=== PATIENT | female | born 1935 | race Caucasian/White ===

== ENCOUNTER 2022-04-01 15:12 | Emergency (ER) | payer OTHER ==
--- OUTSIDE RECORDS SUMMARY | 2022-04-01 15:38 | XMS REPORT | Continuity of Care Document ---
:1935 Author Organization [facility] t Address [address] [place] [address] Care Team Providers Name Role Phone Nathan Stephen MD Primary Care Physician [id number] Attending Clinician Unavailable Doctor Unassigned, Thiells Attending Clinician Unavailable Hannah Davison Anavella Attending Clinician Unava ilable Nancy Petit V Attending Clinician Unavailable Quincy Haines Attending Clinician Unavailable KNOW, DOES_NOT Attending Clinician Unavailable Jamin Finney Attending Clinician Unavailable Rajnancy_Pat Attending Clinician Unavailable Donya Craig Attending Clinician DONYA TAVARES Attending Clinician Unavailable Ferdinand Wallace S Attending Clinician MAURA THORNTON Attending Clinician Unavailable Maura Thornton MD Attending Clinician 1, [facility] Attending Clinician Unavailable [facility], [facility] Attending Clinician Unavailable Rodolfo Tijerina MD Attending Clinician [id number] Admitting Clinician Unavailable CARMEN LANDAVERDE Admitting Clinician Unavailable Jordon-Jose Rafael, Anav, Anav Admitting Clinician Unavailable KNOW, DOES_NOT Admitting Clinician Unavailable Jamin Finney Admitting Clinician Unavailable Rajnancy_Pat Admitting Clinician Unavailable DONYA TAVARES Admitting Clinician Unavailable NATHAN STEPHEN Admitting Clinician Unavailable Payers Payer Name Policy Type Policy Number Effective Date Expiration Date S jen [employer] [id number] [facility] [id number] Problems Condition Condition Condition Status Onset Resolution Last Treating Co mments Source Name Details Category Date Date Treatment Clinician Date Atypical 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 Unive rs chest pain chest pain 0-17 it y of 00:00: [place] [facility] Dizzy Dizzy Disease Active 2018-08 [facility] spells spells 0-17 ity of 00:00: [place] [facility] Essential Essential Disease Active 2018-08 Uni vers hypertensi hypertensi 0-17 it y of on on 00:00: [place] [facility] Dyslipidem Dyslipidem Disease Active 2018-08 U nivers ia ia 0-17 ity of 00:00: [place] [facility] KING (acute KING (acute Disease Active 2018-08 U nivers kidney kidney 0-16 ity of injury) injury) 00:00: [place] [id number] Medical Branch Pain Pain Disease Active Univers aggravated aggravated 2-18 it y of by by 00:00: [place] standing standing 00 Medica l Branch 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 low back 6-17 it y of pain pain 00:00: [place] [facility] "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-26 ity of syndrome syndrome 00:00: [place] [facility] 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 8-25 it[facility] of insufficie insuffic[place] [facility] [facility] CHF CHF Disease Active [facility] (congestiv (congestiv 8-25 it y of e heart e heart 00:00: [place] failure) failure) 00 Medica l Branch Allergies, Adverse Reactions, Alerts Allergy Allergy Status Severity Reaction(s) Onset Inactive Treating Comm ents Source Name Type Date Date Clinician Sulfa Propensi Active Itching Univers (Sulfona ty to 8-25 ity of mide adverse 00:00: [place] Antibiot reaction 00 Medica l ics) s Branch LATEX DRUG Active Rash Univers INGREDI 8-25 ity of 00:00: [place] 00 Medical Branch QUININE DRUG Active Anxiety Univers INGREDI 8-25 ity of 00:00: [place] 00 Medical Branch SULFA Drug Active ITCHING Univers (SULFONA Class 8-25 ity of MIDE 00:00: [place] ANTIBIOT 00 Medical ICS) Branch Latex Propensi Active Rash Univers ty to 8-25 ity of adverse 00:00: [place] reaction 00 Medical s Branch Quinine Propensi Active Anxiety Univer s ty to 8-25 ity of adverse 00:00: [place] reaction 00 Medical s Branch Social History Social Habit Start Date Stop Date Quantity Comments Source Alcohol intake 2019-04-10 2019-04-10 0 /d [facility] 00:00:00 00:00:00 [facility] [place] Tobacco use and 2015-03-31 2015-03-31 Never used [facility] exposure 00:00:00 00:00:00 [facility] [place] Sex Ass[birth year] [facility] 00:00:00 00:00:00 Medical Branch Smoking Status Start Date Stop Date Source Never smoker [facility] Medications Ordered Filled Start Stop Current Ordering Indication Dosage Frequency Signature Comments Components Source Medication Medication Date Date Medication? Clinician (SIG) Name Name clindamycin 2020- No [id number] 450mg Take 3 Univers 150 mg 10-27- capsules ity of capsule 00:00: 04:59 by mouth 3 Lg as 00 :00 (three) Medical times [place] daily for 7 days. colchicine 2019- No .6mg 0.6 mg, Uni vers (COLCRYS) 10-26 Oral, ity of tablet 0.6 22:47: 23:02 ONCE, 1 Lg as mg 00 :00 dose, [facility] 10/27/19 at Branch 1800, BARBIE ibuprofen 2019- No 600mg 600 mg, Uni vers (IBU) 10-26 Oral, ity of tablet 600 22:45: 21:56 ONCE, 1 Lg as mg 00 :00 dose, [facility] 10/27/19 at Branch 1745, BARBIE colchicine 2019- No 1.2mg 1.2 mg, Un goran (COLCRYS) 10-26 Oral, ity of tablet 1.2 22:45: 21:56 ONCE, 1 Lg as mg 00 :00 dose, Mon [facility] 10/27/19 at Branch 1745, BARBIE clindamycin 2020- No 600mg 600 mg, IV Univers in 5 % 10-26 Piggyback, ity of dextrose 22:00: 21:29 ONCE, 1 [place] (CLEOCIN) 00 :00 dose, Mon Medic al 600 mg/50 10/27/19 at [facility] ch mL IV 1700, 50 piggyback mL
Reas RTU 600 mg on for Anti-Infec tive: Documented Infection< br>Documen sathya Infection Site: Skin / Soft Tissue
Duration of Therapy: Other (see Comments)< br>Restric sathya use approved by: [facility] [employer] colchicine 2020- No [id number] .6mg Take 1 Univers 0.6 mg 10-26 tablet by ity of tablet 00:00: 04:59 mouth [place] 00 :00 daily for Medical 5 days. Branch Take until flare up resolves furosemide 2018-08 Yes 40mg Take 40 mg U nivers 40 mg 0-17 by mouth ity of tablet 22:49: daily. [address] Branch atenolol 25 2018-08 Yes 25mg Take 25 mg Univers mg tablet 0-17 by mouth ity of 22:49: daily. [address] gabapentin 2018-08 Yes 400mg Take 400 Un goran 400 mg 0-17 mg by ity of capsule 22:49: mouth 3 [place] [address] (three) Medical times Branch daily. omeprazole 2018-08 Yes 20mg Take 20 mg U nivers 20 mg 0-17 by mouth ity of capsule 22:49: daily. [address] Branch losartan-hy 2018- Yes 1{tbl} Take 1 Un goran drochloroth 0-17 tablet by ity of iazide 22:49: mouth [place] 50-12.5 mg 52 daily. Medical per tablet Branch HYDROcodone 2018-08 Yes 1{tbl} Take 1 Un goran -acetaminop 0-17 tablet by ity of hen 5-325 22:49: mouth [place] mg tablet 52 every 6 Medical (six) Branch hours as needed. furosemide 2018-08 Yes 40mg Take 40 mg U nivers 40 mg 0-17 by mouth ity of tablet 22:49: daily. [address] atenolol 25 2018-08 Yes 25mg Take 25 mg Univers mg tablet 0-17 by mouth ity of 22:49: daily. [address] gabapentin 2018-08 Yes 400mg Take 400 Un [facility]an 400 mg 0-17 mg by ity of capsule 22:49: mouth 3 [place] [address] (three) Medical times Branch daily. omeprazole 2018-08 Yes 20mg Take 20 mg U nivers 20 mg 0-17 by mouth ity of capsule 22:49: daily. [address] losartan-hy 2018-08 Yes 1{tbl} Take 1 Un [facility]an drochloroth 0-17 tablet by ity of iazide 22:49: mouth [place] 50-12.5 mg 52 daily. Medical per tablet Branch HYDROcodone 2018-08 Yes 1{tbl} Take 1 Un goran -acetaminop 0-17 tablet by ity of hen 5-325 22:49: mouth [place] mg tablet 52 every 6 Medical (six) Branch hours as needed. furosemide 2018-08 Yes 40mg Take 40 mg U nivers 40 mg 0-17 by mouth ity of tablet 22:49: daily. [address] atenolol 25 2018-08 Yes 25mg Take 25 mg Univers mg tablet 0-17 by mouth ity of 22:49: daily. [address] gabapentin 2018-08 Yes 400mg Take 400 Un [facility] 400 mg 0-17 mg by ity of capsule 22:49: mouth 3 [place] [address] (three) Medical times Branch daily. omeprazole 2018-08 Yes 20mg Take 20 mg U nivers 20 mg 0-17 by mouth ity of capsule 22:49: daily. [address] losartan-hy 2018- Yes 1{tbl} Take 1 Un goran drochloroth 0-17 tablet by ity of iazide 22:49: mouth [place] 50-12.5 mg 52 daily. Medical per tablet Branch HYDROcodone 2018-08 Yes 1{tbl} Take 1 Un goran -acetaminop 0-17 tablet by ity of hen 5-325 22:49: mouth [place] mg tablet 52 every 6 Medical (six) Branch hours as needed. furosemide 2018-08 Yes 40mg Take 40 mg U nivers 40 mg 0-17 by mouth ity of tablet 22:49: daily. [address] atenolol 25 2018-08 Yes 25mg Take 25 mg Univers mg tablet 0-17 by mouth ity of 22:49: daily. [address] gabapentin 2018-08 Yes 400mg Take 400 Un [facility] 400 mg 0-17 mg by ity of capsule 22:49: mouth 3 [place] [address] (three) Medical times Branch daily. omeprazole 2018-08 Yes 20mg Take 20 mg U nivers 20 mg 0-17 by mouth ity of capsule 22:49: daily. [address] losartan-hy 2018-08 Yes 1{tbl} Take 1 Un [facility]an drochloroth 0-17 tablet by ity of iazide 22:49: mouth [place] 50-12.5 mg 52 daily. Medical per tablet Branch HYDROcodone 2018-08 Yes 1{tbl} Take 1 Un goran -acetaminop 0-17 tablet by ity of hen 5-325 22:49: mouth [place] mg tablet 52 every 6 Medical (six) Branch hours as needed. furosemide 2018-08 Yes 40mg Take 40 mg U nivers 40 mg 0-17 by mouth ity of tablet 17:49: daily. [address] atenolol 25 2018-08 Yes 25mg Take 25 mg Univers mg tablet 0-17 by mouth ity of 17:49: daily. [address] gabapentin 2018-08 Yes 400mg Take 400 Un [facility] 400 mg 0-17 mg by ity of capsule 17:49: mouth 3 [place] [address] (three) Medical times Branch daily. omeprazole 2018-08 Yes 20mg Take 20 mg U nivers 20 mg 0-17 by mouth ity of capsule 17:49: daily. [address] losartan-hy 2018-08 Yes 1{tbl} Take 1 Un [place] drochloroth 0-17 tablet by ity of iazide 17:49: mouth [place] 50-12.5 mg 52 daily. Medical per tablet Branch HYDROcodone 2018-08 Yes 1{tbl} Take 1 Un goran -acetaminop 0-17 tablet by ity of hen 5-325 17:49: mouth [place] mg tablet 52 every 6 Medical (six) Branch hours as needed. furosemide 2018-08 Yes 40mg Take 40 mg U nivers 40 mg 0-17 by mouth ity of tablet 17:49: daily. [address] atenolol 25 2018-08 Yes 25mg Take 25 mg Univers mg tablet 0-17 by mouth ity of 17:49: daily. [address] gabapentin 2018-08 Yes 400mg Take 400 Un goran 400 mg 0-17 mg by ity of capsule 17:49: mouth 3 [place] [address] (three) Medical times Branch daily. omeprazole 2018-08 Yes 20mg Take 20 mg U nivers 20 mg 0-17 by mouth ity of capsule 17:49: daily. [address] losartan-hy 2018-08 Yes 1{tbl} Take 1 Un [place] drochloroth 0-17 tablet by ity of iazide 17:49: mouth [place] 50-12.5 mg 52 daily. Medical per tablet Branch HYDROcodone 2018-08 Yes 1{tbl} Take 1 Un goran -acetaminop 0-17 tablet by ity of hen 5-325 17:49: mouth [place] mg tablet 52 every 6 Medical (six) Branch hours as needed. furosemide 2018-08 Yes 40mg Take 40 mg U nivers 40 mg 0-17 by mouth ity of tablet 17:49: daily. [address] atenolol 25 2018-08 Yes 25mg Take 25 mg Univers mg tablet 0-17 by mouth ity of 17:49: daily. [address] gabapentin 2018-08 Yes 400mg Take 400 Un [facility] 400 mg 0-17 mg by ity of capsule 17:49: mouth 3 [place] [address] (three) Medical times Branch daily. omeprazole 2018-08 Yes 20mg Take 20 mg U nivers 20 mg 0-17 by mouth ity of capsule 17:49: daily. [address] losartan-hy 2018- Yes 1{tbl} Take 1 Un [place] drochloroth 0-17 tablet by ity of iazide 17:49: mouth [place] 50-12.5 mg 52 daily. Medical per tablet Branch HYDROcodone 2018-08 Yes 1{tbl} Take 1 Un goran -acetaminop 0-17 tablet by ity of hen 5-325 17:49: mouth [place] mg tablet 52 every 6 Medical (six) Branch hours as needed. furosemide 2018-08 Yes 40mg Take 40 mg U nivers 40 mg 0-17 by mouth ity of tablet 17:49: daily. [address] atenolol 25 2018-08 Yes 25mg Take 25 mg Univers mg tablet 0-17 by mouth ity of 17:49: daily. [address] gabapentin 2018-08 Yes 400mg Take 400 Un [place] 400 mg 0-17 mg by ity of capsule 17:49: mouth 3 [place] [address] (three) Medical times Branch daily. omeprazole 2018-08 Yes 20mg Take 20 mg U nivers 20 mg 0-17 by mouth ity of capsule 17:49: daily. [address] losartan-hy 2018-08 Yes 1{tbl} Take 1 Un [place] drochloroth 0-17 tablet by ity of iazide 17:49: mouth [place] 50-12.5 mg 52 daily. Medical per tablet Branch HYDROcodone 2018-08 Yes 1{tbl} Take 1 Un goran -acetaminop 0-17 tablet by ity of hen 5-325 17:49: mouth [place] mg tablet 52 every 6 Medical (six) Branch hours as needed. furosemide 2018-08 Yes 40mg Take 40 mg U nivers 40 mg 0-17 by mouth ity of tablet 17:49: daily. [address] atenolol 2018-08 Yes 25mg Take 25 mg Univers mg tablet 0-17 by mouth ity of 17:49: daily. [address] gabapentin 2018-08 Yes 400mg Take 400 Un [place] 400 mg 0-17 mg by ity of capsule 17:49: mouth 3 [place] [address] (three) Medical times Branch daily. omeprazole 2018-08 Yes 20mg Take 20 mg U nivers 20 mg 0-17 by mouth ity of capsule 17:49: daily. [address] losartan-hy 2018-08 Yes 1{tbl} Take 1 Un [place] drochloroth 0-17 tablet by ity of iazide 17:49: mouth [place] 50-12.5 mg 52 daily. Medical per tablet Branch HYDROcodone 2018-08 Yes 1{tbl} Take 1 Un goran -acetaminop 0-17 tablet by ity of hen 5-325 17:49: mouth [place] mg tablet 52 every 6 Medical (six) Branch hours as needed. furosemide 2018-08 Yes 40mg Take 40 mg U nivers 40 mg 0-17 by mouth ity of tablet 17:49: daily. [address] atenolol 2018-08 Yes 25mg Take 25 mg Univers mg tablet 0-17 by mouth ity of 17:49: daily. [place] [address] Medical Branch gabapentin 2018-08 Yes 400mg Take 400 Un [place] 400 mg 0-17 mg by ity of capsule 17:49: mouth 3 [place] [address] (three) Medical times Branch daily. omeprazole 2018-08 Yes 20mg Take 20 mg U nivers 20 mg 0-17 by mouth ity of capsule 17:49: daily. [place] [address] Medical Branch losartan-hy 2018-08 Yes 1{tbl} Take 1 Un [place] drochloroth 0-17 tablet by ity of iazide 17:49: mouth [place] 50-12.5 mg 52 daily. Medical per tablet Branch HYDROcodone 2018-08 Yes 1{tbl} Take 1 Un goran -acetaminop 0-17 tablet by ity of hen 5-325 17:49: mouth [place] mg tablet 52 every 6 Medical (six) Branch hours as needed. losartan-hy Yes 1{tbl} Take 1 Un [place] drochloroth 6-07 tablet by ity of iazide 20:11: mouth [place] 50-12.5 mg 07 daily. Medical per tablet Branch losartan-hy Yes 1{tbl} Take 1 Un [place] drochloroth 6-07 tablet by ity of iazide 20:11: mouth [place] 50-12.5 mg 07 daily. Medical per tablet Branch losartan-hy Yes 1{tbl} Take 1 Un [place] drochloroth 6-07 tablet by ity of iazide 20:11: mouth [place] 50-12.5 mg 07 daily. Medical per tablet Branch losartan-hy Yes 1{tbl} Take 1 Un [place] drochloroth 6-07 tablet by ity of iazide 20:11: mouth [place] 50-12.5 mg 07 daily. Medical per tablet Branch losartan-hy Yes 1{tbl} Take 1 Un [place] drochloroth 6-07 tablet by ity of iazide 20:11: mouth [place] 50-12.5 mg 07 daily. Medical per tablet Branch losartan-hy Yes 1{tbl} Take 1 Un [place] drochloroth 6-07 tablet by ity of iazide 20:11: mouth [place] 50-12.5 mg 07 daily. Medical per tablet Branch losartan-hy Yes 1{tbl} Take 1 Un [place] drochloroth 6-07 tablet by ity of iazide 20:11: mouth [place] 50-12.5 mg 07 daily. Medical per tablet Branch losartan-hy Yes 1{tbl} Take 1 Un [place] drochloroth 6-07 tablet by ity of iazide 20:11: mouth [place] 50-12.5 mg 07 daily. Medical per tablet Branch losartan-hy Yes 1{tbl} Take 1 Un [place] drochloroth 6-07 tablet by ity of iazide 20:11: mouth [place] 50-12.5 mg 07 daily. Medical per tablet Branch losartan-hy Yes 1{tbl} Take 1 Un [place] drochloroth 6-07 tablet by ity of iazide 20:11: mouth [place] 50-12.5 mg 07 daily. Medical per tablet Branch losartan-hy Yes 1{tbl} Take 1 Un [place] drochloroth 6-07 tablet by ity of iazide 20:11: mouth [place] 50-12.5 mg 07 daily. Medical per tablet Branch losartan-hy Yes 1{tbl} Take 1 Un [place] drochloroth 6-07 tablet by ity of iazide 20:11: mouth [place] 50-12.5 mg 07 daily. Medical per tablet Branch losartan-hy Yes 1{tbl} Take 1 Un [place] drochloroth 6-07 tablet by ity of iazide 20:11: mouth [place] 50-12.5 mg 07 daily. Medical per tablet Branch furosemide Yes 40mg Take 40 mg U nivers 40 mg 6-07 by mouth ity of tablet 19:53: daily. [place] [address] Medical Branch atenolol 25 Yes 25mg Take 25 mg Univers mg tablet 6-07 by mouth ity of 19:53: daily. [place] [address] Medical Branch gabapentin 2018- Yes 400mg Take 400 Un gor[facility] 400 mg 6-07 mg by ity of capsule 19:53: mouth 3 [place] 40 (three) Medical times Branch daily. omeprazole Yes 20mg Take 20 mg U nivers 20 mg 6-07 by mouth ity of capsule 19:53: daily. [place] [address] Medical Branch HYDROcodone 2019-0 Yes 1{tbl} Take 1 Un goran -acetaminop 6-07 tablet by ity of hen 5-325 19:53: mouth [place] mg tablet 40 every 6 Medical (six) Branch hours as needed. furosemide 2019-0 Yes 40mg Take 40 mg U nivers 40 mg 6-07 by mouth ity of tablet 19:53: daily. [address] atenolol 25 Yes 25mg Take 25 mg Univers mg tablet 6-07 by mouth ity of 19:53: daily. [address] gabapentin 2018- Yes 400mg Take 400 Un [place] 400 mg 6-07 mg by ity of capsule 19:53: mouth 3 [place] [address] (three) Medical times Branch daily. omeprazole 2018- Yes 20mg Take 20 mg U nivers 20 mg 6-07 by mouth ity of capsule 19:53: daily. [address] HYDROcodone Yes 1{tbl} Take 1 Un goran -acetaminop 6-07 tablet by ity of hen 5-325 19:53: mouth [place] mg tablet 40 every 6 Medical (six) Branch hours as needed. furosemide 2018- Yes 40mg Take 40 mg U nivers 40 mg 6-07 by mouth ity of tablet 19:53: daily. [address] atenolol 25 Yes 25mg Take 25 mg Univers mg tablet 6-07 by mouth ity of 19:53: daily. [address] gabapentin 2018-0 Yes 400mg Take 400 Un [place] 400 mg 6-07 mg by ity of capsule 19:53: mouth 3 [place] [address] (three) Medical times Branch daily. omeprazole 2019-0 Yes 20mg Take 20 mg U nivers 20 mg 6-07 by mouth ity of capsule 19:53: daily. [address] HYDROcodone 2018-0 Yes 1{tbl} Take 1 Un goran -acetaminop 6-07 tablet by ity of hen 5-325 19:53: mouth [place] mg tablet 40 every 6 Medical (six) Branch hours as needed. furosemide 2019-0 Yes 40mg Take 40 mg U nivers 40 mg 6-07 by mouth ity of tablet 19:53: daily. [address] atenolol 25 Yes 25mg Take 25 mg Univers mg tablet 6-07 by mouth ity of 19:53: daily. [address] gabapentin 2019-0 Yes 400mg Take 400 Un [place] 400 mg 6-07 mg by ity of capsule 19:53: mouth 3 [place] [address] (three) Medical times [place] daily. omeprazole 2019-0 Yes 20mg Take 20 mg U nivers 20 mg 6-07 by mouth ity of capsule 19:53: daily. [address] HYDROcodone 2019-0 Yes 1{tbl} Take 1 Un goran -acetaminop 6-07 tablet by ity of hen 5-325 19:53: mouth [place] mg tablet 40 every 6 Medical (six) Branch hours as needed. furosemide 2019-0 Yes 40mg Take 40 mg U nivers 40 mg 6-07 by mouth ity of tablet 19:53: daily. [address] atenolol 25 2018-0 Yes 25mg Take 25 mg Univers mg tablet 6-07 by mouth ity of 19:53: daily. [address] gabapentin 2019-0 Yes 400mg Take 400 Un [place] 400 mg 6-07 mg by ity of capsule 19:53: mouth 3 [place] [address] (three) Medical times [place] daily. omeprazole 2019-0 Yes 20mg Take 20 mg U nivers 20 mg 6-07 by mouth ity of capsule 19:53: daily. [address] HYDROcodone 2019-0 Yes 1{tbl} Take 1 Un goran -acetaminop 6-07 tablet by ity of hen 5-325 19:53: mouth [place] mg tablet 40 every 6 Medical (six) Branch hours as needed. furosemide 2019-0 Yes 40mg Take 40 mg U nivers 40 mg 6-07 by mouth ity of tablet 19:53: daily. [address] atenolol 25 2019-0 Yes 25mg Take 25 mg Univers mg tablet 6-07 by mouth ity of 19:53: daily. [address] gabapentin 2019-0 Yes 400mg Take 400 Un [place] 400 mg 6-07 mg by ity of capsule 19:53: mouth 3 [place] [address] (three) Medical times [place] daily. omeprazole 2019-0 Yes 20mg Take 20 mg U nivers 20 mg 6-07 by mouth ity of capsule 19:53: daily. [address] HYDROcodone 2019-0 Yes 1{tbl} Take 1 Un goran -acetaminop 6-07 tablet by ity of hen 5-325 19:53: mouth [place] mg tablet 40 every 6 Medical (six) Branch hours as needed. furosemide 2019-0 Yes 40mg Take 40 mg U nivers 40 mg 6-07 by mouth ity of tablet 19:53: daily. [address] atenolol 25 Yes 25mg Take 25 mg Univers mg tablet 6-07 by mouth ity of 19:53: daily. [address] gabapentin 2018-0 Yes 400mg Take 400 Un [place] 400 mg 6-07 mg by ity of capsule 19:53: mouth 3 [place] 40 (three) Medical times Branch daily. omeprazole 2019-0 Yes 20mg Take 20 mg U nivers 20 mg 6-07 by mouth ity of capsule 19:53: daily. [address] HYDROcodone 2018-0 Yes 1{tbl} Take 1 Un goran -acetaminop 6-07 tablet by ity of hen 5-325 19:53: mouth [place] mg tablet 40 every 6 Medical (six) Branch hours as needed. furosemide 2018- Yes 40mg Take 40 mg U nivers 40 mg 6-07 by mouth ity of tablet 19:53: daily. [address] atenolol Yes 25mg Take 25 mg Univers mg tablet 6-07 by mouth ity of 19:53: daily. [address] gabapentin 2018-0 Yes 400mg Take 400 Un [place] 400 mg 6-07 mg by ity of capsule 19:53: mouth 3 [place] [address] (three) Medical times [place] daily. omeprazole 2019-0 Yes 20mg Take 20 mg U nivers 20 mg 6-07 by mouth ity of capsule 19:53: daily. [address] HYDROcodone 2018-0 Yes 1{tbl} Take 1 Un goran -acetaminop 6-07 tablet by ity of hen 5-325 19:53: mouth [place] mg tablet 40 every 6 Medical (six) Branch hours as needed. furosemide 2019-0 Yes 40mg Take 40 mg U nivers 40 mg 6-07 by mouth ity of tablet 19:53: daily. [address] atenolol 25 0 Yes 25mg Take 25 mg Univers mg tablet 6-07 by mouth ity of 19:53: daily. [address] gabapentin 2018-0 Yes 400mg Take 400 Un [place] 400 mg 6-07 mg by ity of capsule 19:53: mouth 3 [place] 40 (three) Medical times Branch daily. omeprazole 2019-0 Yes 20mg Take 20 mg U nivers 20 mg 6-07 by mouth ity of capsule 19:53: daily. [address] HYDROcodone 2019-0 Yes 1{tbl} Take 1 Un goran -acetaminop 6-07 tablet by ity of hen 5-325 19:53: mouth [place] mg tablet 40 every 6 Medical (six) Branch hours as needed. furosemide 2019-0 Yes 40mg Take 40 mg U nivers 40 mg 6-07 by mouth ity of tablet 19:53: daily. [address] atenolol 25 2018-0 Yes 25mg Take 25 mg Univers mg tablet 6-07 by mouth ity of 19:53: daily. [address] gabapentin 2019-0 Yes 400mg Take 400 Un [place] 400 mg 6-07 mg by ity of capsule 19:53: mouth 3 [place] [address] (three) Medical times Branch daily. omeprazole 2019-0 Yes 20mg Take 20 mg U nivers 20 mg 6-07 by mouth ity of capsule 19:53: daily. [address] HYDROcodone 2019-0 Yes 1{tbl} Take 1 Un goran -acetaminop 6-07 tablet by ity of hen 5-325 19:53: mouth [place] mg tablet 40 every 6 Medical (six) Branch hours as needed. furosemide 2019-0 Yes 40mg Take 40 mg U nivers 40 mg 6-07 by mouth ity of tablet 19:53: daily. [address] atenolol 25 2018-0 Yes 25mg Take 25 mg Univers mg tablet 6-07 by mouth ity of 19:53: daily. [address] gabapentin 2019-0 Yes 400mg Take 400 Un [place] 400 mg 6-07 mg by ity of capsule 19:53: mouth 3 [place] [address] (three) Medical times Branch daily. omeprazole 2019-0 Yes 20mg Take 20 mg U nivers 20 mg 6-07 by mouth ity of capsule 19:53: daily. [address] HYDROcodone 2019-0 Yes 1{tbl} Take 1 Un goran -acetaminop 6-07 tablet by ity of hen 5-325 19:53: mouth [place] mg tablet 40 every 6 Medical (six) Branch hours as needed. furosemide 2019-0 Yes 40mg Take 40 mg U nivers 40 mg 6-07 by mouth ity of tablet 19:53: daily. [address] atenolol 25 Yes 25mg Take 25 mg Univers mg tablet 6-07 by mouth ity of 19:53: daily. [address] gabapentin 2019-0 Yes 400mg Take 400 Un [place] 400 mg 6-07 mg by ity of capsule 19:53: mouth 3 [place] [address] (three) Medical times [place] daily. omeprazole 2019- Yes 20mg Take 20 mg U nivers 20 mg 6-07 by mouth ity of capsule 19:53: daily. [address] HYDROcodone 2018- Yes 1{tbl} Take 1 Un gor[facility] -acetaminop 6-07 tablet by ity of hen 5-325 19:53: mouth [place] mg tablet 40 every 6 Medical (six) Branch hours as needed. furosemide Yes 40mg Take 40 mg U nivers 40 mg 6-07 by mouth ity of tablet 19:53: daily. [address] atenolol Yes 25mg Take 25 mg Univers mg tablet 6-07 by mouth ity of 19:53: daily. [address] gabapentin 2018- Yes 400mg Take 400 Un [place] 400 mg 6-07 mg by ity of capsule 19:53: mouth 3 [place] [address] (three) Medical times [place] daily. omeprazole 2019- Yes 20mg Take 20 mg U nivers 20 mg 6-07 by mouth ity of capsule 19:53: daily. [address] HYDROcodone 2018-0 Yes 1{tbl} Take 1 Un [facility] -acetaminop 6-07 tablet by ity of hen 5-325 19:53: mouth [place] mg tablet 40 every 6 Medical (six) Branch hours as needed. levothyroxi 2019-0 Yes Univer s ne 88 mcg 4-03 ity of tablet 00:00: [address] levothyroxi 2018-0 Yes Univer s ne 88 mcg 4-03 ity of tablet 00:00: [address] levothyroxi 2018-0 Yes Univer s ne 88 mcg 4-03 ity of tablet 00:00: [address] levothyroxi 2018-0 Yes Univer s ne 88 mcg 4-03 ity of tablet 00:00: [place] 00 [facility] levothyroxi 2019-[address] [place] [address] mcg 4-03 ity of tablet 00:00: [place] 00 [facility] levothyroxi 2019-0 Yes [place] 88 mcg 4-03 ity of tablet 00:00: [place] 00 [facility] levothyroxi 2019-0 Yes [place] 88 mcg 4-03 ity of tablet 00:00: [place] 00 [facility] levothyroxi 2019-0 Yes [place] 88 mcg 4-03 ity of tablet 00:00: [place] 00 [facility] levothyroxi 2019-0 Yes [place] 88 mcg 4-03 ity of tablet 00:00: [place] [address] [facility] Branch levothyroxi 2019-0 Yes [place] 88 mcg 4-03 ity of tablet 00:00: [place] [address] [facility] Branch levothyroxi 2019-0 Yes [place] 88 mcg 4-03 ity of tablet 00:00: [place] [address] [facility] Branch levothyroxi 2019-0 Yes [place] 88 mcg 4-03 ity of tablet 00:00: [place] [address] [facility] Branch levothyroxi 2019-0 Yes [place] 88 mcg 4-03 ity of tablet 00:00: [place] [address] [facility] Branch levothyroxi 2019-0 Yes [place] 88 mcg 4-03 ity of tablet 00:00: [place] [address] [facility] Branch levothyroxi 2019-0 Yes [place] 88 mcg 4-03 ity of tablet 00:00: [place] [address] [facility] Branch levothyroxi 2019-0 Yes [place] 88 mcg 4-03 ity of tablet 00:00: [place] [address] [facility] Branch levothyroxi 2019-0 Yes [place] 88 mcg 4-03 ity of tablet 00:00: [place] [address] [facility] Branch levothyroxi 2019-0 Yes [place] 88 mcg 4-03 ity of tablet 00:00: [place] [address] [facility] Branch levothyroxi 2019-0 Yes [place] 88 mcg 4-03 ity of tablet 00:00: [place] [address] [facility] Branch levothyroxi 2019-0 Yes [place] 88 mcg 4-03 ity of tablet 00:00: [place] [address] [facility] Branch levothyroxi 2019-0 Yes [place] 88 mcg 4-03 ity of tablet 00:00: [place] [address] [facility] Branch levothyroxi 2019-0 Yes Univer s ne 88 mcg 4-03 ity of tablet 00:00: [place] 00 [facility] levothyroxi 2019-0 Yes Univer s ne 88 mcg 4-03 ity of tablet 00:00: [place] 00 [facility] docusate 2019-0 Yes [id number] 100mg Take 1 U nivers 100 mg 2-22 capsule by ity of capsule 00:00: mouth [place] 00 daily. [facility] predniSONE 2019-0 Yes [id number] 40mg Take 2 Univers 20 mg 2-22 tablets by ity of tablet 00:00: mouth [place] 00 every 24 Medical (twenty-fo Branch ur) hours. docusate 2019-0 Yes [id number] 100mg Take 1 U nivers 100 mg 2-22 capsule by ity of capsule 00:00: mouth [place] 00 daily. [facility] predniSONE 2019-0 Yes [id number] 40mg Take 2 Univers 20 mg 2-22 tablets by ity of tablet 00:00: mouth [place] 00 every 24 Medical (twenty-fo Branch ur) hours. docusate 2019-0 Yes [id number] 100mg Take 1 U nivers 100 mg 2-22 capsule by ity of capsule 00:00: mouth [place] 00 daily. [facility] predniSONE 2019-0 Yes [id number] 40mg Take 2 Univers 20 mg 2-22 tablets by ity of tablet 00:00: mouth [place] 00 every 24 Medical (twenty-fo Branch ur) hours. docusate 2018-0 Yes [id number] 100mg Take 1 U nivers 100 mg 2-22 capsule by ity of capsule 00:00: mouth [place] 00 daily. [facility] Branch predniSONE 2019-0 Yes [id number] 40mg Take 2 Univers 20 mg 2-22 tablets by ity of tablet 00:00: mouth [place] 00 every 24 Medical (twenty-fo Branch ur) hours. docusate 2019-0 Yes [id number] 100mg Take 1 U nivers 100 mg 2-22 capsule by ity of capsule 00:00: mouth [place] 00 daily. [facility] predniSONE 2019-0 Yes [id number] 40mg Take 2 Univers 20 mg 2-22 tablets by ity of tablet 00:00: mouth [place] 00 every 24 Medical (twenty-fo Branch ur) hours. docusate 2019-0 Yes [id number] 100mg Take 1 U nivers 100 mg 2-22 capsule by ity of capsule 00:00: mouth [place] 00 daily. [facility] predniSONE 2019-0 Yes [id number] 40mg Take 2 Univers 20 mg 2-22 tablets by ity of tablet 00:00: mouth [place] 00 every 24 Medical (twenty-fo Branch ur) hours. docusate 2019-0 Yes [id number] 100mg Take 1 U nivers 100 mg 2-22 capsule by ity of capsule 00:00: mouth [place] 00 daily. [facility] predniSONE 2019-0 Yes [id number] 40mg Take 2 Univers 20 mg 2-22 tablets by ity of tablet 00:00: mouth [place] 00 every 24 Medical (twenty-fo Branch ur) hours. docusate 2019-0 Yes [id number] 100mg Take 1 U nivers 100 mg 2-22 capsule by ity of capsule 00:00: mouth [place] 00 daily. [facility] predniSONE 2019-0 Yes [id number] 40mg Take 2 Univers 20 mg 2-22 tablets by ity of tablet 00:00: mouth [place] 00 every 24 Medical (twenty-fo Branch ur) hours. docusate 2019-0 Yes [id number] 100mg Take 1 U nivers 100 mg 2-22 capsule by ity of capsule 00:00: mouth [place] 00 daily. [facility] docusate 2019-0 Yes [id number] 100mg Take 1 U nivers 100 mg 2-22 capsule by ity of capsule 00:00: mouth [place] 00 daily. [facility] predniSONE 2019-0 Yes [id number] 40mg Take 2 Univers 20 mg 2-22 tablets by ity of tablet 00:00: mouth [place] 00 every 24 Medical (twenty-fo Branch ur) hours. docusate 2019-0 Yes [id number] 100mg Take 1 U nivers 100 mg 2-22 capsule by ity of capsule 00:00: mouth [place] 00 daily. [facility] docusate 2019-0 Yes [id number] 100mg Take 1 U nivers 100 mg 2-22 capsule by ity of capsule 00:00: mouth [place] 00 daily. [facility] docusate 2019-0 Yes [id number] 100mg Take 1 U nivers 100 mg 2-22 capsule by ity of capsule 00:00: mouth [place] 00 daily. [facility] docusate 2019-0 Yes [id number] 100mg Take 1 U nivers 100 mg 2-22 capsule by ity of capsule 00:00: mouth [place] 00 daily. [facility] docusate 2019-0 Yes [id number] 100mg Take 1 U nivers 100 mg 2-22 capsule by ity of capsule 00:00: mouth [place] 00 daily. [facility] docusate 2018-0 Yes [id number] 100mg Take 1 U nivers 100 mg 2-22 capsule by ity of capsule 00:00: mouth [place] 00 daily. [facility] docusate Yes [id number] 100mg Take 1 U nivers 100 mg 2-22 capsule by ity of capsule 00:00: mouth [place] 00 daily. [facility] docusate Yes [id number] 100mg Take 1 U nivers 100 mg 2-22 capsule by ity of capsule 00:00: mouth [place] 00 daily. [facility] docusate Yes [id number] 100mg Take 1 U nivers 100 mg 2-22 capsule by ity of capsule 00:00: mouth [place] 00 daily. [facility] docusate Yes [id number] 100mg Take 1 U nivers 100 mg 2-22 capsule by ity of capsule 00:00: mouth [place] 00 daily. [facility] predniSONE 2018-0 Yes [id number] 40mg Take 2 Univers 20 mg 2-22 tablets by ity of tablet 00:00: mouth [place] 00 every 24 Medical (twenty-fo Branch ur) hours. docusate 0 Yes [id number] 100mg Take 1 U nivers 100 mg 2-22 capsule by ity of capsule 00:00: mouth [place] 00 daily. [facility] predniSONE 2019-0 Yes [id number] 40mg Take 2 Univers 20 mg 2-22 tablets by ity of tablet 00:00: mouth [place] 00 every 24 Medical (twenty-fo Branch ur) hours. docusate 2019-0 Yes [id number] 100mg Take 1 U nivers 100 mg 2-22 capsule by ity of capsule 00:00: mouth [place] 00 daily. [facility] predniSONE 2019-0 Yes [id number] 40mg Take 2 Univers 20 mg 2-22 tablets by ity of tablet 00:00: mouth [place] 00 every 24 Medical (twenty-fo Branch ur) hours. docusate 2019-0 Yes [id number] 100mg Take 1 U nivers 100 mg 2-22 capsule by ity of capsule 00:00: mouth [place] 00 daily. [facility] predniSONE 2019-0 Yes [id number] 40mg Take 2 Univers 20 mg 2-22 tablets by ity of tablet 00:00: mouth [place] 00 every 24 Medical (twenty-fo Branch ur) hours. carvedilol 2018-0 Yes 6.25mg Take 1 Uni vers 6.25 mg 6-21 tablet by ity of tablet 00:00: mouth 2 (two) Medical times Branch daily with meals. simvastatin 2018-0 Yes 20mg Take 1 Univ ers 20 mg 6-21 tablet by ity of tablet 00:00: mouth at [place] 00 bedtime. Medical [facility] aspirin 81 2018-0 Yes 81mg Take 1 Unive rs mg chewable 6-21 tablet by ity of tablet 00:00: mouth [place] 00 daily. [facility] clopidogrel 2018-0 Yes 75mg Take 1 Univ ers 75 mg 6-21 tablet by ity of tablet 00:00: mouth [place] 00 daily. [facility] carvedilol 2018-0 Yes 6.25mg Take 1 Uni vers 6.25 mg 6-21 tablet by ity of tablet 00:00: mouth 2 (two) Medical times Branch daily with meals. simvastatin 2018-0 Yes 20mg Take 1 Univ ers 20 mg 6-21 tablet by ity of tablet 00:00: mouth at [place] 00 bedtime. [facility] aspirin 81 2018-0 Yes 81mg Take 1 Unive rs mg chewable 6-21 tablet by ity of tablet 00:00: mouth [place] 00 daily. [facility] clopidogrel 2018-0 Yes 75mg Take 1 Univ ers 75 mg 6-21 tablet by ity of tablet 00:00: mouth [place] 00 daily. [facility] carvedilol 2018-0 Yes 6.25mg Take 1 Uni vers 6.25 mg 6-21 tablet by ity of tablet 00:00: mouth 2 (two) Medical times Branch daily with meals. simvastatin 2018-0 Yes 20mg Take 1 Univ ers 20 mg 6-21 tablet by ity of tablet 00:00: mouth at [place] 00 bedtime. Medical [facility] aspirin 81 2018-0 Yes 81mg Take 1 Unive rs mg chewable 6-21 tablet by ity of tablet 00:00: mouth [place] 00 daily. [facility] clopidogrel 2018-0 Yes 75mg Take 1 Univ ers 75 mg 6-21 tablet by ity of tablet 00:00: mouth [place] 00 daily. [facility] carvedilol 2018-0 Yes 6.25mg Take 1 Uni vers 6.25 mg 6-21 tablet by ity of tablet 00:00: mouth 2 (two) Medical times Branch daily with meals. simvastatin 2018-0 Yes 20mg Take 1 Univ ers 20 mg 6-21 tablet by ity of tablet 00:00: mouth at [place] 00 bedtime. [facility] aspirin 81 2018-0 Yes 81mg Take 1 Unive rs mg chewable 6-21 tablet by ity of tablet 00:00: mouth [place] 00 daily. [facility] clopidogrel 2018-0 Yes 75mg Take 1 Univ ers 75 mg 6-21 tablet by ity of tablet 00:00: mouth [place] 00 daily. [facility] carvedilol 2018-0 Yes 6.25mg Take 1 Uni vers 6.25 mg 6-21 tablet by ity of tablet 00:00: mouth (two) Medical times Branch daily with meals. simvastatin 2018-0 Yes 20mg Take 1 Univ ers 20 mg 6-21 tablet by ity of tablet 00:00: mouth at [place] 00 bedtime. [facility] aspirin 81 2018-0 Yes 81mg Take 1 Unive rs mg chewable 6-21 tablet by ity of tablet 00:00: mouth [place] 00 daily. [facility] clopidogrel 2018-0 Yes 75mg Take 1 Univ ers 75 mg 6-21 tablet by ity of tablet 00:00: mouth [place] 00 daily. [facility] carvedilol 2018-0 Yes 6.25mg Take 1 Uni vers 6.25 mg 6-21 tablet by ity of tablet 00:00: mouth (two) Medical times Branch daily with meals. simvastatin 2018-0 Yes 20mg Take 1 Univ ers 20 mg 6-21 tablet by ity of tablet 00:00: mouth at [place] 00 bedtime. [facility] aspirin 81 2018-0 Yes 81mg Take 1 Unive rs mg chewable 6-21 tablet by ity of tablet 00:00: mouth [place] 00 daily. [facility] clopidogrel 2018-0 Yes 75mg Take 1 Univ ers 75 mg 6-21 tablet by ity of tablet 00:00: mouth [place] 00 daily. [facility] carvedilol 2018-0 Yes 6.25mg Take 1 Uni vers 6.25 mg 6-21 tablet by ity of tablet 00:00: mouth 2 (two) Medical times Branch daily with meals. simvastatin 2018-0 Yes 20mg Take 1 Univ ers 20 mg 6-21 tablet by ity of tablet 00:00: mouth at [place] 00 bedtime. [facility] Branch carvedilol 2018-0 Yes 6.25mg Take 1 Uni vers 6.25 mg 6-21 tablet by ity of tablet 00:00: mouth 2 [place] 00 (two) Medical times Branch daily with meals. aspirin 81 2018-0 Yes 81mg Take 1 Unive rs mg chewable 6-21 tablet by ity of tablet 00:00: mouth [place] 00 daily. [facility] Branch clopidogrel 2018-0 Yes 75mg Take 1 Univ ers 75 mg 6-21 tablet by ity of tablet 00:00: mouth [place] 00 daily. [facility] Branch simvastatin 2018-0 Yes 20mg Take 1 Univ ers 20 mg 6-21 tablet by ity of tablet 00:00: mouth at [place] 00 bedtime. Medical Branch carvedilol 2018-0 Yes 6.25mg Take 1 Uni vers 6.25 mg 6-21 tablet by ity of tablet 00:00: mouth 2 (two) Medical times Branch daily with meals. simvastatin 2018-0 Yes 20mg Take 1 Univ ers 20 mg 6-21 tablet by ity of tablet 00:00: mouth at [place] 00 bedtime. [facility] aspirin 81 2018-0 Yes 81mg Take 1 Unive rs mg chewable 6-21 tablet by ity of tablet 00:00: mouth [place] 00 daily. [facility] aspirin 81 2018-0 Yes 81mg Take 1 Unive rs mg chewable 6-21 tablet by ity of tablet 00:00: mouth [place] 00 daily. [facility] clopidogrel 2018-0 Yes 75mg Take 1 Univ ers 75 mg 6-21 tablet by ity of tablet 00:00: mouth [place] 00 daily. [facility] clopidogrel 2018-0 Yes 75mg Take 1 Univ ers 75 mg 6-21 tablet by ity of tablet 00:00: mouth [place] 00 daily. [facility] simvastatin 2018-0 Yes 20mg Take 1 Univ ers 20 mg 6-21 tablet by ity of tablet 00:00: mouth at [place] 00 bedtime. [facility] aspirin 81 2018-0 Yes 81mg Take 1 Unive rs mg chewable 6-21 tablet by ity of tablet 00:00: mouth [place] 00 daily. [facility] clopidogrel 2018-0 Yes 75mg Take 1 Univ ers 75 mg 6-21 tablet by ity of tablet 00:00: mouth [place] 00 daily. [facility] Branch simvastatin 2018-0 Yes 20mg Take 1 Univ ers 20 mg 6-21 tablet by ity of tablet 00:00: mouth at [place] 00 bedtime. [facility] aspirin 81 2018-0 Yes 81mg Take 1 Unive rs mg chewable 6-21 tablet by ity of tablet 00:00: mouth [place] 00 daily. [facility] clopidogrel 2018-0 Yes 75mg Take 1 Univ ers 75 mg 6-21 tablet by ity of tablet 00:00: mouth [place] 00 daily. [facility] simvastatin 2018-0 Yes 20mg Take 1 Univ ers 20 mg 6-21 tablet by ity of tablet 00:00: mouth at [place] 00 bedtime. [facility] aspirin 81 2018-0 Yes 81mg Take 1 Unive rs mg chewable 6-21 tablet by ity of tablet 00:00: mouth [place] 00 daily. [facility] clopidogrel 2018-0 Yes 75mg Take 1 Univ ers 75 mg 6-21 tablet by ity of tablet 00:00: mouth [place] 00 daily. [facility] simvastatin 2018-0 Yes 20mg Take 1 Univ ers 20 mg 6-21 tablet by ity of tablet 00:00: mouth at [place] 00 bedtime. [facility] aspirin 81 2018-0 Yes 81mg Take 1 Unive rs mg chewable 6-21 tablet by ity of tablet 00:00: mouth [place] 00 daily. [facility] clopidogrel 2018-0 Yes 75mg Take 1 Univ ers 75 mg 6-21 tablet by ity of tablet 00:00: mouth [place] 00 daily. [facility] simvastatin 2018-0 Yes 20mg Take 1 Univ ers 20 mg 6-21 tablet by ity of tablet 00:00: mouth at [place] 00 bedtime. [facility] aspirin 81 2018-0 Yes 81mg Take 1 Unive rs mg chewable 6-21 tablet by ity of tablet 00:00: mouth [place] 00 daily. [facility] clopidogrel 2018-0 Yes 75mg Take 1 Univ ers 75 mg 6-21 tablet by ity of tablet 00:00: mouth [place] 00 daily. [facility] simvastatin 2018-0 Yes 20mg Take 1 Univ ers 20 mg 6-21 tablet by ity of tablet 00:00: mouth at [place] 00 bedtime. [facility] aspirin 81 2018-0 Yes 81mg Take 1 Unive rs mg chewable 6-21 tablet by ity of tablet 00:00: mouth [place] 00 daily. [facility] clopidogrel 2018-0 Yes 75mg Take 1 Univ ers 75 mg 6-21 tablet by ity of tablet 00:00: mouth [place] 00 daily. [facility] simvastatin 2018-0 Yes 20mg Take 1 Univ ers 20 mg 6-21 tablet by ity of tablet 00:00: mouth at [place] 00 bedtime. [facility] aspirin 81 2018-0 Yes 81mg Take 1 Unive rs mg chewable 6-21 tablet by ity of tablet 00:00: mouth [place] 00 daily. [facility] clopidogrel 2018-0 Yes 75mg Take 1 Univ ers 75 mg 6-21 tablet by ity of tablet 00:00: mouth [place] 00 daily. [facility] Branch simvastatin 2018-0 Yes 20mg Take 1 Univ ers 20 mg 6-21 tablet by ity of tablet 00:00: mouth at [place] 00 bedtime. [facility] aspirin 81 2018-0 Yes 81mg Take 1 Unive rs mg chewable 6-21 tablet by ity of tablet 00:00: mouth [place] 00 daily. [facility] clopidogrel 2018-0 Yes 75mg Take 1 Univ ers 75 mg 6-21 tablet by ity of tablet 00:00: mouth [place] 00 daily. [facility] Branch carvedilol 2018-0 Yes 6.25mg Take 1 Uni vers 6.25 mg 6-21 tablet by ity of tablet 00:00: mouth 2 [place] 00 (two) Medical times Branch daily with meals. simvastatin 2018-0 Yes 20mg Take 1 Univ ers 20 mg 6-21 tablet by ity of tablet 00:00: mouth at [place] 00 bedtime. Medical Branch aspirin 81 2018-0 Yes 81mg Take 1 Unive rs mg chewable 6-21 tablet by ity of tablet 00:00: mouth [place] 00 daily. [facility] Branch simvastatin 2018-0 Yes 20mg Take 1 Univ ers 20 mg 6-21 tablet by ity of tablet 00:00: mouth at [place] 00 bedtime. Medical Branch aspirin 81 2018-0 Yes 81mg Take 1 Unive rs mg chewable 6-21 tablet by ity of tablet 00:00: mouth [place] 00 daily. [facility] Branch clopidogrel 2018-0 Yes 75mg Take 1 Univ ers 75 mg 6-21 tablet by ity of tablet 00:00: mouth [place] 00 daily. [facility] Branch clopidogrel 2018-0 Yes 75mg Take 1 Univ ers 75 mg 6-21 tablet by ity of tablet 00:00: mouth [place] 00 daily. [facility] Branch simvastatin 2018-0 Yes 20mg Take 1 Univ ers 20 mg 6-21 tablet by ity of tablet 00:00: mouth at [place] 00 bedtime. Medical Branch aspirin 81 2018-0 Yes 81mg Take 1 Unive rs mg chewable 6-21 tablet by ity of tablet 00:00: mouth [place] 00 daily. [facility] Branch clopidogrel 2018-0 Yes 75mg Take 1 Univ ers 75 mg 6-21 tablet by ity of tablet 00:00: mouth [place] 00 daily. Medical Branch carvedilol 2018-0 Yes 6.25mg Take 1 Uni vers 6.25 mg 6-21 tablet by ity of tablet 00:00: mouth 2 00 (two) Medical times Branch daily with meals. simvastatin 2018-0 Yes 20mg Take 1 Univ ers 20 mg 6-21 tablet by ity of tablet 00:00: mouth at [place] 00 bedtime. Medical Branch aspirin 81 2018-0 Yes 81mg Take 1 Unive rs mg chewable 6-21 tablet by ity of tablet 00:00: mouth [place] 00 daily. Medical Branch clopidogrel 2018-0 Yes 75mg Take 1 Univ ers 75 mg 6-21 tablet by ity of tablet 00:00: mouth [place] 00 daily. Medical Branch carvedilol 2018-0 Yes 6.25mg Take 1 Uni vers 6.25 mg 6-21 tablet by ity of tablet 00:00: mouth 2 (two) Medical times Branch daily with meals. simvastatin 2018-0 Yes 20mg Take 1 Univ ers 20 mg 6-21 tablet by ity of tablet 00:00: mouth at [place] 00 bedtime. Medical Branch aspirin 81 2018-0 Yes 81mg Take 1 Unive rs mg chewable 6-21 tablet by ity of tablet 00:00: mouth [place] 00 daily. Medical Branch clopidogrel 2018-0 Yes 75mg Take 1 Univ ers 75 mg 6-21 tablet by ity of tablet 00:00: mouth [place] 00 daily. Medical Branch carvedilol 2018-0 Yes 6.25mg Take 1 Uni vers 6.25 mg 6-21 tablet by ity of tablet 00:00: mouth 2 (two) Medical times Branch daily with meals. simvastatin 2018-0 Yes 20mg Take 1 Univ ers 20 mg 6-21 tablet by ity of tablet 00:00: mouth at [place] 00 bedtime. Medical Branch aspirin 81 2018-0 Yes 81mg Take 1 Unive rs mg chewable 6-21 tablet by ity of tablet 00:00: mouth [place] 00 daily. Medical Branch clopidogrel 2018-0 Yes 75mg Take 1 Univ ers 75 mg 6-21 tablet by ity of tablet 00:00: mouth [place] 00 daily. Medical Branch Vital Signs Vital Name Observation Time Observation Value Comments Source Systolic blood 2019-10-27 22:00:00 147 mm[Hg] Univer sity of pressure [facility] Diastolic blood 2019-10-27 22:00:00 70 mm[Hg] Unive rsity of [facility] Heart rate 2019-10-27 22:00:00 59 /min Universi ty of [facility] Respiratory rate 2019-10-27 22:00:00 16 /min [facility] O[facility] saturation in 2019-10-27 22:00:00 96 /min [facility] Arterial blood by [facility] Pulse oximetry Branch Body temperature 2019-10-27 20:33:00 36.89 Mattie Univ ersity of [facility] Body weight 2019-10-27 20:33:00 77.111 kg Universi ty of [facility] BMI 2019-10-27 20:33:00 25.85 kg/m2 Universi ty [place] [facility] Systolic blood 2019-04-10 18:46:00 115 mm[Hg] Univer sity of [facility] Diastolic blood 2019-04-10 18:46:00 64 mm[Hg] Unive rsity of [facility] Heart rate 2019-04-10 18:46:00 94 /min Universi ty of [facility] Body height 2019-04-10 18:46:00 172.7 cm Universi ty of [facility] Body weight 2019-04-10 18:46:00 81.647 kg Universi ty of [facility] BMI 2019-04-10 18:46:00 27.37 kg/m2 Universi ty of [facility] Body weight 2019-03-21 19:23:00 81.647 kg Universi ty of [facility] [place] [facility] Branch BMI 2019-03-21 19:23:00 29.95 kg/m2 Universi ty of [facility] Body height 2019-03-20 14:32:00 165.1 cm Universi ty of [facility] Body weight 2019-03-20 14:32:00 81.647 kg Universi ty of [facility] BMI 2019-03-20 14:32:00 29.95 kg/m2 Universi ty [place] [facility] Systolic blood 2019-03-04 16:15:00 138 mm[Hg] Univer sity of pressure [facility] Diastolic blood 2019-03-04 16:15:00 60 mm[Hg] Unive rsity of pressure [facility] Heart rate 2019-03-04 16:15:00 64 /min Universi [facility] Body temperature 2019-03-04 16:15:00 36.39 Mattie [facility] Res[facility] rate 2019-03-04 16:15:00 16 /min [facility] Body height 2019-03-04 16:15:00 165.1 cm Universi ty [facility] Body weight 2019-03-04 16:15:00 81.647 kg [facility] BMI 2019-03-04 16:15:00 29.95 kg/m2 [facility] Procedures Procedure Date / Time Performing Clinician Source Performed HOME HEALTH - OTHER 2021-07-07 06:01:00 Doctor Unassigned, No Un [facility] of [facility] HOME HEALTH - OTHER 2021-06-21 06:01:00 Doctor Unassigned, No Un iversity of [facility] HOME HEALTH - OTHER 2021-06-01 05:01:00 Doctor Unassigned, No Un iversity of [facility] HOME HEALTH - OTHER 2021-05-24 05:01:00 Doctor Unassigned, No Un iversity of [facility] HOME HEALTH - OTHER 2021-05-10 05:01:00 Doctor Unassigned, No Un [facility]ity of [facility] HOME HEALTH - OTHER 2021-03-29 05:01:00 Doctor Unassigned, No Un iversity of [facility] CLINIC RECORD / SMR 2021-03-21 05:01:00 Doctor Unassigned, No Un iversity of [facility] [id number] 2021-01-28 00:00:00 E[facility] [id number] 2021-01-28 00:00:00 ENCPL [id number] 2021-01-28 00:00:00 ENCPL [id number] 2021-01-28 00:00:00 ENCPL [id number] 2021-01-28 00:00:00 ENCPL [id number] 2021-01-18 00:00:00 ENCPL [id number] 2021-01-18 00:00:00 ENCPL [id number] 2021-01-18 00:00:00 ENCPL [id number] 2021-01-18 00:00:00 ENCPL [id number] 2021-01-18 00:00:00 ENCPL XR WRIST 3+ VW LEFT 2019-10-27 21:13:49 Donya Tavares [facility] Medical Branch XR HAND 3+ VW LEFT 2019-10-27 21:13:34 Donya Tavares [facility] URIC ACID 2019-10-27 20:56:00 Donya Tavares [place] [facility] BASIC METABOLIC PANEL 2019-10-27 20:56:00 Donya Tavares [facility] (NA, K, CL, CO2, Medical Branch GLUCOSE, BUN, CREATININE, CA) CBC WITH DIFFERENTIAL 2019-10-27 20:56:00 Donya Tavares [facility] CONSENT/REFUSAL FOR 2019-10-27 20:21:16 Doctor Unassigned, No Un [facility] of [place] DIAGNOSIS AND TREATMENT Name Medical Branch HOME HEALTH - OTHER 2019-09-26 06:01:00 Doctor Unassigned, No Un [facility] of [place] Name Medical Branch NON [facility] 2019-03-26 05:01:00 Doctor Unassigned, No Univ ers[facility] of [place] DOCUMENTATION Name Medical Branch XR CHEST 2 VW 2019-03-20 17:10:47 Maura Thornton [facility] EKG-12 LEAD 2019-03-20 16:54:41 Doctor Unassigned, No [facility] [place] Name Medical Branch CONSENT/REFUSAL FOR 2019-03-20 16:10:12 Doctor Unassigned, No [facility] [place] DIAGNOSIS AND TREATMENT Name Medical Branch ASSIGNMENT OF BENEFITS 2019-03-20 16:08:11 Doctor Unassigned, [facility] Encounters Start End Encounter Admission Attending Care Care Encounter Source Date/Time Date/Time Type Type Clinicians Facility Department ID 2021-09-01 Outpatient [id number] [facility] REF [id number] E[facility] 12:17:49 0609 2021-07-07 2021-07-07 Orders Doctor ELAIDO [id number] Univers 00:00:00 00:00:00 Only Unassigned, BASSEM [id number] ity of [place] [id number] Lg as [id number] [address] 2021-06-27 2021-06-27 Outpatient R [facility] [id number] Univers 00:00:00 00:00:00 ity of [facility] 2021-06-22 2021-06-22 Outpatient R [facility] [id number] Univers 00:00:00 00:00:00 ity of [facility] 2021-06-21 2021-06-21 Orders Doctor ELADIO [id number] Univers 00:00:00 00:00:00 Only Unassigned, BASSEM [id number] [facility] of [place] [facility] [id number] Lg as [id number] [address] 2021-06-01 2021-06-01 Outpatient R [facility] [id number] Univers 00:00:00 00:00:00 [facility] [facility] 2021-06-01 2021-06-01 Orders Doctor ELADIO Hebert2.840.114 [id number] Univers 00:00:00 00:00:00 Only Unassigned, BASSEM 350.1.13.10 [facility] 4.2.7.2.686 Lg as [phone] [address] 2021-05-25 2021-05-25 Outpatient [facility] [id number] Univers 00:00:00 00:00:00 ity of [facility] 2021-05-24 2021-05-24 Orders Doctor ELADIO Hebert2.840.114 [id number] Univers 00:00:00 00:00:00 Only Unassigned, BASSEM 350.1.13.10 [facility] [place] 4.2.7.2.686 Lg as [phone] [address] 2021-05-10 2021-05-10 Orders Doctor ELADIO Hebert2.840.114 [id number] Univers 00:00:00 00:00:00 Only Unassigned, BASSEM 350.1.13.10 [facility] 4.2.7.2.686 Lg as [id number] [address] 2021-05-03 2021-05-03 Outpatient [facility] [id number] Univers 00:00:00 00:00:00 ity of [facility] 2021-04-26 2021-04-26 Outpatient [facility] [id number] Univers 00:00:00 00:00:00 ity of [facility] 2021-03-29 2021-03-29 Orders Doctor ELADIO 1.2.840.114 [id number] Univers 00:00:00 00:00:00 Only Unassigned, BASSEM 350.1.13.10 [facility] [place] 4.2.7.2.686 Lg as [phone] [address] 2021-03-21 2021-03-21 Orders Doctor ELADIO 1.2.840.114 [id number] Univers 00:00:00 00:00:00 Only Unassigned, BASSEM 350.1.13.10 [facility] [place] 4.2.7.2.686 Lg as [phone] [address] 2021-01-13 2021-01-31 Inpatient 3 [facility] ENCPL CVA 5551 ENCPL 14:22:00 14:54:00 temo, 0610 Hannah 2021-01-25 2021-01-25 Outpatient Jordon HCAPM LABO [id number] -[id number] [facility] 16:22:00 16:22:00 Jose Rafael [id number] Na fields [facility] 2021-01-25 2021-01-25 Outpatient Baca HCAPM RADI [id number] -[id number] [facility] 11:07:00 11:07:00 Huey [id number] fields [facility] 2021-01-25 2021-01-25 Outpatient LAURA HCACL LABO [id number] -20 [facility] 08:44:00 08:44:00 DOES_NOT [id number] [facility] 2021-01-24 2021-01-24 Outpatient Jamin Finney HCACL LABO LA5 3501-20 [facility] 19:55:00 19:55:00 [id number] [facility] 2021-01-24 2021-01-24 Outpatient Jamin Finney HCAPM LABO LA5 3501-20 [facility] 15:02:00 15:02:00 [id number] [facility] 2021-01-24 2021-01-24 Outpatient [place] HCACL LABO [id number] -20 [facility] 14:56:00 14:56:00 Kaitlynn Mantilla [facility] 2021-01-24 2021-01-24 Outpatient Jordon HCAPM LABO [id number] -[id number] [facility] 14:41:00 14:41:00 Kaitlynn Mantilla [facility] 2021-01-19 2021-01-19 Outpatient Jordon HCAPM LABO [id number] -20 [facility] 09:35:00 09:35:00 Hans Mantilla616 [facility] 2019-10-28 2019-10-28 Outpatient Raju_P MMG G [id number] 020 [place] 11:32:00 11:32:00 0[facility] 2019-10-27 2019-10-27 Emergency [facility] 1.2.486.563 [id number] Univers 15:28:56 18:24:00 Donya Winkler 350.1.13.10 i ty of [place] 4.2.7.2.686 [facility] [phone] [facility] [address] 2019-10-27 2019-10-27 Emergency X ANUSHA, [facility] ERT [id number] Univers 15:28:56 18:24:00 DONYA rodrigues of [facility] 2019-10-27 2019-10-27 Orders Doctor HENDRICKS 1.2.840.114 [id number] Univers 00:00:00 00:00:00 Only Unassigned, BASSEM 350.1.13.10 [facility] 4.2.7.2.686 [facility] [phone] [facility] [address] 2019-09-26 2019-09-26 Orders Doctor HENDRICKS 1.2.840.114 [id number] Univers 00:00:00 00:00:00 Only Unassigned, BASSEM 350.1.13.10 [facility] 4.2.7.2.686 Lg as [phone] [address] 2019-09-17 2019-09-17 Outpatient R [facility] [id number] Univers 00:00:00 00:00:00 ity of [facility] 2019-04-10 2019-04-10 Office Donato [facility] 1.2.840.114 [id number] Univers 13:46:13 14:32:35 Visit Ferdinand Fleming 350.1.13.10 it y of Surgical 4.2.7.2.686 Lg as Specialti [phone] Nc dical es 198 [facility] 2019-03-26 2019-03-26 [facility] N[facility] [id number] 25112 Univers 00:00:00 00:00:00 MAURA ity of [facility] 2019-03-26 2019-03-26 Orders Doctor HENDRICKS 1.2.840.114 [id number] Univers 00:00:00 00:00:00 Only Unassigned, BASSEM 350.1.13.10 [facility] 4.2.7.2.686 Lg as [phone] [address] 2019-03-21 2019-03-21 Telephone [facility] 1.2.840.114 [id number] Univers 00:00:00 00:00:00 Maura [facility] 350.1.13.10 it y of Surgical 4.2.7.2.686 Lg as Specialti [phone] Nc dical es 198 [facility] 2019-03-21 2019-03-21 Prep For [facility] 1.2.840.114 [id number] Univers 00:00:00 00:00:00 Surgery Maura [facility] 350.1.13.10 it y of Surgical 4.2.7.2.686 Lg as Specialti [phone] Nc dical es 198 [facility] 2019-03-20 2019-03-20 [facility] 1.2.840.114 [id number] Univers 11:08:03 23:59:00 Encounter Maura Winkler 350.1.13.10 ity of [place] 4.2.7.2.686 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 [phone] [facility] [address] 2019-03-20 2019-03-20 Hospital Ferdinand Sewell [facility] 1.2.840.11 4 [id number] Univers 11:07:54 11:07:54 Encounter Station, [facility] Heart [place] 350.1.13 .10 ity of [place] 4.2.7.2.686 [facility] [id number] [facility] [address] 2019-03-20 2019-03-20 Office Sewell [facility] 1.2.840.114 [id number] Univers 09:24:23 09:39:23 [facility] 350.1.13.10 [facility] y [facility] 4.2.7.2.686 Lg as Specialti [phone] Nc dical es 198 [facility] 2019-03-20 2019-03-20 Letter Raul [facility] 1.2.973.595 [id number] 9619 Univers 00:00:00 00:00:00 (Out) Maura Fleming 350.1.13.10 it y of Surgical 4.2.7.2.686 Lg as Specialti [phone] Nc dical es 198 [facility] 2019-03-04 2019-03-04 Office Breezy [facility] 1.2.840.114 [id number] Univers 10:17:23 11:01:19 Visit Rodolfo Connelly Cathi 350.1.13.10 ity of [place] 4.2.7.2.686 [facility] Professio [phone] Nc dical nal [address] Results Test Description Test Time Test Comments Results Result Comments Source CHEMISTRY MISCELLANEOUS TEST 2021-01-27 15:36:00 Test Item Value Reference Range Interpretation Comme nts [facility] CHEMISTR[facility] (test code = MISCCHEM) . DESCRIP. TEST NAME SAMPLE DESCRIPTION (test code = DESCRIPT) ORDERED SENDOUT TE ST ORDER DISPOSITION CHEMISTRY TEST [id number] 15:36:00 Test Item Value Reference Range Interpretation Comments CHEMISTRY TEST SEE RPT SENDOUT RPT RESULT: 0.11 RESULT (test code DESCRIP. ng/mLRefer ence = RESULTC) Internval: 0.00 -0.08 A procalcitonin ( PCT) level above 2.0 ng/mL on the firstday of ICU admission is associated with a high risk forprogres ethan to severe sepsis a nd/or septic shock.A PCT level below 0.5 ng/mL on the first da y of ICUadmission is associated with a low risk for progre ssionto severe sepsis a nd/or septic shock.No te: Concentrations <0.5 ng/mL do not ex clude aninfection, on account of loca lized infections (withoutsystemi c signs) which ca n be associated with such lowconcentratio ns, or a systemic infe ction in its initials tages (<6 hours).Furtherm ore, increased procalcitonin c an occur withoutinfectio n. PCT concentrations between 0.5 and 2.0 ng/mLshould be interpreted david ing into account th e patient'shistor y. It is recommended to retest PCT with in 6-24 hoursif any concentrations <2 ng/mL are obtai ivanna LHZ CHEMISTRY TEST [id number] 15:19:00 Test Item Value Reference Range Interpretation Comments CHEMISTRY TEST RESULT (test code = DESCRIP. SENDOUT RPT RESULTC) CHEMISTRY MISCELLANEOUS [id number] 15:19:00 Test Item Value Reference Range Interpretation Comments MISC CHEMISTRY (test code . DESCRIP. TEST NAME = MISCCHEM) SAMPLE DESCRIPTION (test ORDERED SENDOUT TEST DISPOSITION code = DESCRIPT) ORDER CBC W/AUTO [id number] 16:58:00 Test Item Value Reference Range Interpretation Comments WHITE BLOOD CELL 15.5 K/mm3 3.5-11.0 H (test code = WBC) RED BLOOD CELL (test 3.49 M/mm3 4.70-6.10 L code = RBC) HEMOGLOBIN (test code 10.0 G/DL 10.4-14.9 L = HGB) HEMATOCRIT (test code 30.9 % 31.5-44.1 L = HCT) MEAN CELL VOLUME 88.5 Fl 84.5-98.6 N (test code = MCV) MEAN CELL HGB (test 28.7 pg 27.0-34.2 N code = MCH) MEAN CELL HGB 32.4 G/DL 31.5-34.0 N CONCETRATION (test code = MCHC) RED CELL DISTRIBUTION 14.3 SD 11.5-14.5 N WIDTH (test code = RDW) PLATELET COUNT (test 406 K/mm3 150-450 N code = PLT) MEAN PLATELET VOLUME 10.60 fL 7.0-10.5 H (test code = MPV) NEUTROPHIL % (test 65.2 % 40-76 N code = NT%) IMMATURE GRANULOCYTE 1.3 % 0.0-5.0 N % (test code = IG%) LYMPHOCYTE % (test 16.2 % 20.5-51.1 L code = LY%) MONOCYTE % (test code 14.2 % 1.7-9.3 H = MO%) EOSINOPHIL % (test 2.6 % 0.0-6.0 N code = EO%) BASOPHIL % (test code 0.5 % 0.0-2.0 N = BA%) NUCLEATED RBC % (test 0.0 /100WBC% 0.0-1.0 N code = NRBC%) NEUTROPHIL # (test 10.1 K/mm3 1.8-7.6 H code = NT#) IMMATURE GRANULOCYTE 0.20 x10 3/uL 0.00-0.03 H # (test code = IG#) LYMPHOCYTE # (test 2.5 K/mm3 0.6-3.2 N code = LY#) MONOCYTE # (test code 2.2 K/mm3 0.3-1.1 H = MO#) EOSINOPHIL # (test 0.4 K/mm3 0.0-0.4 N code = EO#) BASOPHIL # (test code 0.1 K/mm3 0.0-0.1 N = BA#) NUCLEATED RBC # (test 0.0 K/mm3 0.0-0.1 N code = NRBC#) MANUAL DIFF REQUIRED NO DIFF/SCN CRITERIA SLIDE R EVIEW (test code = MDIFF) CONSISTA NT WITH AUTO DIFFERENTI AL. CBC W/AUTO [id number] 16:33:00 Test Item Value Reference Range Interpretation Comments WHITE BLOOD CELL (test code = WBC) 15.5 K/mm3 3.5-11.0 H RED BLOOD CELL (test code = RBC) 3.49 M/mm3 4.70-6.10 L HEMOGLOBIN (test code = HGB) 10.0 G/DL 10.4-14.9 L HEMATOCRIT (test code = HCT) 30.9 % 31.5-44.1 L MEAN CELL VOLUME (test code = MCV) 88.5 Fl 84.5-98.6 N MEAN CELL HGB (test code = MCH) 28.7 pg 27.0-34.2 N MEAN CELL HGB CONCETRATION (test 32.4 G/DL 31.5-34.0 N code = MCHC) RED CELL DISTRIBUTION WIDTH (test SD 11.5-14.5 N code = RDW) PLATELET COUNT (test code = PLT) 406 K/mm3 150-450 N MEAN PLATELET VOLUME (test code = fL 7.0-10.5 H MPV) NEUTROPHIL % (test code = NT%) % 40-76 N IMMATURE GRANULOCYTE % (test code % 0.0-5.0 N = IG%) LYMPHOCYTE % (test code = LY%) % 20.5-51.1 L MONOCYTE % (test code = MO%) % 1.7-9.3 H EOSINOPHIL % (test code = EO%) % 0.0-6.0 N BASOPHIL % (test code = BA%) % 0.0-2.0 N NUCLEATED RBC % (test code = /100WBC% 0.0-1.0 N NRBC%) NEUTROPHIL # (test code = NT#) K/mm3 1.8-7.6 H IMMATURE GRANULOCYTE # (test code x10 3/uL 0.00-0.03 H = IG#) LYMPHOCYTE # (test code = LY#) K/mm3 0.6-3.2 N MONOCYTE # (test code = MO#) K/mm3 0.3-1.1 H EOSINOPHIL # (test code = EO#) K/mm3 0.0-0.4 N BASOPHIL # (test code = BA#) K/mm3 0.0-0.1 N NUCLEATED RBC # (test code = K/mm3 0.0-0.1 N NRBC#) MANUAL DIFF REQUIRED (test code = DIFF/SCN CRITERIA MDIFF) - MRI LOW EXT W/O CONT [id number] 13:29:00 [facility] 1935 Sex: F FAX: Alfredo Little [phone] Camps: St: REG Name: HANNAH,LOI [facility] : 1935 Age/S: 85/F [address] Unit #: [id number] Loc: [place] [address] Phys: Quincy Haines MD Acct: [id number] Dis Date: Status: REG REF PHONE #: [phone] Exam Date: 01/25/2021 1324 FAX #: Reason: OSTEO EXAMS: CPT: [id number] MRI LOW EXT W/[place] [id number] EXAM: - MRI LOW EXT W/O CONT RT, - MRI LOWEXT W/O CONT RT HISTORY: Infection, osteomyelitis Location code:C3 COMPARISON: None available time of interpretation. TECHNIQUE: Multiplanar and multisequence MR images of the right tibia and fibula and right ankle were performed without intravenous contrast. FINDINGS: Bones: Susceptibility artifact about the knee orthopedic hardware is present. Patchy areas of abnormal decreased T1 and increased T2 signal intensity at the base of the 1st metatarsal and involving the distal medial cuneiform surrounding the 1st TMT joint is present. Additional areas of degenerative signal change about the midfoot and talonavicular joint is seen. Soft tissues: Ulceration plantar medial to the 1st TMT joint is seenwith T2 hyperintense cyst at the plantar medial aspect of the TMT joint measuring 9 x 7 mm in size. Increased T2 signal intensity within the dorsal subcutaneous tissues of the foot are present. Muscles/tendons: Abnormal increased T2 signal intensity in the musculature surrounding the interosseous ligament of the distal tibia and fibula is present. No tendinous disruption is seen. Mild increased T2 signal intensity in the short plantar flexor muscles is present. IMPRESSION: 1. Ulceration plantar medial to the 1st TMT joint is seen with adjacent 9 x 7 mm fluid collection and abnormal signal in the osseous structures about the 1st MTP joint. There is degenerative change throughout the mid foot and abnormal signal in the 1st TMT joint may be degenerative in nature however given the adjacent ulceration osteomyelitis is not excluded with the 9 mm fluid collection possibly representing abscess or ganglion cyst. 2. Dorsal subcutaneous edema about the visualized foot with myositis of the short plantar flexor muscles and in the musculature adjacent to the intraosseous ligament of the distal tibia and fibula. PAGE 1 Signed Report (CONTINUED) FAX: Alfredo Little [phone] Camps: St: REG---- Name: LOI YOUNG [facility] : 1935 Age/S: 85/F [address] [address] Unit #: [id number] Loc: [place] [address] Phys: Quincy Haines MD Acct: [id number] Dis Date: Status: REG REF PHONE #: [phone] Exam Date: 01/25/2021 8514 FAX #: Reason: OSTEO EXAMS: CPT: [id number] MRI LOW EXT W/[place] [address] <Continued> at 1329 Reported and signed by: Naren Power MD CC: Quincy Arzate MD Technologist: RT Armani(R)(MR) Transcribed Date/Time/By: 01/25/2021 (6285) :[email or web address] Orig Print D/T: S: 0 01/25/2021 (0248) PAGE 2 Signed Report- MRI LOW EXT W/O CONT [id number] 13:29:00[facility] : 1935 Sex: F FAX: Alfredo Little [phone] Camps: St: REG Name: LOI YOUNG [facility] : 1935 Age/S: 85/F [address] [address] Unit #: [id number] Loc: [place] [address] Phys: Quincy Haines MD Acct: [id number] Dis Date: Status: REG REF PHONE #: [phone] Exam Date: 01/25/2021 1236 FAX #: Reason : OSTEO EXAMS: CPT: [id number] MRI LOW EXT W/[place] [id number] EXAM: - MRI LOW EXT W/O CONT RT, - MRI LOW EXT W/O CONT RT HISTORY: Infection, osteomyelitis Location code:C3 COMPARISON: None available time of interpretation. TECHNIQUE: Multiplanar and multisequence MR images of the right tibia and fibulaand right ankle were performed without intravenous contrast. FINDINGS: Bones: Susceptibility artifact about the knee orthopedic hardware is present. Patchy areas of abnormal decreased T1 and increased T2 signal intensity at the base of the 1st metatarsal and involving the distal medial cuneiform surrounding the 1st TMT joint is present. Additional areas of degenerative signal change about the midfootand talonavicular joint is seen. Soft tissues: Ulceration plantar medial to the 1st TMT joint is seen with T2 hyperintense cyst at the plantar medial aspect of the TMT joint measuring 9 x 7 mm in size.Increased T2 signal intensity within the dorsal subcutaneous tissues of the foot are present. Muscles /tendons: Abnormal increased T2 signal intensity in the musculature surrounding the interosseous ligament of the distal tibia and fibula is present. No tendinous disruption is seen. Mild increased T2 signal intensity in the short plantar flexor muscles is present. IMPRESSION: 1. Ulceration plantar medial to the 1st TMT joint is seen with adjacent 9 x 7 mm fluid collection and abnormal signal in the osseous structures about the 1st MTP joint. There is degenerative change throughout the mid foot and abnormal signal in the 1st TMT joint may be degenerative in nature however given the adjacent ulceration osteomyelitis is not excluded with the 9 mm fluid collection possibly representing abscess or ganglion cyst. 2. Dorsal subcutaneous edema about the visualized foot with myositis of the short plantar flexor muscles and in the musculature adjacent to the intraosseous ligament of the distal tibia and fibula. PAGE 1 Signed Report (CONTINUED) FAX: Cleve LaneBacaAlfredo Estrada [phone] Camps: PM St: REG--- Name: LOI YOUNG [facility] : 1935 Age/S: 85/F [address] [address] Unit #: [id number] Loc: [place] [address] Phys: Quincy Haines MD Acct: [id number] Dis Date: Status: REG REF PHONE #: [phone] Exam Date: 01/25/2021 1236 FAX #: Reason: OSTEO EXAMS: CPT: [id number] MRI LOW EXT W/[place] [address] <Continued> at 1329 Reported and signed by: Naren Power MD CC: Quincy Arzate MD Technologist: Lolis Lowery RT(R)(MR) Transcribed Date/Time/By: 01/25/2021 (2740) :[email or web address] Orig Print D/T: S: (0649) PAGE 2 Signed ReportSED RATE [id number] 20:44:00 Test Item Value Reference Range Interpretation Comments SED RATE MANUEL (test code = 108 mm/hr 0-20 H SEDW) CBC W/AUTO [id number] 20:44:00 Test Item Value Reference Range Interpretation Comments WHITE BLOOD CELL 15.6 K/mm3 3.5-11.0 H (test code = WBC) RED BLOOD CELL (test 3.76 M/mm3 4.70-6.10 L code = RBC) HEMOGLOBIN (test code 11.1 G/DL 10.4-14.9 N = HGB) HEMATOCRIT (test code 34.2 % 31.5-44.1 N = HCT) MEAN CELL VOLUME 91.0 Fl 84.5-98.6 N (test code = MCV) MEAN CELL HGB (test 29.5 pg 27.0-34.2 N code = MCH) MEAN CELL HGB 32.5 G/DL 31.5-34.0 N CONCETRATION (test code = MCHC) RED CELL DISTRIBUTION 14.1 SD 11.5-14.5 N WIDTH (test code = RDW) PLATELET COUNT (test 439 K/mm3 150-450 N code = PLT) MEAN PLATELET VOLUME 10.80 fL 7.0-10.5 H (test code = MPV) NEUTROPHIL % (test 70.3 % 40-76 N code = NT%) IMMATURE GRANULOCYTE 1.2 % 0.0-5.0 N % (test code = IG%) LYMPHOCYTE % (test 13.9 % 20.5-51.1 L code = LY%) MONOCYTE % (test code 12.8 % 1.7-9.3 H = MO%) EOSINOPHIL % (test 1.2 % 0.0-6.0 N code = EO%) BASOPHIL % (test code 0.6 % 0.0-2.0 N = BA%) NUCLEATED RBC % (test 0.0 /100WBC% 0.0-1.0 N code = NRBC%) NEUTROPHIL # (test 10.9 K/mm3 1.8-7.6 H code = NT#) IMMATURE GRANULOCYTE 0.18 x10 3/uL 0.00-0.03 H # (test code = IG#) LYMPHOCYTE # (test 2.2 K/mm3 0.6-3.2 N code = LY#) MONOCYTE # (test code 2.0 K/mm3 0.3-1.1 H = MO#) EOSINOPHIL # (test 0.2 K/mm3 0.0-0.4 N code = EO#) BASOPHIL # (test code 0.1 K/mm3 0.0-0.1 N = BA#) NUCLEATED RBC # (test 0.0 K/mm3 0.0-0.1 N code = NRBC#) MANUAL DIFF REQUIRED NO DIFF/SCN CRITERIA SLIDE R EVIEW (test code = MDIFF) CONSISTA NT WITH AUTO DIFFERENTI AL. SED [id number] 20:44:00 Test Item Value Reference Range Interpretation Comments SED RATE (test code = SEDW) 108 mm/hr 0-20 H CBC W/AUTO [id number] 16:34:00 Test Item Value Reference Range Interpretation Comments WHITE BLOOD CELL 15.6 K/mm3 3.5-11.0 H (test code = WBC) RED BLOOD CELL (test 3.76 M/mm3 4.70-6.10 L code = RBC) HEMOGLOBIN (test code 11.1 G/DL 10.4-14.9 N = HGB) HEMATOCRIT (test code 34.2 % 31.5-44.1 N = HCT) MEAN CELL VOLUME 91.0 Fl 84.5-98.6 N (test code = MCV) MEAN CELL HGB (test 29.5 pg 27.0-34.2 N code = MCH) MEAN CELL HGB 32.5 G/DL 31.5-34.0 N CONCETRATION (test code = MCHC) RED CELL DISTRIBUTION 14.1 SD 11.5-14.5 N WIDTH (test code = RDW) PLATELET COUNT (test 439 K/mm3 150-450 N code = PLT) MEAN PLATELET VOLUME 10.80 fL 7.0-10.5 H (test code = MPV) NEUTROPHIL % (test 70.3 % 40-76 N code = NT%) IMMATURE GRANULOCYTE 1.2 % 0.0-5.0 N % (test code = IG%) LYMPHOCYTE % (test 13.9 % 20.5-51.1 L code = LY%) MONOCYTE % (test code 12.8 % 1.7-9.3 H = MO%) EOSINOPHIL % (test 1.2 % 0.0-6.0 N code = EO%) BASOPHIL % (test code 0.6 % 0.0-2.0 N = BA%) NUCLEATED RBC % (test 0.0 /100WBC% 0.0-1.0 N code = NRBC%) NEUTROPHIL # (test 10.9 K/mm3 1.8-7.6 H code = NT#) IMMATURE GRANULOCYTE 0.18 x10 3/uL 0.00-0.03 H # (test code = IG#) LYMPHOCYTE # (test 2.2 K/mm3 0.6-3.2 N code = LY#) MONOCYTE # (test code 2.0 K/mm3 0.3-1.1 H = MO#) EOSINOPHIL # (test 0.2 K/mm3 0.0-0.4 N code = EO#) BASOPHIL # (test code 0.1 K/mm3 0.0-0.1 N = BA#) NUCLEATED RBC # (test 0.0 K/mm3 0.0-0.1 N code = NRBC#) MANUAL DIFF REQUIRED NO DIFF/SCN CRITERIA SLIDE R EVIEW (test code = MDIFF) CONSISTA NT WITH AUTO DIFFERENTI AL. SED [id number] 16:34:00 Test Item Value Reference Range Interpretation Comments SED RATE (test code = SEDW) mm/hr 0-30 SED [id number] 15:30:00 Test Item Value Reference Range Interpretation Comments SED RATE (test code = SEDW) mm/hr 0-30 PROTHROMBIN [id number] 15:30:00 Test Item Value Reference Range Interpretation Comments PT PATIENT (test code = PTP) 14.2 SECONDS 9.3-12.9 H INTERNATIONAL NORMAL RATIO 1.26 INR Unit 0.8-1.2 H (test code = INR) COMPREHENSIVE METABOLIC [id number] 15:30:00 Test Item Value Reference Range Interpretation Comments SODIUM (test code = NA) 132 mmol/L 134-147 L POTASSIUM (test code = K) 4.2 mmol/L 3.4-5.0 N CHLORIDE (test code = CL) 95 mmol/L 100-108 L CARBON DIOXIDE (test code = CO2) 30 mmol/L 21-32 N ANION GAP (test code = GAP) 7.0 GAP calc 4.0-15.0 N GLUCOSE (test code = GLU) 192 MG/DL 70-110 H BLOOD UREA NITROGEN (test code = 41 MG/DL 7-18 H BUN) GLOMERULAR FILTRATION RATE (test 45 estGFR >60 L code = GFR) CREATININE (test code = CREAT) 1.2 MG/DL 0.6-1.0 H TOTAL PROTEIN (test code = PROT) 7.7 G/DL 6.4-8.2 N ALBUMIN (test code = ALB) 2.7 G/DL 3.4-5.0 L GLOBULIN (test code = GLOB) 5.0 GM/dL ALBUMIN/GLOBULIN RATIO (test 0.5 RATIO 1.2-2.2 L code = A/G) CALCIUM (test code = CA) 9.3 MG/DL 8.5-10.1 N BILIRUBIN TOTAL (test code = 0.30 MG/DL 0.2-1.2 N BILT) SGOT/AST (test code = AST) 27 Unit/L 15-37 N SGPT/ALT (test code = ALT) 27 Unit/L 12-78 N ALKALINE PHOSPHATASE TOTAL (test 156 Unit/L 45-117 H code = ALKP) URIC [id number] 15:30:00 Test Item Value Reference Range Interpretation Comments URIC ACID (test code = URIC) 7.5 MG/DL 2.6-6.0 H C REACTIVE [id number] 15:30:00 Test Item Value Reference Range Interpretation Comments C REACTIVE PROTEIN (test code = 14.400 MG/DL 0.000-0.3 H CRP) CBC W/AUTO [id number] 15:30:00 Test Item Value Reference Range Interpretation Comments WHITE BLOOD CELL (test code = WBC) 15.6 K/mm3 3.5-11.0 H RED BLOOD CELL (test code = RBC) 3.76 M/mm3 4.70-6.10 L HEMOGLOBIN (test code = HGB) 11.1 G/DL 10.4-14.9 N HEMATOCRIT (test code = HCT) 34.2 % 31.5-44.1 N MEAN CELL VOLUME (test code = MCV) 91.0 Fl 84.5-98.6 N MEAN CELL HGB (test code = MCH) 29.5 pg 27.0-34.2 N MEAN CELL HGB CONCETRATION (test 32.5 G/DL 31.5-34.0 N code = MCHC) RED CELL DISTRIBUTION WIDTH (test SD 11.5-14.5 N code = RDW) PLATELET COUNT (test code = PLT) 439 K/mm3 150-450 N MEAN PLATELET VOLUME (test code = fL 7.0-10.5 H MPV) NEUTROPHIL % (test code = NT%) % 40-76 N IMMATURE GRANULOCYTE % (test code % 0.0-5.0 N = IG%) LYMPHOCYTE % (test code = LY%) % 20.5-51.1 L MONOCYTE % (test code = MO%) % 1.7-9.3 H EOSINOPHIL % (test code = EO%) % 0.0-6.0 N BASOPHIL % (test code = BA%) % 0.0-2.0 N NUCLEATED RBC % (test code = /100WBC% 0.0-1.0 N NRBC%) NEUTROPHIL # (test code = NT#) K/mm3 1.8-7.6 H IMMATURE GRANULOCYTE # (test code x10 3/uL 0.00-0.03 H = IG#) LYMPHOCYTE # (test code = LY#) K/mm3 0.6-3.2 N MONOCYTE # (test code = MO#) K/mm3 0.3-1.1 H EOSINOPHIL # (test code = EO#) K/mm3 0.0-0.4 N BASOPHIL # (test code = BA#) K/mm3 0.0-0.1 N NUCLEATED RBC # (test code = K/mm3 0.0-0.1 N NRBC#) MANUAL DIFF REQUIRED (test code = DIFF/SCN CRITERIA MDIFF) CBC W/AUTO [id number] 10:02:00 Test Item Value Reference Range Interpretation Comments WHITE BLOOD CELL (test code = 11.6 K/mm3 3.5-11.0 H WBC) RED BLOOD CELL (test code = 3.52 M/mm3 4.70-6.10 L RBC) HEMOGLOBIN (test code = HGB) 10.4 G/DL 10.4-14.9 N HEMATOCRIT (test code = HCT) 32.1 % 31.5-44.1 N MEAN CELL VOLUME (test code = 91.2 Fl 84.5-98.6 N MCV) MEAN CELL HGB (test code = MCH) 29.5 pg 27.0-34.2 N MEAN CELL HGB CONCETRATION 32.4 G/DL 31.5-34.0 N (test code = MCHC) RED CELL DISTRIBUTION WIDTH 14.2 SD 11.5-14.5 N (test code = RDW) PLATELET COUNT (test code = 387 K/mm3 150-450 N PLT) MEAN PLATELET VOLUME (test code 10.50 fL 7.0-10.5 N = MPV) NEUTROPHIL % (test code = NT%) 71.2 % 40-76 N IMMATURE GRANULOCYTE % (test 0.6 % 0.0-5.0 N code = IG%) LYMPHOCYTE % (test code = LY%) 14.9 % 20.5-51.1 L MONOCYTE % (test code = MO%) 10.8 % 1.7-9.3 H EOSINOPHIL % (test code = EO%) 2.1 % 0.0-6.0 N BASOPHIL % (test code = BA%) 0.4 % 0.0-2.0 N NUCLEATED RBC % (test code = 0.0 /100WBC% 0.0-1.0 N NRBC%) NEUTROPHIL # (test code = NT#) 8.3 K/mm3 1.8-7.6 H IMMATURE GRANULOCYTE # (test 0.07 x10 3/uL 0.00-0.03 H code = IG#) LYMPHOCYTE # (test code = LY#) 1.7 K/mm3 0.6-3.2 N MONOCYTE # (test code = MO#) 1.3 K/mm3 0.3-1.1 H EOSINOPHIL # (test code = EO#) 0.2 K/mm3 0.0-0.4 N BASOPHIL # (test code = BA#) 0.1 K/mm3 0.0-0.1 N NUCLEATED RBC # (test code = 0.0 K/mm3 0.0-0.1 N NRBC#) MANUAL DIFF REQUIRED (test code NO DIFF/SCN CRITERIA = MDIFF) CBC WITH [id number] 21:19:00 Test Item Value Reference Range Interpretation Comments WBC (test code = See_Comment H [Automated 2490-2) message] The sy stem which generated this result transmitted reference range : 4.30 - 11.10 10*3/?L. The reference range was not used to interpret this result as normal/abnormal . RBC (test code = See_Comment [Automated 149-8) message] The sy stem which generated this result transmitted reference range : 3.93 - 5.25 10*6/?L. The reference range was not used to interpret this result as normal/abnormal . HGB (test code = 11.6 g/dL 11.6-15 718-7) HCT (test code = 35.3 % 35.7-45.2 L 4544-3) MCV (test code = 84.4 fL 80.6-95.5 787-2) MCH (test code = 27.8 pg 25.9-32.8 785-6) MCHC (test code = 32.9 g/dL 31.6-35.1 786-4) RDW-SD (test code = 44.3 fL 39-49.9 19812-0) RDW-CV (test code = 14.4 % 12-15.5 788-0) PLT (test code = See_Comment H [Automated 777-3) message] The sy stem which generated this result transmitted reference range : 166 - 358 10*3/ ?L. The reference r estefany was not used to interpret this result as normal/abnormal . MPV (test code = 10.8 fL 9.5-12.9 29136-7) NRBC/100 WBC (test See_Comment [Automat ed code = 9213505552) message] The system which generated this result transmitted reference range : 0.0 - 10.0 /100 WBCs. The refer ence range was not u sed to interpret th is result as normal/abnormal . NRBC x10^3 (test code <0.01 See_Comment [Auto mated = 9937526114) message] The s ystem which generated this result transmitted reference range : 10*3/?L. The reference range was not used to interpret this result as normal/abnormal . GRAN MAT (NEUT) % 60.3 % (test code = 770-8) IMM GRAN % (test code 0.20 % = 7558102072) LYMPH % (test code = 25.7 % 736-9) MONO % (test code = 11.2 % 5905-5) EOS % (test code = 1.9 % 713-8) BASO % (test code = 0.7 % 706-2) GRAN MAT x10^3(ANC) 6.74 10*3/uL 1.88-7.09 (test code = 7910699616) IMM GRAN x10^3 (test <0.03 0-0.06 code = 3547126701) LYMPH x10^3 (test code 2.87 10*3/uL 1.32-3.29 = 731-0) MONO x10^3 (test code 1.25 10*3/uL 0.33-0.92 H = 742-7) EOS x10^3 (test code = 0.21 10*3/uL 0.03-0.39 711-2) BASO x10^3 (test code 0.08 10*3/uL 0.01-0.07 H = 704-7) Lab Interpretation Abnormal (test code = 37859-2) [facility] METABOLIC PANEL (NA, K, CL, CO2, GLUCOSE, BUN, CREATININE, CA)2019-10-27 21:15:00 Test Item Value Reference Range Interpretation Comments NA (test code = 131 mmol/L 135-145 L 0296995729) K (test code = 5.0 mmol/L 3.5-5 7094792469) CL (test code = 92 mmol/L 98-108 L 7809289634) CO2 TOTAL (test code = 33 mmol/L 23-31 H 3912906395) AGAP (test code = 2-16 1282248888) BUN (test code = 25 mg/dL 7-23 H 8592347756) GLUCOSE (test code = 130 mg/dL 70-110 H 6815146503) CREATININE (test code = 1.05 mg/dL 0.5-1.04 H 4756033916) CALCIUM (test code = 9.4 mg/dL 8.6-10.6 0041899292) eGFR Calculation mL/min/1.73m2 (Non-) (test code = 1579107179) eGFR Calculation mL/min/1.73m2 () (test code = 6565421864) FLORA (test code = FLORA) Association of Glomerular Filtration Rate (GFR) and Staging of Kidney Disease* + --+ --+ ------+| GFR (mL/min/1.73 m2) ?| With Kidney Damage ?| ?Without Kidney Damage+ --------+ --------+ +| ?>90 ?| ?Stage one ?| ? Normal ?+ ---+ ---+ -------+| ?60-89 ?| ?Stage two ?| ? Decreased GFR ? + --+ --+ ------+| ?30-59 ?| ?Stage three ?| ? Stage three ? + --+ --+ ------+| ?15-29 ?| ?Stage four ? | ? Stage four ?+ ---+ ---+ -------+| ?<15 (or dialysis) ? ?| ?Stage five ? | ? Stage five ?+ ---+ ---+ -------+ *Each stage assumes the associated GFR level has been in effect for at least three months. ?Stages 1 to 5, with or without kidney disease, indicate chronic kidney disease. Notes: Determination of stages one and two (with eGFR >59mL/min/1.73 m2) requires estimation of kidney damage for at least three months as defined by structural or functional abnormalities of the kidney, manifested by either:Pathological abnormalities or Markers of kidney damage (including abnormalities in the composition of the blood or urine or abnormalities in imaging tests). Lab Interpretation Abnormal (test code = 21688-3) [id number] 21:15:00 Test Item Value Reference Range Interpretation Comments URIC ACID (test code = 2088936442) 9.4 mg/dL 2.9-6 H Lab Interpretation (test code = Abnormal 07868-0) [facility] 2 [id number] 17:44:04HISTORY: Right carpal tunnel syndrome. TECHNIQUE: PA and lateral views of the chest are obtained. 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 No acute pneumonia detected. No pneumothorax or pleuraleffusion or pulmonary congestion. Cardiothoracic ratio of cqxtsmneazgwy00.6/27.2 cm is consistent with normal cardiac size. Prominent epicardialfat pads is suspected on both sides. Mild right apical pleural scarringnoted. No compression fractures seen in the thoracic vertebral bodies. CONCLUSIONS: No signs of acute cardiopulmonary disease. [facility], [facility]iant Results Inft User - 03/20/2019 12:46 PM CDTHISTORY: Right carpal tunnel syndrome.TECHNIQUE: PA and lateral views of the chest are obtained.FINDINGS: Mild obstructive lung disease is suspected predominantly in theupper lobes. No acute pneumonia detected. No pneumothorax or pleuraleffusion or pulmonary congestion.Cardiothoracic ratio of gdtryohyvnbva14.6/27.2 cm is consistent with normal cardiac size. Prominent e picardialfat pads is suspected on both sides. Mild right apical pleural scarringnoted. No compression fractures seen in the thoracic vertebral bodies.CONCLUSIONS: No signs of acute cardiopulmonary disease.[facility]
[2022-04-01 16:43] LABS: Hematocrit 40.9 % (36.0-45.0); Lymphocytes % 18.9 % (15.3-44.8); MCV 90.2 fL (80-100); MPV 8.1 fL (7.6-11.3); RBC Red Blood Cell Count 4.53 M/uL (3.86-4.86)
[2022-04-01 16:54] LABS: Protime INR 1.14
[2022-04-01 17:00] LABS: Potassium 3.6 mmol/L (3.5-5.1)
[2022-04-01 17:01] LABS: Albumin 3.7 g/dL (3.4-5.0); Bilirubin Total 0.5 mg/dL (0.2-1.0); Protein, Total 8.1 g/dL (6.4-8.2)
--- NOTE | 2022-04-01 17:05 | RAD REPORT ---
EXAM DESCRIPTION: RAD - Chest Single View - 04/01/2022 4:36 pm CLINICAL HISTORY: chills COMPARISON: <Comparisons> FINDINGS: Lines: None. Lungs: Basilar opacities, left greater than right. The left lung base is not well visualized. Pleural: Possible left pleural effusion. Cardiac: Cardiomegaly. Bones: No acute fractures. Cannulated screw in the right proximal humerus. Other: IMPRESSION: Basilar opacities most likely a combination of atelectasis and underpenetration (with re gards to the left lung base). No definite acute process identified.
[2022-04-01 17:23] LABS: Urine Blood Negative (Negative); Urine Glucose Negative (Negative); Urine Protein Negative (Negative); Urine Specific Gravity <=1.005 (1.005-1.030); Urine pH 5.5 (5.0-7.0)
[2022-04-01 17:46] LABS: Urine Bacteria >50 /HPF (<20); Urine RBC <5 /HPF (None Seen)
[2022-04-01] MEDS ORDERED: CEFTRIAXONE 1000 MG/VIAL ONE (18:26)
[2022-04-01] MEDS ORDERED: NA CHLORIDE 0.9% 50 ML ONE (18:26)
--- NOTE | 2022-04-01 18:31 | EDPHYS ---
Physician Documentation [facility] Name: Lyubov Garcia Age: 87 yrs Sex: Female : 1935 Arrival Date: 04/01/2022 Time: 15:14 Bed 25 Private MD: ED Physician Reynaldo Quevedo HPI: 04/01 15:28 This 87 yrs old Female presents to ER via Ambulatory with complaints of Tremor. rn 15:28 Pt reports woke up this AM with shaking and tremor, generalized weakness. No rn fever/chest pain/abd pain/vomiting/diarrhea/dehydration. . Onset: The symptoms/episode began/occurred this morning. Severity of symptoms: At their worst the symptoms were moderate in the emergency department the symptoms have improved. The patient has not experienced similar symptoms in the past. The patient has not recently seen a physician. Historical: - Allergies: 15:21 Quinine Sulfate; ss 15:21 Sulfa (Sulfonamide Antibiotics); ss 15:21 tramadol; ss 15:21 Latex, Natural Rubber; ss - PMHx: 15:21 GERD; Anemia; CVA; Hypertensive disorder; Heart Failure; Depressive disorder; Diabetes ss mellitus; UTI; PVD; Charcots Arthropathy; Gout; - Immunization history:: Client reports receiving the 2nd dose of the Covid vaccine. - Social history:: Smoking status: Patient denies any tobacco usage or history of. - Family history:: not pertinent. - Hospitalizations: : No recent hospitalization is reported. ROS: 15:28 Constitutional: Negative for fever, and weight loss, Eyes: Negative for injury, pain, rn redness, and discharge, Neck: Negative for injury, pain, and swelling, Cardiovascular: Negative for chest pain, palpitations, and edema, Respiratory: Negative for shortness of breath, cough, wheezing, and pleuritic chest pain, Abdomen/GI: Negative for abdominal pain, nausea, vomiting, diarrhea, and constipation, Back: Negative for injury and pain, MS/Extremity: Negative for injury and deformity, Skin: Negative for injury, rash, and discoloration, Neuro: Negative for headache, numbness, tingling, and seizure. Exam: 15:28 Constitutional: This is a well developed, well nourished patient who is awake, alert, rn and in no acute distress. Head/Face: Normocephalic, atraumatic. Eyes: Pupils equal round and reactive to light, extra-ocular motions intact. Periorbital areas with no swelling, redness, or edema. ENT: dry MM Cardiovascular: Regular rate and rhythm. No pulse deficits. Respiratory: No increased work of breathing, no retractions or nasal flaring. Abdomen/GI: Soft, non-tender Skin: Warm, dry MS/ Extremity: Pulses equal, no cyanosis. Neuro: Awake and alert, GCS 15 17:09 ECG was reviewed by the Attending Physician. rn Vital Signs: 15:17 BP 130 / 61; Pulse 94; Resp 16; Temp 98.2; Pulse Ox 96% on R/A; Weight 88.9 kg; Height ss 5 ft. 7 in. (170.18 cm); Pain 0/10; 17:51 BP 148 / 79; Pulse 70; Resp 18; Pulse Ox 100% on R/A; ph 15:17 Body Mass Index 30.70 (88.90 kg, 170.18 cm) ss MDM: 15:19 Patient medically screened. rn 18:29 Differential Diagnosis sepsis, UTI, pneumonia, COVID, flu, strep, viral syndrome, rn electrolyte disturbance.. Data reviewed: vital signs, nurses notes, lab test result(s), radiologic studies, plain films, and as a result, I will discharge patient. Counseling: I had a detailed discussion with the patient and/or guardian regarding: the historical points, exam findings, and any diagnostic results supporting the discharge/admit diagnosis, lab results, radiology results, the need for outpatient follow up, to return to the emergency department if symptoms worsen or persist or if there are any questions or concerns that arise at home. Response to treatment: the patient's symptoms have markedly improved after treatment, the patient's condition has returned to base line, the patient is now symptom free, and as a result, I will discharge patient. Special discussion: I discussed with the patient/guardian in detail that at this point there is no indication for admission to the hospital. It is understood, however, that if the symptoms persist or worsen the patient needs to return immediately for re-evaluation. 04/01 15: Order name: Blood Culture Adult (2) rn 04/01 15: Order name: CBC with Diff; Complete Time: 17:59 rn 04/01 15: Order name: CMP; Complete Time: 17:08 rn 04/01 15:27 Order name: Lactate; Complete Time: 17:10 04/01 15:27 Order name: Protime (+inr); Complete Time: 16:57 04/01 15:27 Order name: Ptt, Activated; Complete Time: 16:57 04/01 15:27 Order name: Urine Culture 04/01 15:27 Order name: Urine Microscopic Only; Complete Time: 17:59 04/01 15:27 Order name: Chest Single View XRAY; Complete Time: 17:08 04/01 15:27 Order name: SARS-COV-2 RT PCR (Document "Date of Onset" if Symptomatic); Complete Time: rn 18:19 04/01 15:27 Order name: Flu; Complete Time: 18:19 04/01 15:27 Order name: Strep; Complete Time: 18:19 04/01 17:23 Order name: Urine Dipstick-Ancillary; Complete Time: 17:59 EDPA 04/01 18:11 Order name: Throat Culture [facility] 04/01 15:27 Order name: Accucheck; Complete Time: 15:42 rn 04/01 15:27 Order name: Cardiac monitoring; Complete Time: 15:42 04/01 15:27 Order name: EKG - Nurse/Tech; Complete Time: 17:47 04/01 15:27 Order name: IV Saline Lock - Large Bore; Complete Time: 18:23 04/01 15:27 Order name: Labs collected and sent; Complete Time: 16:25 04/01 15:27 Order name: O2 Per Protocol; Complete Time: 15:42 04/01 15:27 Order name: O2 Sat Monitoring; Complete Time: 15:42 04/01 15:27 Order name: Urine Dipstick-Ancillary (obtain specimen); Complete Time: 17:40 rn EC:09 Rate is 98 beats/min. Rhythm is irregularly irregular. QRS Emory is Normal. MD interval rn is normal. QT interval is normal. No Q waves. T waves are Normal. No ST changes noted. Interpreted by me. Reviewed by me. Administered Medications: 18:23 Drug: Rocephin (cefTRIAXone) 1 grams Route: IV; Rate: calculated rate; Site: right ph antecubital; 19:22 Follow up: Response: No adverse reaction; IV Status: Completed infusion; IV Intake: 50mlph 20:07 Follow up: IV Status: Completed infusion; IV Intake: 50ml bb Disposition Summary: 04/01/22 18:30 Discharge Ordered Location: Home rn Problem: new rn Symptoms: have improved rn Condition: Stable rn Diagnosis - Tremor, unspecified rn - UTI/ Urinary tract infection, site not specified rn Followup: rn - With: Private Physician - When: As needed - Reason: Recheck today's complaints, Re-evaluation by your physician Discharge Instructions: - Discharge Summary Sheet rn - Tremor rn - Urinary Tract Infection, Adult rn Forms: - Medication Reconciliation Form rn - Thank You Letter rn - 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
--- NOTE | 2022-04-01 18:31 | ER ---
Nurse's Notes [facility] Name: Lyubov Garcia Age: 87 yrs Sex: Female : 1935 Arrival Date: 04/01/2022 Time: 15:14 Bed 25 Private MD: Diagnosis: Tremor, unspecified;UTI/ Urinary tract infection, site not specified Presentation: 04/01 15:17 Chief complaint: Patient states: Woke up this morning at 0500 with generalized tremors ss and dizziness. Pt reports her tremors have improved some, but not totally. Coronavirus screen: Client denies travel out of the [place] in the last 14 days. Ebola Screen: Patient denies exposure to infectious person. Patient denies travel to an Ebola-affected area in the 21 days before illness onset. Initial Sepsis Screen: Does the patient meet any 2 criteria? No. Patient's initial sepsis screen is negative. Does the patient have a suspected source of infection? No. Patient's initial sepsis screen is negative. Risk Assessment: Do you want to hurt yourself or someone else? Patient reports no desire to harm self or others. Onset of symptoms was April 01, 2022 at 05:00. 15:17 Method Of Arrival: Ambulatory ss 15:17 Acuity: STEFANY 3 ss Historical: - Allergies: 15:21 Quinine Sulfate; ss 15:21 Sulfa (Sulfonamide Antibiotics); ss 15:21 tramadol; ss 15:21 Latex, Natural Rubber; ss - PMHx: 15:21 GERD; Anemia; CVA; Hypertensive disorder; Heart Failure; Depressive disorder; Diabetes ss mellitus; UTI; PVD; Charcots Arthropathy; Gout; - Immunization history:: Client reports receiving the 2nd dose of the Covid vaccine. - Social history:: Smoking status: Patient denies any tobacco usage or history of. - Family history:: not pertinent. - Hospitalizations: : No recent hospitalization is reported. Screenin:15 Abuse screen: Denies threats or abuse. Denies injuries from another. Nutritional ph screening: No deficits noted. Tuberculosis screening: No symptoms or risk factors identified. Fall Risk None identified. Assessment: 16:15 General: Appears in no apparent distress. Behavior is calm, cooperative, appropriate ph for age, Denies fever. Pain: Denies pain. Neuro: Level of Consciousness is awake, alert, obeys commands, Oriented to person, place, time, situation. Cardiovascular: Capillary refill < 3 seconds in bilateral fingers Patient's skin is warm and dry. Rhythm is atrial fibrillation. Respiratory: Airway is patent Respiratory effort is even, unlabored, Respiratory pattern is regular, symmetrical, Denies cough, shortness of breath. GI: No signs and/or symptoms were reported involving the gastrointestinal system. Patient currently denies abdominal pain, diarrhea, nausea, vomiting. : No signs and/or symptoms were reported regarding the genitourinary system. Derm: Skin is fragile, is thin, Skin is pink, warm \T\ dry. Musculoskeletal: Circulation, motion, and sensation intact. Range of motion: intact in all extremities. 17:30 Reassessment: Patient appears in no apparent distress at this time. Patient and/or ph family updated on plan of care and expected duration. Pain level reassessed. Patient is alert, oriented x 3, equal unlabored respirations, skin warm/dry/pink. 18:30 Reassessment: Patient appears in no apparent distress at this time. Patient and/or ph family updated on plan of care and expected duration. Pain level reassessed. Patient is alert, oriented x 3, equal unlabored respirations, skin warm/dry/pink. 20:05 Reassessment: pt awaiting transportation back to [facility] who have been bb notified by ED. [facility] in route. 21:03 Reassessment: [facility] staff at bedside for pt transport to [facility]. Pt bb is A\T\O x 3, resp unlabored. Vital Signs: 15:17 BP 130 / 61; Pulse 94; Resp 16; Temp 98.2; Pulse Ox 96% on R/A; Weight 88.9 kg; Height ss 5 ft. 7 in. (170.18 cm); Pain 0/10; 17:51 BP 148 / 79; Pulse 70; Resp 18; Pulse Ox 100% on R/A; ph 15:17 Body Mass Index 30.70 (88.90 kg, 170.18 cm) ED Course: 15:14 Patient arrived in ED. ss 15:15 Aditi Lockwood, RN is Primary Nurse. ph 15:19 Reynaldo Quevedo MD is Attending Physician. rn 15:21 Triage completed. ss 15:21 Arm band placed on right wrist. ss 16:20 Initial lab(s) drawn, by me, sent to lab. First set of blood cultures drawn EKG done, ph by ED staff, COVID swab sent to lab. Flu and/or RSV swab sent to lab. Strep swab sent to lab. Inserted saline lock: 22 gauge in right antecubital area, using aseptic technique. Blood collected. 16:37 Chest Single View XRAY In Process Unspecified. EDMS 17:38 Urine collected: clean catch specimen, cloudy. jw7 17:40 Urine Culture Sent. jw7 17:40 Urine Microscopic Only Sent. jw7 17:52 Patient has correct armband on for positive identification. Bed in low position. Call light in reach. Side rails up X 1. Client placed on continuous cardiac and pulse oximetry monitoring. NIBP monitoring applied. 17:58 No provider procedures requiring assistance completed. ph 19:58 Leia stated \T\ 1900 that [place] said they would call for [facility] for wm transport. I just spoke with Amber at [facility] to get an update and she stated they did arrange for transport and should be here shortly. 20:07 IV discontinued, intact, bleeding controlled, No redness/swelling at site. Pressure bb dressing applied. Administered Medications: 18:23 Drug: Rocephin (cefTRIAXone) 1 grams Route: IV; Rate: calculated rate; Site: right ph antecubital; 19:22 Follow up: Response: No adverse reaction; IV Status: Completed infusion; IV Intake: 50mlph 20:07 Follow up: IV Status: Completed infusion; IV Intake: 50ml bb Medication: 17:52 VIS not applicable for this client. ph Intake: 19:22 IV: 50ml; Total: 50ml. ph 20:07 IV: 50ml; Total: 100ml. bb Outcome: 18:30 Discharge ordered by . rn 20:06 Discharged to detention. bb 20:06 Condition: stable 20:06 Discharge instructions given to patient, family, Instructed on discharge instructions, follow up and referral plans. Demonstrated understanding of instructions, follow-up care. 20:07 Instructed on medication usage, Demonstrated understanding of medications, bb Prescriptions given X 1. 21:04 Patient left the ED. bb Signatures: Dispatcher [employer] EDBeverly Redding RN RN Reynaldo Liz MD MD rn Smirch, Shelby, RN RN ss Aditi Lockwood RN RN Adan, Yessi Hodge7 Corrections: (The following items were deleted from the chart) 15:21 15:14 Chief complaint: ss ss
[2022-04-01 23:52] VITALS: TEMP 98.2
[2022-04-02 00:28] VITALS: BP 148/79; O2SAT 100
--- NOTE | 2022-04-04 08:18 | EKG ---
Test Date: 2022-04-01 Test Time: 16:36:39 Spray Dyer: PH MEASUREMENT RESULTS: Intervals: Rate: 106 SD: QRSD: 72 QT: 346 QTc: 459 Warren: P: SD: QRS: 24 T: 76 INTERPRETIVE STATEMENTS: Atrial fibrillation with rapid ventricular response with premature ventricular or aberrantly conducted complexes Anteroseptal infarct, age undetermined Abnormal ECG No previous ECG available for comparison Electronically Signed On 04-04-22 08:12:40 CDT by Feng Enamorado
== END 2022-04-01 21:04 | disposition home or self-care (01) ==
LOC: ER 15:12
DX: R25.1 Tremor, unspecified (principal); N39.0 Urinary tract infection, site not specified; I10 Essential (primary) hypertension; E11.9 Type 2 diabetes mellitus without complications; Z20.822 Contact with and (suspected) exposure to COVID-19; Z88.2 Allergy status to sulfonamides; Z88.5 Allergy status to narcotic agent; Z88.8 Allergy status to other drugs, medicaments and biological substances; Z91.040 Latex allergy status; Z91.048 Other nonmedicinal substance allergy status
CPT/HCPCS: 96365; 87040; 87070; 87088; 85025; 87086; 36415; 85610; 87081; 83605; 85730; 80053; 87804 ×2; 71045; 99284; U0003; 81003; 81015; 87077; 87186; 93005

== ENCOUNTER 2022-10-18 12:47 | Emergency (ER) | payer OTHER ==
--- OUTSIDE RECORDS SUMMARY | 2022-10-18 12:52 | XMS REPORT | Continuity of Care Document ---
:1935 Author Organization [facility] t Address [address] [place] [address] [address] [place] [address] Care Team Providers Name Role Phone Nathan Stephen MD Primary Care Physician [id number] Attending Clinician Unavailable Doctor Unassigned, [place] Attending Clinician Unavailable Hannah Davison Anavella Attending Clinician Unava ilable Raju_P Attending Clinician Unavailable Donya Craig Attending Clinician DONYA TAVARES Attending Clinician Unavailable Ferdinand Wallace S Attending Clinician MAURA THORNTON Attending Clinician Unavailable Maura Thornton MD Attending Clinician 1, [facility] Attending Clinician Unavailable [facility], [facility] Attending Clinician Unavailable Rodolfo Tijerina MD [facility] Attending Clinician [id number] Admitting Clinician Unavailable CARMEN LANDAVERDE Admitting Clinician Unavailable Luigi Davison, Anav Admitting Clinician Unavailable Raju_P Admitting Clinician Unavailable DONYA TAVARES Admitting Clinician Unavailable NATHAN STEPHEN Admitting Clinician Unavailable Payers Payer Name Policy Type Policy Number Effective Date Expiration Date Narciso CARTWR[employer] [id number] [facility] [id number] Problems Condition Condition Condition Status Onset Resolution Last Treating Co mments Source Name Details Category Date Date Treatment Clinician Date Atypical 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 Unive rs chest pain chest pain 0-17 it y of 00:00: [place] [facility] Dizzy Dizzy Disease Active 2018-08 Univers spells spells 0-17 ity of 00:00: [place] [facility] Essential Essential Disease Active 2018-08 Uni vers hypertensi hypertensi 0-17 it y of on on 00:00: [place] [facility] Dyslipidem Dyslipidem Disease Active 2018-08 U nivers ia ia 0-17 ity of 00:00: [place] [facility] KING (acute KING (acute Disease Active 2018-08 U nivers kidney kidney 0-16 ity of injury) injury) 00:00: [place] [address] Medical Branch Pain Pain Disease Active Univers aggravated aggravated 2-18 it y of by by 00:00: [place] standing standing 00 Medica l Branch 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 low back 6-17 it y of pain pain 00:00: [place] [facility] "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-26 ity of syndrome syndrome 00:00: [place] [facility] Respirator Respirator Disease Active U [...] Rash Univers INGREDI 8-25 ity of 00:00: [place] 00 Medical Branch QUININE DRUG Active Anxiety Univers INGREDI 8-25 ity of 00:00: [place] 00 Medical Branch SULFA Drug Active ITCHING [...] Source Alcohol intake 2019-04-10 2019-04-10 0 /d [facility] 00:00:00 00:00:00 Medical Branch Tobacco use and 2015-03-31 2015-03-31 Never used [facility] exposure 00:00:00 00:00:00 Medical Branch Sex Ass[birth year] [facility] 00:00:00 00:00:00 Medical Branch Smoking Status Start Date Stop Date Source Never smoker [facility] Medical Branch Medications Ordered Filled Start Stop Current Ordering Indication Dosage Frequency Signature Comments Components Source Medication Medication Date Date Medication? Clinician (SIG) Name Name clindamycin 2020- No [id number] 450mg Take 3 Univers 150 mg 10-27 capsules ity of capsule 00:00: 04:59 by mouth 3 Lg as 00 :00 (three) Medical times [place] daily for 7 days. colchicine 2020- No .6mg 0.6 mg, Uni vers (COLCRYS) 10-26 Oral, ity of tablet 0.6 22:47: 23:02 ONCE, 1 Lg as mg 00 :00 dose, [facility] 10/27/19 at Branch 1800, BARBIE ibuprofen 2020- No 600mg 600 mg, Uni vers (IBU) 10-26 Oral, ity of tablet 600 22:45: 21:56 ONCE, 1 Lg as mg 00 :00 dose, [facility] 10/27/19 at Branch 1745, [facility] colchicine 2019- No 1.2mg 1.2 mg, Un ogran (COLCRYS) 10-26 Oral, ity of tablet 1.2 22:45: 21:56 ONCE, 1 Lg as mg 00 :00 dose, [facility] 10/27/19 at Branch 1745, BARBIE clindamycin 2019- No 600mg 600 mg, IV Univers in 5 % 10-26 Piggyback, ity of dextrose 22:00: 21:29 ONCE, 1 [place] (CLEOCIN) 00 :00 dose, Mon Medic al 600 mg/50 10/27/19 at Bran ch mL IV 1700, 50 piggyback mL
Reas RTU 600 mg on for Anti-Infec tive: Documented Infection< br>Documen sathya Infection Site: Skin / Soft Tissue
Duration of Therapy: Other (see Comments)< br>Restric sathya use approved by: [facility] colchicine 2020- No [id number] .6mg Take 1 Univers 0.6 mg 10-26 tablet by ity of tablet 00:00: 04:59 mouth [place] 00 :00 daily for Medical 5 days. Branch Take until flare up resolves furosemide 2018-08 Yes 40mg Take 40 mg U nivers 40 mg 0-17 by mouth ity of tablet 22:49: daily. [address] Branch atenolol 2018-08 Yes 25mg Take 25 mg Univers mg tablet 0-17 by mouth ity of 22:49: daily. [address] Branch gabapentin 2018-08 Yes 400mg Take 400 Un [place] 400 mg 0-17 mg by ity of capsule 22:49: mouth 3 [place] [address] (three) Medical times Branch daily. omeprazole 2018-08 Yes 20mg Take 20 mg U nivers 20 mg 0-17 by mouth ity of capsule 22:49: daily. [address] Branch losartan-hy 2018-08 Yes 1{tbl} Take 1 [...] by mouth ity of tablet 22:49: daily. [address] Branch atenolol 2018-08 Yes 25mg Take 25 mg Univers mg tablet 0-17 by mouth ity of 22:49: daily. [place] [address] Medical Branch gabapentin 2018-08 Yes 400mg Take 400 Un [place] 400 mg 0-17 mg by ity of capsule 22:49: mouth 3 [place] [address] (three) Medical times Branch daily. omeprazole 2018-08 Yes 20mg Take 20 mg U nivers 20 mg 0-17 by mouth ity of capsule 22:49: daily. [place] [address] Medical Branch losartan-hy 2018-08 Yes 1{tbl} Take [...] by mouth ity of tablet 22:49: daily. [address] Branch atenolol 25 2018-08 Yes 25mg Take 25 mg Univers mg tablet 0-17 by mouth ity of 22:49: daily. [address] gabapentin 2018-08 Yes 400mg Take 400 Un [place] 400 mg 0-17 mg by ity of capsule 22:49: mouth 3 [place] [address] (three) Medical times Branch daily. omeprazole 2018-08 Yes 20mg Take 20 mg U nivers 20 mg 0-17 by mouth ity of capsule 22:49: daily. [place] [address] Medical [place] losartan-hy 2018-08 Yes 1{tbl} Take 1 Un [...] by mouth ity of tablet 22:49: daily. [address] atenolol 25 2018-08 Yes 25mg Take 25 mg Univers mg tablet 0-17 by mouth ity of 22:49: daily. [place] 52 Medical Branch gabapentin 2018-08 Yes 400mg Take 400 Un [place] 400 mg 0-17 mg by ity of capsule 22:49: mouth 3 [place] [address] (three) Medical times Branch daily. omeprazole 2018-08 Yes 20mg Take 20 mg U nivers 20 mg 0-17 by mouth ity of capsule 22:49: daily. [address] Branch losartan-hy 2018-08 Yes 1{tbl} Take 1 [...] by mouth ity of tablet 17:49: daily. [address] atenolol 25 2018-08 Yes 25mg Take 25 mg Univers mg tablet 0-17 by mouth ity of 17:49: daily. [address] gabapentin 2018-08 Yes 400mg Take 400 Un [place] 400 mg 0-17 mg by ity of capsule 17:49: mouth 3 [place] [address] (three) Medical times Branch daily. omeprazole 2018-08 Yes 20mg Take 20 mg U nivers 20 mg 0-17 by mouth ity of capsule 17:49: daily. [address] losartan-hy 2018-08 Yes 1{tbl} Take 1 [...] by mouth ity of tablet 17:49: daily. [address] atenolol 25 2018-08 Yes 25mg Take 25 mg Univers mg tablet 0-17 by mouth ity of 17:49: daily. [address] gabapentin 2018-08 Yes 400mg Take 400 [place] 400 mg 0-17 mg by ity of capsule 17:49: mouth 3 [place] [address] (three) Medical times Branch daily. omeprazole 2018-08 Yes 20mg Take 20 mg U nivers 20 mg 0-17 by mouth ity of capsule 17:49: daily. [place] [address] Medical Branch losartan-hy 2018-08 Yes 1{tbl} Take [...] by mouth ity of tablet 17:49: daily. [address] atenolol 2018-08 Yes 25mg Take 25 mg Univers mg tablet 0-17 by mouth ity of 17:49: daily. [address] Branch gabapentin 2018-08 Yes 400mg Take 400 [place] 400 mg 0-17 mg by ity of capsule 17:49: mouth 3 [place] [address] (three) Medical times Branch daily. omeprazole 2018-08 Yes 20mg Take 20 mg U nivers 20 mg 0-17 by mouth ity of capsule 17:49: daily. [address] losartan-hy 2018-08 Yes 1{tbl} Take 1 [...] by mouth ity of tablet 17:49: daily. [address] atenolol 25 2018-08 Yes 25mg Take 25 mg Univers mg tablet 0-17 by mouth ity of 17:49: daily. [address] gabapentin 2018-08 Yes 400mg Take 400 [place] 400 mg 0-17 mg by ity of capsule 17:49: mouth 3 [place] [address] (three) Medical times Branch daily. omeprazole 2018-08 Yes 20mg Take 20 mg U nivers 20 mg 0-17 by mouth ity of capsule 17:49: daily. [place] [address] Medical Branch losartan-hy 2018-08 Yes 1{tbl} Take [...] by mouth ity of tablet 17:49: daily. [address] Branch atenolol 25 2018-08 Yes 25mg Take 25 mg Univers mg tablet 0-17 by mouth ity of 17:49: daily. [address] Branch gabapentin 2018-08 Yes 400mg Take 400 Un [place] 400 mg 0-17 mg by ity of capsule 17:49: mouth 3 [place] [address] (three) Medical times Branch daily. omeprazole 2018-08 Yes 20mg Take 20 mg U nivers 20 mg 0-17 by mouth ity of capsule 17:49: daily. [address] losartan-hy 2018-08 Yes 1{tbl} Take 1 [...] by mouth ity of tablet 17:49: daily. [address] atenolol 25 2018-08 Yes 25mg Take 25 mg Univers mg tablet 0-17 by mouth ity of 17:49: daily. [address] gabapentin 2018-08 Yes 400mg Take 400 [place] 400 mg 0-17 mg by ity of capsule 17:49: mouth 3 [place] 52 (three) Medical times Branch daily. omeprazole 2018-08 Yes 20mg Take 20 mg U nivers 20 mg 0-17 by mouth ity of capsule 17:49: daily. [place] 52 Medical Branch losartan-hy 2018-08 Yes 1{tbl} Take [...] by mouth ity of tablet 19:53: daily. [address] Branch atenolol 25 Yes 25mg Take 25 mg Univers mg tablet 6-07 by mouth ity of 19:53: daily. [place] [address] Medical Branch gabapentin Yes 400mg Take 400 [place] 400 mg 6-07 mg by ity of capsule 19:53: mouth 3 [place] [address] (three) Medical times Branch daily. omeprazole Yes 20mg Take 20 mg U nivers 20 mg 6-07 by mouth ity of capsule 19:53: daily. [place] [address] Medical Branch HYDROcodone Yes 1{tbl} Take 1 Un goran -acetaminop 6-07 tablet by ity of hen 5-325 19:53: mouth [place] mg tablet 40 every 6 Medical (six) Branch hours as needed. furosemide Yes 40mg Take 40 mg U nivers 40 mg 6-07 by mouth ity of tablet 19:53: daily. [address] atenolol 25 2018-0 Yes 25mg Take 25 mg Univers mg tablet 6-07 by mouth ity of 19:53: daily. [address] gabapentin 2019-0 Yes 400mg Take 400 [place] 400 mg 6-07 mg by ity of capsule 19:53: mouth 3 [place] [address] (three) Medical times [place] daily. omeprazole 2019-0 Yes 20mg Take 20 mg U nivers 20 mg 6-07 by mouth ity of capsule 19:53: daily. [address] HYDROcodone 2019-0 Yes 1{tbl} Take 1 Un goran -acetaminop 6-07 tablet by ity of hen 5-325 19:53: mouth [place] mg tablet 40 every 6 Medical (six) Branch hours as needed. furosemide 2019-0 Yes 40mg Take 40 mg U nivers 40 mg 6-07 by mouth ity of tablet 19:53: daily. [address] atenolol 25 Yes 25mg Take 25 mg Univers mg tablet 6-07 by mouth ity of 19:53: daily. [address] gabapentin 2018-0 Yes 400mg Take 400 [place] 400 mg 6-07 mg by ity of capsule 19:53: mouth 3 [place] [address] (three) Medical times [place] daily. omeprazole 2019-0 Yes 20mg Take 20 mg U nivers 20 mg 6-07 by mouth ity of capsule 19:53: daily. [address] HYDROcodone 2018-0 Yes 1{tbl} Take 1 Un gor[place] -acetaminop 6-07 tablet by ity of hen 5-325 19:53: mouth [place] mg tablet 40 every 6 Medical (six) Branch hours as needed. furosemide 2019-0 Yes 40mg Take 40 mg U nivers 40 mg 6-07 by mouth ity of tablet 19:53: daily. [address] atenolol 25 2018-0 Yes 25mg Take 25 mg Univers mg tablet 6-07 by mouth ity of 19:53: daily. [address] gabapentin 2019-0 Yes 400mg Take 400 [place] 400 mg 6-07 mg by ity of capsule 19:53: mouth 3 [place] [address] (three) Medical times [place] daily. omeprazole 2019-0 Yes 20mg Take 20 mg U nivers 20 mg 6-07 by mouth ity of capsule 19:53: daily. [address] HYDROcodone 2019-0 Yes 1{tbl} Take 1 Un gor[place] -acetaminop 6-07 tablet by ity of hen 5-325 19:53: mouth [place] mg tablet 40 every 6 Medical (six) Branch hours as needed. furosemide 2019-0 Yes 40mg Take 40 mg U nivers 40 mg 6-07 by mouth ity of tablet 19:53: daily. [address] atenolol Yes 25mg Take 25 mg Univers mg tablet 6-07 by mouth ity of 19:53: daily. [address] gabapentin 2018- Yes 400mg Take 400 [place] 400 mg 6-07 mg by ity of capsule 19:53: mouth 3 [place] 40 (three) Medical times Branch daily. omeprazole 2018- Yes 20mg Take 20 mg U nivers 20 mg 6-07 by mouth ity of capsule 19:53: daily. [address] HYDROcodone 2018-0 Yes 1{tbl} Take 1 Un goran -acetaminop 6-07 tablet by ity of hen 5-325 19:53: mouth [place] mg tablet 40 every 6 Medical (six) Branch hours as needed. furosemide 2018-0 Yes 40mg Take 40 mg U nivers 40 mg 6-07 by mouth ity of tablet 19:53: daily. [address] atenolol Yes 25mg Take 25 mg Univers mg tablet 6-07 by mouth ity of 19:53: daily. [address] gabapentin 2018-0 Yes 400mg Take 400 [place] 400 mg 6-07 mg by ity of capsule 19:53: mouth 3 [place] 40 (three) Medical times Branch daily. omeprazole 2019-0 Yes 20mg Take 20 mg U nivers 20 mg 6-07 by mouth ity of capsule 19:53: daily. [address] HYDROcodone 2018-0 Yes 1{tbl} Take 1 Un goran -acetaminop 6-07 tablet by ity of hen 5-325 19:53: mouth [place] mg tablet 40 every 6 Medical (six) Branch hours as needed. furosemide 2019-0 Yes 40mg Take 40 mg U nivers 40 mg 6-07 by mouth ity of tablet 19:53: daily. [address] atenolol 25 2019-0 Yes 25mg Take 25 mg Univers mg tablet 6-07 by mouth ity of 19:53: daily. [address] gabapentin 2018-0 Yes 400mg Take 400 [place] 400 mg 6-07 mg by ity of capsule 19:53: mouth 3 [place] [address] (three) Medical times Branch daily. omeprazole 2019-0 Yes 20mg Take 20 mg U nivers 20 mg 6-07 by mouth ity of capsule 19:53: daily. [address] HYDROcodone 2018-0 Yes 1{tbl} Take 1 Un goran -acetaminop 6-07 tablet by ity of hen 5-325 19:53: mouth [place] mg tablet 40 every 6 Medical (six) Branch hours as needed. furosemide 2019-0 Yes 40mg Take 40 mg U nivers 40 mg 6-07 by mouth ity of tablet 19:53: daily. [address] atenolol Yes 25mg Take 25 mg Univers mg tablet 6-07 by mouth ity of 19:53: daily. [address] gabapentin 2018-0 Yes 400mg Take 400 [place] 400 mg 6-07 mg by ity of capsule 19:53: mouth 3 [place] [address] (three) Medical times [place] daily. omeprazole 2018-0 Yes 20mg Take 20 mg U nivers 20 mg 6-07 by mouth ity of capsule 19:53: daily. [address] HYDROcodone 2018-0 Yes 1{tbl} Take 1 Un goran -acetaminop 6-07 tablet by ity of hen 5-325 19:53: mouth [place] mg tablet 40 every 6 Medical (six) Branch hours as needed. furosemide 2019-0 Yes 40mg Take 40 mg U nivers 40 mg 6-07 by mouth ity of tablet 19:53: daily. [address] atenolol 0 Yes 25mg Take 25 mg Univers mg tablet 6-07 by mouth ity of 19:53: daily. [address] gabapentin 2018-0 Yes 400mg Take 400 [place] 400 mg 6-07 mg by ity of capsule 19:53: mouth 3 [place] [address] (three) Medical times Branch daily. omeprazole 2019-0 Yes 20mg Take 20 mg U nivers 20 mg 6-07 by mouth ity of capsule 19:53: daily. [address] HYDROcodone 2019-0 Yes 1{tbl} Take 1 Un goran -acetaminop 6-07 tablet by ity of hen 5-325 19:53: mouth [place] mg tablet 40 every 6 Medical (six) Branch hours as needed. furosemide 2019-0 Yes 40mg Take 40 mg U nivers 40 mg 6-07 by mouth ity of tablet 19:53: daily. [address] atenolol 25 Yes 25mg Take 25 mg Univers mg tablet 6-07 by mouth ity of 19:53: daily. [address] gabapentin 2018-0 Yes 400mg Take 400 [place] 400 mg 6-07 mg by ity of capsule 19:53: mouth 3 [place] 40 (three) Medical times Branch daily. omeprazole 2018-0 Yes 20mg Take 20 mg U nivers 20 mg 6-07 by mouth ity of capsule 19:53: daily. [address] HYDROcodone Yes 1{tbl} Take 1 Un goran -acetaminop 6-07 tablet by ity of hen 5-325 19:53: mouth [place] mg tablet 40 every 6 Medical (six) Branch hours as needed. furosemide 2018-0 Yes 40mg Take 40 mg U nivers 40 mg 6-07 by mouth ity of tablet 19:53: daily. [address] atenolol 25 Yes 25mg Take 25 mg Univers mg tablet 6-07 by mouth ity of 19:53: daily. [address] gabapentin 2018-0 Yes 400mg Take 400 [place] 400 mg 6-07 mg by ity of capsule 19:53: mouth 3 [place] [address] (three) Medical times [place] daily. omeprazole 2019-0 Yes 20mg Take 20 mg U nivers 20 mg 6-07 by mouth ity of capsule 19:53: daily. [address] HYDROcodone 2018-0 Yes 1{tbl} Take 1 Un gor[place] -acetaminop 6-07 tablet by ity of hen 5-325 19:53: mouth [place] mg tablet 40 every 6 Medical (six) Branch hours as needed. furosemide 2019-0 Yes 40mg Take 40 mg U nivers 40 mg 6-07 by mouth ity of tablet 19:53: daily. [address] atenolol 25 Yes 25mg Take 25 mg Univers mg tablet 6-07 by mouth ity of 19:53: daily. [address] gabapentin 2019-0 Yes 400mg Take 400 [place] 400 mg 6-07 mg by ity of capsule 19:53: mouth 3 [place] [address] (three) Medical times [place] daily. omeprazole 2019-0 Yes 20mg Take 20 mg U nivers 20 mg 6-07 by mouth ity of capsule 19:53: daily. [address] HYDROcodone 2019-0 Yes 1{tbl} Take 1 Un goran -acetaminop 6-07 tablet by ity of hen 5-325 19:53: mouth [place] mg tablet 40 every 6 Medical (six) Branch hours as needed. furosemide 2019-0 Yes 40mg Take 40 mg U nivers 40 mg 6-07 by mouth ity of tablet 19:53: daily. [address] atenolol 25 2018-0 Yes 25mg Take 25 mg Univers mg tablet 6-07 by mouth ity of 19:53: daily. [address] gabapentin 2019- Yes 400mg Take 400 [place] 400 mg 6-07 mg by ity of capsule 19:53: mouth 3 [place] [address] (three) Medical times [place] daily. omeprazole 2019-0 Yes 20mg Take 20 mg U nivers 20 mg 6-07 by mouth ity of capsule 19:53: daily. [address] HYDROcodone 2018-0 Yes 1{tbl} Take 1 Un gor[place] -acetaminop 6-07 tablet by ity of hen 5-325 19:53: mouth [place] mg tablet 40 every 6 Medical (six) Branch hours as needed. levothyroxi [id number] Yes Univer s ne 88 mcg 4-03 ity of tablet 00:00: [address] levothyroxi 2019-0 Yes Univer s ne 88 mcg 4-03 ity of tablet 00:00: [address] levothyroxi 2019-0 Yes Univer s ne 88 mcg 4-03 ity of tablet 00:00: [address] levothyroxi 2019-0 Yes Univer s ne 88 mcg 4-03 ity of tablet 00:00: [address] levothyroxi [id number] Yes Univer s ne 88 mcg 4-03 ity of tablet 00:00: [address] levothyroxi 2018-0 Yes Univer s ne 88 mcg 4-03 ity of tablet 00:00: [place] 00 Medical Branch levothyroxi 2019-0 Yes [place] 88 mcg 4-03 ity of tablet 00:00: [place] 00 Medical Branch levothyroxi 2019-0 Yes [place] 88 mcg 4-03 ity of tablet 00:00: [place] 00 Medical Branch levothyroxi 2019-0 Yes [place] 88 mcg 4-03 ity of tablet 00:00: [place] [address] Medical Branch levothyroxi 2019-0 Yes [place] 88 mcg 4-03 ity of tablet 00:00: [place] 00 Medical Branch levothyroxi 2019-0 Yes [place] 88 mcg 4-03 ity of tablet 00:00: [place] [address] Medical Branch levothyroxi 2019-0 Yes [place] 88 mcg 4-03 ity of tablet 00:00: [place] [address] Medical Branch levothyroxi 2019-0 Yes [place] ne 88 mcg 4-03 ity of tablet 00:00: [place] [address] Medical Branch levothyroxi 2019-0 Yes [place] 88 mcg 4-03 ity of tablet 00:00: [place] [address] Medical Branch levothyroxi 2019-0 Yes [place] 88 mcg 4-03 ity of tablet 00:00: [place] [address] Medical Branch levothyroxi 2019-0 Yes [place] 88 mcg 4-03 ity of tablet 00:00: [place] [address] Medical Branch levothyroxi 2019-0 Yes [place] 88 mcg 4-03 ity of tablet 00:00: [place] [address] Medical Branch levothyroxi 2019-0 Yes [place] 88 mcg 4-03 ity of tablet 00:00: [place] [address] Medical Branch levothyroxi 2019-0 Yes [place] 88 mcg 4-03 ity of tablet 00:00: [place] [address] Medical Branch levothyroxi 2019-0 Yes [place] ne 88 mcg 4-03 ity of tablet 00:00: [place] [address] Medical Branch levothyroxi 2019-0 Yes [place] 88 mcg 4-03 ity of tablet 00:00: [place] [address] Medical Branch levothyroxi 2019-0 Yes [place] ne 88 mcg 4-03 ity of tablet 00:00: [place] [address] Medical Branch levothyroxi 2019-0 Yes [place] ne 88 mcg 4-03 ity of tablet 00:00: [place] [address] Medical Branch docusate 2019-0 Yes [id number] 100mg Take 1 U nivers 100 mg 2-22 capsule by ity of capsule 00:00: mouth [place] 00 daily. Medical Branch predniSONE 2019-0 Yes [id number] 40mg Take 2 Univers 20 mg 2-22 tablets by ity of tablet 00:00: mouth [place] 00 every 24 Medical (twenty-fo Branch ur) hours. docusate 2019-0 Yes [id number] 100mg Take 1 U nivers 100 mg 2-22 capsule by ity of capsule 00:00: mouth [place] 00 daily. Medical Branch predniSONE 2019-0 Yes [id number] 40mg Take 2 Univers 20 mg 2-22 tablets by ity of tablet 00:00: mouth [place] 00 every 24 Medical (twenty-fo Branch ur) hours. docusate 2019-0 Yes [id number] 100mg Take 1 U nivers 100 mg 2-22 capsule by ity of capsule 00:00: mouth [place] 00 daily. Medical Branch predniSONE 2019-0 Yes [id number] 40mg Take 2 Univers 20 mg 2-22 tablets by ity of tablet 00:00: mouth [place] 00 every 24 Medical (twenty-fo Branch ur) hours. docusate 2019-0 Yes [id number] 100mg Take 1 U nivers 100 mg 2-22 capsule by ity of capsule 00:00: mouth [place] 00 daily. Medical Branch predniSONE 2019-0 Yes [id number] 40mg Take 2 Univers 20 mg 2-22 tablets by ity of tablet 00:00: mouth [place] 00 every 24 Medical (twenty-fo Branch ur) hours. docusate 2019-0 Yes [id number] 100mg Take 1 U nivers 100 mg 2-22 capsule by ity of capsule 00:00: mouth [place] 00 daily. Medical Branch predniSONE 2019-0 Yes [id number] 40mg Take 2 Univers 20 mg 2-22 tablets by ity of tablet 00:00: mouth [place] 00 every 24 Medical (twenty-fo Branch ur) hours. docusate 2019-0 Yes [id number] 100mg Take 1 U nivers 100 mg 2-22 capsule by ity of capsule 00:00: mouth [place] 00 daily. Medical Branch predniSONE 2019-0 Yes [id number] 40mg Take 2 Univers 20 mg 2-22 tablets by ity of tablet 00:00: mouth [place] 00 every 24 Medical (twenty-fo Branch ur) hours. docusate 2019-0 Yes [id number] 100mg Take 1 U nivers 100 mg 2-22 capsule by ity of capsule 00:00: mouth [place] 00 daily. Medical Branch predniSONE 2019-0 Yes [id number] 40mg Take 2 Univers 20 mg 2-22 tablets by ity of tablet 00:00: mouth [place] 00 every 24 Medical (twenty-fo Branch ur) hours. docusate 2019-0 Yes [id number] 100mg Take 1 U nivers 100 mg 2-22 capsule by ity of capsule 00:00: mouth [place] 00 daily. Medical Branch predniSONE 2019-0 Yes [id number] 40mg Take 2 Univers 20 mg 2-22 tablets by ity of tablet 00:00: mouth [place] 00 every 24 Medical (twenty-fo Branch ur) hours. docusate 0 Yes [id number] 100mg Take 1 U nivers 100 mg 2-22 capsule by ity of capsule 00:00: mouth [place] 00 daily. Medical Branch docusate Yes [id number] 100mg Take 1 U nivers 100 mg 2-22 capsule by ity of capsule 00:00: mouth [place] 00 daily. Medical Branch predniSONE 2018-0 Yes [id number] 40mg Take 2 Univers 20 mg 2-22 tablets by ity of tablet 00:00: mouth [place] 00 every 24 Medical (twenty-fo Branch ur) hours. docusate 0 Yes [id number] 100mg Take 1 U nivers 100 mg 2-22 capsule by ity of capsule 00:00: mouth [place] 00 daily. Medical Branch docusate 2018-0 Yes [id number] 100mg Take 1 U nivers 100 mg 2-22 capsule by ity of capsule 00:00: mouth [place] 00 daily. Medical Branch docusate 0 Yes [id number] 100mg Take 1 U nivers 100 mg 2-22 capsule by ity of capsule 00:00: mouth [place] 00 daily. Medical Branch docusate 2018-0 Yes [id number] 100mg Take 1 U nivers 100 mg 2-22 capsule by ity of capsule 00:00: mouth [place] 00 daily. Medical Branch docusate 2018-0 Yes [id number] 100mg Take 1 U nivers 100 mg 2-22 capsule by ity of capsule 00:00: mouth [place] 00 daily. Medical Branch docusate 2018-0 Yes [id number] 100mg Take 1 U nivers 100 mg 2-22 capsule by ity of capsule 00:00: mouth [place] 00 daily. Medical Branch docusate 2019-0 Yes [id number] 100mg Take 1 U nivers 100 mg 2-22 capsule by ity of capsule 00:00: mouth [place] 00 daily. Medical Branch docusate 2018- Yes [id number] 100mg Take 1 U nivers 100 mg 2-22 capsule by ity of capsule 00:00: mouth [place] 00 daily. Medical Branch docusate Yes [id number] 100mg Take 1 U nivers 100 mg 2-22 capsule by ity of capsule 00:00: mouth [place] 00 daily. Medical Branch docusate Yes [id number] 100mg Take 1 U nivers 100 mg 2-22 capsule by ity of capsule 00:00: mouth [place] 00 daily. Medical Branch predniSONE 2018- Yes [id number] 40mg Take 2 Univers 20 mg 2-22 tablets by ity of tablet 00:00: mouth [place] 00 every 24 Medical (twenty-fo Branch ur) hours. docusate Yes [id number] 100mg Take 1 U nivers 100 mg 2-22 capsule by ity of capsule 00:00: mouth [place] 00 daily. Medical Branch predniSONE 2018-0 Yes [id number] 40mg Take 2 Univers 20 mg 2-22 tablets by ity of tablet 00:00: mouth [place] 00 every 24 Medical (twenty-fo Branch ur) hours. docusate Yes [id number] 100mg Take 1 U nivers 100 mg 2-22 capsule by ity of capsule 00:00: mouth [place] 00 daily. Medical Branch predniSONE 2019-0 Yes [id number] 40mg Take 2 Univers 20 mg 2-22 tablets by ity of tablet 00:00: mouth [place] 00 every 24 Medical (twenty-fo Branch ur) hours. docusate 2019-0 Yes [id number] 100mg Take 1 U nivers 100 mg 2-22 capsule by ity of capsule 00:00: mouth [place] 00 daily. Medical Branch predniSONE 2018-0 Yes [id number] 40mg Take 2 Univers 20 mg 2-22 [...] 00:00: mouth [place] 00 daily. Medical Branch Vital Signs Vital Name Observation Time Observation Value Comments Source Systolic blood 2019-10-27 22:00:00 147 mm[Hg] Univer sity of pressure [place] [facility] Diastolic blood 2019-10-27 22:00:00 70 mm[Hg] Unive rsity of pressure [facility] Heart rate 2019-10-27 22:00:00 59 /min Universi ty of [facility] Respiratory rate 2019-10-27 22:00:00 16 /min Univ ersity of [facility] Oxygen saturation in 2019-10-27 22:00:00 96 /min [facility] Arterial blood by [facility] Pulse oximetry Branch Body temperature 2019-10-27 20:33:00 36.89 Mattie Univ ersity of [facility] Body weight 2019-10-27 20:33:00 77.111 kg [facility] [place] [facility] BMI 2019-10-27 20:33:00 25.85 kg/m2 Universi ty [facility] Systolic blood 2019-04-10 18:46:00 115 mm[Hg] Univer sity of pressure [facility] Diastolic blood 2019-04-10 18:46:00 64 mm[Hg] Unive rsity of pressure [facility] Heart rate 2019-04-10 18:46:00 94 /min [facility] [place] [facility] Body height 2019-04-10 18:46:00 172.7 cm [facility] [place] [facility] Body weight 2019-04-10 18:46:00 81.647 kg [facility] [place] [facility] BMI 2019-04-10 18:46:00 27.37 kg/m2 [facility] [place] [facility] [place] Body weight 2019-03-21 19:23:00 81.647 kg [facility] [place] [facility] BMI 2019-03-21 19:23:00 29.95 kg/m2 [facility] [place] [facility] Body height 2019-03-20 14:32:00 165.1 cm [facility] [place] [facility] Body weight 2019-03-20 14:32:00 81.647 kg [facility] [place] [facility] BMI 2019-03-20 14:32:00 29.95 kg/m2 Universi ty of [facility] Systolic blood 2019-03-04 16:15:00 138 mm[Hg] Univer sity of pressure [facility] Branch Diastolic blood 2019-03-04 16:15:00 60 mm[Hg] Unive rsity of pressure [facility] Heart rate 2019-03-04 16:15:00 64 /min [facility] Body temperature 2019-03-04 16:15:00 36.39 Mattie [facility] Respiratory rate 2019-03-04 16:15:00 16 /min [facility] Body height 2019-03-04 16:15:00 165.1 cm [facility] Body weight 2019-03-04 16:15:00 81.647 kg [facility] BMI 2019-03-04 16:15:00 29.95 kg/m2 [facility] Procedures Procedure Date / Time Performing Clinician Source Performed HOME HEALTH - OTHER 2021-07-07 06:01:00 Milton Baker [facility] Name Medical [place] HOME HEALTH - OTHER 2021-06-21 06:01:00 Milton Baker [facility] Name Medical [place] HOME HEALTH - OTHER 2021-06-01 05:01:00 Milton Baker [facility] Name Medical [facility] HEALTH - OTHER 2021-05-24 05:01:00 Milton Baker [facility] Name Medical Branch HOME HEALTH - OTHER 2021-05-10 05:01:00 Milton Baker [facility] Name Medical [facility] HEALTH - OTHER 2021-03-29 05:01:00 Milton Baker [facility] Medical [place] CLINIC RECORD / SMR 2021-03-21 05:01:00 Milton Baker [facility] Name Medical Branch [id number] 2021-01-28 00:00:00 [facility] [id number] 2021-01-28 00:00:00 [facility] [id number] 2021-01-28 00:00:00 [facility] [id number] 2021-01-28 00:00:00 [facility] [id number] 2021-01-28 00:00:00 [facility] [id number] 2021-01-18 00:00:00 [facility] [id number] 2021-01-18 00:00:00 [facility] [id number] 2021-01-18 00:00:00 [facility] [id number] 2021-01-18 00:00:00 [facility] [id number] 2021-01-18 00:00:00 [facility] XR WRIST 3+ VW LEFT 2019-10-27 21:13:49 Donya Tavares [facility] Branch XR HAND 3+ VW LEFT 2019-10-27 21:13:[address] [facility] URIC ACID 2019-10-27 20:56:00 Donya Tavares [facility] BASIC METABOLIC PANEL 2019-10-27 20:56:00 Donya Tavares [facility] (NA, K, CL, CO2, Medical Branch GLUCOSE, BUN, CREATININE, CA) CBC WITH DIFFERENTIAL 2019-10-27 20:56:00 Donya Tavares [facility] Branch CONSENT/REFUSAL FOR 2019-10-27 20:21:16 Doctor Favio [facility] DIAGNOSIS AND TREATMENT [place] [facility] HOME HEALTH - OTHER 2019-09-26 06:01:00 Doctor Favio [facility] [place] [facility] NON [facility] 2019-03-26 05:01:00 Doctor Favio [facility] DOCUMENTATION [place] [facility] XR CHEST 2 VW 2019-03-20 17:10:47 Maura Thornton [facility] EKG-12 LEAD 2019-03-20 16:54:41 Doctor Favio, [facility] [place] [facility] CONSENT/REFUSAL FOR 2019-03-20 16:10:12 Doctor Favio [facility] DIAGNOSIS AND TREATMENT [place] [facility] ASSIGNMENT OF BENEFITS 2019-03-20 16:08:11 Doctor Favio, [facility] [place] [facility] Encounters Start End Encounter Admission Attending Care Care Encounter Source Date/Time Date/Time Type Type Clinicians Facility Department ID 2021-09-01 Outpatient 3 [id number] ENCPL REF [id number] [facility] 12:17:49 0[facility] 2021-07-07 2021-07-07 Orders Doctor ELADIO Hebert2.840.114 [id number] Univers 00:00:00 00:00:00 Only Unassigned, BASSEM 350.1.13.10 ity of [place] [facility] 4.2.7.2.686 Lg as [phone] [address] 2021-06-27 2021-06-27 Outpatient R [facility] [id number] Univers 00:00:00 00:00:00 ity of [facility] 2021-06-22 2021-06-22 Outpatient R [facility] [id number] Univers 00:00:00 00:00:00 ity [facility] 2021-06-21 2021-06-21 Orders Doctor ELADIO Hebert2.840.114 [id number] Univers 00:00:00 00:00:00 Only Unassigned, BASSEM 350.1.13.10 ity of [place] [facility] 4.2.7.2.686 Lg as [id number] [address] 2021-06-01 2021-06-01 Outpatient R [facility] [id number] Univers 00:00:00 00:00:00 ity of [facility] 2021-06-01 2021-06-01 Orders Doctor ELADIO Hebert2.840.114 [id number] Univers 00:00:00 00:00:00 Only Unassigned, BASSEM 350.1.13.10 ity of [place] [facility] 4.2.7.2.686 Lg as [phone] [address] 2021-05-25 2021-05-25 Outpatient [facility] [id number] Univers 00:00:00 00:00:00 ity of [facility] 2021-05-24 2021-05-24 Orders Doctor ELADIO Hebert2.840.114 [id number] Univers 00:00:00 00:00:00 Only Unassigned, BASSEM 350.1.13.10 ity of [place] [facility] 4.2.7.2.686 Lg as [id number] [address] 2021-05-10 2021-05-10 Orders Doctor ELADIO Hebert2.840.114 [id number] Univers 00:00:00 00:00:00 Only Unassigned, BASSEM 350.1.13.10 ity of [place] [facility] 4.2.7.2.686 Lg as [id number] [address] 2021-05-03 2021-05-03 Outpatient [facility] [id number] Univers 00:00:00 00:00:00 ity of [facility] 2021-04-26 2021-04-26 Outpatient [facility] [id number] Univers 00:00:00 00:00:00 ity of [facility] 2021-03-29 2021-03-29 Orders Doctor ELADIO 1.2.840.114 [id number] Univers 00:00:00 00:00:00 Only Unassigned, BASSEM 350.1.13.10 ity of [place] [facility] 4.2.7.2.686 Lg as [id number] [address] 2021-03-21 2021-03-21 Orders Doctor ELADIO 1.2.840.114 [id number] Univers 00:00:00 00:00:00 Only Unassigned, BASSEM 350.1.13.10 ity of [place] [facility] 4.2.7.2.686 Lg as [id number] [address] 2021-01-13 2021-01-31 Inpatient 3 [facility] ENCPL CVA [id number] [facility] 14:22:00 14:54:00 temo, 0610 ss [facility] Rehabil itation Ver[place] d 2019-10-28 2019-10-28 Outpatient Raju_P MMG G [id number] [place] 11:32:00 11:32:00 0324 [facility] 2019-10-27 2019-10-27 Emergency [facility][1] [id number] Univers 15:28:56 18:24:00 Donya Winkler 350.1.13.10 i ty [place]2.[place] [phone] [place] [address] Branch 2019-10-27 2019-10-27 Emergency X ANUSHA, [facility] ERT [id number] Univers 15:28:56 18:24:00 DONYA itjf of [facility] 2019-10-27 2019-10-27 Orders Doctor ELADIO 1.2.840.114 [id number] Univers 00:00:00 00:00:00 Only Unassigned, BASSEM 350.1.13.10 ity of [place] [facility] 4.2.7.2.686 Lg as [id number] [address] 2019-09-26 2019-09-26 Orders Doctor ELADIO 1.2.840.114 [id number] Univers 00:00:00 00:00:00 Only Unassigned, BASSEM 350.1.13.10 ity of [place] [facility] 4.2.7.2.686 Lg as [id number] [address] 2019-09-17 2019-09-17 Outpatient R [facility] [id number] Univers 00:00:00 00:00:00 itjf [facility] 2019-04-10 2019-04-10 Office Donato [facility] 1.2.840.114 [id number] Univers 13:46:13 14:32:35 Visit [facility] 350.1.13.10 it y of Surgical 4.2.7.2.686 Lg as Specialti [phone] Mn dical es 198 [facility] 2019-03-26 2019-03-26 [facility] [id number] Univers 00:00:00 00:00:00 MAURA rodrigues [facility] 2019-03-26 2019-03-26 Orders Doctor HENDRICKS 1.2.840.114 [id number] Univers 00:00:00 00:00:00 Only Unassigned, BASSEM 350.1.13.10 ity of [place] [facility] 4.2.7.2.686 Lg as [id number] [address] 2019-03-21 2019-03-21 Telephone Hillary [facility] 1.2.840.114 [id number] Univers 00:00:00 00:00:00 Maura Health 350.1.13.10 it y of Surgical 4.2.7.2.686 Lg as Specialti [id number] Mn dical es 198 [facility] 2019-03-21 2019-03-21 Prep For Hillary [facility] 1.2.840.114 [id number] Univers 00:00:00 00:00:00 Surgery Maura [facility] 350.1.13.10 it y of Surgical 4.2.7.2.686 Lg as Specialti [phone] Mn dical es 198 [facility] 2019-03-20 2019-03-20 [facility] Hillary [facility] 1.2.840.114 [id number] Univers 11:08:03 23:59:00 Encounter Maura Winkler 350.1.13.10 ity of [place] 4.2.7.2.686 [facility] [phone] [facility] [address] [place] 2019-03-20 2019-03-20 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, [facility] Lab [facility] 1.2.840.114 [id number] Univers 11:02:22 11:17:22 Visit Maura Thornton 350.1.13.10 ity of [place] 4.2.7.2.686 [facility] [phone] [facility] [address] [place] 2019-03-20 2019-03-20 Hospital Ferdinand Sewell [facility] 1.2.840.11 [id number] Univers 11:07:54 11:07:54 [facility] 350.1.13 .10 ity of [place] 4.2.7.2.686 [facility] [phone] [facility] 051 [place] 2019-03-20 2019-03-20 Office Sewell [facility] 1.2.840.114 [id number] Univers 09:24:23 09:39:23 Visit [facility] Health 350.1.13.10 it y of Surgical 4.2.7.2.686 Lg as Specialti [id number] Mn dical es 198 [facility] 2019-03-20 2019-03-20 [facility] 1.2.013.403 [id number] Univers 00:00:00 00:00:00 (Out) Maura Franco [facility] 350.1.13.10 it y of Surgical 4.2.7.2.686 Lg as Specialti [phone] Mn dical es 198 [facility] 2019-03-04 2019-03-04 Office Breezy [facility] 1.2.840.114 [id number] Univers 10:17:23 11:01:19 Visit Rodolfo Wink[facility].1.13.10 [facility] [place] 4.2.7.2.686 Srikanth downs traceyvianney [phone] Mn dical nal 092 [facility] Results Test Description Test Time Test Comments Results Result Comments Source CBC WITH DIFFERENTIAL 2019-10-27 21:19:00 Test Item Value Reference Range Interpretation Comme nts WBC (test code = 6690-2) See_Comment H [A utomated message] The system which ge nerated this result transmit sathya reference range: 4.30 - 1 1.10 10*3/?L. The reference r estefany was not used to interpr et this result as normal/abnor mal. RBC (test code = 789-8) See_Comment [Au tomated message] The system which ge nerated this result transmit sathya reference range: 3.93 - 5 .25 10*6/?L. The reference r estefany was not used to interpr et this result as normal/abnor mal. HGB (test code = 718-7) 11.6 g/dL 11.6-15 HCT (test code = 4544-3) 35.3 % 35.7-45.2 L MCV (test code = 787-2) 84.4 fL 80.6-95.5 MCH (test code = 785-6) 27.8 pg 25.9-32.8 MCHC (test code = 786-4) 32.9 g/dL 31.6-35.1 RDW-SD (test code = 15296-9) 44.3 fL 39-49.9 RDW-CV (test code = 788-0) 14.4 % 12-15.5 PLT (test code = 777-3) See_Comment H [Au tomated message] The system which ge nerated this result transmit sathya reference range: 166 - 35 8 10*3/?L. The reference range was not used to interpret th is result as normal/abnormal . MPV (test code = 80336-0) 10.8 fL 9.5-12.9 NRBC/100 WBC (test code = See_Comment [ Automated message] The 2608969461) system which ge nerated this result transmit sathya reference range: 0.0 - 10 .0 /100 WBCs. The reference r estefany was not used to interpr et this result as normal/abnor mal. NRBC x10^3 (test code = <0.01 See_Comment [Au tomated message] The 4702188431) system which [employer] nerated this result transmit sathya reference range: 10*3/?L. The reference range was not u sed to interpret this result as normal/abnormal . GRAN MAT (NEUT) % (test code 60.3 % = 770-8) IMM GRAN % (test code = 0.20 % 2530445380) LYMPH % (test code = 736-9) 25.7 % MONO % (test code = 5905-5) 11.2 % EOS % (test code = 713-8) 1.9 % BASO % (test code = 706-2) 0.7 % GRAN MAT x10^3(ANC) (test 6.74 10*3/uL 1.88-7.09 code = 6410331495) IMM GRAN x10^3 (test code = <0.03 0-0.06 6737360862) LYMPH x10^3 (test code = 2.87 10*3/uL 1.32-3.29 731-0) MONO x10^3 (test code = 1.25 10*3/uL 0.33-0.92 H 742-7) EOS x10^3 (test code = 0.21 10*3/uL 0.03-0.39 711-2) BASO x10^3 (test code = 0.08 10*3/uL 0.01-0.07 H 704-7) Lab Interpretation (test Abnormal code = 15732-7) [facility] (NA, K, CL, CO2, GLUCOSE, BUN, CREATININE, CA)2019-10-27 21:15:00 Test Item Value Reference Range Interpretation Comments NA (test code = 131 mmol/L 135-145 L 9057075023) K (test code = 5.0 mmol/L 3.5-5 8389857433) CL (test code = 92 mmol/L 98-108 L 5331455685) CO2 TOTAL (test code = 33 mmol/L 23-31 H 1203451436) AGAP (test code = 2-16 4059264526) BUN (test code = 25 mg/dL 7-23 H 0698601998) GLUCOSE (test code = 130 mg/dL 70-110 H 2919498033) CREATININE (test code = 1.05 mg/dL 0.5-1.04 H 9098554423) CALCIUM (test code = 9.4 mg/dL 8.6-10.6 0376437750) eGFR Calculation mL/min/1.73m2 (Non-) (test code = 8386036336) eGFR Calculation mL/min/1.73m2 () (test code = 8294126344) FLORA (test code = FLORA) Association of [...] tests). Lab Interpretation Abnormal (test code = 86585-0) [facility] BranchURIC [id number] 21:15:00 Test Item Value Reference Range Interpretation Comments URIC ACID (test code = 7260281764) 9.4 mg/dL 2.9-6 H Lab Interpretation (test code = Abnormal 97215-8) [facility] [id number] 17:44:04HISTORY: Right carpal tunnel syndrome. TECHNIQUE: PA and lateral views of the chest are obtained. 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 No acute pneumonia detected. No pneumothorax or pleuraleffusion or pulmonary congestion. Cardiothoracic ratio of cygqdedoivmhs69.6/27.2 cm is consistent with normal cardiac size. Prominent epicardialfat pads is suspected on both sides. Mild right apical pleural scarringnoted. No compression fractures seen in the thoracic vertebral bodies. CONCLUSIONS: No signs of acute cardiopulmonary disease. [facility], Radiant Results Inft User - 03/20/2019 12:46 PM CDTHISTORY: Right carpal tunnel syndrome.TECHNIQUE: PA and lateral views of the chest are obtained.FINDINGS: Mild obstructive lung disease is suspected predominantly in theupper lobes. No acute pneumonia detected. No pneumothorax or pleuraleffusion or pulmonary congestion.Cardiothoracic ratio of psgqirjxqdtok94.6/27.2 cm is consistent with normal cardiac size. Prominent e picardialfat pads is suspected on both sides. Mild right apical pleural scarringnoted. No compression fractures seen in the thoracic vertebral bodies.CONCLUSIONS: No signs of acute cardiopulmonary disease.[facility]
[2022-10-18 13:41] LABS: Absolute Lymphocytes (CBC) 1.8 K/uL (0.7-4.9); Hematocrit 45.4 % (36.0-45.0); Lymphocytes % 14.5 % (15.3-44.8); MCV 91.8 fL (80-100); MPV 8.9 fL (7.6-11.3); RBC Red Blood Cell Count 4.94 M/uL (3.86-4.86)
--- NOTE | 2022-10-18 14:02 | RAD REPORT ---
EXAM DESCRIPTION: RAD - Chest Single View - 10/18/2022 1:51 pm CLINICAL HISTORY: AMS Chest pain. COMPARISON: Chest Single View dated 04/01/2022 FINDINGS: Portable technique limits examination quality. Mild interstitial pulmonary edema. The heart is moderately enlarged in size. Trace bilateral pleural effusions. No displaced fractures. IMPRESSION: Mild CHF.
--- NOTE | 2022-10-18 14:12 | RAD REPORT ---
EXAM DESCRIPTION: CT - Head Brain W Cont - 10/18/2022 1:46 pm CLINICAL HISTORY: AMS;Confused Headache, drowsiness COMPARISON: No comparisons TECHNIQUE: All CT scans are performed using dose optimization technique as appropriate and may inclu de automated exposure control or mA/KV adjustment according to patient size. FINDINGS: No intracranial hemorrhage, hydrocephalus or extra-axial fluid collection.Mild generalized brain atrophy is present with mild periventricular and deep white matter chronic microvascular ische harriet changes.No areas of brain edema or evidence of midline shift. The paranasal sinuses and mastoids are clear. The calvarium is intact. IMPRESSION: No acute intracranial abnormality.
[2022-10-18 20:04] LABS: Troponin High Sensitivity 13.2 pg/mL (<58.9)
[2022-10-18 20:05] LABS: Magnesium 2.2 mg/dL (1.6-2.4)
--- NOTE | 2022-10-18 20:23 | ER ---
Nurse's Notes [facility] Name: Lyubov Garcia Age: 87 yrs Sex: Female : 1935 Arrival Date: 10/18/2022 Time: 13:03 Bed 20 Private MD: Diagnosis: Dizziness and giddiness;Syncope and collapse, mild CHF exacerbation, physical deconditioning, Presentation: 10/18 13:04 Chief complaint: EMS states: client ws at the [facility] today when she went kc6 "unresponsive" in the bus on the way back to the long term. Coronavirus screen: Vaccine status: Patient reports receiving the 2nd dose of the covid vaccine. At this time, the client does not indicate any symptoms associated with coronavirus-19. Ebola Screen: No symptoms or risks identified at this time. Initial Sepsis Screen: Does the patient meet any 2 criteria? No. Patient's initial sepsis screen is negative. Does the patient have a suspected source of infection? No. Patient's initial sepsis screen is negative. Risk Assessment: Do you want to hurt yourself or someone else? Patient reports no desire to harm self or others. Onset of symptoms was October 18, 2022. 13:04 Method Of Arrival: EMS: [facility] kc6 13:04 Acuity: STEFANY 3 kc6 Triage Assessment: 13:05 General: Appears in no apparent distress. comfortable, Behavior is calm, cooperative, kc6 appropriate for age. Pain: Denies pain. Historical: - Allergies: 13:05 Latex, Natural Rubber; kc6 13:05 Quinine Sulfate; kc6 13:05 Sulfa (Sulfonamide Antibiotics); kc6 13:05 tramadol; kc6 - PMHx: 13:05 Anemia; Charcots Arthropathy; CVA; depressive disorder; diabetes mellitus; GERD; Gout; kc6 HEART FAILURE; Hypertensive disorder; PVD; UTI; - Immunization history:: Client reports receiving the 2nd dose of the Covid vaccine, Flu vaccine is up to date. - Social history:: Smoking status: Patient denies any tobacco usage or history of. Screenin:06 [facility] ED Fall Risk Assessment (Adult) History of falling in the last 3 months, kc6 including since admission No falls in past 3 months (0 pts) Confusion or Disorientation No (0 pts) Intoxicated or Sedated No (0 pts) Impaired Gait No (0 pts) Mobility Assist Device Used No (0 pt) Altered Elimination No (0 pt) Score/Fall Risk Level 0 - 2 = Low Risk Oriented to surroundings, Maintained a safe environment, Educated pt \\T\\ family on fall prevention, incl call for assistance when getting out of bed, Assessed \\T\\ reinforced patient's understanding of fall precautions, Hourly rounding (assess needs \\T\\ fall precautionary measures) done. Abuse screen: Denies threats or abuse. Denies injuries from another. Nutritional screening: No deficits noted. Tuberculosis screening: No symptoms or risk factors identified. Assessment: 14:05 General: Appears in no apparent distress. comfortable, Behavior is calm, cooperative, kc6 appropriate for age. Pain: Denies pain. Neuro: Ley Agitation-Sedation Scale (RASS): 0 - Alert and Calm Level of Consciousness is awake, alert, obeys commands, Oriented to person, place, time, situation, Appropriate for age Reports dizziness, feeling lightheaded. Cardiovascular: Capillary refill < 3 seconds Rhythm is atrial fibrillation. Respiratory: Airway is patent Trachea midline Respiratory effort is even, unlabored, Respiratory pattern is regular, symmetrical, Breath sounds are clear bilaterally. GI: No signs and/or symptoms were reported involving the gastrointestinal system. : No signs and/or symptoms were reported regarding the genitourinary system. EENT: No signs and/or symptoms were reported regarding the EENT system. Derm: No signs and/or symptoms reported regarding the dermatologic system. Skin is intact, Skin is pink, warm \\T\\ dry. Musculoskeletal: No signs and/or symptoms reported regarding the musculoskeletal system. Circulation, motion, and sensation intact. Capillary refill < 3 seconds, Range of motion: intact in all extremities. 14:45 Reassessment: Patient appears in no apparent distress at this time. No changes from kc6 previously documented assessment. Patient and/or family updated on plan of care and expected duration. Pain level reassessed. Patient is alert, oriented x 3, equal unlabored respirations, skin warm/dry/pink. 15:21 Reassessment: spoke with inside lab for assistance with second recollect. stated it kc6 will be a minute before they can make it but they will come. 15:45 Reassessment: Patient appears in no apparent distress at this time. No changes from kc6 previously documented assessment. Patient and/or family updated on plan of care and expected duration. Pain level reassessed. Patient is alert, oriented x 3, equal unlabored respirations, skin warm/dry/pink. 16:15 Reassessment: inside lab at bedside for recollect. kc6 16:45 Reassessment: Patient appears in no apparent distress at this time. No changes from kc6 previously documented assessment. Patient and/or family updated on plan of care and expected duration. Pain level reassessed. Patient is alert, oriented x 3, equal unlabored respirations, skin warm/dry/pink. 17:35 Reassessment: Patient appears in no apparent distress at this time. No changes from kc6 previously documented assessment. Patient and/or family updated on plan of care and expected duration. Pain level reassessed. Patient is alert, oriented x 3, equal unlabored respirations, skin warm/dry/pink. 18:35 Reassessment: Patient appears in no apparent distress at this time. No changes from kc6 previously documented assessment. Patient and/or family updated on plan of care and expected duration. Pain level reassessed. Patient is alert, oriented x 3, equal unlabored respirations, skin warm/dry/pink. 18:50 Reassessment: spoke with Diamond from inside lab. stated she is aware of the 3rd kc6 recollect and is on her way. 19:17 Reassessment: Patient appears in no apparent distress at this time. Patient and/or jb4 family updated on plan of care and expected duration. Pain level reassessed. Patient is alert, oriented x 3, equal unlabored respirations, skin warm/dry/pink. Given water per pt request. Vital Signs: 13:04 BP 114 / 53; Pulse 95; Resp 11 S; Temp 98.6(O); Pulse Ox 95% on R/A; Weight 85.73 kg kc6 (R); Height 5 ft. 8 in. (R); Pain 0/10; 14:07 BP 138 / 67; Pulse 83; Resp 15 S; Pulse Ox 100% on R/A; kc6 14:57 BP 112 / 61; Pulse 82; Resp 16 S; Pulse Ox 95% on R/A; kc6 15:52 BP 121 / 72; Pulse 92; Resp 14 S; Pulse Ox 96% on R/A; kc6 16:45 BP 125 / 64; Pulse 85; Resp 17 S; Pulse Ox 100% on R/A; kc6 17:35 BP 130 / 75; Pulse 82; Resp 17 S; Pulse Ox 98% on R/A; kc6 18:42 BP 137 / 70; Pulse 89; Resp 16 S; Pulse Ox 95% on R/A; kc6 19:17 BP 161 / 85; Pulse 89; Resp 16; Pulse Ox 94% on R/A; jb4 13:04 Body Mass Index 28.74 (85.73 kg, 172.72 cm) kc6 13:04 Pain Scale: Adult kc6 ED Course: 13:03 Patient arrived in ED. kc6 13:04 Tasneem Godwin, RN is Primary Nurse. kc6 13:05 Triage completed. kc6 13:05 Arm band placed on. kc6 13:06 Patient has correct armband on for positive identification. Placed in gown. Bed in low kc6 position. Call light in reach. Side rails up X2. 13:09 Maintain EMS IV. Dressing intact. Good blood return noted. Site clean \\T\\ dry. Gauge \\T\\ dana 6 site: 22 G RAC. 13:20 Charles Curtis MD is Attending Physician. kdr 13:47 CT Head Brain w Cont In Process Unspecified. EDMS 13:53 XRAY Chest (1 view) In Process Unspecified. EDMS 14:15 IV discontinued, intact, bleeding controlled, No redness/swelling at site. Pressure kc6 dressing applied. 14:50 Inserted saline lock: 22 gauge in left wrist, using aseptic technique. ,using aseptic kc6 technique. inserted by MELL Lemus Blood collected. 20:06 Attending Physician role handed off by Charles Curtis MD sp4 20:06 Gus Moore MD is Attending Physician. sp4 Administered Medications: No medications were administered Outcome: 20:22 Discharge ordered by . sp4 Signatures: Dispatcher [employer] EDMS Charles Curtis MD MD kdr Bryson, James, RN RN jb4 Tasneem Godwin RN RN kc6 Gus Moore MD MD sp4
--- NOTE | 2022-10-18 20:23 | EDPHYS ---
Physician Documentation [facility] Name: Lyubov Garcia Age: 87 yrs Sex: Female : 1935 Arrival Date: 10/18/2022 Time: 13:03 Bed 20 Private MD: ED Physician Gus Moore HPI: 10/18 19:40 This 87 yrs old Female presents to ER via EMS with complaints of General Weakness, kdr Dizziness. 19:40 Patient reportedly collapsed and became unresponsive while on an outing from the [facility] [facility]. Patient was poorly responsive for period of 10 to 15 minutes while she was placed on the bus and sent back [place] the [place] [facility]. Upon [place] at the [place] [facility] and there is still not able to fully arouse her, EMS was called. Patient presents to the ED generally complaining of weakness. Her complaint is nonfocal. According to the daughter who is present, the patient has not been on an extended outing like this for some time. She is normally wheelchair-bound. But she may have been tired from the exertion of the trip. Patient denies any chest pain shortness of breath or any other focal symptoms.. Onset: The symptoms/episode began/occurred suddenly, just prior to arrival. Severity of symptoms: At their worst the symptoms were moderate in the emergency department the symptoms have improved moderately. The patient has not experienced similar symptoms in the past. The patient has not recently seen a physician. Historical: - Allergies: 13:05 Latex, Natural Rubber; kc6 13:05 Quinine Sulfate; kc6 13:05 Sulfa (Sulfonamide Antibiotics); kc6 13:05 tramadol; kc6 - PMHx: 13:05 Anemia; Charcots Arthropathy; CVA; depressive disorder; diabetes mellitus; GERD; Gout; kc6 HEART FAILURE; Hypertensive disorder; PVD; UTI; - Immunization history:: Client reports receiving the 2nd dose of the Covid vaccine, Flu vaccine is up to date. - Social history:: Smoking status: Patient denies any tobacco usage or history of. ROS: 19:40 Constitutional: Negative for fever, chills, and weight loss, Eyes: Negative for injury, kdr pain, redness, and discharge, Neck: Negative for injury, pain, and swelling, Cardiovascular: Negative for chest pain, palpitations, and edema, Respiratory: Negative for shortness of breath, cough, wheezing, and pleuritic chest pain, Abdomen/GI: Negative for abdominal pain, nausea, vomiting, diarrhea, and constipation, Back: Negative for injury and pain, : Negative for injury, bleeding, discharge, and swelling, MS/Extremity: Negative for injury and deformity, Skin: Negative for injury, rash, and discoloration, Psych: Negative for depression, anxiety, suicide ideation, homicidal ideation, and hallucinations, Allergy/Immunology: Negative for hives, rash, and allergies, Endocrine: Negative for neck swelling, polydipsia, polyuria, polyphagia, and marked weight changes, Hematologic/Lymphatic: Negative for swollen nodes, abnormal bleeding, and unusual bruising. 19:40 Neuro: Positive for near syncope, weakness, Lightheaded and weak, Negative for headache. Exam: 19:40 Constitutional: This is a well developed, well nourished patient who is awake, alert, kdr and in no acute distress. Head/Face: Normocephalic, atraumatic. Eyes: Pupils equal round and reactive to light, extra-ocular motions intact. Lids and lashes normal. Conjunctiva and sclera are non-icteric and not injected. Cornea within normal limits. Periorbital areas with no swelling, redness, or edema. Neck: Trachea midline, no thyromegaly or masses palpated, and no cervical lymphadenopathy. Supple, full range of motion without nuchal rigidity, or vertebral point tenderness. No Meningismus. Chest/axilla: Normal chest wall appearance and motion. Nontender with no deformity. No lesions are appreciated. Cardiovascular: Regular rate and rhythm with a normal S1 and S2. No gallops, murmurs, or rubs. Normal PMI, no JVD. No pulse deficits. Respiratory: Lungs have equal breath sounds bilaterally, clear to auscultation and percussion. No rales, rhonchi or wheezes noted. No increased work of breathing, no retractions or nasal flaring. Abdomen/GI: Soft, non-tender, with normal bowel sounds. No distension or tympany. No guarding or rebound. No evidence of tenderness throughout. Back: No spinal tenderness. No costovertebral tenderness. Full range of motion. Skin: Warm, dry with normal turgor. Normal color with no rashes, no lesions, and no evidence of cellulitis. MS/ Extremity: Pulses equal, no cyanosis. Neurovascular intact. Full, normal range of motion. Neuro: Awake and alert, GCS 15, oriented to person, place, time, and situation. Cranial nerves II-XII grossly intact. Motor strength 5/5 in all extremities. Sensory grossly intact. Cerebellar exam normal. Normal gait. Psych: Awake, alert, with orientation to person, place and time. Behavior, mood, and affect are within normal limits. 20:06 ECG was reviewed by the Attending Physician. EKG time 1328, atrial fibrillation at rate sp4 of [address] elevation or depression, no ventricular ectopy, impression is rate controlled atrial fibrillation Vital Signs: 13:04 BP 114 / 53; Pulse 95; Resp 11 S; Temp 98.6(O); Pulse Ox 95% on R/A; Weight 85.73 kg kc6 (R); Height 5 ft. 8 in. (R); Pain 0/10; 14:07 BP 138 / 67; Pulse 83; Resp 15 S; Pulse Ox 100% on R/A; kc6 14:57 BP 112 / 61; Pulse 82; Resp 16 S; Pulse Ox 95% on R/A; kc6 15:52 BP 121 / 72; Pulse 92; Resp 14 S; Pulse Ox 96% on R/A; kc6 16:45 BP 125 / 64; Pulse 85; Resp 17 S; Pulse Ox 100% on R/A; kc6 17:35 BP 130 / 75; Pulse 82; Resp 17 S; Pulse Ox 98% on R/A; kc6 18:42 BP 137 / 70; Pulse 89; Resp 16 S; Pulse Ox 95% on R/A; kc6 19:17 BP 161 / 85; Pulse 89; Resp 16; Pulse Ox 94% on R/A; jb4 13:04 Body Mass Index 28.74 (85.73 kg, 172.72 cm) kc6 13:04 Pain Scale: Adult kc6 MDM: 19:40 Data reviewed: vital signs, nurses notes, lab test result(s), radiologic studies. ED kdr course: The patient is nonambulatory and is normally wheelchair-bound. She does transfer with a walker and has an assistant fitness manager that helps her in and out of bed in the chair.. 20:06 Differential Diagnosis Congestive heart failure, syncope and collapse, acute MA. Data sp4 reviewed: EKG. 20:06 ED course: Patient care was assumed from daytime MD, patient on repeat evaluation has sp4 negative orthostatic vital signs. Patient is nonambulatory for the past 3 years but is able to sit up in bed and on sitting up blood pressure does not drop. Patient has no overt signs of heart failure such as orthopnea. Patient is on appropriate medications at the [place] [facility] including Lasix 40 mg p.o. daily. . ED course: Patient's labs revealed normal creatinine, slightly elevated white count 12.4 elevated BNP at 602, chest x-ray revealed signs of mild CHF, CT head revealed no acute intracranial abnormality, troponin is negative. 20:22 Patient medically screened. sp4 10/18 13:21 Order name: CBC with Diff; Complete Time: 14:46 kdr 10/18 13:21 Order name: XRAY Chest (1 view); Complete Time: 14:46 kdr 10/18 13:21 Order name: EKG; Complete Time: 13:21 kdr 10/18 13:21 Order name: Cardiac monitoring; Complete Time: 13:30 kdr 10/18 13:21 Order name: EKG - Nurse/Tech; Complete Time: 13:30 kdr 10/18 13:21 Order name: IV Saline Lock; Complete Time: 13:30 kdr 10/18 13:21 Order name: Labs collected and sent; Complete Time: 13:30 kdr 10/18 13:21 Order name: O2 Per Protocol; Complete Time: 13:30 kdr 10/18 13:21 Order name: O2 Sat Monitoring; Complete Time: 13:30 kdr 10/18 13:21 Order name: CT Head Brain w Cont; Complete Time: 14:46 kdr 10/18 13:50 Order name: Labs - recollect needed: recollect light green; Complete Time: 14:46 bd 10/18 15:14 Order name: Labs - recollect needed: recollect green top again; Complete Time: 16:30 bd 10/18 17:53 Order name: Labs - recollect needed: recollect green top again, lab will come to collect blood; Complete Time: 19:12 10/18 13:21 Order name: Basic Metabolic Panel; Complete Time: 20:06 kdr 10/18 13:21 Order name: NT PRO-BNP; Complete Time: 20: kdr 10/18 13:21 Order name: Magnesium; Complete Time: 20:06 kdr 10/18 13:21 Order name: Troponin HS; Complete Time: 20: kdr EC:06 Rate is 94 beats/min. Rhythm is irregularly irregular, A fib. No ST changes noted. sp4 Clinical impression: No evidence of ischemia. Interpreted by me. Administered Medications: No medications were administered Disposition Summary: 10/18/22 20:22 Discharge Ordered Location: Home sp4 Problem: new sp4 Symptoms: have improved sp4 Condition: Stable sp4 Diagnosis - Dizziness and giddiness sp4 - Syncope and collapse, mild CHF exacerbation, physical deconditioning, sp4 Followup: sp4 - With: Private Physician - When: 7 - 10 days - Reason: Re-evaluation by your physician Forms: - Medication Reconciliation Form sp4 - Thank You Letter sp4 - Antibiotic Education sp4 - Prescription Opioid Use sp4 Signatures: Dispatcher [employer] EDMS Leslie Swartz Kevin, MD MD kdr Campbell, Kaitlyn, RN RN kc6 Gus Moore MD MD sp4
[2022-10-19 11:55] VITALS: TEMP 98.6
[2022-10-19 12:12] VITALS: BP 122/70; O2SAT 93
--- NOTE | 2022-10-19 12:37 | EKG ---
Test Date: 2022-10-18 Test Time: 13:28:09 Dispensing Optician Apprentice: BRODIE MEASUREMENT RESULTS: Intervals: Rate: 94 AL: QRSD: 76 QT: 306 QTc: 382 [place]: P: AL: QRS: 27 T: 216 INTERPRETIVE STATEMENTS: Atrial fibrillation Anterior infarct, age undetermined ST & T wave abnormality, consider inferior ischemia Abnormal ECG Compared to ECG 04/01/2022 16:36:39 ST (T wave) deviation now present Possible ischemia now present Ventricular premature complex(es) no longer present Myocardial infarct finding still present Electronically Signed On 10-19-22 12:35:12 CDT by Khoi Vences
== END 2022-10-18 22:43 | disposition home or self-care (01) ==
LOC: ER 12:47
DX: R42 Dizziness and giddiness (principal); R55 Syncope and collapse; I50.9 Heart failure, unspecified; Z72.3 Lack of physical exercise; I10 Essential (primary) hypertension; E11.9 Type 2 diabetes mellitus without complications; Z88.2 Allergy status to sulfonamides; Z88.5 Allergy status to narcotic agent; Z91.040 Latex allergy status; Z91.048 Other nonmedicinal substance allergy status; Z86.73 Personal history of transient ischemic attack (TIA), and cerebral infarction without residual deficits
CPT/HCPCS: 36415; 70460; 71045; 80048; 83735; 83880; 84484; 85025; 93005

== ENCOUNTER 2023-07-24 18:47 | Inpatient (IN) | payer OTHER ==
--- OUTSIDE RECORDS SUMMARY | 2023-07-24 18:51 | XMS REPORT | Continuity of Care Document ---
Author Name Unknown Address [address] [facility] [address] [place] [address] [facility] Address [address] [facility] [address] [place] [address] Care Team Providers Care Configuration Manager Name Role Phone Nathan Stephen MD Primary Care Physician [phone] [id number] Attending Clinician Unavailable Doctor Unassigned, [place] Attending Clinician U navailHannah Eden Anavella Attending Cli nician Unavailable Raju_P Attending Clinician Unavailable Donya Craig Attending Clinician [phone] DONYA TAVARES Attending Clinician Unavailable Ferdinand Wallace S Attending Clinician [phone] MAURA THORNTON Attending Clinician UnavailMaura Hernandez MD Attending Clinician [phone], [facility] Attending Clinician Unavailable [facility], [facility] Attending Clinician Unavailab Rodolfo Randall MD Attending Clinician [id number] Admitting Clinician Unavailable CARMEN LANDAVERDE Admitting Clinician Unavailab Luigi Cook Anav Admitting Clinician U navailable Rosa_P Admitting Clinician Unavailable DONYA TAVARES Admitting Clinician Unavailable NATHAN STEPHEN Admitting Clinician Unavailab le Payers Payer Name Policy Type Policy Number Effective Date Expirati on Date Source 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 [id number] [facility] [id number] Problems Condition Name Condition Details Condition Category Status Onset Date Resolution Date Last Treatment Date Treating Clinician Comments Source Atypical chest pain Atypical chest pain Disease Active 2018-08 0 00:00: 00 [facility] Dizzy spells Dizzy spells Disease Active 2018-08 017 00:00: 00 [facility] Essential hypertensi on Essential hypertensi on Disease Active 2018-08 0 00:00: 00 [facility] Dyslipidem ia Dyslipidem ia Disease Active 2018-08 00:00: 00 [facility] KING (acute kidney injury) KING (acute kidney injury) Disease Active 2018-08 016 00:00: 00 [facility] Pain aggravated by standing Pain aggravated by standing Disease Active 18 00:00: 00 [facility] Intractabl e low back pain Intractabl e low back pain Disease Active 01-20 00:00: 00 [facility] "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 03-31 00:00: 00 [facility] 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 Active 03-30 00:00: 00 [facility] CHF (congestiv e heart failure) CHF (congestiv e heart failure) Disease Active 03-30 00:00: 00 [facility] Allergies, Adverse Reactions, Alerts Allergy Name Allergy Type Status Severity Reaction(s) Onset Date Inactive Date Treating Clinician Comments Source Sulfa (Sulfona mide Antibiot ics) Propensi ty to adverse reaction s Active Itching 03-30 00:00: 00 [facility] LATEX DRUG INGREDI Active Rash 03-30 00:00: 00 [facility] QUININE DRUG INGREDI Active Anxiety 03-30 00:00: 00 [facility] SULFA (SULFONA MIDE ANTIBIOT ICS) Drug Class Active ITCHING 03-30 00:00: 00 [facility] Latex Propensi ty to adverse reaction s Active Rash 03-30 00:00: 00 [facility] Quinine Propensi ty to adverse reaction s Active Anxiety 03-30 00:00: 00 [facility] Social History Social Habit Start Date Stop Date Quantity Comments Source Alcohol intake 2019-04-10 00:00:00 2019-04-10 00:00:00 0 /d [facility] Tobacco use and exposure 2015-03-31 00:00:00 2015-03-31 00:00:[address] [facility] Sex Assigned At 1935 00:00:00 1935 00:00:00 [facility] Smoking Status Start Date Stop Date Source Never smoker [facility] Medications Ordered Medication Name Filled Medication Name Start Date Stop Date Current Medication? Ordering Clinician Indication Dosage Frequency Signature (SIG) Comments Components Source clindamycin 150 mg capsule 10-27 00:00: 00 11-04 04:59 :00 No [id number] 450mg Take 3 capsules by mouth 3 (three) times daily for 7 days. [facility] colchicine (COLCRYS) tablet 0.6 mg 10-26 22:47: 00 10-26 23:02 :00 No .6mg 0.6 mg, Oral, ONCE, 1 dose, 10/27/19 at 1800, [facility] ibuprofen (IBU) tablet 600 mg 10-26 22:45: 00 10-26 21:56 :00 No 600mg 600 mg, Oral, ONCE, 1 dose, 10/27/19 at 1745, [facility] colchicine (COLCRYS) tablet 1.2 mg 10-26 22:45: 00 10-26 21:56 :00 No 1.2mg 1.2 mg, Oral, ONCE, 1 dose, 10/27/19 at 1745, BARBIE [facility] clindamycin in 5 % dextrose (CLEOCIN) 600 mg/50 mL IV piggyback RTU 600 mg 10-26 22:00: 00 10-26 21:29 :00 No 600mg 600 mg, IV Piggyback, ONCE, 1 dose, 10/27/19 at 1700, 50 mL
Reas on for Anti-Infec tive: Documented Infection< br>Documen sathya Infection Site: Skin / Soft Tissue
Duration of Therapy: Other (see Comments)< br>Restric sathya use approved by: [employer] PROVIDER [facility] colchicine 0.6 mg tablet 10-26 00:00: 00 11-01 04:59 :00 No [id number] .6mg Take 1 tablet by mouth daily for 5 days. Take until flare up resolves [facility] furosemide 40 mg tablet 2018-08 22:49: 52 Yes 40mg Take 40 mg by mouth daily. [facility] atenolol 25 mg tablet 2018-08 22:49: 52 Yes 25mg Take 25 mg by mouth daily. [facility] gabapentin 400 mg capsule 2018-08 22:49: 52 Yes 400mg Take 400 mg by mouth 3 (three) times daily. [facility] omeprazole 20 mg capsule 2018-08 22:49: 52 Yes 20mg Take 20 mg by mouth daily. [facility] losartan-hy drochloroth iazide 50-12.5 mg per tablet 2018-08 22:49: 52 Yes 1{tbl} Take 1 tablet by mouth daily. [facility] HYDROcodone -acetaminop hen 5-325 mg tablet 2018-08 22:49: 52 Yes 1{tbl} Take 1 tablet by mouth every 6 (six) hours as needed. [facility] furosemide 40 mg tablet 2018-08 22:49: 52 Yes 40mg Take 40 mg by mouth daily. [facility] atenolol 25 mg tablet 2018-08 22:49: 52 Yes 25mg Take 25 mg by mouth daily. [facility] gabapentin 400 mg capsule 2018-08 22:49: 52 Yes 400mg Take 400 mg by mouth 3 (three) times daily. [facility] omeprazole 20 mg capsule 2018-08 22:49: 52 Yes 20mg Take 20 mg by mouth daily. [facility] losartan-hy drochloroth iazide 50-12.5 mg per tablet 2018-08 22:49: 52 Yes 1{tbl} Take 1 tablet by mouth daily. [facility] HYDROcodone -acetaminop hen 5-325 mg tablet 2018-08 22:49: 52 Yes 1{tbl} Take 1 tablet by mouth every 6 (six) hours as needed. [facility] furosemide 40 mg tablet 2018-08 22:49: 52 Yes 40mg Take 40 mg by mouth daily. [facility] atenolol 25 mg tablet 2018-08 22:49: 52 Yes 25mg Take 25 mg by mouth daily. [facility] gabapentin 400 mg capsule 2018-08 22:49: 52 Yes 400mg Take 400 mg by mouth 3 (three) times daily. [facility] omeprazole 20 mg capsule 2018-08 22:49: 52 Yes 20mg Take 20 mg by mouth daily. [facility] losartan-hy drochloroth iazide 50-12.5 mg per tablet 2018-08 22:49: 52 Yes 1{tbl} Take 1 tablet by mouth daily. [facility] HYDROcodone -acetaminop hen 5-325 mg tablet 2018-08 22:49: 52 Yes 1{tbl} Take 1 tablet by mouth every 6 (six) hours as needed. [facility] furosemide 40 mg tablet 2018-08 22:49: 52 Yes 40mg Take 40 mg by mouth daily. [facility] atenolol 25 mg tablet 2018-08 22:49: 52 Yes 25mg Take 25 mg by mouth daily. [facility] gabapentin 400 mg capsule 2018-08 22:49: 52 Yes 400mg Take 400 mg by mouth 3 (three) times daily. [facility] omeprazole 20 mg capsule 2018-08 22:49: 52 Yes 20mg Take 20 mg by mouth daily. [facility] losartan-hy drochloroth iazide 50-12.5 mg per tablet 2018-08 22:49: 52 Yes 1{tbl} Take 1 tablet by mouth daily. [facility] HYDROcodone -acetaminop hen 5-325 mg tablet 2018-08 22:49: 52 Yes 1{tbl} Take 1 tablet by mouth every 6 (six) hours as needed. [facility] furosemide 40 mg tablet 2018-08 17:49: 52 Yes 40mg Take 40 mg by mouth daily. [facility] atenolol 25 mg tablet 2018-08 17:49: 52 Yes 25mg Take 25 mg by mouth daily. [facility] gabapentin 400 mg capsule 2018-08 17:49: 52 Yes 400mg Take 400 mg by mouth 3 (three) times daily. [facility] omeprazole 20 mg capsule 2018-08 17:49: 52 Yes 20mg Take 20 mg by mouth daily. [facility] losartan-hy drochloroth iazide 50-12.5 mg per tablet 2018-08 17:49: 52 Yes 1{tbl} Take 1 tablet by mouth daily. [facility] HYDROcodone -acetaminop hen 5-325 mg tablet 2018-08 17:49: 52 Yes 1{tbl} Take 1 tablet by mouth every 6 (six) hours as needed. [facility] furosemide 40 mg tablet 2018-08 17:49: 52 Yes 40mg Take 40 mg by mouth daily. [facility] atenolol 25 mg tablet 2018-08 17:49: 52 Yes 25mg Take 25 mg by mouth daily. [facility] gabapentin 400 mg capsule 2018-08 17:49: 52 Yes 400mg Take 400 mg by mouth 3 (three) times daily. [facility] omeprazole 20 mg capsule 2018-08 17:49: 52 Yes 20mg Take 20 mg by mouth daily. [facility] losartan-hy drochloroth iazide 50-12.5 mg per tablet 2018-08 17:49: 52 Yes 1{tbl} Take 1 tablet by mouth daily. [facility] HYDROcodone -acetaminop hen 5-325 mg tablet 2018-08 17:49: 52 Yes 1{tbl} Take 1 tablet by mouth every 6 (six) hours as needed. [facility] furosemide 40 mg tablet 2018-08 17:49: 52 Yes 40mg Take 40 mg by mouth daily. [facility] atenolol 25 mg tablet 2018-08 17:49: 52 Yes 25mg Take 25 mg by mouth daily. [facility] gabapentin 400 mg capsule 2018-08 17:49: 52 Yes 400mg Take 400 mg by mouth 3 (three) times daily. [facility] omeprazole 20 mg capsule 2018-08 17:49: 52 Yes 20mg Take 20 mg by mouth daily. [facility] losartan-hy drochloroth iazide 50-12.5 mg per tablet 2018-08 17:49: 52 Yes 1{tbl} Take 1 tablet by mouth daily. [facility] HYDROcodone -acetaminop hen 5-325 mg tablet 2018-08 17:49: 52 Yes 1{tbl} Take 1 tablet by mouth every 6 (six) hours as needed. [facility] furosemide 40 mg tablet 2018-08 17:49: 52 Yes 40mg Take 40 mg by mouth daily. [facility] atenolol 25 mg tablet 2018-08 17:49: 52 Yes 25mg Take 25 mg by mouth daily. [facility] gabapentin 400 mg capsule 2018-08 17:49: 52 Yes 400mg Take 400 mg by mouth 3 (three) times daily. [facility] omeprazole 20 mg capsule 2018-08 17:49: 52 Yes 20mg Take 20 mg by mouth daily. [facility] losartan-hy drochloroth iazide 50-12.5 mg per tablet 2018-08 17:49: 52 Yes 1{tbl} Take 1 tablet by mouth daily. [facility] HYDROcodone -acetaminop hen 5-325 mg tablet 2018-08 17:49: 52 Yes 1{tbl} Take 1 tablet by mouth every 6 (six) hours as needed. [facility] furosemide 40 mg tablet 2018-08 17:49: 52 Yes 40mg Take 40 mg by mouth daily. [facility] atenolol 25 mg tablet 2018-08 17:49: 52 Yes 25mg Take 25 mg by mouth daily. [facility] gabapentin 400 mg capsule 2018-08 17:49: 52 Yes 400mg Take 400 mg by mouth 3 (three) times daily. [facility] omeprazole 20 mg capsule 2018-08 17:49: 52 Yes 20mg Take 20 mg by mouth daily. [facility] losartan-hy drochloroth iazide 50-12.5 mg per tablet 2018-08 17:49: 52 Yes 1{tbl} Take 1 tablet by mouth daily. [facility] HYDROcodone -acetaminop hen 5-325 mg tablet 2018-08 17:49: 52 Yes 1{tbl} Take 1 tablet by mouth every 6 (six) hours as needed. [facility] furosemide 40 mg tablet 2018-08 17:49: 52 Yes 40mg Take 40 mg by mouth daily. [facility] atenolol 25 mg tablet 2018-08 17:49: 52 Yes 25mg Take 25 mg by mouth daily. [facility] gabapentin 400 mg capsule 2018-08 17:49: 52 Yes 400mg Take 400 mg by mouth 3 (three) times daily. [facility] omeprazole 20 mg capsule 2018-08 17:49: 52 Yes 20mg Take 20 mg by mouth daily. [facility] losartan-hy drochloroth iazide 50-12.5 mg per tablet 2018-08 17:49: 52 Yes 1{tbl} Take 1 tablet by mouth daily. [facility] HYDROcodone -acetaminop hen 5-325 mg tablet 2018-08 17:49: 52 Yes 1{tbl} Take 1 tablet by mouth every 6 (six) hours as needed. [facility] losartan-hy drochloroth iazide 50-12.5 mg per tablet 01-10 20:11: 07 Yes 1{tbl} Take 1 tablet by mouth daily. [facility] losartan-hy drochloroth iazide 50-12.5 mg per tablet 01-10 20:11: 07 Yes 1{tbl} Take 1 tablet by mouth daily. [facility] losartan-hy drochloroth iazide 50-12.5 mg per tablet 01-10 20:11: 07 Yes 1{tbl} Take 1 tablet by mouth daily. [facility] losartan-hy drochloroth iazide 50-12.5 mg per tablet 01-10 20:11: 07 Yes 1{tbl} Take 1 tablet by mouth daily. [facility] losartan-hy drochloroth iazide 50-12.5 mg per tablet 01-10 20:11: 07 Yes 1{tbl} Take 1 tablet by mouth daily. [facility] losartan-hy drochloroth iazide 50-12.5 mg per tablet 01-10 20:11: 07 Yes 1{tbl} Take 1 tablet by mouth daily. [facility] losartan-hy drochloroth iazide 50-12.5 mg per tablet 01-10 20:11: 07 Yes 1{tbl} Take 1 tablet by mouth daily. [facility] losartan-hy drochloroth iazide 50-12.5 mg per tablet 01-10 20:11: 07 Yes 1{tbl} Take 1 tablet by mouth daily. [facility] losartan-hy drochloroth iazide 50-12.5 mg per tablet 01-10 20:11: 07 Yes 1{tbl} Take 1 tablet by mouth daily. [facility] losartan-hy drochloroth iazide 50-12.5 mg per tablet 01-10 20:11: 07 Yes 1{tbl} Take 1 tablet by mouth daily. [facility] losartan-hy drochloroth iazide 50-12.5 mg per tablet 01-10 20:11: 07 Yes 1{tbl} Take 1 tablet by mouth daily. [facility] losartan-hy drochloroth iazide 50-12.5 mg per tablet 01-10 20:11: 07 Yes 1{tbl} Take 1 tablet by mouth daily. [facility] losartan-hy drochloroth iazide 50-12.5 mg per tablet 01-10 20:11: 07 Yes 1{tbl} Take 1 tablet by mouth daily. [facility] furosemide 40 mg tablet 01-10 19:53: 40 Yes 40mg Take 40 mg by mouth daily. [facility] atenolol 25 mg tablet 01-10 19:53: 40 Yes 25mg Take 25 mg by mouth daily. [facility] gabapentin 400 mg capsule 01-10 19:53: 40 Yes 400mg Take 400 mg by mouth 3 (three) times daily. [facility] omeprazole 20 mg capsule 01-10 19:53: 40 Yes 20mg Take 20 mg by mouth daily. [facility] HYDROcodone -acetaminop hen 5-325 mg tablet 01-10 19:53: 40 Yes 1{tbl} Take 1 tablet by mouth every 6 (six) hours as needed. [facility] furosemide 40 mg tablet 01-10 19:53: 40 Yes 40mg Take 40 mg by mouth daily. [facility] atenolol 25 mg tablet 01-10 19:53: 40 Yes 25mg Take 25 mg by mouth daily. [facility] gabapentin 400 mg capsule 01-10 19:53: 40 Yes 400mg Take 400 mg by mouth 3 (three) times daily. [facility] omeprazole 20 mg capsule 01-10 19:53: 40 Yes 20mg Take 20 mg by mouth daily. [facility] HYDROcodone -acetaminop hen 5-325 mg tablet 01-10 19:53: 40 Yes 1{tbl} Take 1 tablet by mouth every 6 (six) hours as needed. [facility] furosemide 40 mg tablet 01-10 19:53: 40 Yes 40mg Take 40 mg by mouth daily. [facility] atenolol 25 mg tablet 01-10 19:53: 40 Yes 25mg Take 25 mg by mouth daily. [facility] gabapentin 400 mg capsule 01-10 19:53: 40 Yes 400mg Take 400 mg by mouth 3 (three) times daily. [facility] omeprazole 20 mg capsule 01-10 19:53: 40 Yes 20mg Take 20 mg by mouth daily. [facility] HYDROcodone -acetaminop hen 5-325 mg tablet 01-10 19:53: 40 Yes 1{tbl} Take 1 tablet by mouth every 6 (six) hours as needed. [facility] furosemide 40 mg tablet 01-10 19:53: 40 Yes 40mg Take 40 mg by mouth daily. [facility] atenolol 25 mg tablet 01-10 19:53: 40 Yes 25mg Take 25 mg by mouth daily. [facility] gabapentin 400 mg capsule 01-10 19:53: 40 Yes 400mg Take 400 mg by mouth 3 (three) times daily. [facility] omeprazole 20 mg capsule 01-10 19:53: 40 Yes 20mg Take 20 mg by mouth daily. [facility] HYDROcodone -acetaminop hen 5-325 mg tablet 01-10 19:53: 40 Yes 1{tbl} Take 1 tablet by mouth every 6 (six) hours as needed. [facility] furosemide 40 mg tablet 01-10 19:53: 40 Yes 40mg Take 40 mg by mouth daily. [facility] atenolol 25 mg tablet 01-10 19:53: 40 Yes 25mg Take 25 mg by mouth daily. [facility] gabapentin 400 mg capsule 01-10 19:53: 40 Yes 400mg Take 400 mg by mouth 3 (three) times daily. [facility] omeprazole 20 mg capsule 01-10 19:53: 40 Yes 20mg Take 20 mg by mouth daily. [facility] HYDROcodone -acetaminop hen 5-325 mg tablet 01-10 19:53: 40 Yes 1{tbl} Take 1 tablet by mouth every 6 (six) hours as needed. [facility] furosemide 40 mg tablet 01-10 19:53: 40 Yes 40mg Take 40 mg by mouth daily. [facility] atenolol 25 mg tablet 01-10 19:53: 40 Yes 25mg Take 25 mg by mouth daily. [facility] gabapentin 400 mg capsule 01-10 19:53: 40 Yes 400mg Take 400 mg by mouth 3 (three) times daily. [facility] omeprazole 20 mg capsule 01-10 19:53: 40 Yes 20mg Take 20 mg by mouth daily. [facility] HYDROcodone -acetaminop hen 5-325 mg tablet 01-10 19:53: 40 Yes 1{tbl} Take 1 tablet by mouth every 6 (six) hours as needed. [facility] furosemide 40 mg tablet 01-10 19:53: 40 Yes 40mg Take 40 mg by mouth daily. [facility] atenolol 25 mg tablet 01-10 19:53: 40 Yes 25mg Take 25 mg by mouth daily. [facility] gabapentin 400 mg capsule 01-10 19:53: 40 Yes 400mg Take 400 mg by mouth 3 (three) times daily. [facility] omeprazole 20 mg capsule 01-10 19:53: 40 Yes 20mg Take 20 mg by mouth daily. [facility] HYDROcodone -acetaminop hen 5-325 mg tablet 01-10 19:53: 40 Yes 1{tbl} Take 1 tablet by mouth every 6 (six) hours as needed. [facility] furosemide 40 mg tablet 01-10 19:53: 40 Yes 40mg Take 40 mg by mouth daily. [facility] atenolol 25 mg tablet 01-10 19:53: 40 Yes 25mg Take 25 mg by mouth daily. [facility] gabapentin 400 mg capsule 01-10 19:53: 40 Yes 400mg Take 400 mg by mouth 3 (three) times daily. [facility] omeprazole 20 mg capsule 01-10 19:53: 40 Yes 20mg Take 20 mg by mouth daily. [facility] HYDROcodone -acetaminop hen 5-325 mg tablet 01-10 19:53: 40 Yes 1{tbl} Take 1 tablet by mouth every 6 (six) hours as needed. [facility] furosemide 40 mg tablet 01-10 19:53: 40 Yes 40mg Take 40 mg by mouth daily. [facility] atenolol 25 mg tablet 01-10 19:53: 40 Yes 25mg Take 25 mg by mouth daily. [facility] gabapentin 400 mg capsule 01-10 19:53: 40 Yes 400mg Take 400 mg by mouth 3 (three) times daily. [facility] omeprazole 20 mg capsule 01-10 19:53: 40 Yes 20mg Take 20 mg by mouth daily. [facility] HYDROcodone -acetaminop hen 5-325 mg tablet 01-10 19:53: 40 Yes 1{tbl} Take 1 tablet by mouth every 6 (six) hours as needed. [facility] furosemide 40 mg tablet 01-10 19:53: 40 Yes 40mg Take 40 mg by mouth daily. [facility] atenolol 25 mg tablet 01-10 19:53: 40 Yes 25mg Take 25 mg by mouth daily. [facility] gabapentin 400 mg capsule 01-10 19:53: 40 Yes 400mg Take 400 mg by mouth 3 (three) times daily. [facility] omeprazole 20 mg capsule 01-10 19:53: 40 Yes 20mg Take 20 mg by mouth daily. [facility] HYDROcodone -acetaminop hen 5-325 mg tablet 01-10 19:53: 40 Yes 1{tbl} Take 1 tablet by mouth every 6 (six) hours as needed. [facility] furosemide 40 mg tablet 01-10 19:53: 40 Yes 40mg Take 40 mg by mouth daily. [facility] atenolol 25 mg tablet 01-10 19:53: 40 Yes 25mg Take 25 mg by mouth daily. [facility] gabapentin 400 mg capsule 01-10 19:53: 40 Yes 400mg Take 400 mg by mouth 3 (three) times daily. [facility] omeprazole 20 mg capsule 01-10 19:53: 40 Yes 20mg Take 20 mg by mouth daily. [facility] HYDROcodone -acetaminop hen 5-325 mg tablet 01-10 19:53: 40 Yes 1{tbl} Take 1 tablet by mouth every 6 (six) hours as needed. [facility] furosemide 40 mg tablet 01-10 19:53: 40 Yes 40mg Take 40 mg by mouth daily. [facility] atenolol 25 mg tablet 01-10 19:53: 40 Yes 25mg Take 25 mg by mouth daily. [facility] gabapentin 400 mg capsule 01-10 19:53: 40 Yes 400mg Take 400 mg by mouth 3 (three) times daily. [facility] omeprazole 20 mg capsule 01-10 19:53: 40 Yes 20mg Take 20 mg by mouth daily. [facility] HYDROcodone -acetaminop hen 5-325 mg tablet 01-10 19:53: 40 Yes 1{tbl} Take 1 tablet by mouth every 6 (six) hours as needed. [facility] furosemide 40 mg tablet 01-10 19:53: 40 Yes 40mg Take 40 mg by mouth daily. [facility] atenolol 25 mg tablet 01-10 19:53: 40 Yes 25mg Take 25 mg by mouth daily. [facility] gabapentin 400 mg capsule 01-10 19:53: 40 Yes 400mg Take 400 mg by mouth 3 (three) times daily. [facility] omeprazole 20 mg capsule 01-10 19:53: 40 Yes 20mg Take 20 mg by mouth daily. [facility] HYDROcodone -acetaminop hen 5-325 mg tablet 01-10 19:53: 40 Yes 1{tbl} Take 1 tablet by mouth every 6 (six) hours as needed. [facility] levothyroxi ne 88 mcg tablet 11-06 00:00: 00 Yes [facility] levothyroxi ne 88 mcg tablet 11-06 00:00: 00 Yes [facility] levothyroxi ne 88 mcg tablet 11-06 00:00: 00 Yes [facility] levothyroxi ne 88 mcg tablet 11-06 00:00: 00 Yes [facility] levothyroxi ne 88 mcg tablet 11-06 00:00: 00 Yes [facility] levothyroxi ne 88 mcg tablet 11-06 00:00: 00 Yes [facility] levothyroxi ne 88 mcg tablet 11-06 00:00: 00 Yes [facility] levothyroxi ne 88 mcg tablet 11-06 00:00: 00 Yes [facility] levothyroxi ne 88 mcg tablet 11-06 00:00: 00 Yes [facility] levothyroxi ne 88 mcg tablet 11-06 00:00: 00 Yes [facility] levothyroxi ne 88 mcg tablet 11-06 00:00: 00 Yes [facility] levothyroxi ne 88 mcg tablet 11-06 00:00: 00 Yes [facility] levothyroxi ne 88 mcg tablet 11-06 00:00: 00 Yes [facility] levothyroxi ne 88 mcg tablet 11-06 00:00: 00 Yes [facility] levothyroxi ne 88 mcg tablet 11-06 00:00: 00 Yes [facility] levothyroxi ne 88 mcg tablet 11-06 00:00: 00 Yes [facility] levothyroxi ne 88 mcg tablet 11-06 00:00: 00 Yes [facility] levothyroxi ne 88 mcg tablet 11-06 00:00: 00 Yes [facility] levothyroxi ne 88 mcg tablet 11-06 00:00: 00 Yes [facility] levothyroxi ne 88 mcg tablet 11-06 00:00: 00 Yes [facility] levothyroxi ne 88 mcg tablet 11-06 00:00: 00 Yes [facility] levothyroxi ne 88 mcg tablet 11-06 00:00: 00 Yes [facility] levothyroxi ne 88 mcg tablet 11-06 00:00: 00 Yes [facility] docusate 100 mg capsule 09-27 00:00: 00 Yes [id number] 100mg Take 1 capsule by mouth daily. [facility] tablet 0 09-27 00:00: 00 Yes [id number] 40mg Take 2 tablets by mouth every 24 (twenty-fo ur) hours. [facility] docusate 100 mg capsule 09-27 00:00: 00 Yes [id number] 100mg Take 1 capsule by mouth daily. [place] [facility] tablet 09-27 00:00: 00 Yes [id number] 40mg Take 2 tablets by mouth every 24 (twenty-fo ur) hours. [facility] docusate 100 mg capsule 0 09-27 00:00: 00 Yes [id number] 100mg Take 1 capsule by mouth daily. [facility] mg tablet 0 09-27 00:00: 00 Yes [id number] 40mg Take 2 tablets by mouth every 24 (twenty-fo ur) hours. [facility] docusate 100 mg capsule 0 09-27 00:00: 00 Yes [id number] 100mg Take 1 capsule by mouth daily. [facility] predniSONE 20 mg tablet 09-27 00:00: 00 Yes [id number] 40mg Take 2 tablets by mouth every 24 (twenty-fo ur) hours. [facility] docusate 100 mg capsule 09-27 00:00: 00 Yes [id number] 100mg Take 1 capsule by mouth daily. [facility] predniSONE 20 mg tablet 09-27 00:00: 00 Yes [id number] 40mg Take 2 tablets by mouth every 24 (twenty-fo ur) hours. [facility] docusate 100 mg capsule 09-27 00:00: 00 Yes [id number] 100mg Take 1 capsule by mouth daily. [facility] predniSONE 20 mg tablet 09-27 00:00: 00 Yes [id number] 40mg Take 2 tablets by mouth every 24 (twenty-fo ur) hours. [facility] docusate 100 mg capsule 09-27 00:00: 00 Yes [id number] 100mg Take 1 capsule by mouth daily. [facility] predniSONE 20 mg tablet 09-27 00:00: 00 Yes [id number] 40mg Take 2 tablets by mouth every 24 (twenty-fo ur) hours. [facility] docusate 100 mg capsule 09-27 00:00: 00 Yes [id number] 100mg Take 1 capsule by mouth daily. [facility] predniSONE 20 mg tablet 09-27 00:00: 00 Yes [id number] 40mg Take 2 tablets by mouth every 24 (twenty-fo ur) hours. [facility] docusate 100 mg capsule 09-27 00:00: 00 Yes [id number] 100mg Take 1 capsule by mouth daily. [facility] docusate 100 mg capsule 09-27 00:00: 00 Yes [id number] 100mg Take 1 capsule by mouth daily. [facility] predniSONE 20 mg tablet 09-27 00:00: 00 Yes [id number] 40mg Take 2 tablets by mouth every 24 (twenty-fo ur) hours. [facility] docusate 100 mg capsule 09-27 00:00: 00 Yes [id number] 100mg Take 1 capsule by mouth daily. [facility] mg capsule 09-27 00:00: 00 Yes [id number] 100mg Take 1 capsule by mouth daily. [facility] docusate 100 mg capsule 09-27 00:00: 00 Yes [id number] 100mg Take 1 capsule by mouth daily. [facility] docusate 100 mg capsule 09-27 00:00: 00 Yes [id number] 100mg Take 1 capsule by mouth daily. [facility] docusate 100 mg capsule 09-27 00:00: 00 Yes [id number] 100mg Take 1 capsule by mouth daily. [facility] docusate 100 mg capsule 09-27 00:00: 00 Yes [id number] 100mg Take 1 capsule by mouth daily. [facility] docusate 100 mg capsule 09-27 00:00: 00 Yes [id number] 100mg Take 1 capsule by mouth daily. [facility] docusate 100 mg capsule 09-27 00:00: 00 Yes [id number] 100mg Take 1 capsule by mouth daily. [facility] docusate 100 mg capsule 09-27 00:00: 00 Yes [id number] 100mg Take 1 capsule by mouth daily. [facility] docusate 100 mg capsule 09-27 00:00: 00 Yes [id number] 100mg Take 1 capsule by mouth daily. [facility] predniSONE 20 mg tablet 09-27 00:00: 00 Yes [id number] 40mg Take 2 tablets by mouth every 24 (twenty-fo ur) hours. [facility] docusate 100 mg capsule 09-27 00:00: 00 Yes [id number] 100mg Take 1 capsule by mouth daily. [facility] predniSONE 20 mg tablet 09-27 00:00: 00 Yes [id number] 40mg Take 2 tablets by mouth every 24 (twenty-fo ur) hours. [facility] docusate 100 mg capsule 09-27 00:00: 00 Yes [id number] 100mg Take 1 capsule by mouth daily. [facility] predniSONE 20 mg tablet 09-27 00:00: 00 Yes [id number] 40mg Take 2 tablets by mouth every 24 (twenty-fo ur) hours. [facility] docusate 100 mg capsule 09-27 00:00: 00 Yes [id number] 100mg Take 1 capsule by mouth daily. [facility] predniSONE 20 mg tablet 09-27 00:00: 00 Yes [id number] 40mg Take 2 tablets by mouth every 24 (twenty-fo ur) hours. [facility] carvedilol 6.25 mg tablet 01-24 00:00: 00 Yes 6.25mg Take 1 tablet by mouth 2 (two) times daily with meals. [facility] simvastatin 20 mg tablet 01-24 00:00: 00 Yes 20mg Take 1 tablet by mouth at bedtime. [facility] aspirin 81 mg chewable tablet 01-24 00:00: 00 Yes 81mg Take 1 tablet by mouth daily. [facility] clopidogrel 75 mg tablet 01-24 00:00: 00 Yes 75mg Take 1 tablet by mouth daily. [facility] carvedilol 6.25 mg tablet 01-24 00:00: 00 Yes 6.25mg Take 1 tablet by mouth 2 (two) times daily with meals. [facility] simvastatin 20 mg tablet 01-24 00:00: 00 Yes 20mg Take 1 tablet by mouth at bedtime. [facility] aspirin 81 mg chewable tablet 01-24 00:00: 00 Yes 81mg Take 1 tablet by mouth daily. [facility] clopidogrel 75 mg tablet 01-24 00:00: 00 Yes 75mg Take 1 tablet by mouth daily. [facility] carvedilol 6.25 mg tablet 01-24 00:00: 00 Yes 6.25mg Take 1 tablet by mouth 2 (two) times daily with meals. [facility] simvastatin 20 mg tablet 01-24 00:00: 00 Yes 20mg Take 1 tablet by mouth at bedtime. [facility] aspirin 81 mg chewable tablet 01-24 00:00: 00 Yes 81mg Take 1 tablet by mouth daily. [facility] clopidogrel 75 mg tablet 01-24 00:00: 00 Yes 75mg Take 1 tablet by mouth daily. [facility] carvedilol 6.25 mg tablet 01-24 00:00: 00 Yes 6.25mg Take 1 tablet by mouth 2 (two) times daily with meals. [facility] simvastatin 20 mg tablet 01-24 00:00: 00 Yes 20mg Take 1 tablet by mouth at bedtime. [facility] aspirin 81 mg chewable tablet 01-24 00:00: 00 Yes 81mg Take 1 tablet by mouth daily. [facility] clopidogrel 75 mg tablet 01-24 00:00: 00 Yes 75mg Take 1 tablet by mouth daily. [facility] carvedilol 6.25 mg tablet 01-24 00:00: 00 Yes 6.25mg Take 1 tablet by mouth 2 (two) times daily with meals. [facility] simvastatin 20 mg tablet 01-24 00:00: 00 Yes 20mg Take 1 tablet by mouth at bedtime. [facility] aspirin 81 mg chewable tablet 01-24 00:00: 00 Yes 81mg Take 1 tablet by mouth daily. [facility] clopidogrel 75 mg tablet 01-24 00:00: 00 Yes 75mg Take 1 tablet by mouth daily. [facility] carvedilol 6.25 mg tablet 01-24 00:00: 00 Yes 6.25mg Take 1 tablet by mouth 2 (two) times daily with meals. [facility] simvastatin 20 mg tablet 01-24 00:00: 00 Yes 20mg Take 1 tablet by mouth at bedtime. [facility] aspirin 81 mg chewable tablet 01-24 00:00: 00 Yes 81mg Take 1 tablet by mouth daily. [facility] clopidogrel 75 mg tablet 01-24 00:00: 00 Yes 75mg Take 1 tablet by mouth daily. [facility] carvedilol 6.25 mg tablet 01-24 00:00: 00 Yes 6.25mg Take 1 tablet by mouth 2 (two) times daily with meals. [facility] simvastatin 20 mg tablet 01-24 00:00: 00 Yes 20mg Take 1 tablet by mouth at bedtime. [facility] carvedilol 6.25 mg tablet 01-24 00:00: 00 Yes 6.25mg Take 1 tablet by mouth 2 (two) times daily with meals. [facility] aspirin 81 mg chewable tablet 01-24 00:00: 00 Yes 81mg Take 1 tablet by mouth daily. [facility] clopidogrel 75 mg tablet 01-24 00:00: 00 Yes 75mg Take 1 tablet by mouth daily. [facility] simvastatin 20 mg tablet 01-24 00:00: 00 Yes 20mg Take 1 tablet by mouth at bedtime. [facility] carvedilol 6.25 mg tablet 01-24 00:00: 00 Yes 6.25mg Take 1 tablet by mouth 2 (two) times daily with meals. [facility] simvastatin 20 mg tablet 01-24 00:00: 00 Yes 20mg Take 1 tablet by mouth at bedtime. [facility] aspirin 81 mg chewable tablet 01-24 00:00: 00 Yes 81mg Take 1 tablet by mouth daily. [facility] aspirin 81 mg chewable tablet 01-24 00:00: 00 Yes 81mg Take 1 tablet by mouth daily. [facility] clopidogrel 75 mg tablet 01-24 00:00: 00 Yes 75mg Take 1 tablet by mouth daily. [facility] clopidogrel 75 mg tablet 01-24 00:00: 00 Yes 75mg Take 1 tablet by mouth daily. [facility] simvastatin 20 mg tablet 01-24 00:00: 00 Yes 20mg Take 1 tablet by mouth at bedtime. [facility] aspirin 81 mg chewable tablet 01-24 00:00: 00 Yes 81mg Take 1 tablet by mouth daily. [facility] clopidogrel 75 mg tablet 01-24 00:00: 00 Yes 75mg Take 1 tablet by mouth daily. [facility] simvastatin 20 mg tablet 01-24 00:00: 00 Yes 20mg Take 1 tablet by mouth at bedtime. [facility] aspirin 81 mg chewable tablet 01-24 00:00: 00 Yes 81mg Take 1 tablet by mouth daily. [facility] clopidogrel 75 mg tablet 01-24 00:00: 00 Yes 75mg Take 1 tablet by mouth daily. [facility] simvastatin 20 mg tablet 01-24 00:00: 00 Yes 20mg Take 1 tablet by mouth at bedtime. [facility] aspirin 81 mg chewable tablet 01-24 00:00: 00 Yes 81mg Take 1 tablet by mouth daily. [facility] clopidogrel 75 mg tablet 01-24 00:00: 00 Yes 75mg Take 1 tablet by mouth daily. [facility] simvastatin 20 mg tablet 01-24 00:00: 00 Yes 20mg Take 1 tablet by mouth at bedtime. [facility] aspirin 81 mg chewable tablet 01-24 00:00: 00 Yes 81mg Take 1 tablet by mouth daily. [facility] clopidogrel 75 mg tablet 01-24 00:00: 00 Yes 75mg Take 1 tablet by mouth daily. [facility] simvastatin 20 mg tablet 01-24 00:00: 00 Yes 20mg Take 1 tablet by mouth at bedtime. [facility] aspirin 81 mg chewable tablet 01-24 00:00: 00 Yes 81mg Take 1 tablet by mouth daily. [facility] clopidogrel 75 mg tablet 01-24 00:00: 00 Yes 75mg Take 1 tablet by mouth daily. [facility] simvastatin 20 mg tablet 01-24 00:00: 00 Yes 20mg Take 1 tablet by mouth at bedtime. [facility] aspirin 81 mg chewable tablet 01-24 00:00: 00 Yes 81mg Take 1 tablet by mouth daily. [facility] clopidogrel 75 mg tablet 01-24 00:00: 00 Yes 75mg Take 1 tablet by mouth daily. [facility] simvastatin 20 mg tablet 01-24 00:00: 00 Yes 20mg Take 1 tablet by mouth at bedtime. [facility] aspirin 81 mg chewable tablet 01-24 00:00: 00 Yes 81mg Take 1 tablet by mouth daily. [facility] clopidogrel 75 mg tablet 01-24 00:00: 00 Yes 75mg Take 1 tablet by mouth daily. [facility] simvastatin 20 mg tablet 01-24 00:00: 00 Yes 20mg Take 1 tablet by mouth at bedtime. [facility] aspirin 81 mg chewable tablet 01-24 00:00: 00 Yes 81mg Take 1 tablet by mouth daily. [facility] clopidogrel 75 mg tablet 01-24 00:00: 00 Yes 75mg Take 1 tablet by mouth daily. [facility] carvedilol 6.25 mg tablet 01-24 00:00: 00 Yes 6.25mg Take 1 tablet by mouth 2 (two) times daily with meals. [facility] simvastatin 20 mg tablet 01-24 00:00: 00 Yes 20mg Take 1 tablet by mouth at bedtime. [facility] aspirin 81 mg chewable tablet 01-24 00:00: 00 Yes 81mg Take 1 tablet by mouth daily. [facility] simvastatin 20 mg tablet 01-24 00:00: 00 Yes 20mg Take 1 tablet by mouth at bedtime. [facility] aspirin 81 mg chewable tablet 01-24 00:00: 00 Yes 81mg Take 1 tablet by mouth daily. [facility] clopidogrel 75 mg tablet 01-24 00:00: 00 Yes 75mg Take 1 tablet by mouth daily. [facility] clopidogrel 75 mg tablet 01-24 00:00: 00 Yes 75mg Take 1 tablet by mouth daily. [facility] simvastatin 20 mg tablet 01-24 00:00: 00 Yes 20mg Take 1 tablet by mouth at bedtime. [facility] aspirin 81 mg chewable tablet 01-24 00:00: 00 Yes 81mg Take 1 tablet by mouth daily. [facility] clopidogrel 75 mg tablet 01-24 00:00: 00 Yes 75mg Take 1 tablet by mouth daily. [facility] carvedilol 6.25 mg tablet 01-24 00:00: 00 Yes 6.25mg Take 1 tablet by mouth 2 (two) times daily with meals. [facility] simvastatin 20 mg tablet 01-24 00:00: 00 Yes 20mg Take 1 tablet by mouth at bedtime. [facility] aspirin 81 mg chewable tablet 01-24 00:00: 00 Yes 81mg Take 1 tablet by mouth daily. [facility] clopidogrel 75 mg tablet 01-24 00:00: 00 Yes 75mg Take 1 tablet by mouth daily. [facility] carvedilol 6.25 mg tablet 01-24 00:00: 00 Yes 6.25mg Take 1 tablet by mouth 2 (two) times daily with meals. [facility] simvastatin 20 mg tablet 01-24 00:00: 00 Yes 20mg Take 1 tablet by mouth at bedtime. [facility] aspirin 81 mg chewable tablet 01-24 00:00: 00 Yes 81mg Take 1 tablet by mouth daily. [facility] clopidogrel 75 mg tablet 01-24 00:00: 00 Yes 75mg Take 1 tablet by mouth daily. [facility] carvedilol 6.25 mg tablet 01-24 00:00: 00 Yes 6.25mg Take 1 tablet by mouth 2 (two) times daily with meals. [facility] simvastatin 20 mg tablet 01-24 00:00: 00 Yes 20mg Take 1 tablet by mouth at bedtime. [facility] aspirin 81 mg chewable tablet 01-24 00:00: 00 Yes 81mg Take 1 tablet by mouth daily. [facility] clopidogrel 75 mg tablet 01-24 00:00: 00 Yes 75mg Take 1 tablet by mouth daily. [facility] Vital Signs Vital Name Observation Time Observation Value Comments S jen Systolic blood pressure 2019-10-27 22:00:00 147 mm[Hg] [facility] Diastolic blood pressure 2019-10-27 22:00:00 70 mm[Hg] [facility] Heart rate 2019-10-27 22:00:00 59 /min [facility] Respiratory rate 2019-10-27 22:00:00 16 /min [facility] Oxygen saturation in Arterial blood by Pulse oximetry 2019-10-27 22:00:00 96 /min [facility] Body temperature 2019-10-27 20:33:[address] [facility] Body weight 2019-10-27 20:33:00 77.111 kg [facility] BMI 2019-10-27 20:33:00 25.85 kg/m2 [facility] Systolic blood pressure 2019-04-10 18:46:00 115 mm[Hg] [facility] Diastolic blood pressure 2019-04-10 18:46:00 64 mm[Hg] [facility] Heart rate 2019-04-10 18:46:00 94 /min [facility] Body height 2019-04-10 18:46:00 172.7 cm [facility] Body weight 2019-04-10 18:46:00 81.647 kg [facility] BMI 2019-04-10 18:46:00 27.37 kg/m2 [facility] Body weight 2019-03-21 19:23:00 81.647 kg [facility] BMI 2019-03-21 19:23:00 29.95 kg/m2 [facility] Body height 2019-03-20 14:32:00 165.1 cm [facility] Body weight 2019-03-20 14:32:00 81.647 kg [facility] BMI 2019-03-20 14:32:00 29.95 kg/m2 [facility] Systolic blood pressure 2019-03-04 16:15:00 138 mm[Hg] [facility] Diastolic blood pressure 2019-03-04 16:15:00 60 mm[Hg] [facility] Heart rate 2019-03-04 16:15:00 64 /min [facility] 2019-03-04 16:15:[address] [facility] Respiratory rate 2019-03-04 16:15:00 16 /min [facility] Body height 2019-03-04 16:15:00 165.1 cm [facility] Body weight 2019-03-04 16:15:00 81.647 kg [facility] BMI 2019-03-04 16:15:00 29.95 kg/m2 [facility] Procedures Procedure Date / Time Performed Performing Clinician Source HOME HEALTH - OTHER 2021-07-07 06:01:00 Doctor Velma edwards, [place] [facility] HEALTH - OTHER 2021-06-21 06:01:00 Doctor Velma edwards, [place] [facility] HEALTH - OTHER 2021-06-01 05:01:00 Doctor Velma edwards, [place] [facility] HEALTH - OTHER 2021-05-24 05:01:00 Doctor Velma edwards, [place] [facility] - OTHER 2021-05-10 05:01:00 Doctor Velma edwards, [place] [facility] HEALTH - OTHER 2021-03-29 05:01:00 Doctor Velma edwards, [place] [facility] CLINIC RECORD / SMR 2021-03-21 05:01:00 Doctor Velma edwards, [place] [facility] [id number] 2021-01-28 00:00[facility] [id number] 2021-01-28 00:00:00 [facility] [place] [id number] 2021-01-28 00:00:00 [facility] [id number] 2021-01-28 00:00:00 [facility] [id number] 2021-01-28 00:00:00 [facility] [id number] 2021-01-18 00:00:00 [facility] [id number] 2021-01-18 00:00:00 [facility] [id number] 2021-01-18 00:00:00 [facility] [id number] 2021-01-18 00:00:00 [facility] [id number] 2021-01-18 00:00:00 [facility] XR WRIST 3+ VW LEFT 2019-10-27 21:13:[address] [facility] XR HAND 3+ VW LEFT 2019-10-27 21:13:[address] [facility] URIC ACID 2019-10-27 20:56:00 Donya Tavares [facility] BASIC METABOLIC PANEL (NA, K, CL, CO2, GLUCOSE, BUN, CREATININE, CA) 2019-10-27 20:56:[address] [facility] CBC WITH DIFFERENTIAL 2019-10-27 20:56:[address] [facility] CONSENT/REFUSAL FOR DIAGNOSIS AND TREATMENT 2019-10-27 20:21:16 Doctor Unassigned, [place] [facility] HOME HEALTH - OTHER 2019-09-26 06:01:00 Doctor Velma nassigned, [place] [facility] NON [facility] DOCUMENTATION 2019-03-26 05:01:00 Doctor Unassigned, [place] [facility] XR CHEST 2 VW 2019-03-20 17:10:47 [facility] 2019-03-20 16:54:41 Doctor Unass igned, [place] [facility] CONSENT/REFUSAL FOR DIAGNOSIS AND TREATMENT 2019-03-20 16:10:12 Doctor Unassigned, [place] [facility] ASSIGNMENT OF BENEFITS 2019-03-20 16:08:11 Docto r Unassigned, [place] [facility] Encounters Start Date/Time End Date/Time Encounter Type Admission Type Attending [facility] Facility Care Department Encounter ID Source 2021-09-01 12:17:49 Outpatient [id number] [facility] REF [id number] [facility] Bhavana donnie 2021-07-07 00:00:00 2021-07-07 00:00:00 Orders Only Doctor Unassigned, [place] [facility] 1.2.840.114 350.1.13.10 4.2.7.2.686 [id number] [facility] 2021-06-27 00:00:00 2021-06-27 00:00:00 Outpatient R [facility] [id number] [facility] 2021-06-22 00:00:00 2021-06-22 00:00:00 Outpatient R [facility] [id number] [facility] 2021-06-21 00:00:00 2021-06-21 00:00:00 Orders Only Doctor Unassigned, [place] [facility] 1.2840.114 350.1.13.10 4.2.7.2.686 [id number] [facility] 2021-06-01 00:00:00 2021-06-01 00:00:00 Outpatient R [facility] [id number] [facility] 2021-06-01 00:00:00 2021-06-01 00:00:00 Orders Only Doctor Unassigned, [place] [facility] 1.2840.114 350.1.13.10 4.2.7.2.686 [id number] [facility] 2021-05-25 00:00:00 2021-05-25 00:00:00 Outpatient [facility] [id number] [facility] 2021-05-24 00:00:00 2021-05-24 00:00:00 Orders Only Doctor Unassigned, [place] [facility] 1.2840.114 350.1.13.10 4.2.7.2.686 [id number] [facility] 2021-05-10 00:00:00 2021-05-10 00:00:00 Orders Only Doctor Unassigned, [place] [facility] 1.2.840.114 350.1.13.10 4.2.7.2.686 [id number] [facility] 2021-05-03 00:00:00 2021-05-03 00:00:00 Outpatient [facility] [id number] [facility] 2021-04-26 00:00:00 2021-04-26 00:00:00 Outpatient [facility] [id number] [facility] 2021-03-29 00:00:00 2021-03-29 00:00:00 Orders Only Doctor Unassigned, [place] [facility] 1.2840.114 350.1.13.10 4.2.7.2.686 [id number] [facility] 2021-03-21 00:00:00 2021-03-21 00:00:00 Orders Only Doctor Unassigned, [place] [facility] 1.2840.114 350.1.13.10 4.2.7.2.686 [id number] [facility] 2021-01-13 14:22:00 2021-01-31 14:54:00 Inpatient 3 [facility] Hannah plascencia CVA [id number] [facility] Bhavana fields 2019-10-28 11:32:00 2019-10-28 11:32:00 Outpatient Rosa[facility]P [facility] [id number] [facility] 2019-10-27 15:28:56 2019-10-27 18:24:00 Emergency Donya Tavares [facility] 1.2.840.114 350.1.13.10 4.2.7.2.686 [id number] [facility] 2019-10-27 15:28:56 2019-10-27 18:24:00 Emergency X DONYA TAVARES [facility] ERT [id number] [facility] 2019-10-27 00:00:00 2019-10-27 00:00:00 Orders Only Doctor Unassigned, [place] [facility] 1.2.840.114 350.1.13.10 4.2.7.2.686 [id number] [facility] 2019-09-26 00:00:00 2019-09-26 00:00:00 Orders Only Doctor Unassigned, [place] [facility] 1.2.840.114 350.1.13.10 4.2.7.2.686 [id number] [facility] 2019-09-17 00:00:00 2019-09-17 00:00:00 Outpatient R [facility] [id number] [facility] 2019-04-10 13:46:13 2019-04-10 14:32:35 Office Visit Ferdinand Sewell [facility] 1.2840.114 350.1.13.10 4.2.7.2.686 [id number] [facility] 2019-03-26 00:00:00 2019-03-26 00:00:00 Outpatient R MAURA THORNTON [facility] [id number] [facility] 2019-03-26 00:00:00 2019-03-26 00:00:00 Orders Only Doctor Unassigned, [place] [facility] 1.2.840.114 350.1.13.10 4.2.7.2.686 [id number] [facility] 2019-03-21 00:00:00 2019-03-21 00:00:00 Telephone Maura Thornton [facility] [place] 1.2.840.114 350.1.13.10 4.2.7.2.686 [id number] [facility] 2019-03-21 00:00:00 2019-03-21 00:00:00 Prep For Surgery Maura Thornton [facility] ashli Winkler 1.2.840.114 350.1.13.10 4.2.7.2.686 [id number] [facility] 2019-03-20 11:08:03 2019-03-20 23:59:00 Hospital Encounter Maura Thornton [facility] 1.2.840.114 350.1.13.10 4.2.7.2.686 [id number] [facility] 2019-03-20 11:02:22 2019-03-20 11:17:22 Technical Internship Visit 1, [facility] Maura Thornton [facility] 1.2.840.114 350.1.13.10 4.2.7.2.686 [id number] [facility] 2019-03-20 11:07:54 2019-03-20 11:07:54 Hospital Encounter Ferdinand Sewell, [facility] 1.2.840.114 350.1.13.10 4.2.7.2.686 [id number] [facility] 2019-03-20 09:24:23 2019-03-20 09:39:23 Office Visit Ferdinand Sewell [facility] Surgical Special ashli [place] 1.2.840.114 350.1.13.10 4.2.7.2.686 [id number] [facility] 2019-03-20 00:00:00 2019-03-20 00:00:00 Letter (Out) Maura Thornton [facility] ashli [place] 1.2.840.114 350.1.13.10 4.2.7.2.686 [id number] [facility] 2019-03-04 10:17:23 2019-03-04 11:01:19 Office Visit Rodolfo Tijerina [facility] Cathi Lozada Formerly [facility], [facility] [id number] [facility] Results Test Description Test Time Test Comments Results Result Co mments Source [facility] (NA, K, CL, CO2, GLUCOSE, BUN, CREATININE, CA)2019-10-27 21:15:00* Test Item Value Reference Range Interpretation Comme nts NA (test code = 9297544367) 131 mmol/L 135-145 L K (test code = 0736050154) 5.0 mmol/L 3.5-5 CL (test code = 1308977821) 92 mmol/L 98-108 L CO2 TOTAL (test code = 3980968934) 33 mmol/L 23-31 H AGAP (test code = 7380252484) 2-16 BUN (test code = 0897601410) 25 mg/dL 7-23 H GLUCOSE (test code = 8630160878) 130 mg/dL 70-110 H CREATININE (test code = 4536536708) 1.05 mg/dL 0.5-1.04 H CALCIUM (test code = 6223710030) 9.4 mg/dL 8.6-10.6 eGFR Calculation (Non-) (test code = 3797368526) mL/min/1.73m2 eGFR Calculation () (test code = 1116580624) mL/min/1.73m2 FLORA (test code = FLORA) Association of [...] or abnormalities in imaging tests). Lab Interpretation (test code = 52793-4) Abnormal [facility] [id number] 21:15:00* Test Item Value Reference Range Interpretation Comme nts URIC ACID (test code = 7889916460) 9.4 mg/dL 2.9-6 H Lab Interpretation (test cod e = 88077-6) [facility]normal [facility] 2 [id number] 17:44:04HISTORY: Right carpal tunnel syndrome. TECHNIQUE: PA and lateral views of the chest are obtained. 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 No acute pneumonia detected. No pneumothorax or pleuraleffusion or pulmonary congestion. Cardiothoracic ratio of gldihnvxcihml73.6/27.2 cm is consistent with normal cardiac size. Prominent epicardialfat pads is suspected on both sides. Mild right apical pleural scarringnoted. No compression fractures seen in the thoracic vertebral bodies. CONCLUSIONS: No signs of acute cardiopulmonary disease. [facility], Radiant Results Inft User - 03/20/2019 12:46 PM CDTHISTORY: Right carpal tunnel syndrome.TECHNIQUE: PA and lateral views of the chest are obtained.FINDINGS: Mild obstructive lung disease is suspected predominantly in theupper lobes. No acute pneumonia detected. No pneumothorax or pleuraleffusion or pulmonary congestion. Cardiothoracic ratio of rzhtbggonkpvy46.6/27.2 cm is consistent with normal cardiac size. Prominent epicardialfat pads is suspected on both sides. Mild right apical pleural scarringnoted. Nocompression fractures seen in the thoracic vertebral bodies.CONCLUSIONS: No signs of acute cardiopulmonary disease.[facility]
--- NOTE | 2023-07-24 19:38 | RAD REPORT ---
EXAM DESCRIPTION: RAD - Chest Single View - 07/24/2023 7:21 pm CLINICAL HISTORY: COUGH Chest pain. COMPARISON: Chest Single View dated 10/18/2022; Chest Single View dated 04/01/2022 FINDINGS: Portable technique limits examination quality. The lungs are emphysematous with opacity seen in the left retrocardiac region which may be infiltrate . . The heart is moderately enlarged. No displaced fractures. IMPRESSION: Hazy left base suggestive of an infiltrate/ pneumonia.
[2023-07-24] MEDS ORDERED: CEFTRIAXONE 1000 MG/VIAL ONE (19:43)
[2023-07-24] MEDS ORDERED: NA CHLORIDE 0.9% 1,000 ML ONE (19:44)
[2023-07-24] MEDS ORDERED: FOLIC ACID 5 MG/ML VIAL ONE (19:44)
--- NOTE | 2023-07-24 19:45 | RAD REPORT ---
EXAM DESCRIPTION: CT - CTHCSPWOC - 07/24/2023 7:30 pm CLINICAL HISTORY: Trauma, head and neck injury. MENTAL STATUS CHANGE COMPARISON: No comparisons TECHNIQUE: Axial 5 mm thick images of the head were obtained. Axial 2 mm thick images of the cervical spine were obtained with sagittal and coronal reconstruction images generated and reviewed. All CT scans are performed using dose optimization technique as appropriate and may include automated exposure control or mA/KV adjustment according to patient size. FINDINGS: CT HEAD WITHOUT CONTRAST: No acute hemorrhage, hydrocephalus or extra-axial collection is identified.Mild generalized brain atr ophy is present with mild periventricular and deep white matter chronic microvascular ischemic change s.No areas of brain edema or midline shift. The paranasal sinuses and mastoids are clear.The calvarium is intact. CT CERVICAL SPINE WITHOUT CONTRAST: No fracture or subluxation.Mild degenerative spondylosis of the cervical spine with levoscoliosis pre sent.No prevertebral soft tissues swelling is identified. IMPRESSION: No acute intracranial or cervical spine findings.
--- NOTE | 2023-07-24 20:27 | ER ---
Nurse's Notes [facility] Name: Lyubov Garcia Age: 88 yrs Sex: Female : 1935 Arrival Date: 07/24/2023 Time: 18:47 Bed 7 Private MD: Diagnosis: Weakness;Pneumonia due to other specified bacteria-LEFT BASE;Cough Presentation: 07/24 18:49 Chief complaint: EMS states: They were toned out for unresponsiveness, and required ap3 sternal rubbing. Upon EMS's arrival, patient was oriented X's 4. Patient is verbally responsive during triage and answering questions appropriately. Coronavirus screen: At this time, the client does not indicate any symptoms associated with coronavirus-19. Ebola Screen: No symptoms or risks identified at this time. Initial Sepsis Screen: Does the patient meet any 2 criteria? No. Patient's initial sepsis screen is negative. Does the patient have a suspected source of infection? No. Patient's initial sepsis screen is negative. Risk Assessment: Do you want to hurt yourself or someone else? Patient reports no desire to harm self or others. Onset of symptoms is unknown. 18:49 Method Of Arrival: EMS: [facility] ap3 18:49 Acuity: STEFANY 3 ap3 Triage Assessment: 18:52 General: Appears in no apparent distress. Behavior is calm, cooperative. Pain: Denies ap3 pain. Neuro: Level of Consciousness is awake, alert, obeys commands. Cardiovascular: Patient's skin is warm and dry. Respiratory: Airway is patent Respiratory effort is even, unlabored, Respiratory pattern is regular, symmetrical. Historical: - Allergies: 18:52 Latex; ap3 18:52 Quinine Sulfate; ap3 18:52 Sulfa (Sulfonamide Antibiotics); ap3 18:52 tramadol; ap3 - PMHx: 18:52 Anemia; Charcots Arthropathy; CVA; depressive disorder; diabetes mellitus; GERD; Gout; ap3 HEART FAILURE; Hypertensive disorder; PVD; UTI; - Immunization history:: Client reports receiving the 2nd dose of the Covid vaccine. - Social history:: Smoking status: Patient denies any tobacco usage or history of. Screenin:30 Clinical Errol Withdrawal Assessment for Alcohol, revised (CIWA-Ar): Orientation la4 and Clouding of Sensorium: 0 - Oriented and can do serial additions. [facility] ED Fall Risk Assessment (Adult) History of falling in the last 3 months, including since admission No falls in past 3 months (0 pts) Confusion or Disorientation No (0 pts) Intoxicated or Sedated No (0 pts) Impaired Gait No (0 pts) Mobility Assist Device Used No (0 pt) Altered Elimination No (0 pt) Score/Fall Risk Level 0 - 2 = Low Risk. Abuse screen: Denies threats or abuse. Denies injuries from another. Nutritional screening: No deficits noted. Tuberculosis screening: No symptoms or risk factors identified. Assessment: 21:14 Reassessment: Pt placed in gown, pure-wick placed, diaper changed due to wetness. la4 General: Appears in no apparent distress. ill, Behavior is calm, cooperative, appropriate for age, drowsy. Pain: Denies pain. Neuro: Ley Agitation-Sedation Scale (RASS): -1 Drowsy Level of Consciousness is obeys commands, lethargic, Oriented to person, place, time, situation, Appropriate for age General Internist And Physician Leader are weak bilaterally Moves all extremities. Cardiovascular: No deficits noted. Heart tones S1 S2 Capillary refill < 3 seconds is brisk Pulses are all present. Rhythm is atrial fibrillation. Respiratory: No deficits noted. Airway is patent Respiratory effort is even, unlabored, Respiratory pattern is regular, symmetrical, Breath sounds are clear bilaterally. Breath sounds are diminished in left lower lobe, right lower lobe, left posterior lower lobe and right posterior lower lobe diminished bases. GI: No deficits noted. : No deficits noted. Urine is. 22:47 Reassessment: Notified by Dunia MONTE receiving pt on the unit that the patient will be la4 going to room [facility] instead for isolation purposes. Vital Signs: 18:49 BP 133 / 77; Pulse 88; Resp 17; Temp 98; Pulse Ox 96% ; Weight 73.21 kg; ap3 19:00 BP 128 / 64; Pulse 87; Resp 20; Pulse Ox 94% on R/A; la4 19:30 BP 136 / 79; Pulse 66; Resp 20; Pulse Ox 87% on R/A; la4 19:45 BP 143 / 85; Pulse 88; Resp 18; Pulse Ox 97% ; la4 20:00 BP 133 / 77; Pulse 84; Resp 20; Pulse Ox 97% on R/A; la4 20:30 BP 129 / 64; Pulse 77; Resp 20; Pulse Ox 97% on R/A; la4 21:00 BP 131 / 76; Pulse 80; Resp 20; Pulse Ox 100% on R/A; la4 21:30 BP 130 / 63; Pulse 83; Pulse Ox 92% ; la4 22:00 BP 136 / 69; Pulse 86; Resp 20; Pulse Ox 92% ; la4 22:30 BP 130 / 68; Pulse 78; Resp 18; Pulse Ox 90% on R/A; la4 Vitals: 20:30 Cardiac Rhythm Assessment Regular Sinus rhythm. la4 [place] Coma Score: 20:30 Eye Response: spontaneous(4). Motor Response: obeys commands(6). Verbal Response: la4 oriented(5). Total: 15. NIH Stroke Scale Scores: 19:17 NIHSS Score: 0 larry ED Course: 18:48 Patient arrived in ED. ap3 18:52 Franco Lam MD is Attending Physician. larry 18:52 Triage completed. ap3 18:53 Patient has correct armband on for positive identification. Bed in low position. Call ap3 light in reach. Side rails up X2. Pulse ox on. NIBP on. 19:23 XRAY Chest (1 view) In Process Unspecified. EDMS 19:29 Yann Rosado, RN is Primary Nurse. rs5 19:31 CT Head C Spine In Process Unspecified. EDMS 20:24 Lobo Quevedo MD is Hospitalizing Provider. larry 20:30 Awaiting lab results, Awaiting radiology results. Awaiting: urine specimen. la4 20:30 Provided Education on: Plan of care. la4 20:30 No provider procedures requiring assistance completed. Inserted saline lock: 22 gauge la4 in left antecubital area, using aseptic technique. Missed attempt(s): 20 gauge in right antecubital area. x2. 20:37 Flu Sent. tl4 20:37 Lactate w/ 2H reflex if indic. Sent. tl4 20:37 Blood Culture Adult (2) Sent. tl4 20:37 Lipase Sent. tl4 20:38 Basic Metabolic Panel Sent. tl4 20:38 CBC with Diff Sent. tl4 20:38 LFT's Sent. tl4 20:38 Magnesium Sent. tl4 20:38 NT PRO-BNP Sent. tl4 20:38 PT-INR Sent. tl4 20:38 Troponin HS Sent. tl4 21:19 Primary Nurse role handed off by Yann Rosado RN la4 21:19 Sonu Last, MELL is Primary Nurse. la4 22:37 Patient placed in an exam room, on a stretcher. la4 22:37 Patient admitted, IV remains in place. la4 Administered Medications: 20:25 Drug: NS 0.9% IV 1000 ml IV at 1 bolus Per protocol; 1000 mL bolus Route: IV; Rate: 1 tl4 bolus; Site: left forearm; 22:48 Follow up: Response: No adverse reaction; IV Status: Completed infusion; IV Intake: la4 1000ml 20:25 Drug: Rocephin IV 1 grams IV at per protocol once; Given slow IV push per pharmacy tl4 instructions Route: IV; Rate: per protocol; Site: left forearm; 21:13 Follow up: Response: No adverse reaction; IV Status: Completed infusion; IV Intake: la4 100ml 20:25 Drug: foLIC Acid IVPB 1 mg IVPB once Route: IVPB; Site: left forearm; tl4 21:13 Follow up: Response: No adverse reaction; IV Status: Completed infusion; IV Intake: la4 100ml 21:12 Drug: levofloxacin IVPB 500 mg 100 ml IVPB once over 60 mins Volume: 100 ml; Route: la4 IVPB; Infused Over: 60 mins; Site: left wrist; 22:49 Follow up: Response: No adverse reaction; IV Status: Completed infusion; IV Intake: la4 100ml Medication: 20:30 VIS not applicable for this client. la4 Intake: 21:13 IV: 100ml; Total: 100ml. la4 21:13 IV: 100ml; Total: 200ml. la4 22:48 IV: 1000ml; Total: 1200ml. la4 22:49 IV: 100ml; Total: 1300ml. la4 Outcome: 20:27 Decision to Hospitalize by Provider. larry 22:36 Admitted to Med/surg via stretcher, la4 22:36 Condition: stable 22:36 Instructed on the need for admit, Demonstrated understanding of instructions, follow-up care, 22:45 Admitted to Med/surg Report called to Dunia MONTE la4 22:45 Demonstrated understanding of 23:23 Patient left the ED. la4 NIH Stroke Scale - NIH Stroke Score Date: 07/24/2023 Time: 19:17 Total Score = 0 10. Dysarthria (speech clarity - read or repeat words) - 0(Normal) 11. Extinction and Inattention (visual/tactile/auditory/spatial/personal) - 0(No abnormality) 1a. Level of Consciousness (LOC) - 0(Alert) 1b. Level of Consciousness (LOC) (Month \T\ Age) - 0(Both) 1c. LOC Commands (Open \T\ Closes Eyes/Embedded Systems Software Engineer) - 0(Both) 2. Best Gaze (Lateral Gaze Paresis) - 0(Normal) 3. Visual Field Loss - 0(No visual loss) 4. Facial Palsy - 0(Normal) 5a. Left Arm: Motor (10-second hold) - 0(No drift) 5b. Right Arm: Motor (10-second hold) - 0(No drift) 6a. Left Leg: Motor (5-second hold - always test supine) - 0(No drift) 6b. Right Leg: Motor (5-second hold - always test supine) - 0(No drift) 7. Limb Ataxia (finger/nose \T\ heel/ruffin - test with eyes open) - 0(Absent) 8. Sensory Loss (pinprick arms/legs/face) - 0(Normal) 9. Best Language: Aphasia (description/naming/reading) - 0(No aphasia) Initials: lrary Signatures: Dispatcher [employer] EDMS Franco Lam MD MD cha Prokisch, Amanda RN RN ap3 Yann Rosado, RN RN rs5 Sonu Last, RN RN la4 Jax Seay tl4 Corrections: (The following items were deleted from the chart) 19:25 19:25 In radiology for Head Brain Wo Cont+CT.RAD.BRZ. EDMS EDMS 20:44 20:37 SARS-COV-2 Antigen Rapid+I.LAB.BRFrank drawn and sent. tl4 EDMS
--- NOTE | 2023-07-24 20:27 | EDPHYS ---
Physician Documentation [facility] Name: Lyubov Garcia Age: 88 yrs Sex: Female : 1935 Arrival Date: 07/24/2023 Time: 18:47 Bed 7 Private MD: ED Physician Franco Lam HPI: 07/24 19:16 This 88 yrs old Female presents to ER via EMS with complaints of weakness. larry Historical: - Allergies: 18:52 Latex; ap3 18:52 Quinine Sulfate; ap3 18:52 Sulfa (Sulfonamide Antibiotics); ap3 18:52 tramadol; ap3 - PMHx: 18:52 Anemia; Charcots Arthropathy; CVA; depressive disorder; diabetes mellitus; GERD; Gout; ap3 HEART FAILURE; Hypertensive disorder; PVD; UTI; - Immunization history:: Client reports receiving the 2nd dose of the Covid vaccine. - Social history:: Smoking status: Patient denies any tobacco usage or history of. ROS: 19:17 Constitutional: Negative for fever, chills, and weight loss, Eyes: Negative for injury, larry pain, redness, and discharge, ENT: Negative for injury, pain, and discharge, Neck: Negative for injury, pain, and swelling, Cardiovascular: Negative for chest pain, palpitations, and edema, Respiratory: Negative for shortness of breath, cough, wheezing, and pleuritic chest pain, Abdomen/GI: Negative for abdominal pain, nausea, vomiting, diarrhea, and constipation, Back: Negative for injury and pain, : Negative for injury, bleeding, discharge, and swelling, MS/Extremity: Negative for injury and deformity, Skin: Negative for injury, rash, and discoloration, Psych: Negative for depression, anxiety, suicide ideation, homicidal ideation, and hallucinations, Allergy/Immunology: Negative for hives, rash, and allergies, Endocrine: Negative for neck swelling, polydipsia, polyuria, polyphagia, and marked weight changes, Hematologic/Lymphatic: Negative for swollen nodes, abnormal bleeding, and unusual bruising, 19:17 Neuro: Positive for weakness, Exam: 19:17 Constitutional: This is a well developed, well nourished patient who is awake, alert, larry and in no acute distress. Head/Face: Normocephalic, atraumatic. Eyes: Pupils equal round and reactive to light, extra-ocular motions intact. Lids and lashes normal. Conjunctiva and sclera are non-icteric and not injected. Cornea within normal limits. Periorbital areas with no swelling, redness, or edema. ENT: Nares patent. No nasal discharge, no septal abnormalities noted. Tympanic membranes are normal and external auditory canals are clear. Oropharynx with no redness, swelling, or masses, exudates, or evidence of obstruction, uvula midline. Mucous membranes moist. Neck: Trachea midline, no thyromegaly or masses palpated, and no cervical lymphadenopathy. Supple, full range of motion without nuchal rigidity, or vertebral point tenderness. No Meningismus. Chest/axilla: Normal chest wall appearance and motion. Nontender with no deformity. No lesions are appreciated. Cardiovascular: Regular rate and rhythm with a normal S1 and S2. No gallops, murmurs, or rubs. Normal PMI, no JVD. No pulse deficits. Respiratory: Lungs have equal breath sounds bilaterally, clear to auscultation and percussion. No rales, rhonchi or wheezes noted. No increased work of breathing, no retractions or nasal flaring. Abdomen/GI: Soft, non-tender, with normal bowel sounds. No distension or tympany. No guarding or rebound. No evidence of tenderness throughout. Back: No spinal tenderness. No costovertebral tenderness. Full range of motion. Female : Normal external genitalia. Skin: Warm, dry with normal turgor. Normal color with no rashes, no lesions, and no evidence of cellulitis. MS/ Extremity: Pulses equal, no cyanosis. Neurovascular intact. Full, normal range of motion. Psych: Awake, alert, with orientation to person, place and time. Behavior, mood, and affect are within normal limits. 19:17 Neuro: Orientation: to person, Not oriented to place, time, situation, Mentation: slow to respond, Memory: immediate memory is impaired, remote memory is impaired, recent memory is impaired, Cranial nerves: grossly normal, is grossly normal based on the patient's age, Cerebellar function: unable to test, Motor: moves all fours, Strength is 2/5 in the right arm, left arm, right leg and left leg, Sensation: is normal, no obvious gross deficits, appropriate Gait: not tested. seizure activity, is not displayed by the patient, Vital Signs: 18:49 BP 133 / 77; Pulse 88; Resp 17; Temp 98; Pulse Ox 96% ; Weight 73.21 kg; ap3 19:00 BP 128 / 64; Pulse 87; Resp 20; Pulse Ox 94% on R/A; la4 19:30 BP 136 / 79; Pulse 66; Resp 20; Pulse Ox 87% on R/A; la4 19:45 BP 143 / 85; Pulse 88; Resp 18; Pulse Ox 97% ; la4 20:00 BP 133 / 77; Pulse 84; Resp 20; Pulse Ox 97% on R/A; la4 20:30 BP 129 / 64; Pulse 77; Resp 20; Pulse Ox 97% on R/A; la4 21:00 BP 131 / 76; Pulse 80; Resp 20; Pulse Ox 100% on R/A; la4 21:30 BP 130 / 63; Pulse 83; Pulse Ox 92% ; la4 22:00 BP 136 / 69; Pulse 86; Resp 20; Pulse Ox 92% ; la4 22:30 BP 130 / 68; Pulse 78; Resp 18; Pulse Ox 90% on R/A; la4 NIH Stroke Scale Scores: 19:17 NIHSS Score: 0 larry Rachael Coma Score: 20:30 Eye Response: spontaneous(4). Motor Response: obeys commands(6). Verbal Response: la4 oriented(5). Total: 15. MDM: 18:52 Patient medically screened. larry 19:19 Differential diagnosis: CVA, TIA, Dementia. Differential Diagnosis altered mental larry status, sepsis, flu. Differential Diagnosis: CVA, electrolyte abnormality, hypoglycemia, intracranial bleed, seizure, sepsis, TIA, UTI, volume depletion. Data reviewed: vital signs, nurses notes, lab test result(s), EKG, radiologic studies, CT scan, plain films. Consideration of Admission/Observation Patient was admitted/placed on observation. Escalation of care including admission/observation considered. I considered the following discharge prescriptions or medication management in the emergency department Medications were administered in the Emergency Department. See MAR. Test considered but Not performed: MRI: no mri brain. Care significantly affected by the following chronic conditions: Diabetes, anemia, cva, gerd, gout. 07/24 18:54 Order name: Basic Metabolic Panel; Complete Time: 21:50 larry 07/24 18:54 Order name: CBC with Diff; Complete Time: 21:50 [facility] 07/24 18:54 Order name: LFT's; Complete Time: 21:50 [facility] 07/24 18:54 Order name: Magnesium; Complete Time: 21:50 [facility] 07/24 18:54 Order name: NT PRO-BNP; Complete Time: 21:50 [facility] 07/24 18:54 Order name: PT-INR; Complete Time: 21:50 [facility] 07/24 18:54 Order name: Troponin HS; Complete Time: 21:50 [facility] 07/24 18:54 Order name: Lipase; Complete Time: 21:50 [facility] 07/24 18:54 Order name: Urinalysis w/ reflexes [facility] 07/24 18:54 Order name: Blood Culture Adult (2) [facility] 07/24 18:54 Order name: Lactate w/ 2H reflex if indic.; Complete Time: 21:50 [facility] 07/24 18:54 Order name: Flu; Complete Time: 21:50 [facility] 07/24 20:44 Order name: SARS-COV-2 RT PCR; Complete Time: 21:50 [facility] 07/24 22:00 Order name: Urinalysis w/ reflexes [facility] 07/24 22:01 Order name: CBC with Automated Diff [facility] 07/24 22:01 Order name: CBC with Automated Diff [facility] 07/24 22:01 Order name: Comprehensive Metabolic Panel [facility] 07/24 22:01 Order name: Comprehensive Metabolic Panel [facility] 07/24 18:54 Order name: XRAY Chest (1 view); Complete Time: 20:20 [facility] 07/24 19:21 Order name: CT Head C Spine; Complete Time: 20:20 [facility] 07/24 18:54 Order name: EKG; Complete Time: 18:55 [facility] 07/24 22:00 Order name: Physical Therapy Consult [facility] 07/24 18:54 Order name: Cardiac monitoring; Complete Time: 20:37 [facility] 07/24 18:54 Order name: EKG - Nurse/Tech; Complete Time: 20:37 [facility] 07/24 18:54 Order name: IV Saline Lock; Complete Time: 20:37 [facility] 07/24 18:54 Order name: Labs collected and sent; Complete Time: 20:37 [facility] 07/24 18:54 Order name: O2 Per Protocol; Complete Time: 20:38 [facility] 07/24 18:54 Order name: O2 Sat Monitoring; Complete Time: 20:38 larry Administered Medications: 20:25 Drug: NS 0.9% IV 1000 ml IV at 1 bolus Per protocol; 1000 mL bolus Route: IV; Rate: 1 tl4 bolus; Site: left forearm; 22:48 Follow up: Response: No adverse reaction; IV Status: Completed infusion; IV Intake: la4 1000ml 20:25 Drug: Rocephin IV 1 grams IV at per protocol once; Given slow IV push per pharmacy tl4 instructions Route: IV; Rate: per protocol; Site: left forearm; 21:13 Follow up: Response: No adverse reaction; IV Status: Completed infusion; IV Intake: la4 100ml 20:25 Drug: foLIC Acid IVPB 1 mg IVPB once Route: IVPB; Site: left forearm; tl4 21:13 Follow up: Response: No adverse reaction; IV Status: Completed infusion; IV Intake: la4 100ml 21:12 Drug: levofloxacin IVPB 500 mg 100 ml IVPB once over 60 mins Volume: 100 ml; Route: la4 IVPB; Infused Over: 60 mins; Site: left wrist; 22:49 Follow up: Response: No adverse reaction; IV Status: Completed infusion; IV Intake: la4 100ml Disposition Summary: 07/24/23 20:27 Hospitalization Ordered Notes: Hospitalization Status: Inpatient Admission larry Provider: Lobo Quevedo cha Location: Telemetry/[facility] (Inpatient) larry Condition: Stable larry Problem: new larry Symptoms: have improved larry Bed/Room Type: Standard [facility] Room Assignment: 429(07/24/23 22:30) kl Diagnosis - Weakness larry - Pneumonia due to other specified bacteria - LEFT BASE larry - Cough larry Forms: - Medication Reconciliation Form larry - SBAR form larry - Leadership Thank You Letter [facility] NIH Stroke Scale - NIH Stroke Score Date: 07/24/2023 Time: 19:17 Total Score = 0 10. Dysarthria (speech clarity - read or repeat words) - 0(Normal) 11. Extinction and Inattention (visual/tactile/auditory/spatial/personal) - 0(No abnormality) 1a. Level of Consciousness (LOC) - 0(Alert) 1b. Level of Consciousness (LOC) (Month \T\ Age) - 0(Both) 1c. LOC Commands (Open \T\ Closes Eyes/Cardiograph Operator) - 0(Both) 2. Best Gaze (Lateral Gaze Paresis) - 0(Normal) 3. Visual Field Loss - 0(No visual loss) 4. Facial Palsy - 0(Normal) 5a. Left Arm: Motor (10-second hold) - 0(No drift) 5b. Right Arm: Motor (10-second hold) - 0(No drift) 6a. Left Leg: Motor (5-second hold - always test supine) - 0(No drift) 6b. Right Leg: Motor (5-second hold - always test supine) - 0(No drift) 7. Limb Ataxia (finger/nose \T\ heel/ruffin - test with eyes open) - 0(Absent) 8. Sensory Loss (pinprick arms/legs/face) - 0(Normal) 9. Best Language: Aphasia (description/naming/reading) - 0(No aphasia) Initials: [facility] Signatures: Dispatcher [employer] EDMS Kimberly Patel, NEWS PHOTOGRAPHER-C NEWS PHOTOGRAPHER-Ckb Nolvia Garcia, RN Franco Goins MD MD cha Prokisch, Amanda RN RN ap3 Sonu Last RN RN la4 Jax Seay tl4 Corrections: (The following items were deleted from the chart) 19:25 18:55 Head Brain Wo Cont+CT.RAD.BRZ ordered. EDMS EDMS 20:44 18:55 SARS-COV-2 Antigen Rapid+I.LAB.BRZ ordered. EDMS EDMS 22:30 20:27 larry sotelo
[2023-07-24 20:46] LABS: Absolute Lymphocytes (CBC) 1.5 K/uL (0.7-4.9); Hematocrit 43.6 % (36.0-45.0); Lymphocytes % 13.6 % (15.3-44.8); MCV 92.1 fL (80-100); MPV 8.6 fL (7.6-11.3); Platelets 301 thou/uL (152-406); RBC Red Blood Cell Count 4.73 M/uL (3.86-4.86)
[2023-07-24] MEDS ORDERED: Levofloxacin500mg IV 500 MG/100 ML BAG IV ONE (20:49)
[2023-07-24 20:57] LABS: Protime INR 1.23
[2023-07-24 21:25] LABS: Albumin 3.3 g/dL (3.4-5.0); Bilirubin Direct 0.1 mg/dL (0-0.2); Bilirubin Indirect, Calculated 0.6 mg/dL (0.2-0.8); Bilirubin Total 0.7 mg/dL (0.2-1.0); Protein, Total 7.9 g/dL (6.4-8.2); Troponin High Sensitivity 13.3 pg/mL (<58.9)
[2023-07-24 21:36] LABS: Magnesium 1.9 mg/dL (1.6-2.4); Potassium 4.5 mEq/L (3.5-5.1)
[2023-07-24] MEDS ORDERED: ONDANSETRON 4 MG/2 ML VIAL IV PRN (21:54)
[2023-07-24] MEDS ORDERED: ALBUTEROL 2.5 MG/3 ML NEB SOL NEB PRN (21:54)
--- NOTE | 2023-07-24 21:54 | P.HP ---
Certification for Inpatient Patient admitted to: Inpatient With expected LOS: >2 Midnights Practitioner: I am a practitioner with admitting privileges, knowledge of patient current condition, hospital course, and medical plan of care. Services: Services provided to patient in accordance with Admission requirements found in Title 42 Section 412.3 of the Code of Federal Regulations Patient History Date of Service: 07/24/23 Reason for admission: Generalized weakness History of Present Illness: 88-year-old female who is a halfway resident with past medical history of hypertension, hyperlipidemia, diabetes, bilateral foot drop, CHF, anemia, CKD stage II who was brought to ER with generalized weakness. Patient is a poor historian hence most of the history is obtained from the chart review and also talking to the ER physician. Patient denies any fever. No chills. Denies any cough. No nausea vomiting or diarrhea. Patient was assessed in the ER and was found to have basilar pneumonia and was positive for COVID and was admitted for further management Allergies quinine sulfate [From Quine] Allergy (Verified 08/16/15 10:43) Hives Sulfa (Sulfonamide Antibiotics) Allergy (Verified 08/16/15 10:43) Hives Home medications list reviewed: Yes Home Medications: Aspirin 81 mg PO DAILY 08/19/15 Omeprazole [Prilosec] 20 mg PO DAILY 08/19/15 Simvastatin [Zocor] 20 mg PO BEDTIME 08/19/15 Atenolol [Tenormin] 1 tab PO BID 11/30/20 Black Cohosh 1 tab PO DAILY 11/30/20 Clopidogrel Bisulfate [Plavix] 1 tab PO DAILY 11/30/20 Furosemide 1 tab PO BID 11/30/20 Gabapentin 1 tab PO BID 11/30/20 Levothyroxine [Synthroid*] 1 tab PO DAILY 11/30/20 Losartan/Hydrochlorothiazide [Losartan-Hctz 100-12.5 mg Tab] 1 tab PO DAILY 11/30/20 Soy Isofla/Blk Cohosh/Mag Bark [Estroven 155 mg Capsule] 1 tab PO DAILY 11/30/20 - Past Medical/Surgical History Diabetic: No Past Medical History: Reviewed- Non-Contributory -: Hx Stroke 96 -: Overweight -: Neuropathy -: Hypothyroidism Past Surgical History: Reviewed- Non-Contributory -: Right knee replacement 2013 -: Left FEMPOP 2012 -: Hysterectomy 1965 -: Cholecystectomy 1982 -: Breast Lumpectomy - Family History Family History: Reviewed- Non-Contributory - Social History Smoking Status: Never smoker Alcohol use: No Review of Systems is unable to be obtained Physical Examination - Vital Signs Temperature: 98.6 F Blood Pressure: 128/76 Pulse: 76 Respirations: 18 Pulse Ox (%): 94 - Physical Exam General: Alert, Oriented x1, Moderate distress HEENT: Atraumatic, Normocephalic Neck: Supple, No Thyromegaly Respiratory: Diminished, Crackles/rales, Rhonchi/gurgles Cardiovascular: No edema, Regular rate/rhythm, Normal S1 S2 Capillary refill: <2 Seconds Gastrointestinal: Soft and benign, W/out hepatosplenomegaly, No tenderness Musculoskeletal: Contractures, Other (foot drop ) Integumentary: No rashes Neurological: Other (Alert, awake , confused ), Abnormal gait Lymphatics: No axilla or inguinal lymphadenopathy - Studies Laboratory Data (last 24 hrs) 07/24/23 07/24/23 07/24/23 20:25 20:25 20:25 WBC 11.10 H Hgb 14.1 Hct 43.6 Plt Count 301 PT 13.4 H INR 1.23 Sodium 130 L Potassium 4.5 BUN 12 Creatinine 1.08 H Glucose 112 H Magnesium 1.9 Total Bilirubin 0.7 AST 25 ALT 14 Alkaline Phosphatase 119 H Lipase 13 Microbiology Data (last 24 hrs): 07/24/23 20:25 Nasopharnyx Influenza Type A Antigen Screen - Final 07/24/23 20:25 Nasopharnyx Influenza Type B Antigen Screen - Final Assessment and Plan - Problems (Diagnosis) (1) Left lower lobe pneumonia Current Visit: Yes Status: Acute Plan: Started on IV antibiotic with Rocephin and Zithromax Monitor closely on telemetry Oxygen supplementation as needed Will obtain cultures Change antibiotic as per sensitivity Will get a repeat x-ray in a.m. (2) COVID-19 Current Visit: Yes Status: Acute Plan: Monitor closely Started on Decadron Patient is saturating well Will hold back on remdesivir for now (3) Weakness generalized Current Visit: No Status: Acute Plan: Possibly multifactorial Will treat pneumonia and COVID Supportive management (4) Hyponatremia Current Visit: Yes Status: Acute Plan: Electrolytes monitor and replace accordingly Possibly due to dehydration Started on IV hydration moderation given the history of CHF (5) Charcot's joint of foot, non-diabetic Current Visit: No Status: Chronic Plan: Supportive management Will get a PT eval Monitor closely Discharge Plan: Correction Plan to discharge in: 48 Hours - Advance Directives Does patient have a Living Will: No Does patient have a Durable POA for Healthcare: No - Code Status/Comfort Care Code Status: Full Code Time Spent Managing Pts Care (In Minutes): 48
[2023-07-25 00:18] VITALS: BMI 26.6
[2023-07-25] MEDS: ACETAMINOPHEN 500 MG TAB PO PRN ×2 (00:46→15:32)
[2023-07-25] MEDS: NA CHLORIDE 0.9% 1,000 ML IV SCH ×2 (00:46→18:00)
[2023-07-25 07:17] LABS: Hematocrit 38.9 % (36.0-45.0); Lymphocytes % 21.7 % (15.3-44.8); MCV 91.1 fL (80-100); MPV 8.3 fL (7.6-11.3); Platelets 276 thou/uL (152-406); RBC Red Blood Cell Count 4.27 M/uL (3.86-4.86)
[2023-07-25 07:27] LABS: Specific Gravity 1.007 (1.005-1.030); Urine Bacteria 20-50 /HPF (<20); Urine Bilirubin NEGATIVE (Negative); Urine Blood Negative (Negative); Urine Clarity Extremely Turbid (Clear); Urine Color Light-Yellow (Yellow); Urine Glucose NEGATIVE (Negative); Urine Protein NEGATIVE (Negative); Urine RBC <5 /HPF (None Seen); Urine Urobilinogen Normal (Normal); Urine WBC Clump Occasional /HPF (None Seen); Urine pH 6.5 (5.0-7.0)
[2023-07-25 07:29] LABS: Albumin 2.7 g/dL (3.4-5.0); Bilirubin Total 0.4 mg/dL (0.2-1.0); Potassium 3.9 mEq/L (3.5-5.1); Protein, Total 6.7 g/dL (6.4-8.2)
[2023-07-25] MEDS: INSULIN REGULAR (HUMAN) 100 UNIT/ML SQ SCH ×4 (07:30→20:29)
[2023-07-25] MEDS ORDERED: AZITHROMYCIN 500 MG INJ IVPB ONE (08:51)
[2023-07-25] MEDS ORDERED: NA CHLORIDE 0.9% 250 ML ONE (08:51)
[2023-07-25] MEDS: CEFTRIAXONE 1,000 MG in NA CHLORIDE 0.9% 50 ML IVPB SCH (08:55)
[2023-07-25] MEDS: dexAMETHasone 10 MG/ML VIAL IV SCH (08:55)
[2023-07-25] MEDS: AZITHROMYCIN IV 500 MG in NA CHLORIDE 0.9% 250 ML IVPB SCH (08:56)
[2023-07-25] MEDS ORDERED: POTASSIUM 25 MEQ EFFERV TAB PO ONE (09:00)
[2023-07-25] MEDS ORDERED: ENOXAPARIN 40 MG/0.4 ML SQ SCH (09:00)
--- NOTE | 2023-07-25 10:37 | P.PN ---
Subjective Date of Service: 07/25/23 Chief Complaint: Generalized weakness Pt is resting comfortably in bed. She is oxygenating well on room air. Pt deneis any fever, chills, nausea, vomiting, diarrhea but reports mild joint aches. No other complaints. Review of Systems 10-point ROS is otherwise unremarkable General: Unremarkable Eyes: Unremarkable ENT: Unremarkable Respiratory: Unremarkable Cardiovascular: Unremarkable Gastrointestinal: Unremarkable Genitourinary: Unremarkable Musculoskeletal: Unremarkable Integumentary: Unremarkable Neurological: Unremarkable Lymphatics: Unremarkable Physical Examination - Vital Signs Temperature: 97.3 F Blood Pressure: 173/85 Pulse: 94 Respirations: 18 Pulse Ox (%): 97 - Physical Exam General: Alert, In no apparent distress, Oriented x3 HEENT: Atraumatic, Normocephalic Neck: Supple, 2+ carotid pulse no bruit Respiratory: Clear to auscultation bilaterally, Normal air movement Cardiovascular: No edema, Normal pulses, Normal S1 S2 Capillary refill: <2 Seconds Gastrointestinal: Normal bowel sounds, Soft and benign, Non-distended Musculoskeletal: No clubbing, No swelling Integumentary: No rashes, No breakdown Neurological: Normal gait, Normal speech, Normal strength at 5/5 x4 extr Lymphatics: No axilla or inguinal lymphadenopathy - Studies Laboratory Data (last 24 hrs) 07/24/23 07/24/23 07/24/23 20:25 20:25 20:25 WBC 11.10 H Hgb 14.1 Hct 43.6 Plt Count 301 PT 13.4 H INR 1.23 Sodium 130 L Potassium 4.5 BUN 12 Creatinine 1.08 H Glucose 112 H Magnesium 1.9 Total Bilirubin 0.7 AST 25 ALT 14 Alkaline Phosphatase 119 H Lipase 13 Microbiology Data (last 24 hrs): 07/24/23 20:25 Nasopharnyx Influenza Type A Antigen Screen - Final 07/24/23 20:25 Nasopharnyx Influenza Type B Antigen Screen - Final Assessment And Plan - Plan COVID 19: Will continue enhanced resp precaution, Decadron, prn oxygen and vitamins (D and C) Left lower lobe pneumonia: Will continue rocephin and azithro and follow up blood cx. Hx of CHF: Pt has elevated BNP, 1885. Will follow up Echo. Continue low salt diet , daily weight and strict I/O. Hyponatremia: Na is 130. likely due to hypovolemia. Will continue gentle hydration and monitor Na . Generalized weakness: Due to pneumonia and COVID. Will continue treatment. Charcot's joint of the foot: Will continue supportive care. Hyperkalemia: K is 4.5. Will monitor. Htn: Will continue home med DVT ppx: SCD Dispo: Pending hospital course. Will DC back to SNF when stable. Discharge Plan: Home Plan to discharge in: 24 Hours - Code Status/Comfort Care Code Status Assessed: Yes
--- NOTE | 2023-07-25 12:51 | EKG ---
Test Date: 2023-07-24 Test Time: 20:52:31 Community Marketing Coordinator: PAKO MEASUREMENT RESULTS: Intervals: Rate: 84 TX: QRSD: 70 QT: 374 QTc: 441 [place]: P: TX: QRS: 11 T: 28 INTERPRETIVE STATEMENTS: Atrial fibrillation Anteroseptal infarct, age undetermined Abnormal ECG Compared to ECG 10/18/2022 13:28:09 ST (T wave) deviation no longer present Possible ischemia no longer present Myocardial infarct finding still present Electronically Signed On 07-25-23 12:48:56 EQUIPMENT CLEANER by Khoi Vences
[2023-07-25] MEDS ORDERED: DILTIAZEM INJ 125 MG/25 ML 125 MG in NA CHLORIDE 0.9% 100 ML IV SCH (16:00)
[2023-07-25] MEDS: METOPROLOL XL 25 MG TAB PO SCH (16:01)
[2023-07-25] MEDS: ENOXAPARIN 80 MG/0.8 ML SQ SCH (20:29)
[2023-07-25] MEDS ORDERED: SENOSIDES 8.6 MG TAB PO PRN (22:22)
[2023-07-26] MEDS: ACETAMINOPHEN 500 MG TAB PO PRN (00:34)
[2023-07-26] MEDS: PANTOPRAZOLE 40MG TABLET PO SCH (06:02)
[2023-07-26] MEDS: INSULIN REGULAR (HUMAN) 100 UNIT/ML SQ SCH ×4 (07:30→21:00)
[2023-07-26 07:38] LABS: Lymphocytes % 18.8 % (15.3-44.8); MCV 91.2 fL (80-100); MPV 8.5 fL (7.6-11.3); Platelets 303 thou/uL (152-406); RBC Red Blood Cell Count 4.16 M/uL (3.86-4.86)
[2023-07-26] MEDS: CODEINE 30MG/APAP 300MG TAB PO SCH ×2 (09:00→21:04)
[2023-07-26] MEDS: AZITHROMYCIN IV 500 MG in NA CHLORIDE 0.9% 250 ML IVPB SCH ×2 (09:00→12:05)
[2023-07-26 09:53] VITALS: O2SAT 96
[2023-07-26] MEDS: ENOXAPARIN 80 MG/0.8 ML SQ SCH ×2 (10:11→21:05)
[2023-07-26] MEDS: dexAMETHasone 10 MG/ML VIAL IV SCH (10:11)
[2023-07-26] MEDS: CEFTRIAXONE 1,000 MG in NA CHLORIDE 0.9% 50 ML IVPB SCH (10:11)
[2023-07-26] MEDS: DOCUSATE NA 100 MG CAP PO SCH ×2 (10:12→21:04)
[2023-07-26] MEDS: METOPROLOL XL 25 MG TAB PO SCH (10:12)
[2023-07-26] MEDS: BISACODYL E.C. 5 MG TAB PO SCH (10:13)
[2023-07-26] MEDS ORDERED: AZITHROMYCIN IV 500 MG in NA CHLORIDE 0.9% 250 ML IVPB SCH ×2 (10:54→11:45)
[2023-07-26] MEDS ORDERED: AZITHROMYCIN IV 250 MG in NA CHLORIDE 0.9% 250 ML IVPB SCH (11:00)
[2023-07-26 11:38] LABS: Potassium 3.4 mEq/L (3.5-5.1)
--- NOTE | 2023-07-26 12:02 | P.PN ---
Subjective Date of Service: 07/26/23 Chief Complaint: Generalized weakness Pt is resting comfortably in bed. She is oxygenating well on room air. Pt deneis any fever, chills, nausea, vomiting, diarrhea but reports mild joint aches. She had A. fib with RVR yesterday and we gave diltiazem drip. HR is 65. Waiting for cardiology eval. No other complaints. Review of Systems 10-point ROS is otherwise unremarkable General: Unremarkable Eyes: Unremarkable ENT: Unremarkable Respiratory: Unremarkable Cardiovascular: Unremarkable Gastrointestinal: Unremarkable Genitourinary: Unremarkable Musculoskeletal: Unremarkable Integumentary: Unremarkable Neurological: Unremarkable Lymphatics: Unremarkable Physical Examination - Vital Signs Temperature: 97.2 F Blood Pressure: 179/87 Pulse: 68 Respirations: 17 Pulse Ox (%): 96 - Physical Exam General: Alert, In no apparent distress, Oriented x3 HEENT: Atraumatic, Normocephalic, PERRLA Neck: Supple, 2+ carotid pulse no bruit Respiratory: Clear to auscultation bilaterally, Normal air movement Cardiovascular: No edema, Normal pulses, Regular rate/rhythm, Normal S1 S2 Capillary refill: <2 Seconds Gastrointestinal: Normal bowel sounds, Soft and benign Musculoskeletal: No clubbing, No swelling Integumentary: No rashes, No breakdown Neurological: Normal gait, Normal speech, Normal strength at 5/5 x4 extr Lymphatics: No axilla or inguinal lymphadenopathy Assessment And Plan - Plan COVID 19: Will continue enhanced resp precaution, Decadron, prn oxygen and vitamins (D and C) Left lower lobe pneumonia: Will continue rocephin and azithro and follow up blood cx. Hx of CHF: Pt has elevated BNP, 1885. Will follow up Echo. Continue low salt diet , daily weight and strict I/O. Hyponatremia: Na is 137. likely due to hypovolemia. Will continue gentle hydration and monitor Na . A. fib with RVR: Will continue telemetry, diltiazem drip, metoprolol and terapeutic lovenox. Generalized weakness: Due to pneumonia and COVID. Will continue treatment. Charcot's joint of the foot: Will continue supportive care. Hypokalemia: K is 3.4. Will replete and monitor. Htn: Will continue home med DVT ppx: SCD Dispo: Pending hospital course. Will DC back to SNF when stable.
[2023-07-26] MEDS: NA CHLORIDE 0.9% 1,000 ML IV SCH (14:00)
[2023-07-27] MEDS: PANTOPRAZOLE 40MG TABLET PO SCH (06:07)
[2023-07-27 07:25] LABS: Absolute Lymphocytes (CBC) 1.5 K/uL (0.7-4.9); Hematocrit 38.4 % (36.0-45.0); Lymphocytes % 12.1 % (15.3-44.8); MCV 90.5 fL (80-100); MPV 8.8 fL (7.6-11.3); Platelets 312 thou/uL (152-406); RBC Red Blood Cell Count 4.24 M/uL (3.86-4.86)
[2023-07-27] MEDS: INSULIN REGULAR (HUMAN) 100 UNIT/ML SQ SCH (07:30)
[2023-07-27 07:33] LABS: Potassium 3.6 mEq/L (3.5-5.1); Thyroid Stimulating Hormone 1.09 uIU/mL (0.358-3.740)
[2023-07-27] MEDS: METOPROLOL XL 25 MG TAB PO SCH (08:10)
[2023-07-27] MEDS: BISACODYL E.C. 5 MG TAB PO SCH (08:10)
[2023-07-27] MEDS: DOCUSATE NA 100 MG CAP PO SCH (08:11)
[2023-07-27] MEDS: AZITHROMYCIN IV 500 MG in NA CHLORIDE 0.9% 250 ML IVPB SCH (08:11)
[2023-07-27] MEDS: ENOXAPARIN 80 MG/0.8 ML SQ SCH ×2 (08:11→08:12)
[2023-07-27] MEDS: CODEINE 30MG/APAP 300MG TAB PO SCH (08:11)
[2023-07-27] MEDS: dexAMETHasone 10 MG/ML VIAL IV SCH (08:12)
[2023-07-27] MEDS: CEFTRIAXONE 1,000 MG in NA CHLORIDE 0.9% 50 ML IVPB SCH (08:12)
[2023-07-27] MEDS ORDERED: AZITHROMYCIN IV 500 MG in NA CHLORIDE 0.9% 250 ML IVPB SCH (09:00)
--- NOTE | 2023-07-27 09:25 | P.CNS ---
Date of Consult: 07/27/23 Reason for Consult: afib RVR Requesting Physician: Karsten Root Chief Complaint: Generalized weakness History of Present Illness: Ms. Garcia is an 88 yo old resident of a community [facility]. She was brought to the hospital 3 days ago and diagnosed with CoVid and left lower lobe pneumonia. Ms. Garcia developed some atrial fibrillation with RVR that necessitated a Cardizem drip and Cardiology was consulted. This morning, the Cardizem drip is off, she remains in atrial fibrillation with a rate in the 70s. Allergies quinine sulfate [From Quine] Allergy (Verified 08/16/15 10:43) Hives Sulfa (Sulfonamide Antibiotics) Allergy (Verified 08/16/15 10:43) Hives Home medications list reviewed: Yes Home Medications: Omeprazole [Prilosec] 20 mg PO DAILY 08/19/15 Clopidogrel Bisulfate [Plavix] 1 tab PO DAILY 11/30/20 Furosemide 1 tab PO DAILY 11/30/20 Acetaminophen 650 mg PO Q4HP PRN 07/25/23 Albuterol Inhaler [Ventolin Inhaler*] 2 puff IH Q6HP PRN 07/25/23 Allopurinol 200 mg PO DAILY 07/25/23 Atorvastatin Calcium [Lipitor] 10 mg PO BEDTIME 07/25/23 Baclofen [Lioresal] 10 mg PO BEDTIME 07/25/23 Benzonatate [Tessalon Perle] 100 mg PO TID PRN 07/25/23 Carboxymethylcellulose Sodium [Artificial Tears] 2 drop EACH EYE TID 07/25/23 Cholecalciferol (Vitamin D3) [Vitamin D 1000 Iu Tab] 2,000 unit PO DAILY 07/25/23 Citalopram [Celexa*] 5 mg PO DAILY 07/25/23 Codeine/APAP [Tylenol W/Codeine #3 tab] 1 tab PO BID 07/25/23 Docusate [Colace Cap] 100 mg PO BID 07/25/23 Gabapentin [Neurontin] 400 mg PO TID 07/25/23 Guaifenesin [Mucus Relief] 400 mg PO Q4HP PRN 07/25/23 Hydralazine [Apresoline] 25 mg PO TID 07/25/23 Lactulose 10 gm PO DAILYPRN PRN 07/25/23 Levothyroxine [Synthroid] 50 mcg PO [id number] 07/25/23 Losartan Potassium [Cozaar] 50 mg PO DAILY 07/25/23 Loteprednol Etabonate [Lotemax] 2 drop EACH EYE BID 07/25/23 Meclizine HCl 12.5 mg PO Q8HP PRN 07/25/23 Multivitamin with Minerals [Multivitamins with Minerals] 1 each PO DAILY 07/25/23 Polyethylene Glycol 3350 [Miralax] 17 gm PO DAILYPRN PRN 07/25/23 Potassium Chloride [Klor-Con 10] 20 meq PO DAILY 07/25/23 Sennosides [Senna] 2 tab PO DAILYPRN PRN 07/25/23 Simethicone 125 mg PO Q8HP PRN 07/25/23 bisacodyL [Dulcolax*] 2 tab PO DAILY 07/25/23 - Past Medical/Surgical History Diabetic: No -: Hx Stroke -: HTN -: Neuropathy -: Hypothyroidism -: PVD -: Right knee replacement 2013 -: Left FEMPOP 2012 -: Hysterectomy 1965 -: Cholecystectomy 1982 -: Breast Lumpectomy - Social History Smoking Status: Unknown if ever smoked Alcohol use: No CD- Drugs: No Caffeine use: Yes Place of Residence: [place] Review of Systems 10-point ROS is otherwise unremarkable Respiratory: As per HPI Cardiovascular: As per HPI Physical Examination Temp Pulse Resp BP Pulse Ox 97.8 F 77 18 195/94 H 97 07/27/23 08:00 07/27/23 08:00 07/27/23 08:00 07/27/23 08:00 07/27/23 08:00 General: Alert, In no apparent distress HEENT: Atraumatic, Normocephalic, PERRLA Neck: Supple, 2+ carotid pulse no bruit Respiratory: Expiratory wheezes, Other (dry cough) Cardiovascular: No edema, Irregular heart rate/rhythm Capillary refill: <2 Seconds Gastrointestinal: Normal bowel sounds, Soft and benign Musculoskeletal: No clubbing Neurological: Normal speech, Normal tone External genitalia: Deferred Rectal: Deferred - Problems (1) Hypertension Current Visit: Yes Status: Acute Plan: Continue home medications (2) Atrial fibrillation Current Visit: Yes Status: Acute Plan: continue daily baby aspirin Continue home medications follow up outpatient cardiology cardiology will sign off Qualifiers: Atrial fibrillation type: unspecified chronic Qualified Code(s): I48.20 - Chronic atrial fibrillation, unspecified; I48.2 - Chronic atrial fibrillation (3) Hyperlipemia Current Visit: Yes Status: Acute Plan: Continue atorvastatin 10mg po q hs
[2023-07-27] MEDS: NA CHLORIDE 0.9% 1,000 ML IV SCH (12:52)
--- NOTE | 2023-07-27 13:15 | P.DS ---
Admission Date: 07/24/23 Discharge Date: 07/27/23 Disposition: TRANSFER TO ALF Discharge Condition: GOOD Reason for Admission: Generalized weakness Brief History of Present Illness: 88-year-old female who is a shelter resident with past medical history of hypertension, hyperlipidemia, diabetes, bilateral foot drop, CHF, anemia, CKD stage II who was brought to ER with generalized weakness. Patient is a poor historian hence most of the history is obtained from the chart review and also talking to the ER physician. Patient denies any fever. No chills. Denies any cough. No nausea vomiting or diarrhea. Patient was assessed in the ER and was found to have basilar pneumonia and was positive for COVID and was admitted for further management Hospital Course: Pt is an 88-year-old female with past medical history of hypertension, hyperlipidemia, diabetes, bilateral foot drop, CHF, anemia, and CKD stage II who was presented with generalized weakness. In the ER, imaging study showed ba silar pneumonia and pt was positive for COVID. We admitted pt for treatment of pneumonia and COVID. Pt was not hypoxic. We gave steroid and iv antibiotics. Pt later developed A. fib with RVR. We gave diltiazem drip and later started metoprolol for rate control. We add aspirin to her home meds. The symptoms resolved and pt was discharged back to the SNF. She was in NAD prior to discharge. Vital Signs/Physical Exam: Temp Pulse Resp BP Pulse Ox 97.9 F 73 18 195/79 H 94 07/27/23 13:00 07/27/23 13:00 07/27/23 13:00 07/27/23 13:00 07/27/23 13:00 Laboratory Data at Discharge: WBC 12.50 thou/uL (4.3-10.9) H 07/27/23 06:40 Hgb 12.6 g/dL (12.0-15.0) 07/27/23 06:40 Hct 38.4 % (36.0-45.0) 07/27/23 06:40 Plt Count 312 thou/uL (152-406) 07/27/23 06:40 PT 13.4 SECONDS (9.5-12.5) H 07/24/23 20:25 INR 1.23 07/24/23 20:25 Sodium 135 mEq/L (136-145) L 07/27/23 06:40 Potassium 3.6 mEq/L (3.5-5.1) 07/27/23 06:40 BUN 18 mg/dL (7-18) 07/27/23 06:40 Creatinine 0.81 mg/dL (0.55-1.02) 07/27/23 06:40 Glucose 99 mg/dL (74-106) 07/27/23 06:40 Magnesium 1.9 mg/dL (1.6-2.4) 07/24/23 20:25 Total Bilirubin 0.4 mg/dL (0.2-1.0) 07/25/23 06:57 AST 15 U/L (15-37) 07/25/23 06:57 ALT 12 U/L (13-56) L 07/25/23 06:57 Alkaline Phosphatase 100 U/L (45-117) 07/25/23 06:57 Lipase 13 U/L (13-75) 07/24/23 20:25 Home Medications: Omeprazole [Prilosec] 20 mg PO DAILY 08/19/15 Clopidogrel Bisulfate [Plavix] 1 tab PO DAILY 11/30/20 Furosemide 1 tab PO DAILY 11/30/20 Acetaminophen 650 mg PO Q4HP PRN 07/25/23 Albuterol Inhaler [Ventolin Inhaler*] 2 puff IH Q6HP PRN 07/25/23 Allopurinol 200 mg PO DAILY 07/25/23 Atorvastatin Calcium [Lipitor*] 10 mg PO BEDTIME 07/25/23 Baclofen [Lioresal*] 10 mg PO BEDTIME 07/25/23 Benzonatate [Tessalon Perle*] 100 mg PO TID PRN 07/25/23 Carboxymethylcellulose Sodium [Artificial Tears] 2 drop EACH EYE TID 07/25/23 Cholecalciferol (Vitamin D3) [Vitamin D 1000 Iu Tab*] 2,000 unit PO DAILY 07/25/23 Citalopram [Celexa*] 5 mg PO DAILY 07/25/23 Codeine/APAP [Tylenol #3*] 1 tab PO BID 07/25/23 Docusate [Colace Cap*] 100 mg PO BID 07/25/23 Gabapentin [Neurontin*] 400 mg PO TID 07/25/23 Guaifenesin [Mucus Relief] 400 mg PO Q4HP PRN 07/25/23 Hydralazine [Apresoline*] 25 mg PO TID 07/25/23 Lactulose 10 gm PO DAILYPRN PRN 07/25/23 Levothyroxine [Synthroid*] 50 mcg PO [id number] 07/25/23 Loteprednol Etabonate [Lotemax] 2 drop EACH EYE BID 07/25/23 Meclizine HCl 12.5 mg PO Q8HP PRN 07/25/23 Multivitamin with Minerals [Multivitamins with Minerals] 1 each PO DAILY 07/25/23 Polyethylene Glycol 3350 [Miralax] 17 gm PO DAILYPRN PRN 07/25/23 Potassium Chloride [Klor-Con 10] 20 meq PO DAILY 07/25/23 Sennosides [Senna] 2 tab PO DAILYPRN PRN 07/25/23 Simethicone 125 mg PO Q8HP PRN 07/25/23 bisacodyL [Dulcolax*] 2 tab PO DAILY 07/25/23 Aspirin [Aspirin EC] 81 mg PO DAILY 90 Days #90 tab 07/27/23 Azithromycin 500 mg PO DAILY 4 Days #4 tab 07/27/23 Cefdinir [Cefdinir*] 300 mg PO BID 4 Days #8 cap 07/27/23 Losartan Potassium [Cozaar] 25 mg PO DAILY 30 Days #30 tab 07/27/23 Metoprolol Succinate 25 mg PO DAILY 30 Days #30 tab 07/27/23 dexAMETHasone [Decadron] 4 mg PO DAILY 7 Days #7 tab 07/27/23 New Medications: Aspirin [Aspirin EC] 81 mg PO DAILY 90 Days #90 tab Azithromycin 500 mg PO DAILY 4 Days #4 tab Cefdinir [Cefdinir*] 300 mg PO BID 4 Days #8 cap Losartan Potassium [Cozaar] 25 mg PO DAILY 30 Days #30 tab dexAMETHasone [Decadron] 4 mg PO DAILY 7 Days #7 tab Metoprolol Succinate 25 mg PO DAILY 30 Days #30 tab Physician Discharge Instructions: Continue ad cliff activity. Take cefdinir, azithromycin, and decadron for 4 more days. Take Aspirin and other home meds as prescribed. Follow up with PCP and Cardiology within 1 week. Diet: AHA Activity: Ad cliff
--- NOTE | 2023-07-27 15:13 | EKG ---
Test Date: 2023-07-25 Test Time: 14:28:04 House Designer: IMAN MEASUREMENT RESULTS: Intervals: Rate: 137 NE: QRSD: 64 QT: 286 QTc: 431 [place]: P: NE: QRS: -33 T: 133 INTERPRETIVE STATEMENTS: Atrial fibrillation with rapid ventricular response with premature ventricular or aberrantly conducted complexes Left axis deviation Low voltage QRS Cannot rule out Anteroseptal infarct, age undetermined Abnormal ECG Compared to ECG 07/24/2023 20:52:31 Ventricular premature complex(es) now present Left-axis deviation now present Low QRS voltage now present Myocardial infarct finding still present Electronically Signed On 07-27-23 15:09:35 BRICKLAYER SUPERVISOR by Khoi Vences
[2023-07-27 17:02] VITALS: BP 189/109; TEMP 97.8
--- NOTE | 2023-07-31 07:56 | ECHO ---
HEIGHT: 5 ft 7 in WEIGHT: 170 lb 0 oz DATE OF STUDY: 07/27/[address]: Karsten Root MD 2-DIMENSIONAL: YES M.MODE: YES DOPPLER: YES COLOR FLOW: YES TDS: PORTABLE: YES DEFINITY: BUBBLE STUDY: DIAGNOSIS: RULE OUT CONGESTIVE HEART FAILURE CARDIAC HISTORY: CATHERIZATION: SURGERY: PROSTHETIC VALVE: PACEMAKER: MEASUREMENTS (cm) DIASTOLIC (NORMALS) SYSTOLIC (NORMALS) IVSd 0.9 (0.6-1.2) LA Diam 3.8 (1.9-4.0) LVEF 64% LVIDd 4.6 (3.5-5.7) LVIDs 3.0 (2.0-3.5) %FS 35% LVPWd 1.1 (0.6-1.2) Ao Diam 2.4 (2.0-3.7) 2 DIMENSIONAL ASSESSMENT: RIGHT ATRIUM: ENLARGED LEFT ATRIUM: ENLARGED RIGHT VENTRICLE: NORMAL LEFT VENTRICLE: NORMAL TRICUSPID VALVE: MILD TRICUSPID REGURGITATION MITRAL VALVE: MILD MITRAL REGURGITATION PULMONIC VALVE: MILD PULMONIC INSUFFICIENCY AORTIC VALVE: NORMAL PERICARDIAL EFFUSION: NONE AORTIC ROOT: NORMAL LEFT VENTRICULAR WALL MOTION: NORMAL DOPPLER/COLOR FLOW: SEE BELOW COMMENTS: 1. NORMAL LEFT VENTRICULAR EJECTION FRACTION 60-65% WITH NORMAL WALL MOTION 2. DIASTOLIC DYSFUNCTION 3. BI-ATRIAL ENLARGEMENT 4. MILD MITRAL REGURGITATION 5. MILD TRICUSPID REGURGITATION 6. MODERATE PULMONARY HYPERTENSION WITH RIGHT VENTRICULAR SYSTOLIC PRESSURE OF 50-55 mmHg TECHNOLOGIST: CHEYENNE PHAM
== END 2023-07-27 17:30 | DRG 177 ==
LOC: ER 18:47 → 4TH 21:54
PROVIDERS: ADMIT Family Medicine; ATTEND Family Medicine
DX: U07.1 COVID-19 (principal); J12.82 Pneumonia due to coronavirus disease 2019; E87.1 Hypo-osmolality and hyponatremia; I13.0 Hypertensive heart and chronic kidney disease with heart failure and stage 1 through stage 4 chronic kidney disease, or unspecified chronic kidney disease; E11.610 Type 2 diabetes mellitus with diabetic neuropathic arthropathy; I50.9 Heart failure, unspecified; E11.22 Type 2 diabetes mellitus with diabetic chronic kidney disease; E87.5 Hyperkalemia; N18.2 Chronic kidney disease, stage 2 (mild); M21.371 Foot drop, right foot; M21.372 Foot drop, left foot; R53.1 Weakness
CPT/HCPCS: 36415; 70450; 71045; 72125; 80048; 80053; 80076; 81001; 82947; 83605; 83690; 83735; 83880; 84443; 84484; 85025; 85610; 87040; 87086; 87088; 87635; 87804; 93005; 93306; 94760; 97110; 97116; 97161; 97530; 99285; J0696; J1100; J1650; J7030; J7050

== ENCOUNTER 2023-08-15 11:54 | Inpatient (IN) | payer OTHER ==
--- OUTSIDE RECORDS SUMMARY | 2023-08-15 11:59 | XMS REPORT | Continuity of Care Document ---
Author Name Unknown Address [address] [facility] [address] [place] [address] [facility] Address [address] [facility] [address] [place] [address] Care Team Providers Care Bladder Trimmer Name Role Phone Nathan Stephen MD Primary Care Physician + [phone] [id number] Attending Clinician Unavailable Doctor Unassigned, [place] Attending Clinician U lucilleailHannah Eden Anavella Attending Cli nician Unavailable Raju_P Attending Clinician Unavailable Donya Craig Attending Clinician [phone] DONYA TAVARES Attending Clinician Unavailable Ferdinand Wallace S Attending Clinician [phone] MAURA THORNTON Attending Clinician UnavailMaura Hernandez MD Attending Clinician [phone], [facility] Attending Clinician Unavailable [facility], [facility] Attending Clinician Unavailab Rodolfo Randall MD Attending Clinician [id number] Admitting Clinician Unavailable CARMEN LANDAVERDE Admitting Clinician Unavailab Luigi Cook Anav Admitting Clinician U navailable Rosa_P Admitting Clinician Unavailable DONYA TAVARES Admitting Clinician Unavailable NATHAN STEPHEN Admitting Clinician Unavailab le Payers Payer Name Policy Type Policy Number Effective Date Expirati on Date Source 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 [id number] [facility] [id number] Problems Condition Name Condition Details Condition Category Status Onset Date Resolution Date Last Treatment Date Treating Clinician Comments Source Atypical chest pain Atypical chest pain Disease Active 2018-08 00:00: 00 [facility] Dizzy spells Dizzy spells Disease Active 2018-08 0 00:00: 00 [facility] Essential hypertensi on Essential hypertensi on Disease Active 2018-08 00:00: 00 [facility] Dyslipidem ia Dyslipidem ia Disease Active 2018-08 00:00: 00 [facility] KING (acute kidney injury) KING (acute kidney injury) Disease Active 2018-08 0 00:00: 00 [facility] Pain aggravated by standing Pain aggravated by standing Disease Active 09-23 00:00: 00 [facility] Intractabl e low back pain Intractabl e low back pain Disease Active 01-20 00:00: 00 [facility] "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 03-31 00:00: 00 [facility] 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 Active 03-30 00:00: 00 [facility] CHF (congestiv e heart failure) CHF (congestiv e heart failure) Disease Active 03-30 00:00: 00 [facility] Allergies, Adverse Reactions, Alerts Allergy Name Allergy Type Status Severity Reaction(s) Onset Date Inactive Date Treating Clinician Comments Source Sulfa (Sulfona mide Antibiot ics) Propensi ty to adverse reaction s Active Itching 03-30 00:00: 00 [facility] LATEX DRUG INGREDI Active Rash 03-30 00:00: 00 [facility] QUININE DRUG INGREDI Active Anxiety 03-30 00:00: 00 [facility] SULFA (SULFONA MIDE ANTIBIOT ICS) Drug Class Active ITCHING 03-30 00:00: 00 [facility] Latex Propensi ty to adverse reaction s Active Rash 03-30 00:00: 00 [facility] Quinine Propensi ty to adverse reaction s Active Anxiety 03-30 00:00: 00 [facility] Social History Social Habit Start Date Stop Date Quantity Comments Source Alcohol intake 2019-04-10 00:00:00 2019-04-10 00:00:00 0 /d [facility] Tobacco use and exposure 2015-03-31 00:00:00 2015-03-31 00:00:00 Never used [facility] Sex Assigned At 1935 00:00:00 1935 00:00:00 [facility] Smoking Status Start Date Stop Date Source Never smoker [facility] Medications Ordered Medication Name Filled Medication Name Start Date Stop Date Current Medication? Ordering Clinician Indication Dosage Frequency Signature (SIG) Comments Components Source clindamycin 150 mg capsule 10-27 00:00: 00 11-04 04:59 :00 No [id number] 450mg Take 3 capsules by mouth 3 (three) times daily for 7 days. [facility] colchicine (COLCRYS) tablet 0.6 mg 10-26 22:47: 00 10-26 23:02 :00 No .6mg 0.6 mg, Oral, ONCE, 1 dose, 10/27/19 at 1800, [facility] ibuprofen (IBU) tablet 600 mg 10-26 22:45: 00 10-26 21:56 :00 No 600mg 600 mg, Oral, ONCE, 1 dose, 10/27/19 at 1745, [facility] colchicine (COLCRYS) tablet 1.2 mg 10-26 22:45: 00 10-26 21:56 :00 No 1.2mg 1.2 mg, Oral, ONCE, 1 dose, 3/23/20 at 1745, BARBIE [facility] clindamycin in 5 % dextrose (CLEOCIN) 600 mg/50 mL IV piggyback RTU 600 mg 10-26 22:00: 00 10-26 21:29 :00 No 600mg 600 mg, IV Piggyback, ONCE, 1 dose, 10/27/19 at 1700, 50 mL
Reas on for Anti-Infec tive: Documented Infection< br>Documen sathya Infection Site: Skin / Soft Tissue
Duration of Therapy: Other (see Comments)< br>Restric sathya use approved by: [employer] PROVIDER [facility] colchicine 0.6 mg tablet 10-26 00:00: 00 11-01 04:59 :00 No [id number] .6mg Take 1 tablet by mouth daily for 5 days. Take until flare up resolves [facility] furosemide 40 mg tablet 2018-08 22:49: 52 Yes 40mg Take 40 mg by mouth daily. [facility] atenolol 25 mg tablet 2018-08 22:49: 52 Yes 25mg Take 25 mg by mouth daily. [facility] gabapentin 400 mg capsule 2018-08 22:49: 52 Yes 400mg Take 400 mg by mouth 3 (three) times daily. [facility] omeprazole 20 mg capsule 2018-08 22:49: 52 Yes 20mg Take 20 mg by mouth daily. [facility] losartan-hy drochloroth iazide 50-12.5 mg per tablet 2018-08 22:49: 52 Yes 1{tbl} Take 1 tablet by mouth daily. [facility] HYDROcodone -acetaminop hen 5-325 mg tablet 2018-08 22:49: 52 Yes 1{tbl} Take 1 tablet by mouth every 6 (six) hours as needed. [facility] furosemide 40 mg tablet 2018-08 22:49: 52 Yes 40mg Take 40 mg by mouth daily. [facility] atenolol 25 mg tablet 2018-08 22:49: 52 Yes 25mg Take 25 mg by mouth daily. [facility] gabapentin 400 mg capsule 2018-08 22:49: 52 Yes 400mg Take 400 mg by mouth 3 (three) times daily. [facility] omeprazole 20 mg capsule 2018-08 22:49: 52 Yes 20mg Take 20 mg by mouth daily. [facility] losartan-hy drochloroth iazide 50-12.5 mg per tablet 2018-08 22:49: 52 Yes 1{tbl} Take 1 tablet by mouth daily. [facility] HYDROcodone -acetaminop hen 5-325 mg tablet 2018-08 22:49: 52 Yes 1{tbl} Take 1 tablet by mouth every 6 (six) hours as needed. [facility] furosemide 40 mg tablet 2018-08 22:49: 52 Yes 40mg Take 40 mg by mouth daily. [facility] atenolol 25 mg tablet 2018-08 22:49: 52 Yes 25mg Take 25 mg by mouth daily. [facility] gabapentin 400 mg capsule 2018-08 22:49: 52 Yes 400mg Take 400 mg by mouth 3 (three) times daily. [facility] omeprazole 20 mg capsule 2018-08 22:49: 52 Yes 20mg Take 20 mg by mouth daily. [facility] losartan-hy drochloroth iazide 50-12.5 mg per tablet 2018-08 22:49: 52 Yes 1{tbl} Take 1 tablet by mouth daily. [facility] HYDROcodone -acetaminop hen 5-325 mg tablet 2018-08 22:49: 52 Yes 1{tbl} Take 1 tablet by mouth every 6 (six) hours as needed. [facility] furosemide 40 mg tablet 2018-08 22:49: 52 Yes 40mg Take 40 mg by mouth daily. [facility] atenolol 25 mg tablet 2018-08 22:49: 52 Yes 25mg Take 25 mg by mouth daily. [facility] gabapentin 400 mg capsule 2018-08 22:49: 52 Yes 400mg Take 400 mg by mouth 3 (three) times daily. [facility] omeprazole 20 mg capsule 2018-08 22:49: 52 Yes 20mg Take 20 mg by mouth daily. [facility] losartan-hy drochloroth iazide 50-12.5 mg per tablet 2018-08 22:49: 52 Yes 1{tbl} Take 1 tablet by mouth daily. [facility] HYDROcodone -acetaminop hen 5-325 mg tablet 2018-08 22:49: 52 Yes 1{tbl} Take 1 tablet by mouth every 6 (six) hours as needed. [facility] furosemide 40 mg tablet 2018-08 17:49: 52 Yes 40mg Take 40 mg by mouth daily. [facility] atenolol 25 mg tablet 2018-08 17:49: 52 Yes 25mg Take 25 mg by mouth daily. [facility] gabapentin 400 mg capsule 2018-08 17:49: 52 Yes 400mg Take 400 mg by mouth 3 (three) times daily. [facility] omeprazole 20 mg capsule 2018-08 17:49: 52 Yes 20mg Take 20 mg by mouth daily. [facility] losartan-hy drochloroth iazide 50-12.5 mg per tablet 2018-08 17:49: 52 Yes 1{tbl} Take 1 tablet by mouth daily. [facility] HYDROcodone -acetaminop hen 5-325 mg tablet 2018-08 17:49: 52 Yes 1{tbl} Take 1 tablet by mouth every 6 (six) hours as needed. [facility] furosemide 40 mg tablet 2018-08 17:49: 52 Yes 40mg Take 40 mg by mouth daily. [facility] atenolol 25 mg tablet 2018-08 17:49: 52 Yes 25mg Take 25 mg by mouth daily. [facility] gabapentin 400 mg capsule 2018-08 17:49: 52 Yes 400mg Take 400 mg by mouth 3 (three) times daily. [facility] omeprazole 20 mg capsule 2018-08 17:49: 52 Yes 20mg Take 20 mg by mouth daily. [facility] losartan-hy drochloroth iazide 50-12.5 mg per tablet 2018-08 17:49: 52 Yes 1{tbl} Take 1 tablet by mouth daily. [facility] HYDROcodone -acetaminop hen 5-325 mg tablet 2018-08 17:49: 52 Yes 1{tbl} Take 1 tablet by mouth every 6 (six) hours as needed. [facility] furosemide 40 mg tablet 2018-08 17:49: 52 Yes 40mg Take 40 mg by mouth daily. [facility] atenolol 25 mg tablet 2018-08 17:49: 52 Yes 25mg Take 25 mg by mouth daily. [facility] gabapentin 400 mg capsule 2018-08 17:49: 52 Yes 400mg Take 400 mg by mouth 3 (three) times daily. [facility] omeprazole 20 mg capsule 2018-08 17:49: 52 Yes 20mg Take 20 mg by mouth daily. [facility] losartan-hy drochloroth iazide 50-12.5 mg per tablet 2018-08 17:49: 52 Yes 1{tbl} Take 1 tablet by mouth daily. [facility] HYDROcodone -acetaminop hen 5-325 mg tablet 2018-08 17:49: 52 Yes 1{tbl} Take 1 tablet by mouth every 6 (six) hours as needed. [facility] furosemide 40 mg tablet 2018-08 17:49: 52 Yes 40mg Take 40 mg by mouth daily. [facility] atenolol 25 mg tablet 2018-08 17:49: 52 Yes 25mg Take 25 mg by mouth daily. [facility] gabapentin 400 mg capsule 2018-08 17:49: 52 Yes 400mg Take 400 mg by mouth 3 (three) times daily. [facility] omeprazole 20 mg capsule 2018-08 17:49: 52 Yes 20mg Take 20 mg by mouth daily. [facility] losartan-hy drochloroth iazide 50-12.5 mg per tablet 2018-08 17:49: 52 Yes 1{tbl} Take 1 tablet by mouth daily. [facility] HYDROcodone -acetaminop hen 5-325 mg tablet 2018-08 17:49: 52 Yes 1{tbl} Take 1 tablet by mouth every 6 (six) hours as needed. [facility] furosemide 40 mg tablet 2018-08 17:49: 52 Yes 40mg Take 40 mg by mouth daily. [facility] atenolol 25 mg tablet 2018-08 17:49: 52 Yes 25mg Take 25 mg by mouth daily. [facility] gabapentin 400 mg capsule 2018-08 17:49: 52 Yes 400mg Take 400 mg by mouth 3 (three) times daily. [facility] omeprazole 20 mg capsule 2018-08 17:49: 52 Yes 20mg Take 20 mg by mouth daily. [facility] losartan-hy drochloroth iazide 50-12.5 mg per tablet 2018-08 17:49: 52 Yes 1{tbl} Take 1 tablet by mouth daily. [facility] HYDROcodone -acetaminop hen 5-325 mg tablet 2018-08 17:49: 52 Yes 1{tbl} Take 1 tablet by mouth every 6 (six) hours as needed. [facility] furosemide 40 mg tablet 2018-08 17:49: 52 Yes 40mg Take 40 mg by mouth daily. [facility] atenolol 25 mg tablet 2018-08 17:49: 52 Yes 25mg Take 25 mg by mouth daily. [facility] gabapentin 400 mg capsule 2018-08 17:49: 52 Yes 400mg Take 400 mg by mouth 3 (three) times daily. [facility] omeprazole 20 mg capsule 2018-08 17:49: 52 Yes 20mg Take 20 mg by mouth daily. [facility] losartan-hy drochloroth iazide 50-12.5 mg per tablet 2018-08 17:49: 52 Yes 1{tbl} Take 1 tablet by mouth daily. [facility] HYDROcodone -acetaminop hen 5-325 mg tablet 2018-08 17:49: 52 Yes 1{tbl} Take 1 tablet by mouth every 6 (six) hours as needed. [facility] losartan-hy drochloroth iazide 50-12.5 mg per tablet 01-10 20:11: 07 Yes 1{tbl} Take 1 tablet by mouth daily. [facility] losartan-hy drochloroth iazide 50-12.5 mg per tablet 01-10 20:11: 07 Yes 1{tbl} Take 1 tablet by mouth daily. [facility] losartan-hy drochloroth iazide 50-12.5 mg per tablet 01-10 20:11: 07 Yes 1{tbl} Take 1 tablet by mouth daily. [facility] losartan-hy drochloroth iazide 50-12.5 mg per tablet 01-10 20:11: 07 Yes 1{tbl} Take 1 tablet by mouth daily. [facility] losartan-hy drochloroth iazide 50-12.5 mg per tablet 01-10 20:11: 07 Yes 1{tbl} Take 1 tablet by mouth daily. [facility] losartan-hy drochloroth iazide 50-12.5 mg per tablet 01-10 20:11: 07 Yes 1{tbl} Take 1 tablet by mouth daily. [facility] losartan-hy drochloroth iazide 50-12.5 mg per tablet 01-10 20:11: 07 Yes 1{tbl} Take 1 tablet by mouth daily. [facility] losartan-hy drochloroth iazide 50-12.5 mg per tablet 01-10 20:11: 07 Yes 1{tbl} Take 1 tablet by mouth daily. [facility] losartan-hy drochloroth iazide 50-12.5 mg per tablet 01-10 20:11: 07 Yes 1{tbl} Take 1 tablet by mouth daily. [facility] losartan-hy drochloroth iazide 50-12.5 mg per tablet 01-10 20:11: 07 Yes 1{tbl} Take 1 tablet by mouth daily. [facility] losartan-hy drochloroth iazide 50-12.5 mg per tablet 01-10 20:11: 07 Yes 1{tbl} Take 1 tablet by mouth daily. [facility] losartan-hy drochloroth iazide 50-12.5 mg per tablet 01-10 20:11: 07 Yes 1{tbl} Take 1 tablet by mouth daily. [facility] losartan-hy drochloroth iazide 50-12.5 mg per tablet 01-10 20:11: 07 Yes 1{tbl} Take 1 tablet by mouth daily. [facility] furosemide 40 mg tablet 01-10 19:53: 40 Yes 40mg Take 40 mg by mouth daily. [facility] atenolol 25 mg tablet 01-10 19:53: 40 Yes 25mg Take 25 mg by mouth daily. [facility] gabapentin 400 mg capsule 01-10 19:53: 40 Yes 400mg Take 400 mg by mouth 3 (three) times daily. [facility] omeprazole 20 mg capsule 01-10 19:53: 40 Yes 20mg Take 20 mg by mouth daily. [facility] HYDROcodone -acetaminop hen 5-325 mg tablet 01-10 19:53: 40 Yes 1{tbl} Take 1 tablet by mouth every 6 (six) hours as needed. [facility] furosemide 40 mg tablet 01-10 19:53: 40 Yes 40mg Take 40 mg by mouth daily. [facility] atenolol 25 mg tablet 01-10 19:53: 40 Yes 25mg Take 25 mg by mouth daily. [facility] gabapentin 400 mg capsule 01-10 19:53: 40 Yes 400mg Take 400 mg by mouth 3 (three) times daily. [facility] omeprazole 20 mg capsule 01-10 19:53: 40 Yes 20mg Take 20 mg by mouth daily. [facility] HYDROcodone -acetaminop hen 5-325 mg tablet 01-10 19:53: 40 Yes 1{tbl} Take 1 tablet by mouth every 6 (six) hours as needed. [facility] furosemide 40 mg tablet 01-10 19:53: 40 Yes 40mg Take 40 mg by mouth daily. [facility] atenolol 25 mg tablet 01-10 19:53: 40 Yes 25mg Take 25 mg by mouth daily. [facility] gabapentin 400 mg capsule 01-10 19:53: 40 Yes 400mg Take 400 mg by mouth 3 (three) times daily. [facility] omeprazole 20 mg capsule 01-10 19:53: 40 Yes 20mg Take 20 mg by mouth daily. [facility] HYDROcodone -acetaminop hen 5-325 mg tablet 01-10 19:53: 40 Yes 1{tbl} Take 1 tablet by mouth every 6 (six) hours as needed. [facility] furosemide 40 mg tablet 01-10 19:53: 40 Yes 40mg Take 40 mg by mouth daily. [facility] atenolol 25 mg tablet 01-10 19:53: 40 Yes 25mg Take 25 mg by mouth daily. [facility] gabapentin 400 mg capsule 01-10 19:53: 40 Yes 400mg Take 400 mg by mouth 3 (three) times daily. [facility] omeprazole 20 mg capsule 01-10 19:53: 40 Yes 20mg Take 20 mg by mouth daily. [facility] HYDROcodone -acetaminop hen 5-325 mg tablet 01-10 19:53: 40 Yes 1{tbl} Take 1 tablet by mouth every 6 (six) hours as needed. [facility] furosemide 40 mg tablet 01-10 19:53: 40 Yes 40mg Take 40 mg by mouth daily. [facility] atenolol 25 mg tablet 01-10 19:53: 40 Yes 25mg Take 25 mg by mouth daily. [facility] gabapentin 400 mg capsule 01-10 19:53: 40 Yes 400mg Take 400 mg by mouth 3 (three) times daily. [facility] omeprazole 20 mg capsule 01-10 19:53: 40 Yes 20mg Take 20 mg by mouth daily. [facility] HYDROcodone -acetaminop hen 5-325 mg tablet 01-10 19:53: 40 Yes 1{tbl} Take 1 tablet by mouth every 6 (six) hours as needed. [facility] furosemide 40 mg tablet 01-10 19:53: 40 Yes 40mg Take 40 mg by mouth daily. [facility] atenolol 25 mg tablet 01-10 19:53: 40 Yes 25mg Take 25 mg by mouth daily. [facility] gabapentin 400 mg capsule 01-10 19:53: 40 Yes 400mg Take 400 mg by mouth 3 (three) times daily. [facility] omeprazole 20 mg capsule 01-10 19:53: 40 Yes 20mg Take 20 mg by mouth daily. [facility] HYDROcodone -acetaminop hen 5-325 mg tablet 01-10 19:53: 40 Yes 1{tbl} Take 1 tablet by mouth every 6 (six) hours as needed. [facility] furosemide 40 mg tablet 01-10 19:53: 40 Yes 40mg Take 40 mg by mouth daily. [facility] atenolol 25 mg tablet 01-10 19:53: 40 Yes 25mg Take 25 mg by mouth daily. [facility] gabapentin 400 mg capsule 01-10 19:53: 40 Yes 400mg Take 400 mg by mouth 3 (three) times daily. [facility] omeprazole 20 mg capsule 01-10 19:53: 40 Yes 20mg Take 20 mg by mouth daily. [facility] HYDROcodone -acetaminop hen 5-325 mg tablet 01-10 19:53: 40 Yes 1{tbl} Take 1 tablet by mouth every 6 (six) hours as needed. [facility] furosemide 40 mg tablet 01-10 19:53: 40 Yes 40mg Take 40 mg by mouth daily. [facility] atenolol 25 mg tablet 01-10 19:53: 40 Yes 25mg Take 25 mg by mouth daily. [facility] gabapentin 400 mg capsule 01-10 19:53: 40 Yes 400mg Take 400 mg by mouth 3 (three) times daily. [facility] omeprazole 20 mg capsule 01-10 19:53: 40 Yes 20mg Take 20 mg by mouth daily. [facility] HYDROcodone -acetaminop hen 5-325 mg tablet 01-10 19:53: 40 Yes 1{tbl} Take 1 tablet by mouth every 6 (six) hours as needed. [facility] furosemide 40 mg tablet 01-10 19:53: 40 Yes 40mg Take 40 mg by mouth daily. [facility] atenolol 25 mg tablet 01-10 19:53: 40 Yes 25mg Take 25 mg by mouth daily. [facility] gabapentin 400 mg capsule 01-10 19:53: 40 Yes 400mg Take 400 mg by mouth 3 (three) times daily. [facility] omeprazole 20 mg capsule 01-10 19:53: 40 Yes 20mg Take 20 mg by mouth daily. [facility] HYDROcodone -acetaminop hen 5-325 mg tablet 01-10 19:53: 40 Yes 1{tbl} Take 1 tablet by mouth every 6 (six) hours as needed. [facility] furosemide 40 mg tablet 01-10 19:53: 40 Yes 40mg Take 40 mg by mouth daily. [facility] atenolol 25 mg tablet 01-10 19:53: 40 Yes 25mg Take 25 mg by mouth daily. [facility] gabapentin 400 mg capsule 01-10 19:53: 40 Yes 400mg Take 400 mg by mouth 3 (three) times daily. [facility] omeprazole 20 mg capsule 01-10 19:53: 40 Yes 20mg Take 20 mg by mouth daily. [facility] HYDROcodone -acetaminop hen 5-325 mg tablet 01-10 19:53: 40 Yes 1{tbl} Take 1 tablet by mouth every 6 (six) hours as needed. [facility] furosemide 40 mg tablet 01-10 19:53: 40 Yes 40mg Take 40 mg by mouth daily. [facility] atenolol 25 mg tablet 01-10 19:53: 40 Yes 25mg Take 25 mg by mouth daily. [facility] gabapentin 400 mg capsule 01-10 19:53: 40 Yes 400mg Take 400 mg by mouth 3 (three) times daily. [facility] omeprazole 20 mg capsule 01-10 19:53: 40 Yes 20mg Take 20 mg by mouth daily. [facility] HYDROcodone -acetaminop hen 5-325 mg tablet 01-10 19:53: 40 Yes 1{tbl} Take 1 tablet by mouth every 6 (six) hours as needed. [facility] furosemide 40 mg tablet 01-10 19:53: 40 Yes 40mg Take 40 mg by mouth daily. [facility] atenolol 25 mg tablet 01-10 19:53: 40 Yes 25mg Take 25 mg by mouth daily. [facility] gabapentin 400 mg capsule 01-10 19:53: 40 Yes 400mg Take 400 mg by mouth 3 (three) times daily. [facility] omeprazole 20 mg capsule 01-10 19:53: 40 Yes 20mg Take 20 mg by mouth daily. [facility] HYDROcodone -acetaminop hen 5-325 mg tablet 01-10 19:53: 40 Yes 1{tbl} Take 1 tablet by mouth every 6 (six) hours as needed. [facility] furosemide 40 mg tablet 01-10 19:53: 40 Yes 40mg Take 40 mg by mouth daily. [facility] atenolol 25 mg tablet 01-10 19:53: 40 Yes 25mg Take 25 mg by mouth daily. [facility] gabapentin 400 mg capsule 01-10 19:53: 40 Yes 400mg Take 400 mg by mouth 3 (three) times daily. [facility] omeprazole 20 mg capsule 01-10 19:53: 40 Yes 20mg Take 20 mg by mouth daily. [facility] HYDROcodone -acetaminop hen 5-325 mg tablet 01-10 19:53: 40 Yes 1{tbl} Take 1 tablet by mouth every 6 (six) hours as needed. [facility] levothyroxi ne 88 mcg tablet 11-06 00:00: 00 Yes [facility] levothyroxi ne 88 mcg tablet 11-06 00:00: 00 Yes [facility] levothyroxi ne 88 mcg tablet 11-06 00:00: 00 Yes [facility] levothyroxi ne 88 mcg tablet 11-06 00:00: 00 Yes [facility] levothyroxi ne 88 mcg tablet 11-06 00:00: 00 Yes [facility] levothyroxi ne 88 mcg tablet 11-06 00:00: 00 Yes [facility] levothyroxi ne 88 mcg tablet 11-06 00:00: 00 Yes [facility] levothyroxi ne 88 mcg tablet 11-06 00:00: 00 Yes [facility] levothyroxi ne 88 mcg tablet 11-06 00:00: 00 Yes [facility] levothyroxi ne 88 mcg tablet 11-06 00:00: 00 Yes [facility] levothyroxi ne 88 mcg tablet 11-06 00:00: 00 Yes [facility] levothyroxi ne 88 mcg tablet 11-06 00:00: 00 Yes [facility] levothyroxi ne 88 mcg tablet 11-06 00:00: 00 Yes [facility] levothyroxi ne 88 mcg tablet 11-06 00:00: 00 Yes [facility] levothyroxi ne 88 mcg tablet 11-06 00:00: 00 Yes [facility] levothyroxi ne 88 mcg tablet 11-06 00:00: 00 Yes [facility] levothyroxi ne 88 mcg tablet 11-06 00:00: 00 Yes [facility] levothyroxi ne 88 mcg tablet 11-06 00:00: 00 Yes [facility] levothyroxi ne 88 mcg tablet 11-06 00:00: 00 Yes [facility] levothyroxi ne 88 mcg tablet 11-06 00:00: 00 Yes [facility] levothyroxi ne 88 mcg tablet 11-06 00:00: 00 Yes [facility] levothyroxi ne 88 mcg tablet 11-06 00:00: 00 Yes [facility] levothyroxi ne 88 mcg tablet 11-06 00:00: 00 Yes [facility] docusate 100 mg capsule 0 09-27 00:00: 00 Yes [id number] 100mg Take 1 capsule by mouth daily. [facility] [facility] predniSONE 20 mg tablet 0 09-27 00:00: 00 Yes [id number] 40mg Take 2 tablets by mouth every 24 (twenty-fo ur) hours. [facility] docusate 100 mg capsule 0 09-27 00:00: 00 Yes [id number] 100mg Take 1 capsule by mouth daily. [facility] it[facility] predniSONE 20 mg tablet 0 09-27 00:00: 00 Yes [id number] 40mg Take 2 tablets by mouth every 24 (twenty-fo ur) hours. [facility] it[facility] docusate 100 mg capsule 0 09-27 00:00: 00 Yes [id number] 100mg Take 1 capsule by mouth daily. [facility] it[facility] predniSONE 20 mg tablet 0 09-27 00:00: 00 Yes [id number] 40mg Take 2 tablets by mouth every 24 (twenty-fo ur) hours. [facility] it[facility] docusate 100 mg capsule 0 09-27 00:00: 00 Yes [id number] 100mg Take 1 capsule by mouth daily. [facility] predniSONE 20 mg tablet 09-27 00:00: 00 Yes [id number] 40mg Take 2 tablets by mouth every 24 (twenty-fo ur) hours. [facility] docusate 100 mg capsule 09-27 00:00: 00 Yes [id number] 100mg Take 1 capsule by mouth daily. [facility] predniSONE 20 mg tablet 09-27 00:00: 00 Yes [id number] 40mg Take 2 tablets by mouth every 24 (twenty-fo ur) hours. [facility] docusate 100 mg capsule 09-27 00:00: 00 Yes [id number] 100mg Take 1 capsule by mouth daily. [facility] predniSONE 20 mg tablet 09-27 00:00: 00 Yes [id number] 40mg Take 2 tablets by mouth every 24 (twenty-fo ur) hours. [facility] docusate 100 mg capsule 09-27 00:00: 00 Yes [id number] 100mg Take 1 capsule by mouth daily. [facility] predniSONE 20 mg tablet 09-27 00:00: 00 Yes [id number] 40mg Take 2 tablets by mouth every 24 (twenty-fo ur) hours. [facility] docusate 100 mg capsule 09-27 00:00: 00 Yes [id number] 100mg Take 1 capsule by mouth daily. [facility] predniSONE 20 mg tablet 09-27 00:00: 00 Yes [id number] 40mg Take 2 tablets by mouth every 24 (twenty-fo ur) hours. [facility] docusate 100 mg capsule 0 09-27 00:00: 00 Yes [id number] 100mg Take 1 capsule by mouth daily. [facility] docusate 100 mg capsule 09-27 00:00: 00 Yes [id number] 100mg Take 1 capsule by mouth daily. [facility] predniSONE 20 mg tablet 09-27 00:00: 00 Yes [id number] 40mg Take 2 tablets by mouth every 24 (twenty-fo ur) hours. [facility] docusate 100 mg capsule 09-27 00:00: 00 Yes [id number] 100mg Take 1 capsule by mouth daily. [facility] 00:00: 00 Yes [id number] 100mg Take 1 capsule by mouth daily. [facility] docusate 100 mg capsule 09-27 00:00: 00 Yes [id number] 100mg Take 1 capsule by mouth daily. [facility] docusate 100 mg capsule 09-27 00:00: 00 Yes [id number] 100mg Take 1 capsule by mouth daily. [facility] docusate 100 mg capsule 09-27 00:00: 00 Yes [id number] 100mg Take 1 capsule by mouth daily. [facility] docusate 100 mg capsule 09-27 00:00: 00 Yes [id number] 100mg Take 1 capsule by mouth daily. [facility] docusate 100 mg capsule 09-27 00:00: 00 Yes [id number] 100mg Take 1 capsule by mouth daily. [facility] docusate 100 mg capsule 09-27 00:00: 00 Yes [id number] 100mg Take 1 capsule by mouth daily. [facility] docusate 100 mg capsule 09-27 00:00: 00 Yes [id number] 100mg Take 1 capsule by mouth daily. [facility] docusate 100 mg capsule 09-27 00:00: 00 Yes [id number] 100mg Take 1 capsule by mouth daily. [facility] predniSONE 20 mg tablet 09-27 00:00: 00 Yes [id number] 40mg Take 2 tablets by mouth every 24 (twenty-fo ur) hours. [facility] docusate 100 mg capsule 09-27 00:00: 00 Yes [id number] 100mg Take 1 capsule by mouth daily. [facility] predniSONE 20 mg tablet 09-27 00:00: 00 Yes [id number] 40mg Take 2 tablets by mouth every 24 (twenty-fo ur) hours. [facility] docusate 100 mg capsule 09-27 00:00: 00 Yes [id number] 100mg Take 1 capsule by mouth daily. [facility] predniSONE 20 mg tablet 09-27 00:00: 00 Yes [id number] 40mg Take 2 tablets by mouth every 24 (twenty-fo ur) hours. [facility] docusate 100 mg capsule 09-27 00:00: 00 Yes [id number] 100mg Take 1 capsule by mouth daily. [facility] predniSONE 20 mg tablet 09-27 00:00: 00 Yes [id number] 40mg Take 2 tablets by mouth every 24 (twenty-fo ur) hours. [facility] carvedilol 6.25 mg tablet 01-24 00:00: 00 Yes 6.25mg Take 1 tablet by mouth 2 (two) times daily with meals. [facility] simvastatin 20 mg tablet 01-24 00:00: 00 Yes 20mg Take 1 tablet by mouth at bedtime. [facility] aspirin 81 mg chewable tablet 01-24 00:00: 00 Yes 81mg Take 1 tablet by mouth daily. [facility] clopidogrel 75 mg tablet 01-24 00:00: 00 Yes 75mg Take 1 tablet by mouth daily. [facility] carvedilol 6.25 mg tablet 01-24 00:00: 00 Yes 6.25mg Take 1 tablet by mouth 2 (two) times daily with meals. [facility] simvastatin 20 mg tablet 01-24 00:00: 00 Yes 20mg Take 1 tablet by mouth at bedtime. [facility] aspirin 81 mg chewable tablet 01-24 00:00: 00 Yes 81mg Take 1 tablet by mouth daily. [facility] clopidogrel 75 mg tablet 01-24 00:00: 00 Yes 75mg Take 1 tablet by mouth daily. [facility] carvedilol 6.25 mg tablet 01-24 00:00: 00 Yes 6.25mg Take 1 tablet by mouth 2 (two) times daily with meals. [facility] simvastatin 20 mg tablet 01-24 00:00: 00 Yes 20mg Take 1 tablet by mouth at bedtime. [facility] aspirin 81 mg chewable tablet 01-24 00:00: 00 Yes 81mg Take 1 tablet by mouth daily. [facility] clopidogrel 75 mg tablet 01-24 00:00: 00 Yes 75mg Take 1 tablet by mouth daily. [facility] carvedilol 6.25 mg tablet 01-24 00:00: 00 Yes 6.25mg Take 1 tablet by mouth 2 (two) times daily with meals. [facility] simvastatin 20 mg tablet 01-24 00:00: 00 Yes 20mg Take 1 tablet by mouth at bedtime. [facility] aspirin 81 mg chewable tablet 01-24 00:00: 00 Yes 81mg Take 1 tablet by mouth daily. [facility] clopidogrel 75 mg tablet 01-24 00:00: 00 Yes 75mg Take 1 tablet by mouth daily. [facility] carvedilol 6.25 mg tablet 01-24 00:00: 00 Yes 6.25mg Take 1 tablet by mouth 2 (two) times daily with meals. [facility] simvastatin 20 mg tablet 01-24 00:00: 00 Yes 20mg Take 1 tablet by mouth at bedtime. [facility] aspirin 81 mg chewable tablet 01-24 00:00: 00 Yes 81mg Take 1 tablet by mouth daily. [facility] clopidogrel 75 mg tablet 01-24 00:00: 00 Yes 75mg Take 1 tablet by mouth daily. [facility] carvedilol 6.25 mg tablet 01-24 00:00: 00 Yes 6.25mg Take 1 tablet by mouth 2 (two) times daily with meals. [facility] simvastatin 20 mg tablet 01-24 00:00: 00 Yes 20mg Take 1 tablet by mouth at bedtime. [facility] aspirin 81 mg chewable tablet 01-24 00:00: 00 Yes 81mg Take 1 tablet by mouth daily. [facility] clopidogrel 75 mg tablet 01-24 00:00: 00 Yes 75mg Take 1 tablet by mouth daily. [facility] carvedilol 6.25 mg tablet 01-24 00:00: 00 Yes 6.25mg Take 1 tablet by mouth 2 (two) times daily with meals. [facility] simvastatin 20 mg tablet 01-24 00:00: 00 Yes 20mg Take 1 tablet by mouth at bedtime. [facility] carvedilol 6.25 mg tablet 01-24 00:00: 00 Yes 6.25mg Take 1 tablet by mouth 2 (two) times daily with meals. [facility] aspirin 81 mg chewable tablet 01-24 00:00: 00 Yes 81mg Take 1 tablet by mouth daily. [facility] clopidogrel 75 mg tablet 01-24 00:00: 00 Yes 75mg Take 1 tablet by mouth daily. [facility] simvastatin 20 mg tablet 01-24 00:00: 00 Yes 20mg Take 1 tablet by mouth at bedtime. [facility] carvedilol 6.25 mg tablet 01-24 00:00: 00 Yes 6.25mg Take 1 tablet by mouth 2 (two) times daily with meals. [facility] simvastatin 20 mg tablet 01-24 00:00: 00 Yes 20mg Take 1 tablet by mouth at bedtime. [facility] aspirin 81 mg chewable tablet 01-24 00:00: 00 Yes 81mg Take 1 tablet by mouth daily. [facility] aspirin 81 mg chewable tablet 01-24 00:00: 00 Yes 81mg Take 1 tablet by mouth daily. [facility] clopidogrel 75 mg tablet 01-24 00:00: 00 Yes 75mg Take 1 tablet by mouth daily. [facility] clopidogrel 75 mg tablet 01-24 00:00: 00 Yes 75mg Take 1 tablet by mouth daily. [facility] simvastatin 20 mg tablet 01-24 00:00: 00 Yes 20mg Take 1 tablet by mouth at bedtime. [facility] aspirin 81 mg chewable tablet 01-24 00:00: 00 Yes 81mg Take 1 tablet by mouth daily. [facility] clopidogrel 75 mg tablet 01-24 00:00: 00 Yes 75mg Take 1 tablet by mouth daily. [facility] simvastatin 20 mg tablet 01-24 00:00: 00 Yes 20mg Take 1 tablet by mouth at bedtime. [facility] aspirin 81 mg chewable tablet 01-24 00:00: 00 Yes 81mg Take 1 tablet by mouth daily. [facility] clopidogrel 75 mg tablet 01-24 00:00: 00 Yes 75mg Take 1 tablet by mouth daily. [facility] simvastatin 20 mg tablet 01-24 00:00: 00 Yes 20mg Take 1 tablet by mouth at bedtime. [facility] aspirin 81 mg chewable tablet 01-24 00:00: 00 Yes 81mg Take 1 tablet by mouth daily. [facility] clopidogrel 75 mg tablet 01-24 00:00: 00 Yes 75mg Take 1 tablet by mouth daily. [facility] simvastatin 20 mg tablet 01-24 00:00: 00 Yes 20mg Take 1 tablet by mouth at bedtime. [facility] aspirin 81 mg chewable tablet 01-24 00:00: 00 Yes 81mg Take 1 tablet by mouth daily. [facility] clopidogrel 75 mg tablet 01-24 00:00: 00 Yes 75mg Take 1 tablet by mouth daily. [facility] simvastatin 20 mg tablet 01-24 00:00: 00 Yes 20mg Take 1 tablet by mouth at bedtime. [facility] aspirin 81 mg chewable tablet 01-24 00:00: 00 Yes 81mg Take 1 tablet by mouth daily. [facility] clopidogrel 75 mg tablet 01-24 00:00: 00 Yes 75mg Take 1 tablet by mouth daily. [facility] simvastatin 20 mg tablet 01-24 00:00: 00 Yes 20mg Take 1 tablet by mouth at bedtime. [facility] aspirin 81 mg chewable tablet 01-24 00:00: 00 Yes 81mg Take 1 tablet by mouth daily. [facility] clopidogrel 75 mg tablet 01-24 00:00: 00 Yes 75mg Take 1 tablet by mouth daily. [facility] simvastatin 20 mg tablet 01-24 00:00: 00 Yes 20mg Take 1 tablet by mouth at bedtime. [facility] aspirin 81 mg chewable tablet 01-24 00:00: 00 Yes 81mg Take 1 tablet by mouth daily. [facility] clopidogrel 75 mg tablet 01-24 00:00: 00 Yes 75mg Take 1 tablet by mouth daily. [facility] simvastatin 20 mg tablet 01-24 00:00: 00 Yes 20mg Take 1 tablet by mouth at bedtime. [facility] aspirin 81 mg chewable tablet 01-24 00:00: 00 Yes 81mg Take 1 tablet by mouth daily. [facility] clopidogrel 75 mg tablet 01-24 00:00: 00 Yes 75mg Take 1 tablet by mouth daily. [facility] carvedilol 6.25 mg tablet 01-24 00:00: 00 Yes 6.25mg Take 1 tablet by mouth 2 (two) times daily with meals. [facility] simvastatin 20 mg tablet 01-24 00:00: 00 Yes 20mg Take 1 tablet by mouth at bedtime. [facility] aspirin 81 mg chewable tablet 01-24 00:00: 00 Yes 81mg Take 1 tablet by mouth daily. [facility] simvastatin 20 mg tablet 01-24 00:00: 00 Yes 20mg Take 1 tablet by mouth at bedtime. [facility] aspirin 81 mg chewable tablet 01-24 00:00: 00 Yes 81mg Take 1 tablet by mouth daily. [facility] clopidogrel 75 mg tablet 01-24 00:00: 00 Yes 75mg Take 1 tablet by mouth daily. [facility] clopidogrel 75 mg tablet 01-24 00:00: 00 Yes 75mg Take 1 tablet by mouth daily. [facility] simvastatin 20 mg tablet 01-24 00:00: 00 Yes 20mg Take 1 tablet by mouth at bedtime. [facility] aspirin 81 mg chewable tablet 01-24 00:00: 00 Yes 81mg Take 1 tablet by mouth daily. [facility] clopidogrel 75 mg tablet 01-24 00:00: 00 Yes 75mg Take 1 tablet by mouth daily. [facility] carvedilol 6.25 mg tablet 01-24 00:00: 00 Yes 6.25mg Take 1 tablet by mouth 2 (two) times daily with meals. [facility] simvastatin 20 mg tablet 01-24 00:00: 00 Yes 20mg Take 1 tablet by mouth at bedtime. [facility] aspirin 81 mg chewable tablet 01-24 00:00: 00 Yes 81mg Take 1 tablet by mouth daily. [facility] clopidogrel 75 mg tablet 01-24 00:00: 00 Yes 75mg Take 1 tablet by mouth daily. [facility] carvedilol 6.25 mg tablet 01-24 00:00: 00 Yes 6.25mg Take 1 tablet by mouth 2 (two) times daily with meals. [facility] simvastatin 20 mg tablet 01-24 00:00: 00 Yes 20mg Take 1 tablet by mouth at bedtime. [facility] aspirin 81 mg chewable tablet 01-24 00:00: 00 Yes 81mg Take 1 tablet by mouth daily. [facility] clopidogrel 75 mg tablet 01-24 00:00: 00 Yes 75mg Take 1 tablet by mouth daily. [facility] carvedilol 6.25 mg tablet 01-24 00:00: 00 Yes 6.25mg Take 1 tablet by mouth 2 (two) times daily with meals. [facility] simvastatin 20 mg tablet 01-24 00:00: 00 Yes 20mg Take 1 tablet by mouth at bedtime. [facility] aspirin 81 mg chewable tablet 01-24 00:00: 00 Yes 81mg Take 1 tablet by mouth daily. [facility] clopidogrel 75 mg tablet 01-24 00:00: 00 Yes 75mg Take 1 tablet by mouth daily. [facility] Vital Signs Vital Name Observation Time Observation Value Comments S ource Systolic blood pressure 2019-10-27 22:00:00 147 mm[Hg] [facility] Diastolic blood pressure 2019-10-27 22:00:00 70 mm[Hg] [facility] Heart rate 2019-10-27 22:00:00 59 /min [facility] Respiratory rate 2019-10-27 22:00:00 16 /min [facility] Oxygen saturation in Arterial blood by Pulse oximetry 2019-10-27 22:00:00 96 /min [facility] acute hospital Body temperature 2019-10-27 20:33:00 36.89 Mattie [facility] Body weight 2019-10-27 20:33:00 77.111 kg [facility] BMI 2019-10-27 20:33:00 25.85 kg/m2 [facility] Systolic blood pressure 2019-04-10 18:46:00 115 mm[Hg] [facility] hospital Diastolic blood pressure 2019-04-10 18:46:00 64 mm[Hg] [facility] hospital Heart rate 2019-04-10 18:46:00 94 /min [facility] Body height 2019-04-10 18:46:00 172.7 cm [facility] Body weight 2019-04-10 18:46:00 81.647 kg [facility] BMI 2019-04-10 18:46:00 27.37 kg/m2 [facility] Body weight 2019-03-21 19:23:00 81.647 kg [facility] BMI 2019-03-21 19:23:00 29.95 kg/m2 [facility] Body height 2019-03-20 14:32:00 165.1 cm [facility] Body weight 2019-03-20 14:32:00 81.647 kg [facility] BMI 2019-03-20 14:32:00 29.95 kg/m2 [facility] Systolic blood pressure 2019-03-04 16:15:00 138 mm[Hg] [facility] acute hospital Diastolic blood pressure 2019-03-04 16:15:00 60 mm[Hg] [facility] acute hospital Heart rate 2019-03-04 16:15:00 64 /min [facility] Body temperature 2019-03-04 16:15:00 36.39 Mattie [facility] Respiratory rate 2019-03-04 16:15:00 16 /min [facility] Body height 2019-03-04 16:15:00 165.1 cm [facility] Body weight 2019-03-04 16:15:00 81.647 kg [facility] BMI 2019-03-04 16:15:00 29.95 kg/m2 [facility] Procedures Procedure Date / Time Performed Performing Clinician Source HOME HEALTH - OTHER 2021-07-07 06:01:00 Doctor Velma edwards, [place] [facility] HEALTH - OTHER 2021-06-21 06:01:00 Doctor Velma edwards, [place] [facility] HEALTH - OTHER 2021-06-01 05:01:00 Doctor Velma edwards, [place] [facility] HEALTH - OTHER 2021-05-24 05:01:00 Doctor Velma edwards, [place] [facility] HEALTH - OTHER 2021-05-10 05:01:00 Doctor Velma edwards, [place] [facility] HEALTH - OTHER 2021-03-29 05:01:00 Doctor Velma edwards, [place] [facility] CLINIC RECORD / SMR 2021-03-21 05:01:00 Doctor Velma edwards, [place] [facility] [id number] 2021-01-28 00:00:00 [facility] [id number] 2021-01-28 00:00:00 [facility] [id number] 2021-01-28 00:00:00 [facility] [id number] 2021-01-28 00:00:00 [facility] [id number] 2021-01-28 00:00:00 [facility] [id number] 2021-01-18 00:00:00 [facility] [id number] 2021-01-18 00:00:00 [facility] [id number] 2021-01-18 00:00:00 [facility] [id number] 2021-01-18 00:00:00 [facility] [id number] 2021-01-18 00:00:00 [facility] XR WRIST 3+ VW LEFT 2019-10-27 21:13:49 Donya Tavares [facility] XR HAND 3+ VW LEFT 2019-10-27 21:13:34 Donya Tavares [facility] URIC ACID 2019-10-27 20:56:00 Donya Tavares [facility] BASIC METABOLIC PANEL (NA, K, CL, CO2, GLUCOSE, BUN, CREATININE, CA) 2019-10-27 20:56:00 Donya Tavares [facility] CBC WITH DIFFERENTIAL 2019-10-27 20:56:00 Donya Tavares [facility] CONSENT/REFUSAL FOR DIAGNOSIS AND TREATMENT 2019-10-27 20:21:16 Doctor Unassigned, [place] [facility] HOME HEALTH - OTHER 2019-09-26 06:01:00 Doctor U nassigned, [place] [facility] NON [facility] DOCUMENTATION 2019-03-26 05:01:00 Doctor Unassigned, [place] [facility] XR CHEST 2 VW 2019-03-20 17:10:47 [facility] 2019-03-20 16:54:41 Doctor Unass igned, [place] [facility] CONSENT/REFUSAL FOR DIAGNOSIS AND TREATMENT 2019-03-20 16:10:12 Doctor Unassigned, [place] [facility] ASSIGNMENT OF BENEFITS 2019-03-20 16:08:11 Docto r Unassigned, [place] [facility] Encounters Start Date/Time End Date/Time Encounter Type Admission Type Attending [facility] Care Facility Care Department Encounter ID Source 2021-09-01 12:17:49 Outpatient [id number] [facility] 2021-07-07 00:00:00 2021-07-07 00:00:00 Orders Only Doctor Unassigned, [place] [facility] 1.2.840.114 350.1.13.10 4.2.7.2.686 [id number] [facility] 2021-06-27 00:00:00 2021-06-27 00:00:00 Outpatient R [facility] [id number] [facility] 2021-06-22 00:00:00 2021-06-22 00:00:00 Outpatient R [facility] [id number] [facility] 2021-06-21 00:00:00 2021-06-21 00:00:00 Orders Only Doctor Unassigned, [place] [facility] 1.2840.114 350.1.13.10 4.2.7.2.686 [id number] [facility] 2021-06-01 00:00:00 2021-06-01 00:00:00 Outpatient R [facility] [id number] [facility] 2021-06-01 00:00:00 2021-06-01 00:00:00 Orders Only Doctor Unassigned, [place] [facility] 1.2840.114 350.1.13.10 4.2.7.2.686 [id number] [facility] 2021-05-25 00:00:00 2021-05-25 00:00:00 Outpatient [facility] [id number] [facility] 2021-05-24 00:00:00 2021-05-24 00:00:00 Orders Only Doctor Unassigned, [place] [facility] 1.2.840.114 350.1.13.10 4.2.7.2.686 [id number] [facility] 2021-05-10 00:00:00 2021-05-10 00:00:00 Orders Only Doctor Unassigned, [place] [facility] 1.2.840.114 350.1.13.10 4.2.7.2.686 [id number] [facility] 2021-05-03 00:00:00 2021-05-03 00:00:00 Outpatient [facility] [id number] [facility] 2021-04-26 00:00:00 2021-04-26 00:00:00 Outpatient [facility] [id number] [facility] 2021-03-29 00:00:00 2021-03-29 00:00:00 Orders Only Doctor Unassigned, [place] [facility] 1.2840.114 350.1.13.10 4.2.7.2.686 [id number] [facility] 2021-03-21 00:00:00 2021-03-21 00:00:00 Orders Only Doctor Unassigned, [place] [facility] 1.2840.114 350.1.13.10 4.2.7.2.686 [id number] [facility] 2021-01-13 14:22:00 2021-01-31 14:54:00 Inpatient 3 [facility] Hannah plascencia CVA [id number] [facility] Veritolan donnie 2019-10-28 11:32:00 2019-10-28 11:32:00 Outpatient Rosa_P MMG [id number] [facility] 2019-10-27 15:28:56 2019-10-27 18:24:00 Emergency Donya Tavares [facility] 1.2.840.114 350.1.13.10 4.2.7.2.686 [id number] [facility] 2019-10-27 15:28:56 2019-10-27 18:24:00 Emergency X DONYA TAVARES [facility] ERT [id number] [facility] 2019-10-27 00:00:00 2019-10-27 00:00:00 Orders Only Doctor Unassigned, [place] [facility] 1.2.840.114 350.1.13.10 4.2.7.2.686 [id number] [facility] 2019-09-26 00:00:00 2019-09-26 00:00:00 Orders Only Doctor Unassigned, [place] [facility] 1.2.840.114 350.1.13.10 4.2.7.2.686 [id number] [facility] 2019-09-17 00:00:00 2019-09-17 00:00:00 Outpatient R [facility] [id number] [facility] 2019-04-10 13:46:13 2019-04-10 14:32:35 Office Visit Ferdinand Sew[facility] 1.2.840.114 350.1.13.10 4.2.7.2.686 [id number] [facility] 2019-03-26 00:00:00 2019-03-26 00:00:00 Outpatient R MAURA THORNTON [facility] JAROCHO [id number] [facility] 2019-03-26 00:00:00 2019-03-26 00:00:00 Orders Only Doctor Unassigned, [place] [facility] 1.2.840.114 350.1.13.10 4.2.7.2.686 [id number] [id number] [facility] 2019-03-21 00:00:00 2019-03-21 00:00:00 Telephone Maura Thornton [facility] 1.2.840.114 350.1.13.10 4.2.7.2.686 [id number] [facility] 2019-03-21 00:00:00 2019-03-21 00:00:00 Prep For Surgery Marua Thornton [facility] ashli Winkler 1.2.840.114 350.1.13.10 4.2.7.2.686 [id number] [facility] 2019-03-20 11:08:03 2019-03-20 23:59:00 Hospital Encounter Maura Thornton [facility] 1.2.840.114 350.1.13.10 4.2.7.2.686 [id number] [facility] 2019-03-20 11:02:22 2019-03-20 11:17:22 [employer] App[employer] Visit 1, [facility] Maura Thornton [facility] 1.2.840.114 350.1.13.10 4.2.7.2.686 [id number] [facility] 2019-03-20 11:07:54 2019-03-20 11:07:54 Hospital Encounter Ferdinand Sewell, [facility] 1.2.840.114 350.1.13.10 [id number] [facility] 2019-03-20 09:24:23 2019-03-20 09:39:23 Office Visit SewellJohanatt Narciso [facility] Surgical Special ashli [place] [id number] [facility] 2019-03-20 00:00:00 2019-03-20 00:00:00 Letter (Out) Maura [facility] Surgical Specialti ashli [place] [id number] [facility] 2019-03-04 10:17:23 2019-03-04 11:01:19 Office Visit Rodolfo Tijerina [facility] Cathi Lozada [facility] [id number] [facility] Results Test Description Test Time Test Comments Results Result Co mments Source [facility] (NA, K, CL, CO2, GLUCOSE, BUN, CREATININE, CA)2019-10-27 21:15:00* Test Item Value Reference Range Interpretation Comme nts NA (test code = 6733630067) 131 mmol/L 135-145 L K (test code = 9744167704) 5.0 mmol/L 3.5-5 CL (test code = 9558898284) 92 mmol/L 98-108 L CO2 TOTAL (test code = 1066801513) 33 mmol/L 23-31 H AGAP (test code = 8050473974) 2-16 BUN (test code = 8082349283) 25 mg/dL 7-23 H GLUCOSE (test code = 5059753137) 130 mg/dL 70-110 H CREATININE (test code = 0399859432) 1.05 mg/dL 0.5-1.04 H CALCIUM (test code = 4836093730) 9.4 mg/dL 8.6-10.6 eGFR Calculation (Non-) (test code = 8126535358) mL/min/1.73m2 eGFR Calculation () (test code = 2653626055) mL/min/1.73m2 FLORA (test code = FLORA) Association [...] imaging tests). Lab Interpretation (test code = 42076-9) Abnormal [facility] [id number] 21:15:00* Test Item Value Reference Range Interpretation Comme nts URIC ACID (test code = 0056724643) 9.4 mg/dL 2.9-6 H Lab Interpretation (test cod e = 67694-3) Abnormal [facility] CHEST 2 [id number] 17:44:04HISTORY: Right carpal tunnel syndrome. TECHNIQUE: PA and lateral views of the chest are obtained. 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 No acute pneumonia detected. No pneumothorax or pleuraleffusion or pulmonary congestion. Cardiothoracic ratio of gfhethnlnruhf62.6/27.2 cm is consistent with normal cardiac size. Prominent epicardialfat pads is suspected on both sides. Mild right apical pleural scarringnoted. No compression fractures seen in the thoracic vertebral bodies. CONCLUSIONS: No signs of acute cardiopulmonary disease. 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 No acute pneumonia detected. No pneumothorax or pleuraleffusion or pulmonary congestion. Cardiothoracic ratio of yabcibshkkkdc30.6/27.2 cm is consistent with normal cardiac size. Prominent epicardialfat pads is suspected on both sides. Mild right apical pleural scarringnoted. Nocompression fractures seen in the thoracic vertebral bodies.CONCLUSIONS: No signs of acute cardiopulmonary disease.[facility]
[2023-08-15] MEDS ORDERED: ONDANSETRON 4 MG/2 ML VIAL ONE (12:09)
[2023-08-15] MEDS ORDERED: MORPHINE 4 MG/ML SYR ONE (12:10)
[2023-08-15 13:15] LABS: Hematocrit 43.4 % (36.0-45.0); Lymphocytes % 11.1 % (15.3-44.8); MCV 92.8 fL (80-100); MPV 8.1 fL (7.6-11.3); Platelets 377 thou/uL (152-406); RBC Red Blood Cell Count 4.68 M/uL (3.86-4.86)
--- NOTE | 2023-08-15 13:27 | RAD REPORT ---
EXAM DESCRIPTION: CT - Head Brain Wo Cont - 08/15/2023 12:35 pm CLINICAL HISTORY: Headache COMPARISON: July 24, 2023 TECHNIQUE: Computed axial tomography of the head was obtained. IV contrast was not requested. All CT scans are performed using dose optimization technique as appropriate and may include automated exposure control or mA/KV adjustment according to patient size. FINDINGS: An intracranial bleed is not seen The ventricles are normal in caliber No extra-axial fluid collection is noted. 5.3 centimeter low-density area has developed within the right occipital lobe compatible with acute i nfarction. 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 Fluid within the sinuses/ mastoids is not seen. IMPRESSION: Acute right occipital lobe infarction
[2023-08-15 13:33] LABS: Albumin 3.8 g/dL (3.4-5.0); Bilirubin Total 0.4 mg/dL (0.2-1.0); Potassium 3.6 mEq/L (3.5-5.1); Protein, Total 7.9 g/dL (6.4-8.2)
[2023-08-15] MEDS ORDERED: ASPIRIN EC 325 MG TABLET PO ONE (13:41)
--- NOTE | 2023-08-15 13:51 | ER ---
Nurse's Notes [facility] Name: Lyubov Garcia Age: 88 yrs Sex: Female : 1935 Arrival Date: 08/15/2023 Time: 11:54 Bed 7 Private MD: Diagnosis: Acute CVA, vision changes, headache Presentation: 08/15 12:08 Chief complaint: EMS states: fdc patient who has had head and neck pain for ko1 the past 4-5 days and vision is "dark". Coronavirus screen: At this time, the client does not indicate any symptoms associated with coronavirus-19. Ebola Screen: No symptoms or risks identified at this time. Initial Sepsis Screen: Does the patient meet any 2 criteria? No. Patient's initial sepsis screen is negative. Does the patient have a suspected source of infection? No. Patient's initial sepsis screen is negative. Risk Assessment: Do you want to hurt yourself or someone else? Patient reports no desire to harm self or others. Onset of symptoms is unknown. 12:08 Method Of Arrival: EMS: [facility] ko1 12:08 Acuity: STEFANY 3 ko1 Triage Assessment: 12:08 General: Appears in no apparent distress. comfortable, Behavior is calm, cooperative, ko1 appropriate for age. Pain: Complains of pain in head and neck. Historical: - Allergies: 12:08 Latex; cm10 12:08 tramadol; cm10 12:08 Sulfa (Sulfonamide Antibiotics); cm10 12:08 Quinine Sulfate; cm10 - PMHx: 12:08 Anemia; Charcots Arthropathy; Charcots Arthropathy; CVA; depressive disorder; diabetes cm10 mellitus; GERD; Gout; HEART FAILURE; Hypertensive disorder; PVD; UTI; - Immunization history:: Adult Immunizations up to date. - Social history:: Smoking status: unknown. Screenin:33 [facility] ED Fall Risk Assessment (Adult) History of falling in the last 3 months, cm10 including since admission No falls in past 3 months (0 pts) Confusion or Disorientation No (0 pts) Intoxicated or Sedated No (0 pts) Impaired Gait Yes (1 pt) Mobility Assist Device Used Yes (1 pt) Altered Elimination Yes (1 pt) Score/Fall Risk Level 3 or more points = High Risk Oriented to surroundings, Maintained a safe environment, Hourly rounding (assess needs \\T\\ fall precautionary measures) done. Abuse screen: Denies threats or abuse. Denies injuries from another. Nutritional screening: No deficits noted. Tuberculosis screening: No symptoms or risk factors identified. Assessment: 12:30 General: Appears in no apparent distress. comfortable, Behavior is calm, cooperative. cm10 Pain: Complains of pain in Head and neck. Neuro: No deficits noted. Level of Consciousness is awake, alert, obeys commands, Oriented to person, place, time, situation. Neuro: Reports headache. Cardiovascular: No deficits noted. Denies chest pain, shortness of breath, Patient's skin is warm and dry. Respiratory: No deficits noted. Airway is patent Respiratory effort is even, unlabored, Respiratory pattern is regular, symmetrical. GI: No deficits noted. No signs and/or symptoms were reported involving the gastrointestinal system. : No deficits noted. No signs and/or symptoms were reported regarding the genitourinary system. EENT: No deficits noted. No signs and/or symptoms were reported regarding the EENT system. Derm: No deficits noted. Skin is intact, Skin is pink, warm \\T\\ dry. Musculoskeletal: No deficits noted. Range of motion: intact in all extremities, Reports pain in Head and Neck. Vital Signs: 11:54 BP 151 / 76; Pulse 52; Resp 14; Temp 98.1; Pulse Ox 98% on R/A; aw1 12:08 BP 153 / 92; Pulse 68; Resp 18; Temp 97(O); Pulse Ox 98% ; cm10 13:00 BP 128 / 56; Pulse 69; Resp 18; Pulse Ox 98% on R/A; cm10 13:34 BP 128 / 56; Pulse 65; Resp 18; Pulse Ox 99% on R/A; ld1 ED Course: 12:04 Patient arrived in ED. ko1 12:04 Ela Johnson MD is Attending Physician. sp3 12:08 Jaimee Layne, MELL is Primary Nurse. ko1 12:08 Arm band placed on Patient placed in an exam room, on a stretcher, on pulse oximetry. cm10 12:09 Triage completed. ko1 12:33 Patient has correct armband on for positive identification. Bed in low position. Call cm10 light in reach. Side rails up X2. Provided Education on: ER process and procedures. . 12:36 CT Head Brain wo Cont In Process Unspecified. EDMS 13:07 CBC with Diff Sent. cm10 13:07 CMP Sent. cm10 13:07 Initial lab(s) drawn, by me, sent to lab. Inserted saline lock: 22 gauge in right cm10 antecubital area, using aseptic technique. Blood collected. Ultrasound IV. 13:50 Tomas Blankenship is Hospitalizing Provider. sp3 Administered Medications: 13:06 Drug: morphine IVP or IV 4 mg IVP once over 4 mins Route: IVP; Infused Over: 4 mins; cm10 Site: right antecubital; 13:06 Drug: Ondansetron IVP 4 mg IVP once; over 2 minutes Route: IVP; Site: right antecubital;cm10 13:45 Drug: Aspirin PO 325 mg PO once Route: PO; ld1 Medication: 12:33 VIS not applicable for this client. cm10 Outcome: 13:51 Decision to Hospitalize by Provider. sp3 15:56 Patient left the ED. ld1 Signatures: Dispatcher [employer] EDMS Vanessa Whittington, RN RN ld1 Ela Johnson MD MD sp3 Jaimee Layne RN RN ko1 Lucille Presley RN RN cm10 Carli Perez aw1
--- NOTE | 2023-08-15 13:51 | EDPHYS ---
Physician Documentation [facility] Name: Lyubov Garcia Age: 88 yrs Sex: Female : 1935 Arrival Date: 08/15/2023 Time: 11:54 Bed 7 Private MD: ED Physician Ela Johnson HPI: 08/15 12:15 This 88 yrs old Female presents to ER via EMS with complaints of headache. sp3 12:15 88-year-old female with history of prior CVA, diabetes (not on any diabetes medications sp3 currently) hypertension, among others now presents to the ED with chief complaint headache. Patient was sent over from the half-way for evaluation via CT scan. Patient states that headache started approximately 2 to 3 days ago and she has no other symptoms. She denies neck pain, face pain, new neurological changes, speech abnormality, chest pain, shortness of breath, fever, fall or trauma, abdominal pain, nausea, vomiting, diarrhea, rash, bleeding, or any other signs or symptoms on ROS at this time. Headache was a slow onset and there was no thunderclap as per patient.. Historical: - Allergies: 12:08 Latex; cm10 12:08 tramadol; cm10 12:08 Sulfa (Sulfonamide Antibiotics); cm10 12:08 Quinine Sulfate; cm10 - PMHx: 12:08 Anemia; Charcots Arthropathy; Charcots Arthropathy; CVA; depressive disorder; diabetes cm10 mellitus; GERD; Gout; HEART FAILURE; Hypertensive disorder; PVD; UTI; - Immunization history:: Adult Immunizations up to date. - Social history:: Smoking status: unknown. ROS: 12:16 Constitutional: Negative for fever, chills, and weight loss, Eyes: Negative for injury, sp3 pain, redness, and discharge, ENT: Negative for injury, pain, and discharge, Neck: Negative for injury, pain, and swelling, Cardiovascular: Negative for chest pain, palpitations, and edema, Respiratory: Negative for shortness of breath, cough, wheezing, and pleuritic chest pain, Abdomen/GI: Negative for abdominal pain, nausea, vomiting, diarrhea, and constipation, Back: Negative for injury and pain, MS/Extremity: Negative for injury and deformity, Skin: Negative for injury, rash, and discoloration, Psych: Negative for depression, anxiety, suicide ideation, homicidal ideation, and hallucinations, Allergy/Immunology: Negative for hives, rash, and allergies, Endocrine: Negative for neck swelling, polydipsia, polyuria, polyphagia, and marked weight changes, 12:16 All other systems are negative, Exam: 12:16 Constitutional: This is a well developed, well nourished patient who is awake, alert, sp3 and in no acute distress. Head/Face: Normocephalic, atraumatic. Eyes: Pupils equal round and reactive to light, extra-ocular motions intact. Lids and lashes normal. Conjunctiva and sclera are non-icteric and not injected. Cornea within normal limits. Periorbital areas with no swelling, redness, or edema. ENT: Nares patent. No nasal discharge, no septal abnormalities noted. External auditory canals are clear. Oropharynx with no redness, swelling, or masses, exudates, or evidence of obstruction, uvula midline. Mucous membranes moist. Neck: Trachea midline, no thyromegaly or masses palpated, and no cervical lymphadenopathy. Supple, full range of motion without nuchal rigidity, or vertebral point tenderness. No Meningismus. Chest/axilla: Normal chest wall appearance and motion. Nontender with no deformity. No lesions are appreciated. Cardiovascular: Regular rate and rhythm with a normal S1 and S2. No gallops, murmurs, or rubs. Normal PMI, no JVD. No pulse deficits. Respiratory: Lungs have equal breath sounds bilaterally, clear to auscultation and percussion. No rales, rhonchi or wheezes noted. No increased work of breathing, no retractions or nasal flaring. Abdomen/GI: Soft, non-tender, with normal bowel sounds. No distension or tympany. No guarding or rebound. No evidence of tenderness throughout. Back: No spinal tenderness. No costovertebral tenderness. Full range of motion. Skin: Warm, dry with normal turgor. Normal color with no rashes, no lesions, and no evidence of cellulitis. MS/ Extremity: Pulses equal, no cyanosis. Neurovascular intact. Full, normal range of motion. Neuro: Awake and alert, GCS 15, oriented to person, place, time, and situation. Cranial nerves II-XII grossly intact. Motor strength 5/5 in all extremities. Sensory grossly intact. Cerebellar exam normal. Normal gait. Psych: Awake, alert, with orientation to person, place and time. Behavior, mood, and affect are within normal limits. Vital Signs: 11:54 BP 151 / 76; Pulse 52; Resp 14; Temp 98.1; Pulse Ox 98% on R/A; aw1 12:08 BP 153 / 92; Pulse 68; Resp 18; Temp 97(O); Pulse Ox 98% ; cm10 13:00 BP 128 / 56; Pulse 69; Resp 18; Pulse Ox 98% on R/A; cm10 13:34 BP 128 / 56; Pulse 65; Resp 18; Pulse Ox 99% on R/A; ld1 MDM: 12:06 Patient medically screened. sp3 12:16 Data reviewed: vital signs, nurses notes, lab test result(s), radiologic studies. ED sp3 course: 80-year-old female with headache symptoms for 2 to 3 days from half-way. Will obtain CT scan of the head, laboratory values and administer morphine and ondansetron IV. Differential diagnosis includes nonspecific headache, intracranial hemorrhage, viral syndrome, among others. I am not highly suspicious for sepsis, shock, meningitis, skull fracture, encephalitis, or any other critical process at this time. If workup is negative and patient feels better, we will safely discharge patient back to the half-way.. 13:49 ED course: Patient will be admitted to Dr. blankenship. I spoke to Dr. Francis who will be sp3 consulting on the case. Symptoms have been going on for 2 days and she is outside of the window for any acute stroke intervention. Patient is having no symptoms other than the mild headache at this point and blurry vision. Vital signs remain normal.. 08/15 12:07 Order name: CBC with Diff; Complete Time: 13:30 sp3 08/15 12:07 Order name: CMP; Complete Time: 13:36 sp3 08/15 14:34 Order name: RPR EDMS 08/15 14:34 Order name: Vitamin B12 Level EDMS 08/15 14:34 Order name: Vitamin D, 25 (OH), TOTAL EDMS 08/15 14:34 Order name: Basic Metabolic Panel EDMS 08/15 14:34 Order name: Basic Metabolic Panel EDMS 08/15 14:34 Order name: Basic Metabolic Panel EDMS 08/15 14:34 Order name: Basic Metabolic Panel EDMS 08/15 14:34 Order name: Basic Metabolic Panel EDMS 08/15 14:34 Order name: Basic Metabolic Panel EDMS 08/15 14:34 Order name: Basic Metabolic Panel EDMS 08/15 14:34 Order name: Basic Metabolic Panel EDMS 08/15 14:34 Order name: CBC with Automated Diff EDMS 08/15 14:34 Order name: CBC with Automated Diff EDMS 08/15 14:34 Order name: CBC with Automated Diff EDMS 08/15 14:34 Order name: CBC with Automated Diff EDMS 08/15 14:34 Order name: CBC with Automated Diff EDMS 08/15 14:34 Order name: CBC with Automated Diff EDMS 08/15 14:34 Order name: CBC with Automated Diff EDMS 08/15 14:34 Order name: CBC with Automated Diff EDMS 08/15 14:34 Order name: Lipid Profile EDMS 08/15 14:34 Order name: Lipid Profile EDMS 08/15 14:34 Order name: Liver (Hepatic) Function EDMS 08/15 14:34 Order name: Liver (Hepatic) Function EDMS 08/15 14:34 Order name: Magnesium EDMS 08/15 14:34 Order name: Magnesium EDMS 08/15 14:34 Order name: Magnesium EDMS 08/15 14:34 Order name: Magnesium EDMS 08/15 14:34 Order name: Magnesium EDMS 08/15 14:34 Order name: Magnesium EDMS 08/15 14:34 Order name: Magnesium EDMS 08/15 14:34 Order name: Magnesium EDMS 08/15 14:34 Order name: Phosphorus EDMS 08/15 14:34 Order name: Phosphorus EDMS 08/15 14:34 Order name: Phosphorus EDMS 08/15 14:34 Order name: Phosphorus EDMS 08/15 14:34 Order name: Phosphorus EDMS 08/15 14:34 Order name: Phosphorus EDMS 08/15 14:34 Order name: Phosphorus EDMS 08/15 14:34 Order name: Phosphorus EDMS 08/15 14:34 Order name: T4,Total EDMS 08/15 14:34 Order name: T4,Total EDMS 08/15 14:34 Order name: Thyroid Stimulating Hormone EDMS 08/15 14:34 Order name: Thyroid Stimulating Hormone EDMS 08/15 14:34 Order name: Anti-Thrombin III Activity EDMS 08/15 14:34 Order name: C-ANCA Anti-Proteinase 3 EDMS 08/15 14:34 Order name: Cardiolipin Antibodies G,M EDMS 08/15 14:34 Order name: Factor V Leiden Mutation EDMS 08/15 14:34 Order name: Homocysteine EDMS 08/15 14:34 Order name: Miscellaneous Test Lab EDMS 08/15 14:34 Order name: P-ANCA Anti-Myeloperoxidase Ab EDMS 08/15 14:34 Order name: Protein C Antigen EDMS 08/15 14:34 Order name: Protein Electo w/M Jas Serum EDMS 08/15 14:34 Order name: Protein S (Total EDMS 08/15 14:34 Order name: PROTHROMBIN GENE ANALYSIS (F2) EDMS 08/15 15:07 Order name: Hemoglobin A1c EDMS 08/15 15:07 Order name: Hemoglobin A1c EDOR 08/15 12:07 Order name: CT Head Brain wo Cont; Complete Time: 13:30 sp3 08/15 14:34 Order name: Echo with Doppler EDMS 08/15 14:35 Order name: Chest Pa And Lat (2 Views) EDMS 08/15 14:35 Order name: Carotid Artery Bilateral EDMS 08/15 15:06 Order name: Brain Wo Cont EDMS 08/15 14:34 Order name: IRF Screen EDMS 08/15 14:34 Order name: Physical Therapy Consult EDMS 08/15 14:34 Order name: EKG Electrocardiogram EDMS 08/15 14:34 Order name: Speech Therapy Consult EDOR 08/15 15:07 Order name: Occupational Therapy Consult EDOR 08/15 12:07 Order name: IV Saline Lock; Complete Time: 13:07 sp3 08/15 12:07 Order name: Labs collected and sent; Complete Time: 13:07 sp3 Administered Medications: 13:06 Drug: morphine IVP or IV 4 mg IVP once over 4 mins Route: IVP; Infused Over: 4 mins; cm10 Site: right antecubital; 13:06 Drug: Ondansetron IVP 4 mg IVP once; over 2 minutes Route: IVP; Site: right antecubital;cm10 13:45 Drug: Aspirin PO 325 mg PO once Route: PO; ld1 Disposition Summary: 08/15/23 13:51 Hospitalization Ordered Notes: Hospitalization Status: Inpatient Admission sp3 Provider: Tomas Blankenship sp3 Location: Telemetry/MedSurg (Inpatient) sp3 Condition: Stable sp3 Problem: an acute exacerbation sp3 Symptoms: have worsened sp3 Bed/Room Type: Standard sp3 Room Assignment: 218(08/15/23 14:59) bd Diagnosis - Acute CVA, vision changes, headache sp3 Forms: - Medication Reconciliation Form sp3 - SBAR form sp3 - Leadership Thank You Letter sp3 Signatures: Dispatcher [employer] EDMS Leslie Swartz Vanessa Whittington RN RN ld1 Ela Johnson MD MD sp3 Lucille Presley RN RN cm10 Corrections: (The following items were deleted from the chart) 14:59 13:51 sp3 15:06 14:34 Stroke Protocol ordered. [facility]
--- NOTE | 2023-08-15 14:20 | P.HP ---
Patient History Date of Service: 08/15/23 Reason for admission: headache, acute CVA History of Present Illness: Lyubov Garcia is an 88-year-old female with past medical history of hypertensive disorder, previous CVA (residual left sided weakness), diabetes mellitus type 2NIDDM (no medications at this time), depressive disorder, GERD, gout, and PVD who presents to the ED with complaints of a headache and neck pain for the last 2 to 3 days. She is able to move her neck freely, chin to chest movement. She is outside the window for TNK. She describes a slow onset of this headache, no thunderclap. CT head showing "5.3 centimeter low-density area has developed within the right occipital lobe compatible with acute infarction". Initial vitals BP 151 / 76; Pulse 52; Resp 14; Temp 98.1; Pulse Ox 98%. Laboratory evaluation sodium 136, potassium 3.6, BUN/creatinine 23/1.14, GFR 46, serum glucose 95. GCS 15, NIHSS 0 on examination. Lyubov is a resident at [facility] and is able to ambulate. Lyubov will be admitted to hospitalist service for further treatment of acute CVA to right occipital lobe. Allergies quinine sulfate [From Quine] Allergy (Verified 08/16/15 10:43) Hives Sulfa (Sulfonamide Antibiotics) Allergy (Verified 08/16/15 10:43) Hives Home Medications: Omeprazole [Prilosec] 20 mg PO DAILY 08/19/15 Clopidogrel Bisulfate [Plavix] 1 tab PO DAILY 11/30/20 Furosemide 1 tab PO DAILY 11/30/20 Acetaminophen 650 mg PO Q4HP PRN 07/25/23 Albuterol Inhaler [Ventolin Inhaler*] 2 puff IH Q6HP PRN 07/25/23 Allopurinol 200 mg PO DAILY 07/25/23 Atorvastatin Calcium [Lipitor*] 10 mg PO BEDTIME 07/25/23 Baclofen [Lioresal*] 10 mg PO BEDTIME 07/25/23 Benzonatate [Tessalon Perle*] 100 mg PO TID PRN 07/25/23 Carboxymethylcellulose Sodium [Artificial Tears] 2 drop EACH EYE TID 07/25/23 Cholecalciferol (Vitamin D3) [Vitamin D 1000 Iu Tab*] 2,000 unit PO DAILY 07/25/23 Citalopram [Celexa*] 5 mg PO DAILY 07/25/23 Codeine/APAP [Tylenol #3*] 1 tab PO BID 07/25/23 Docusate [Colace Cap*] 100 mg PO BID 07/25/23 Gabapentin [Neurontin*] 400 mg PO TID 07/25/23 Guaifenesin [Mucus Relief] 400 mg PO Q4HP PRN 07/25/23 Hydralazine [Apresoline*] 25 mg PO TID 07/25/23 Lactulose 10 gm PO DAILYPRN PRN 07/25/23 Levothyroxine [Synthroid*] 50 mcg PO [id number] 07/25/23 Loteprednol Etabonate [Lotemax] 2 drop EACH EYE BID 07/25/23 Meclizine HCl 12.5 mg PO Q8HP PRN 07/25/23 Multivitamin with Minerals [Multivitamins with Minerals] 1 each PO DAILY 07/25/23 Polyethylene Glycol 3350 [Miralax] 17 gm PO DAILYPRN PRN 07/25/23 Potassium Chloride [Klor-Con 10] 20 meq PO DAILY 07/25/23 Sennosides [Senna] 2 tab PO DAILYPRN PRN 07/25/23 Simethicone 125 mg PO Q8HP PRN 07/25/23 bisacodyL [Dulcolax*] 2 tab PO DAILY 07/25/23 Aspirin [Aspirin EC] 81 mg PO DAILY 90 Days #90 tab 07/27/23 Azithromycin 500 mg PO DAILY 4 Days #4 tab 07/27/23 Cefdinir [Cefdinir*] 300 mg PO BID 4 Days #8 cap 07/27/23 Losartan Potassium [Cozaar] 25 mg PO DAILY 30 Days #30 tab 07/27/23 Metoprolol Succinate 25 mg PO DAILY 30 Days #30 tab 07/27/23 dexAMETHasone [Decadron] 4 mg PO DAILY 7 Days #7 tab 07/27/23 - Past Medical/Surgical History Diabetic: No -: Hx Stroke 96 -: HTN -: Neuropathy -: Hypothyroidism -: PVD -: Right knee replacement 2013 -: Left FEMPOP 2012 -: Hysterectomy 1965 -: Cholecystectomy 1982 -: Breast Lumpectomy - Social History Alcohol use: No CD- Drugs: No Caffeine use: Yes Review of Systems General: Weakness Eyes: Vision Change (blurry vision) Musculoskeletal: Other (headache, neck ache) Neurological: Other (headache) Physical Examination - Physical Exam General: Alert, Oriented x3, Acute distress (headache) HEENT: Atraumatic, Normocephalic, PERRLA Neck: Supple, 2+ carotid pulse no bruit, JVD not distended Respiratory: Clear to auscultation bilaterally, Normal air movement Cardiovascular: No edema, Normal pulses, Regular rate/rhythm, Normal S1 S2 Capillary refill: <2 Seconds Gastrointestinal: Normal bowel sounds, Soft and benign Musculoskeletal: No clubbing, Other (bilateral lower extremity swelling) Integumentary: No rashes, No breakdown, No significant lesion, No tenderness/swelling Neurological: Normal speech, Normal strength at 5/5 x4 extr, Normal tone - Studies Laboratory Data (last 24 hrs) 08/15/23 08/15/23 13:00 13:00 WBC 8.90 Hgb 14.6 Hct 43.4 Plt Count 377 Sodium 136 Potassium 3.6 BUN 23 H Creatinine 1.14 H Glucose 95 Total Bilirubin 0.4 AST 12 L ALT 19 Alkaline Phosphatase 108 Assessment and Plan - Plan Assessment and plan Acute right occipital lobe Cerebrovascular Accident in a patient with previous CVA - CT scan, there is evidence of a 5.3 centimeter low-density area has developed within the right occipital lobe compatible with acute infarction. - Consulted Neurology - recommendations appreciated - Admit under observation status - No neurologic deficits on my exam - NIHSS = 0 - Previous CVA residual of left-sided weakness - Allow permissive hypertension for tonight - q4hr neurochecks - Ordered MR brain, ECHO, and bilateral carotid dopplers - Ordered TTE - PT/OT/ INFORMATICA evaluation requested - Bedside swallow - Ordered risk profile: Hgb A1c, lipid panel, TSH - Started aspirin, atorvastatin, and folic acid - GCS 15, NIHSS 0 on examination - Initial BP 151 / 76 KING versus CKD -Consult nephrology -Gentle IV fluids -BUN/creatinine 23/1.14, GFR 46 DM type 2 NIDDM -Diet management -Accucheck with SSI -A1C pending -serum glucose 95 Hx PVD -stents placed in bilateral lower extremities HX GERD Hx Gout Hx Depressive disorder -Restart home medication when available DVT PPx heparin DNR LOS 2 to 3 days Discharge Plan: Half-Way Plan to discharge in: 48 Hours - Advance Directives Does patient have a Living Will: Yes Does patient have a Durable POA for Healthcare: Yes Time Spent Managing Pts Care (In Minutes): 50
[2023-08-15] MEDS ORDERED: ONDANSETRON 4 MG/2 ML VIAL IV PRN (14:23)
[2023-08-15] MEDS: NA CHLORIDE 0.9% 1,000 ML IV SCH ×2 (15:00→22:04)
[2023-08-15] MEDS: FOLIC ACID 1 MG TABLET PO SCH (15:10)
--- NOTE | 2023-08-15 15:47 | RAD REPORT ---
EXAM DESCRIPTION: MRI - Brain Wo Cont - 08/15/2023 3:30 pm CLINICAL HISTORY: Acute CVA COMPARISON: Head CT August 15, 2023 TECHNIQUE: Axial, sagittal, and coronal magnetic resonance images of the brain were obtained. FINDINGS: Moderate to large area of abnormal signal on diffusion-weighted/ADC mapping right occipita l lobe compatible with acute infarction. Gradient echo images demonstrate small area of low signal co mpatible with petechial hemorrhage. Small to moderate abnormal signal periventricular, deep and subcortical white matter compatible with ischemic changes secondary to small vessel disease The ventricles are normal caliber. An extra-axial fluid collection is not noted. Fluid within the sinuses/mastoids is not seen IMPRESSION: Moderate to large acute right occipital lobe infarction with small amount of petechial h emorrhage
--- NOTE | 2023-08-15 16:51 | RAD REPORT ---
EXAM DESCRIPTION: USCarotid Artery Bilateral08/15/2023 4:06 pm CLINICAL HISTORY: Acute CVA COMPARISON: None FINDINGS: The velocity of the right internal carotid artery equals 50 cm/sec. The right ICA/CCA rati o normal The velocity of the left internal carotid artery equals 52 cm/sec. The left ICA/CCA ratio normal Mild plaque is present within the carotid arteries. The vertebral arteries demonstrate antegrade flow IMPRESSION: Mild plaque within the carotid arteries without evidence of a hemodynamically significan t stenosis NASCET criteria used. Mild 0-49% stenosis Moderate 50-69% stenosis Severe 70-99% stenosis
--- NOTE | 2023-08-15 17:27 | RAD REPORT ---
EXAM DESCRIPTION: Lainey Single View08/15/2023 5:05 pm CLINICAL HISTORY: CVA COMPARISON: July 2023 FINDINGS: Pulmonary vascular congestion. Lungs appear clear of acute infiltrate. Heart is moderately enlarged
[2023-08-15] MEDS: ATORVASTATIN 40 MG TAB PO SCH ×2 (20:41→22:04)
--- NOTE | 2023-08-15 22:18 | P.CNS ---
Date of Consult: 08/16/23 Reason for Consult: KING Requesting Physician: damaso gamino Chief Complaint: headache, acute CVA History of Present Illness: Lyubov Garcia is an 88-year-old female with past medical history of hypertensive disorder, previous CVA (residual left sided weakness), diabetes mellitus type 2NIDDM (no medications at this time), depressive disorder, GERD, gout, and PVD who presents to the ED with complaints of a headache and neck pain for the last 2 to 3 days. She is able to move her neck freely, chin to chest movement. She is outside the window for TNK. She describes a slow onset of this headache, no thunderclap. CT head showing "5.3 centimeter low-density area has developed within the right occipital lobe compatible with acute infarction". Initial vitals BP 151 / 76; Pulse 52; Resp 14; Temp 98.1; Pulse Ox 98%. Laboratory e valuation sodium 136, potassium 3.6, BUN/creatinine 23/1.14, GFR 46, serum glucose 95. GCS 15, NIHSS 0 on examination. Lyubov is a resident at [facility] and is able to ambulate. Lyubov will be admitted to hospitalist service for further treatment of acute CVA to right occipital lobe. [email or web address] 12:15 This 88 yrs old Female presents to ER via EMS with complaints of headache. sp3 12:15 88-year-old female with history of prior CVA, diabetes (not on any diabetes medications sp3 currently) hypertension, among others now presents to the ED with chief complaint headache. [facility] CT scan. Patient states that headache started approximately 2 to 3 days ago and she has no other symptoms. She denies neck pain, face pain, new neurological changes, speech abnormality, chest pain, shortness of breath, fever, fall or trauma, abdominal pain, nausea, vomiting, diarrhea, rash, bleeding, or any other signs or symptoms on ROS at this time. Headache was a slow onset and there was no thunderclap as per patient.. Allergies quinine sulfate [From Quine] Allergy (Verified 08/16/15 10:43) Hives Sulfa (Sulfonamide Antibiotics) Allergy (Verified 08/16/15 10:43) Hives Home medications list reviewed: Yes Home Medications: Omeprazole [Prilosec] 20 mg PO DAILY 08/19/15 Clopidogrel Bisulfate [Plavix] 1 tab PO DAILY 11/30/20 Furosemide 1 tab PO DAILY 11/30/20 Baclofen [Lioresal*] 10 mg PO BID 07/25/23 Benzonatate [Tessalon Perle*] 100 mg PO TID PRN 07/25/23 Citalopram [Celexa*] 5 mg PO DAILY 07/25/23 Codeine/APAP [Tylenol #3*] 1 tab PO BID 07/25/23 Docusate [Colace Cap*] 100 mg PO BID 07/25/23 Gabapentin [Neurontin*] 400 mg PO TID 07/25/23 Guaifenesin [Mucus Relief] 400 mg PO Q4HP PRN 07/25/23 Hydralazine [Apresoline*] 25 mg PO TID 07/25/23 Levothyroxine [Synthroid*] 50 mcg PO [id number] 07/25/23 Loteprednol Etabonate [Lotemax] 2 drop EACH EYE BID 07/25/23 Meclizine HCl 12.5 mg PO Q8HP PRN 07/25/23 Multivitamin with Minerals [Multivitamins with Minerals] 1 each PO DAILY 07/25/23 Polyethylene Glycol 3350 [Miralax] 17 gm PO DAILYPRN PRN 07/25/23 Potassium Chloride [Klor-Con 10] 20 meq PO DAILY 07/25/23 Sennosides [Senna] 2 tab PO DAILYPRN PRN 07/25/23 Simethicone 125 mg PO Q8HP PRN 07/25/23 bisacodyL [Dulcolax*] 2 tab PO DAILY 07/25/23 Losartan Potassium [Cozaar] 25 mg PO DAILY 30 Days #30 tab 07/27/23 Metoprolol Succinate 25 mg PO DAILY 30 Days #30 tab 07/27/23 dexAMETHasone [Decadron] 4 mg PO DAILY 7 Days #7 tab 07/27/23 Cholecalciferol (Vitamin D3) [Vitamin D 1000 Iu Tab*] 2 tab PO DAILY 08/15/23 - Past Medical/Surgical History Diabetic: No -: Hx Stroke 96 -: HTN -: Neuropathy -: Hypothyroidism -: PVD -: Hx KING (Dr. Perez/ Dr. Ryder) -: Right knee replacement 2013 -: Left FEMPOP 2012 -: Hysterectomy 1965 -: Cholecystectomy 1982 -: Breast Lumpectomy - Social History Smoking Status: Unknown if ever smoked Alcohol use: No CD- Drugs: No Caffeine use: Yes Review of Systems 10-point ROS is otherwise unremarkable General: Weakness Neurological: Weakness Physical Examination Temp Pulse Resp BP Pulse Ox 97.9 F 61 16 194/93 H 98 08/15/23 20:00 08/15/23 20:00 08/15/23 20:00 08/15/23 20:00 08/15/23 20:00 General: In no apparent distress HEENT: Atraumatic Neck: Supple Respiratory: Clear to auscultation bilaterally Cardiovascular: No edema, Regular rate/rhythm Gastrointestinal: Soft and benign, Non-distended Musculoskeletal: No clubbing, No contractures Integumentary: No rashes, No cyanosis Laboratory Data (last 24 hrs) 08/15/23 08/15/23 13:00 13:00 WBC 8.90 Hgb 14.6 Hct 43.4 Plt Count 377 Sodium 136 Potassium 3.6 BUN 23 H Creatinine 1.14 H Glucose 95 Total Bilirubin 0.4 AST 12 L ALT 19 Alkaline Phosphatase 108 Imagings Data: darrenrice EXAM DESCRIPTION: RADChest Single View08/15/2023 5:05 pm CLINICAL HISTORY: CVA COMPARISON: July 2023 FINDINGS: Pulmonary vascular congestion. Lungs appear clear of acute infiltrate. Heart is moderately enlarged [email or web address] EXAM DESCRIPTION: MRI - Brain Wo Cont - 08/15/2023 3:30 pm CLINICAL HISTORY: Acute CVA COMPARISON: Head CT August 15, 2023 TECHNIQUE: Axial, sagittal, and coronal magnetic resonance images of the brain were obtained. FINDINGS: Moderate to large area of abnormal signal on diffusion-weighted/ADC mapping right occipital lobe compatible with acute infarction. Gradient echo images demonstrate small area of low signal compatible with petechial hemorrhage. Small to moderate abnormal signal periventricular, deep and subcortical white matter compatible with ischemic changes secondary to small vessel disease The ventricles are normal caliber. An extra-axial fluid collection is not noted. Fluid within the sinuses/mastoids is not seen IMPRESSION: Moderate to large acute right occipital lobe infarction with small amount of petechial hemorrhage [email or web address] EXAM DESCRIPTION: USCarotid Artery Bilateral08/15/2023 4:06 pm CLINICAL HISTORY: Acute CVA COMPARISON: None FINDINGS: The velocity of the right internal carotid artery equals 50 cm/sec. The right ICA/CCA ratio normal The velocity of the left internal carotid artery equals 52 cm/sec. The left ICA/CCA ratio normal Mild plaque is present within the carotid arteries. The vertebral arteries demonstrate antegrade flow IMPRESSION: Mild plaque within the carotid arteries without evidence of a hemodynamically significant stenosis Conclusions/Impression: Stage I KING -No NSAIDs -Change IVF to 1/2NS Hypokalemia -Replete as ordered HTN -Start Losartan 25mg BID; titrate as needed Right Occipital Lobe Infarction -Continue Atorvastatin -Neurology following Vitamin D3 Deficiency -Consider Ergo Hospitalist and ER notes reviewed Thank you kindly for the consultation
[2023-08-15] MEDS ORDERED: HYDRALAZINE HCL 20 MG/ML VIAL IV PRN (23:00)
[2023-08-15 23:40] LABS: RPR (Rapid Plasma Reagin) NON-REACT (NON-REACT)
[2023-08-16 03:18] LABS: Absolute Lymphocytes (CBC) 2.8 K/uL (0.7-4.9); Hematocrit 37.1 % (36.0-45.0); Lymphocytes % 28.1 % (15.3-44.8); MCV 92.1 fL (80-100); MPV 8.3 fL (7.6-11.3); Platelets 352 thou/uL (152-406); RBC Red Blood Cell Count 4.03 M/uL (3.86-4.86)
[2023-08-16 04:16] LABS: Albumin 2.8 g/dL (3.4-5.0); Bilirubin Direct 0.1 mg/dL (0-0.2); Bilirubin Indirect, Calculated 0.3 mg/dL (0.2-0.8); Bilirubin Total 0.4 mg/dL (0.2-1.0); Phosphorus 3.1 mg/dL (2.5-4.9); Protein, Total 5.8 g/dL (6.4-8.2); T4,Total 6.2 ug/dL (4.8-13.9); Thyroid Stimulating Hormone 1.24 uIU/mL (0.358-3.740)
[2023-08-16 04:17] LABS: Magnesium 2.1 mg/dL (1.6-2.4); Potassium 3.4 mEq/L (3.5-5.1)
[2023-08-16] MEDS: NA CHLORIDE 0.9% 1,000 ML IV SCH (04:20)
[2023-08-16] MEDS: Oxycodone HCl/Acetaminophen 5/325 MG TAB PO PRN ×3 (04:47→20:08)
[2023-08-16] MEDS ORDERED: POTASSIUM CL SA 10 MEQ TAB PO ONE (06:00)
[2023-08-16] MEDS ORDERED: ASPIRIN EC 81 MG TAB PO SCH (09:00)
[2023-08-16] MEDS: FOLIC ACID 1 MG TABLET PO SCH (09:15)
[2023-08-16] MEDS ORDERED: KCL 20 MEQ/100 mL IVPB 20 MEQ/100 ML BAG IV SCH (12:00)
[2023-08-16] MEDS: LOSARTAN POTASSIUM 50 MG TABLET PO SCH ×2 (12:09→20:07)
[2023-08-16] MEDS: NACHLORIDE 0.45% 1,000 ML IV SCH (12:10)
--- NOTE | 2023-08-16 16:51 | RAD REPORT ---
EXAM DESCRIPTION: CT - Head Brain Wo Cont - 08/16/2023 9:32 am CLINICAL HISTORY: Acute infarct COMPARISON: August 15, [address] and MRI TECHNIQUE: Computed axial tomography of the head was obtained. IV contrast was not requested. All CT scans are performed using dose optimization technique as appropriate and may include automated exposure control or mA/KV adjustment according to patient size. FINDINGS: Moderate to large acute right occipital lobe infarction without significant change. This C T scan does not clearly demonstrate the small petechial hemorrhage seen on yesterday's MRI. The ventricles are normal in caliber No extra-axial fluid collection is noted. No significant change since the prior exam IMPRESSION: Moderate to large acute right occipital lobe infarction without significant change. This CT scan does not clearly demonstrate the small petechial hemorrhage seen on yesterday's MRI.
[2023-08-16] MEDS: ATORVASTATIN 40 MG TAB PO SCH (20:08)
--- NOTE | 2023-08-16 21:35 | P.PN ---
Date of Service: 08/16/23 Subjective Lyubov is awake and feeling tired, she continues to report blurry vision and also hearing disturbance since this recent stroke obtaining serial Head CT today Dr. Francis following ROS 10 point ROS as noted above, otherwise negative Physical Exam General: Alert, Oriented x3, Acute distress (headache) HEENT: Atraumatic, Normocephalic, PERRLA Neck: Supple, 2+ carotid pulse no bruit, JVD not distended Respiratory: Clear to auscultation bilaterally, Normal air movement Cardiovascular: No edema, Normal pulses, Regular rate/rhythm, Normal S1 S2 Capillary refill: <2 Seconds Gastrointestinal: Normal bowel sounds, Soft and benign Musculoskeletal: No clubbing, Other (bilateral lower extremity swelling and foot drop) Integumentary: No rashes, No breakdown, No significant lesion, No tenderness/swelling Neurological: Normal speech, Normal strength at 5/5 x4 extr, Normal tone Vitals Reviewed Problem list Acute right occipital lobe Cerebrovascular Accident in a patient with previous CVA KING versus CKD DM type 2 NIDDM Hx PVD Assessment and Plan Acute right occipital lobe Cerebrovascular Accident in a patient with previous CVA Visual and hearing disturbance (blurry vision) - CT scan, there is evidence of a 5.3 centimeter low-density area has developed within the right occipital lobe compatible with acute infarction. - Serial Head CT today - Consulted Neurology - Dr. Francis following - Admit under observation status - Previous CVA residual of left-sided weakness - Allow permissive hypertension for tonight - q4hr neurochecks - MR brain reports "Moderate to large acute right occipital lobe infarction with small amount of petechial hemorrhage." - ECHO still pending - bilateral carotid dopplers reports "Mild plaque within the carotid arteries without evidence of a hemodynamically significant stenosis." - PT ambulated 120 feet - PHYSICAL DAMAGE APPRAISER evaluation passed swallow evaluation - Ordered risk profile: Hgb A1c 5.9, lipid panel (Triglyceride 183, chol 202, LDL 93, HDL 72), TSH 1.240/free T4 6.2 - Started aspirin, atorvastatin, and folic acid - GCS 15, NIHSS 0 on examination residual left sided weakness from previous CVA but able to ambulate - Initial BP 151 / 76, BP 144/71 (08/16) KING versus CKD -Consult nephrology -Gentle IV fluids -BUN/creatinine 23/0.91, GFR 61 DM type 2 NIDDM -Diet management -Accucheck with SSI -A1C 5.9 -serum glucose 95 Hypertensive disorder Starting losartan today Hx PVD -stents placed in bilateral lower extremities HX GERD Hx Gout Hx Depressive disorder -Restart home medication when available DVT PPx heparin DNR LOS 2 to 3 days Time Spent Managing Pts Care (In Minutes): 40 <Natividad Mason - Last Filed: 08/16/23 21:56> Patient seen and examined, plan of care discussed with Ms. Mason. She denies any vision loss. She was seen ambulating with a walker during therapy. Acute Occipital CVA with potential hemorrhage. Case discussed with Neurology. Avoid any anticoagulation or antiplatelets for now. Repeat head CT in 24 hours. Statins. Continue PT <damaso gamino - Last Filed: 08/17/23 18:04>
[2023-08-17] MEDS: NACHLORIDE 0.45% 1,000 ML IV SCH ×2 (00:42→17:25)
[2023-08-17] MEDS: Oxycodone HCl/Acetaminophen 5/325 MG TAB PO PRN ×2 (03:04→08:05)
[2023-08-17] MEDS: LOSARTAN POTASSIUM 50 MG TABLET PO SCH ×2 (08:05→20:27)
[2023-08-17] MEDS: FOLIC ACID 1 MG TABLET PO SCH (08:06)
[2023-08-17 09:30] LABS: Absolute Lymphocytes (CBC) 2.3 K/uL (0.7-4.9); Hematocrit 42.5 % (36.0-45.0); Lymphocytes % 22.7 % (15.3-44.8); MCV 92.9 fL (80-100); MPV 7.8 fL (7.6-11.3); Platelets 311 thou/uL (152-406); RBC Red Blood Cell Count 4.58 M/uL (3.86-4.86)
[2023-08-17 09:45] LABS: Phosphorus 3.1 mg/dL (2.5-4.9); Potassium 3.7 mEq/L (3.5-5.1)
[2023-08-17] MEDS: LIDOCAINE 4% PATCH TOP SCH (11:13)
--- NOTE | 2023-08-17 11:51 | RAD REPORT ---
EXAM DESCRIPTION: MRI - MRA Head Wo Cont - 08/17/2023 11:23 am CLINICAL HISTORY: CVA CVA COMPARISON: Brain Wo Cont dated 08/15/2023; Carotid Artery Bilateral dated 08/15/2023; MRA Neck W/Wo C ont dated 08/17/2023 FINDINGS: 3D noncontrast [id number] MR angiography of the [place] of [place] was performed. Anterior circulation: Suspected moderate focal stenosis of the right distal M1 segment middle cerebra l artery. The left MCA is patent.Moderate focal stenosis of the right A2 segment of the anterior cere bral artery. The ICAs are patent. Posterior circulation: Absent, presumably occluded right V4 segment of the vertebral artery. The left vertebral artery is patent. The basilar artery is patent. Possible mild stenosis at the right P1 seg ment of the anterior cerebral artery . origin of the left posterior cerebral artery. The right posterior cerebral artery is patent. No aneurysm identified. IMPRESSION: 1. Anterior circulation: Focal stenoses which are at least moderate (and may be severe) suspected at the right A2 segment of the anterior cerebral artery and distal right M1 segment middle cerebral artery. 2. 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 The left vertebral artery and basilar artery are patent. At least moderate focal stenosis of the right di stal P1 segment of the right posterior cerebral artery.
--- NOTE | 2023-08-17 11:54 | RAD REPORT ---
EXAM DESCRIPTION: MRI - MRA Neck W/Wo Cont - 08/17/2023 11:24 am CLINICAL HISTORY: CVA COMPARISON: Head C Spine Mpr Wo Con dated 07/24/2023 FINDINGS: Contrast enhance 2D [id number] MR angiography of the neck vessels was performed. Both common carotid arteries and internal carotid arteries are patent. No flow limiting stenosis iden tified. The cervical portions of the right vertebral artery are patent. The left vertebral artery is patent. Note that the left vertebral artery is slightly dominant. Patulous esophagus. IMPRESSION: No flow limiting stenosis identified within the neck.
--- NOTE | 2023-08-17 15:00 | RAD REPORT ---
EXAM DESCRIPTION: CT - Head Brain Wo Cont - 08/17/2023 2:51 pm CLINICAL HISTORY: Occipital stroke Headache, CVA COMPARISON: Head Brain Wo Cont dated 08/16/2023; Head Brain Wo Cont dated 08/15/2023; MRA Neck W/Wo Co nt dated 08/17/2023; MRA Head Wo Cont dated 08/17/2023 TECHNIQUE: All CT scans are performed using dose optimization technique as appropriate and may inclu de automated exposure control or mA/KV adjustment according to patient size. FINDINGS: Large right occipital lobe CVA is again noted. Subtle increased density within the infarct ed parenchyma noted which could indicate slight hemorrhagic conversion. No significant bleed is prese nt, however. No midline shift or hydrocephalus appear The paranasal sinuses and mastoids are clear. The calvarium is intact. IMPRESSION: Large right occipital lobe CVA again seen. Subtle increased density within the infarcted parenchyma could indicate mild hemorrhagic conversion. No significant bleed, however, is present. N o midline shift or hydrocephalus.
--- NOTE | 2023-08-17 16:13 | P.PN ---
Date of Service: 08/17/23 Subjective Lyubov is awake and c/o a severe headache that has not resolved since the CVA occured Also c/o a painful right sided neck- will provide a lidocaine patch Brain MRI with MRA, Neck MRA, and head CT today Spoke with Dr. Francis addressing these concerns ROS 10 point ROS as noted above, otherwise negative Physical Exam General: Alert, Oriented x3, Acute distress (headache) HEENT: Atraumatic, Normocephalic, PERRLA Neck: Supple, 2+ carotid pulse no bruit, JVD not distended Respiratory: Clear to auscultation bilaterally, Normal air movement Cardiovascular: No edema, Normal pulses, Regular rate/rhythm, Normal S1 S2 Capillary refill: <2 Seconds Gastrointestinal: Normal bowel sounds, Soft and benign Musculoskeletal: No clubbing, Other (bilateral lower extremity swelling and foot drop) Integumentary: No rashes, No breakdown, No significant lesion, No tenderness/swelling Neurological: Normal speech, Normal strength at 5/5 x4 extr, Normal tone Vitals Reviewed Problem list Acute right occipital lobe Cerebrovascular Accident in a patient with previous CVA Visual (blurry vision)- correction no hearing disturbance Severe neck and headache KING versus CKD DM type 2 NIDDM Hx PVD Assessment and Plan Acute right occipital lobe Cerebrovascular Accident in a patient with previous CVA Visual (blurry vision)- correction no hearing disturbance Severe neck and headache - CT scan, there is evidence of a 5.3 centimeter low-density area has developed within the right occipital lobe compatible with acute infarction. - Serial Head CT reports "Large right occipital lobe CVA is again noted. Subtle increased density within the infarcted parenchyma noted which could indicate slight hemorrhagic conversion. No significant bleed is present, however. No midline shift or hydrocephalus appear." -Brain MRI with MRA Reports ": 1. Anterior circulation: Focal stenoses which are at least moderate (and may be severe) suspected at the right A2 segment of the anterior cerebral artery and distal right M1 segment middle cerebral artery. 2. 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 The left vertebral artery and basilar artery are patent. At least moderate focal stenosis of the right distal P1 segment of the right posterior cerebral artery. -Neck MRA- No flow limiting stenosis identified within the neck. - Consulted Neurology - spoke with Dr. Francis - Admit under observation status, Patulous esophagus. - Previous CVA residual of left-sided weakness - Allow permissive hypertension for tonight - q4hr neurochecks - MR brain reports "Moderate to large acute right occipital lobe infarction with small amount of petechial hemorrhage." - ECHO still pending - bilateral carotid dopplers reports "Mild plaque within the carotid arteries without evidence of a hemodynamically significant stenosis." - PT ambulated 120 feet - DISPATCHER REFINERY evaluation passed swallow evaluation - Ordered risk profile: Hgb A1c 5.9, lipid panel (Triglyceride 183, chol 202, LDL 93, HDL 72), TSH 1.240/free T4 6.2 - Started aspirin, atorvastatin, and folic acid - GCS 15, NIHSS 0 on examination residual left sided weakness from previous CVA but able to ambulate - Initial BP 151 / 76, BP 144/71 (08/16) -topamax 25 mg PO HS Hypokalemia K 3.4 (08/16), 3.7 (1.12) replete PRN monitor in AM labs History of Afib Holding anticoagulation d/t head CT results KING versus CKD -Consult nephrology -continue Gentle IV fluids -BUN/creatinine 23/0.96, GFR 57 DM type 2 NIDDM -Diet management -Accucheck with SSI -A1C 5.9 -serum glucose 136 Hypertensive disorder Starting losartan today Hx PVD -stents placed in bilateral lower extremities HX GERD Hx Gout Hx Depressive disorder -Restart home medication when available DVT PPx heparin DNR LOS 2 to 3 days Time Spent Managing Pts Care (In Minutes): 40 <Natividad Mason - Last Filed: 08/17/23 17:33> Plan of care discussed with Lebron Marlon. Patient is complaining of headache Repeat chest CT shows hemorrhagic transformation of large Right occipital CVA. 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 Case discussed with neurology Dr. Francis recommended to continue medical management no indication for transfer for cerebral angiogram or intravascular intervention given that patient was outside the window for intervention presentation and MRA reported total occlusion. Continue to hold aspirin and Plavix. Dr. Francis to see patient. Analgesics for headache Permissive hypertension, keep systolic blood pressure between 140-160 per neurology recommendation. <damaso gamino - Last Filed: 08/17/23 18:07>
[2023-08-17] MEDS: TOPIRAMATE 25 MG TAB PO SCH (17:24)
--- NOTE | 2023-08-17 17:45 | P.PN ---
Date of Service: 08/17/23 Vital Signs Temp Pulse Resp BP Pulse Ox 97.6 F 99 H 14 164/92 H 97 08/17/23 16:00 08/17/23 16:00 08/17/23 16:00 08/17/23 16:00 08/17/23 16:00 Medications Atorvastatin Calcium (Atorvastatin 40 Mg Tab) 40 mg PO BEDTIME [facility] Last Admin: 08/16/23 20:08 Dose: 40 mg Folic Acid (Folic Acid 1 Mg Tablet) 1 mg PO DAILY [facility] Last Admin: 08/17/23 08:06 Dose: 1 mg Hydralazine HCl (Hydralazine Hcl 20 Mg/Ml Vial) 10 mg IV Q4HP PRN PRN Reason: Goal to achieve SBP in comment Sodium Chloride (Sodium Chloride 0.45%) 1,000 mls @ 75 mls/hr IV .[id number] [facility] Stop: 08/17/23 18:00 Last Admin: 08/17/23 17:25 Dose: 1,000 mls Lidocaine (Lidocaine 4% Patch) 1 patch TOP DAILY [facility] Last Admin: 08/17/23 11:13 Dose: 1 patch Losartan Potassium (Losartan Potassium 50 Mg Tablet) 50 mg PO BID [facility] Ondansetron HCl (Ondansetron 4 Mg/2 Ml Vial) 4 mg IV Q6HP PRN PRN Reason: NAUSEA / VOMITING Topiramate (Topiramate 25 Mg Tab) 25 mg PO BEDTIME [facility] Last Admin: 08/17/23 17:24 Dose: 25 mg Assessment/ Plan: Nephrology No dyspnea No chest pain Weakness and fatigue. Headache No acute events overnight Vitals, medications, blood work and imaging reviewed in the chart. General: In no apparent distress HEENT: Atraumatic Neck: Supple Respiratory: Clear to auscultation bilaterally Cardiovascular: No edema, Regular rate/rhythm Gastrointestinal: Soft and benign, Non-distended Musculoskeletal: No clubbing, No contractures Integumentary: No rashes, No cyanosis Laboratory Data (last 24 hrs) 08/15/23 08/15/23 13:00 13:00 WBC 8.90 Hgb 14.6 Hct 43.4 Plt Count 377 Sodium 136 Potassium 3.6 BUN 23 H Creatinine 1.14 H Glucose 95 Total Bilirubin 0.4 AST 12 L ALT 19 Alkaline Phosphatase 108 Imagings Data: darrenrice EXAM DESCRIPTION: RADChest Single View1/05/2024 5:05 pm CLINICAL HISTORY: CVA COMPARISON: July 2023 FINDINGS: Pulmonary vascular congestion. Lungs appear clear of acute infiltrate. Heart is moderately enlarged darrenrice EXAM DESCRIPTION: MRI - Brain Wo Cont - 08/15/2023 3:30 pm CLINICAL HISTORY: Acute CVA COMPARISON: Head CT August 15, 2023 TECHNIQUE: Axial, sagittal, and coronal magnetic resonance images of the brain were obtained. FINDINGS: Moderate to large area of abnormal signal on diffusion-weighted/ADC mapping right occipital lobe compatible with acute infarction. Gradient echo images demonstrate small area of low signal compatible with petechial hemorrhage. Small to moderate abnormal signal periventricular, deep and subcortical white matter compatible with ischemic changes secondary to small vessel disease The ventricles are normal caliber. An extra-axial fluid collection is not noted. Fluid within the sinuses/mastoids is not seen IMPRESSION: Moderate to large acute right occipital lobe infarction with small amount of petechial hemorrhage darrenrice EXAM DESCRIPTION: USCarotid Artery Bilateral08/15/2023 4:06 pm CLINICAL HISTORY: Acute CVA COMPARISON: None FINDINGS: The velocity of the right internal carotid artery equals 50 cm/sec. The right ICA/CCA ratio normal The velocity of the left internal carotid artery equals 52 cm/sec. The left ICA/CCA ratio normal Mild plaque is present within the carotid arteries. The vertebral arteries demonstrate antegrade flow IMPRESSION: Mild plaque within the carotid arteries without evidence of a hemodynamically significant stenosis Conclusions/Impression: Stage I KING -No NSAIDs -DC IVF Hypokalemia -Replete prn HTN -Increase Losartan 50mg BID Right Occipital Lobe Infarction -Continue Atorvastatin -Neurology following Vitamin D3 Deficiency -Consider Ergo Hospitalist note reviewed
[2023-08-17] MEDS: HYDROCODONE/APAP 5/325 MG TAB PO PRN (20:27)
[2023-08-17] MEDS: ATORVASTATIN 40 MG TAB PO SCH (20:27)
[2023-08-17] MEDS ORDERED: TOPIRAMATE 25 MG TAB PO SCH (21:00)
--- NOTE | 2023-08-17 22:52 | CON ---
Reason For Consultation: Consultation was called because of new stroke with headache. History Of Present Illness: Ms. Lyubov Garcia is an 88-year-old right-handed patient with [id number] diabetes mellitus, hypertension, dyslipidemia, and prior stroke with left-sided weakness, from which she is recovered completely, came to [facility] on 08/15/2023 with 2-3 days of significant headache and some visual disturbances. She was well outside the window for [facility] se. The headache was more slow onset, not sudden onset. CT scan of her head identified a 5.3 cm are a of low density in the right occipital lobe compatible with an acute posterior circulation infarct. Her electrolyte abnormalities and blood work were essentially unremarkable except for slightly low p otassium. Her triglycerides elevated 183, total cholesterol slightly elevated to 202, HDL cholestero l 72, LDL 93. Her vitamin D level was low at 28.8. Her RPR turned out nonreactive and she has other blood work pending. Since onset, patient has had a left homonymous hemianopsia from the emergency r oom and persistent headache, which she has received narcotic medications and now just started on Topa max. She said headache is 15/10. It is located more at the base of the skull. Past Medical History: As noted above. While the patient does not have a reported history of atrial fibrillation while in hospital, she has had episodes of atrial fibrillation. Past Surgical History: Left femoral-popliteal bypass 2012, right knee replacement 2013, hysterectomy 1965, cholecystectomy in 1982, and breast lumpectomy. Allergies: QUININE SULFATE AND SULFA DRUGS. Home Medications: Prilosec 20 mg daily, Plavix 75 mg daily, furosemide mg daily, Tylenol 650 mg daily, albuterol inhaler 2 puffs every 6 hours as needed, allopurinol 200 mg daily, Lipitor 10 mg at bedtime, baclofen 10 mg at bedtime, Tessalon Perles 100 mg 3 times a day, Colace 100 mg daily, gabapentin 400 mg 3 times a day, Apresoline 25 mg 3 times a day, lactulose 10 g daily as needed, Mattie exa 5 mg daily, vitamin D 2000 units daily. Social History: No alcohol, tobacco, or IV drug use. Patient resides in a local [facility] and does drink caffeinated beverages. Review of Systems: Currently, she reports severe headache at the base of the head and wants to be in a quiet and dark ro om. She denies any myalgias and arthralgias. No significant changes such as rash. No focal weaknes s despite her stroke. She has recovered well in terms of her face, arm, and leg. Other 10 point sys tems review is unremarkable. Physical Examination: Vital Signs: Blood pressure 164/90, pulse up to 99, respiratory rate of 14, temperature 97.6, oxygen saturation 97%. Weight 171 pounds, height 5 feet 8 inches, BMI 26. General: Ms. Garcia is lying in bed. HEENT: Head is somewhat down with the headaches. She appears normocephalic, atraumatic. Sclerae an icteric. Oropharynx pink, moist. Neck: Supple. Chest: Clear. Heart: Regular. Extremities: Show no clubbing, cyanosis, or edema. Neurological: Left homonymous hemianopsia. Otherwise, cranial nerve intact. She does have some mil d residual left-sided weakness compared to the right side, but really close to full strength. Sensat ion is intact in left and right. Coordination intact in left and right. She did some bed mobility e xercises. She did not ambulate earlier with the physical therapist and she did scoot laterally and m carlos manuel around in bed and complained of significant headache at the time the therapist was evaluating he r and did not necessarily want to ambulate because of her pain. Laboratory Studies: As noted, complete blood count, differential is essentially normal. INR is pend ing. She does have other stroke workup pending including protein C, protein S, factor V Leiden, and antithrombin 3 activity. Her most recent head CT scan done today at 2:13 did show a large right posterior circulation stroke w ith possibility of a hemorrhagic conversion noted. The MRA of her neck identified no flow limiting s tenosis within her neck. The MRA of her brain showed [id number] stenosis in the right A-1 se gment and distal right M1 segment. There was an occluded right V4 segment of the vertebral artery an d left vertebral and basilar artery are patent. There was moderate focal stenosis of the right dista l P1 segment of the posterior cerebral artery. The brain MRI done on August 15 showed moderate-to -large right occipital lobe infarct with small amount of petechial hemorrhage. Carotid artery ultras ound showed mild plaque in the carotid arteries without evidence of hemodynamically significant steno sis. Assessment: Ms. Garcia is an 88-year-old patient with hypertension, diabetes mellitus, dyslipidemi a, and a right posterior circulation stroke with multiple vessels in intercerebral territory showing areas of focal stenosis. There was reported atrial fibrillation, which is likely paroxysmal and may give rise to cardioembolic strokes. Currently, there is a possibility of hemorrhagic conversion as n oted. She is not on full anticoagulation, but aspirin 81 mg daily. She needs to be evaluated fully for physical therapy. She needs an interval scan of her brain CT scan to determine if there is any c hange in the potential petechial hemorrhage or hemorrhagic transformation of the ischemic stroke. Sh e will likely require restarting of anticoagulation for atrial fibrillation to reduce risk of the thr omboembolic stroke as noted. Next, at this point, her blood pressure may be kept around the range of 130s to 150s to minimize the risk of both worsening hemorrhage and worsening ischemic stroke. Aggre ssive management of diabetes mellitus to maintain normal glucose levels to reduce the effective hyper glycemia on worsening her stroke. Also, high-dose statin. Next, folic acid 1 mg daily and she may h ave Lovenox for DVT prophylaxis 30 mg daily. She should be evaluated for acute inpatient rehabilitat ion. ROMAN/STEVE Voice ID: [id number] Report ID: [id number]
[2023-08-18] MEDS: HYDROCODONE/APAP 5/325 MG TAB PO PRN ×3 (00:59→20:27)
[2023-08-18 04:48] VITALS: BMI 25.8
[2023-08-18] MEDS: LIDOCAINE 4% PATCH TOP SCH (09:02)
[2023-08-18] MEDS: FOLIC ACID 1 MG TABLET PO SCH (09:02)
[2023-08-18] MEDS: DRISDOL (VITAMIN D=ERGOCALCIFEROL) 50000 UNIT CAP PO SCH (09:02)
[2023-08-18] MEDS: LOSARTAN POTASSIUM 50 MG TABLET PO SCH ×2 (09:03→20:27)
[2023-08-18 09:23] LABS: Phosphorus 3.4 mg/dL (2.5-4.9)
[2023-08-18 09:24] LABS: Potassium 4.3 mEq/L (3.5-5.1)
[2023-08-18 09:25] LABS: Magnesium 2.1 mg/dL (1.6-2.4)
--- NOTE | 2023-08-18 12:45 | P.PN ---
Nephrology Complains of some posterior MAGDALENO with radiation down neck, NAD. BP mod elevated Vitals, medications, blood work and imaging reviewed in the chart. General: In no apparent distress HEENT: Atraumatic Neck: Supple Respiratory: Clear to auscultation bilaterally mostly Cardiovascular: No edema, Regular rate/rhythm Gastrointestinal: Soft and benign, Non-distended Musculoskeletal: Shins are non tender Neuro: Awake, EOMI, responds appropriately, no speech dysarthria Imagings Data: darrenrice EXAM DESCRIPTION: RADChest Single View08/15/2023 5:05 pm CLINICAL HISTORY: CVA COMPARISON: July 2023 FINDINGS: Pulmonary vascular congestion. Lungs appear clear of acute infiltrate. Heart is moderately enlarged darrenrice EXAM DESCRIPTION: MRI - Brain Wo Cont - 08/15/2023 3:30 pm CLINICAL HISTORY: Acute CVA COMPARISON: Head CT August 15, 2023 TECHNIQUE: Axial, sagittal, and coronal magnetic resonance images of the brain were obtained. FINDINGS: Moderate to large area of abnormal signal on diffusion-weighted/ADC mapping right occipital lobe compatible with acute infarction. Gradient echo images demonstrate small area of low signal compatible with petechial hemorrhage. Small to moderate abnormal signal periventricular, deep and subcortical white matter compatible with ischemic changes secondary to small vessel disease The ventricles are normal caliber. An extra-axial fluid collection is not noted. Fluid within the sinuses/mastoids is not seen IMPRESSION: Moderate to large acute right occipital lobe infarction with small amount of petechial hemorrhage darrenrice EXAM DESCRIPTION: USCarotid Artery Bilateral08/15/2023 4:06 pm CLINICAL HISTORY: Acute CVA COMPARISON: None FINDINGS: The velocity of the right internal carotid artery equals 50 cm/sec. The right ICA/CCA ratio normal The velocity of the left internal carotid artery equals 52 cm/sec. The left ICA/CCA ratio normal Mild plaque is present within the carotid arteries. The vertebral arteries demonstrate antegrade flow IMPRESSION: Mild plaque within the carotid arteries without evidence of a hemodynamically significant stenosis Conclusions/Impression: Stage I KING -Cr level lower on repeat testing Chronic HTN -Initial permissive HTN but now > 48h and since CT head showed some hemorrhagic component, target SBP 140 mmHg. Add Amlodipine. ARB prev titrated Right Occipital Lobe Infarction, ischemic CVA -Management per Neurology
--- NOTE | 2023-08-18 13:04 | P.PN ---
Date of Service: 08/18/23 Shawna Mcarthur continues to have a severe headache and neck ache. Topamax did provide some relief with [place] last night. On examination her neck does have a muscular knot on the right side. Lidocaine patch was ordered yesterday to address this She is working with therapy well. And will be evaluated for inpatient rehab for continued aggressive therapy. ROS 10 point ROS as noted above, otherwise negative Physical Exam General: Alert, Oriented x3, Acute distress (headache) HEENT: Atraumatic, Normocephalic, PERRLA Neck: Supple, 2+ carotid pulse no bruit, JVD not distended Respiratory: Clear to auscultation bilaterally, Normal air movement Cardiovascular: No edema, Normal pulses, Regular rate/rhythm, Normal S1 S2 Capillary refill: <2 Seconds Gastrointestinal: Normal bowel sounds, Soft and benign Musculoskeletal: No clubbing, Other (bilateral lower extremity swelling and foot drop) Integumentary: No rashes, No breakdown, No significant lesion, No tenderness/swelling Neurological: Normal speech, Normal strength at 5/5 x4 extr, Normal tone Vitals Reviewed Problem list Acute right occipital lobe Cerebrovascular Accident in a patient with previous CVA Visual (blurry vision)- correction no hearing disturbance Severe neck and headache KING versus CKD DM type 2 NIDDM Hx PVD Assessment and Plan Acute right occipital lobe Cerebrovascular Accident in a patient with previous CVA Visual (blurry vision) Severe neck and headache - CT scan, there is evidence of a 5.3 centimeter low-density area has developed within the right occipital lobe compatible with acute infarction. - Serial Head CT reports "Large right occipital lobe CVA is again noted. Subtle increased density within the infarcted parenchyma noted which could indicate slight hemorrhagic conversion. No significant bleed is present, however. No midline shift or hydrocephalus appear." -Brain MRI with MRA Reports ": 1. Anterior circulation: Focal stenoses which are at least moderate (and may be severe) suspected at the right A2 segment of the anterior cerebral artery and distal right M1 segment middle cerebral artery. 2. 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 The left vertebral artery and basilar artery are patent. At least moderate focal stenosis of the right distal P1 segment of the right posterior cerebral artery. -CT head 08/18-"no significant change in the right occipital lobe infarct. Small amount of hemorrhagic conversion unchanged." -Neck MRA- No flow limiting stenosis identified within the neck. Patulous esophagus. - Consulted Neurology - spoke with Dr. Francis requesting serial CT head - Admitted under observation status change to inpatient - Previous CVA with residual of left-sided weakness - q4hr neurochecks - MR brain reports "Moderate to large acute right occipital lobe infarction with small amount of petechial hemorrhage." - ECHO still pending - bilateral carotid dopplers reports "Mild plaque within the carotid arteries without evidence of a hemodynamically significant stenosis." - PT ambulated 120 feet - COW RIDER evaluation passed swallow evaluation - Ordered risk profile: Hgb A1c 5.9, lipid panel (Triglyceride 183, chol 202, LDL 93, HDL 72), TSH 1.240/free T4 6.2 - aspirin starting (08/18), atorvastatin and folic acid started 08/15 -Correction: aspirin was held 08/15, will start Asa and lovenox 08/[address] Francis's recommendation - GCS 15, NIHSS 0 on examination residual left sided weakness from previous CVA but able to ambulate - Initial BP 151 / 76, SBP 168-177 (08/18)- amlodipine added -topamax 25 mg PO HS, [place] 5-325 -Dr. Francis recommends specialized glasses that will provide clear vision, she will follow-up with him as outpatient Hypokalemia K 4.3 (08/18) replete PRN monitor in AM labs History of Afib Lovenox started today (08/18) Sotalol started today (08/18) A-fib heart rate 96 (08/18) KING versus CKD -Consult nephrology -continue Gentle IV fluids -BUN/creatinine 18/0.79, GFR 72 DM type 2 NIDDM -Diet management -Accucheck with SSI -A1C 5.9 -serum glucose 98 Hypertensive disorder SBP 168-177 OVN Losartan changed to 50 mg (08/17) Amlodipine 5 mg added (08/18) Hx PVD -stents placed in bilateral lower extremities HX GERD Hx Gout Hx Depressive disorder -Continue home medications - Supportive care DVT PPx Lovenox starting 08/18, Heparin was held on admission 08/15 d/t possible hemorrhage DNR LOS 2 to 3 days-being evaluated for inpatient rehab Time Spent Managing Pts Care (In Minutes): 35
[2023-08-18] MEDS: AMLODIPINE 5 MG TAB PO SCH (14:12)
[2023-08-18 14:53] LABS: Absolute Lymphocytes (CBC) 1.8 K/uL (0.7-4.9); Hematocrit 42.4 % (36.0-45.0); Lymphocytes % 23.9 % (15.3-44.8); MCV 92.7 fL (80-100); MPV 8.3 fL (7.6-11.3); Platelets 267 thou/uL (152-406); RBC Red Blood Cell Count 4.57 M/uL (3.86-4.86)
--- NOTE | 2023-08-18 15:30 | RAD REPORT ---
EXAM DESCRIPTION: CT - Head Brain Wo Cont - 08/18/2023 3:14 pm CLINICAL HISTORY: CVA COMPARISON: August 16 and August 17, 2023 CT TECHNIQUE: Computed axial tomography of the head was obtained. IV contrast was not requested. All CT scans are performed using dose optimization technique as appropriate and may include automated exposure control or mA/KV adjustment according to patient size. FINDINGS: The ventricles are normal in caliber No extra-axial fluid collection is noted. No significant change in the right occipital lobe infarction. Small amount of hemorrhagic conversion unchanged Fluid within the sinuses/ mastoids is not seen. IMPRESSION: No significant change in the right occipital lobe infarction. Small amount of hemorrhagi c conversion unchanged
[2023-08-18] MEDS: ASPIRIN EC 81 MG TAB PO SCH (18:19)
[2023-08-18] MEDS: SOTALOL HCL 80 MG TAB PO SCH (18:19)
[2023-08-18] MEDS: ENOXAPARIN 40 MG/0.4 ML SQ SCH (18:20)
[2023-08-18] MEDS: TOPIRAMATE 25 MG TAB PO SCH (20:27)
[2023-08-18] MEDS: ATORVASTATIN 40 MG TAB PO SCH (20:27)
[2023-08-18] MEDS ORDERED: LACTULOSE 20 GM/30 ML UCUP PO PRN (20:47)
[2023-08-18] MEDS ORDERED: KETOROLAC 30 MG/ML INJ IV ONE (22:41)
[2023-08-18] MEDS: DOCUSATE NA 100 MG CAP PO SCH (23:49)
[2023-08-19 03:55] LABS: Absolute Lymphocytes (CBC) 2.6 K/uL (0.7-4.9); Hematocrit 37.8 % (36.0-45.0); Lymphocytes % 32.1 % (15.3-44.8); MCV 92.3 fL (80-100); MPV 8.3 fL (7.6-11.3); Platelets 244 thou/uL (152-406); RBC Red Blood Cell Count 4.09 M/uL (3.86-4.86)
[2023-08-19 04:15] LABS: Magnesium 2.2 mg/dL (1.6-2.4); Phosphorus 3.7 mg/dL (2.5-4.9); Potassium 3.9 mEq/L (3.5-5.1)
[2023-08-19] MEDS: ACETAMIN/CAFFEINE/BUTALB TAB PO PRN (05:41)
[2023-08-19] MEDS: SOTALOL HCL 80 MG TAB PO SCH ×2 (05:42→17:33)
--- NOTE | 2023-08-19 08:16 | P.PN ---
Date of Service: 08/19/23 Subjective A flutter heart rate 76 on telemetry Blood pressure improved since adding amlodipine, 127/67, 143/73 Started Lovenox and aspirin 08/18-will monitor for bleeding Working well with physical therapy, ambulated 100 feet and wheelchair mobility 200 feet without a headache but with dizziness and a few rest breaks. on examination this morning, she reports a severe headache ROS 10 point ROS as noted above, otherwise negative Physical Exam General: Alert, Oriented x3, Acute distress (headache) HEENT: Atraumatic, Normocephalic, lazy left eye lid Neck: Supple, 2+ carotid pulse no bruit, JVD not distended Respiratory: Clear to auscultation bilaterally, Normal air movement Cardiovascular: No edema, Normal pulses, Regular rate/rhythm, Normal S1 S2 Capillary refill: <2 Seconds Gastrointestinal: Normal bowel sounds, Soft and benign Musculoskeletal: No clubbing, Other (bilateral lower extremity swelling and foot drop) Integumentary: No rashes, No breakdown, No significant lesion, No tenderness/swelling Neurological: Normal speech, Normal strength at 5/5 x4 extr, Normal tone Vitals Reviewed Problem list Acute right occipital lobe Cerebrovascular Accident in a patient with previous CVA Visual (blurry vision) Severe neck and headache KING versus CKD DM type 2 NIDDM Hx PVD Assessment and Plan Acute right occipital lobe Cerebrovascular Accident in a patient with previous CVA Visual (blurry vision) Severe neck and headache - CT scan, there is evidence of a 5.3 centimeter low-density area has developed within the right occipital lobe compatible with acute infarction. - Serial Head CT reports "Large right occipital lobe CVA is again noted. Subtle increased density within the infarcted parenchyma noted which could indicate slight hemorrhagic conversion. No significant bleed is present, however. No mid line shift or hydrocephalus appear." -Brain MRI with MRA Reports ": 1. Anterior circulation: Focal stenoses which are at least moderate (and may be severe) suspected at the right A2 segment of the anterior cerebral artery and distal right M1 segment middle cerebral artery. 2. 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 The left vertebral artery and basilar artery are patent. At least moderate focal stenosis of the right distal P1 segment of the right posterior cerebral artery. -CT head 08/18-"no significant change in the right occipital lobe infarct. Small amount of hemorrhagic conversion unchanged." -Neck MRA- No flow limiting stenosis identified within the neck. Patulous esophagus. - Consulted Neurology - spoke with Dr. Francis requesting serial CT head - Admitted under observation status change to inpatient - Previous CVA with residual of left-sided weakness - q4hr neurochecks - MR brain reports "Moderate to large acute right occipital lobe infarction with small amount of petechial hemorrhage." - ECHO still pending - bilateral carotid dopplers reports "Mild plaque within the carotid arteries without evidence of a hemodynamically significant stenosis." - PT ambulated 120 feet - LINE SERVICER evaluation passed swallow evaluation - Ordered risk profile: Hgb A1c 5.9, lipid panel (Triglyceride 183, chol 202, LDL 93, HDL 72), TSH 1.240/free T4 6.2 - aspirin starting (08/18), atorvastatin and folic acid started 08/15 -Correction: aspirin was held 08/15, will start Asa and lovenox 08/[address] Francis's recommendation - GCS 15, NIHSS 0 on examination residual left sided weakness from previous CVA but able to ambulate - Initial BP 151 / 76, BP 127/67- amlodipine is effective -topamax 25 mg PO HS, [place] 5-325 -Dr. Francis recommends specialized glasses that will provide clear vision, she will follow-up with him as outpatient Hypokalemia- resolved K 3.9 (08/18) replete PRN monitor in AM labs History of Afib Lovenox started today (08/18) Sotalol started today (08/18) A-fib heart rate 96 (08/18) KING versus CKD -Consult nephrology -continue Gentle IV fluids -BUN/creatinine 25/0.96, GFR 57 DM type 2 NIDDM -Diet management -Accucheck with SSI -A1C 5.9 -serum glucose 104 Hypertensive disorder BP 127/67 Losartan changed to 50 mg (08/17) Amlodipine 5 mg added (08/18) Hx PVD -stents placed in bilateral lower extremities HX GERD Hx Gout Hx Depressive disorder -Continue home medications - Supportive care DVT PPx Lovenox starting 08/18 DNR LOS 2 to 3 days-being evaluated for inpatient rehab
[2023-08-19] MEDS ORDERED: POTASSIUM CL SA 10 MEQ TAB PO ONE (09:00)
[2023-08-19] MEDS: FOLIC ACID 1 MG TABLET PO SCH (10:11)
[2023-08-19] MEDS: ENOXAPARIN 40 MG/0.4 ML SQ SCH (10:11)
[2023-08-19] MEDS: AMLODIPINE 5 MG TAB PO SCH (10:12)
[2023-08-19] MEDS: ASPIRIN EC 81 MG TAB PO SCH (10:12)
[2023-08-19] MEDS: LIDOCAINE 4% PATCH TOP SCH (10:13)
[2023-08-19] MEDS: LOSARTAN POTASSIUM 50 MG TABLET PO SCH ×2 (10:13→20:40)
[2023-08-19] MEDS: DOCUSATE NA 100 MG CAP PO SCH ×3 (10:13→20:59)
[2023-08-19] MEDS: HYDROCODONE/APAP 5/325 MG TAB PO PRN ×2 (10:22→20:40)
[2023-08-19] MEDS: ATORVASTATIN 40 MG TAB PO SCH (20:40)
[2023-08-19] MEDS: TOPIRAMATE 25 MG TAB PO SCH (20:40)
[2023-08-20] MEDS: SOTALOL HCL 80 MG TAB PO SCH (05:03)
[2023-08-20 07:33] LABS: Absolute Lymphocytes (CBC) 1.8 K/uL (0.7-4.9); Hematocrit 41.4 % (36.0-45.0); MPV 8.2 fL (7.6-11.3); Platelets 227 thou/uL (152-406); RBC Red Blood Cell Count 4.45 M/uL (3.86-4.86)
[2023-08-20 07:50] LABS: Magnesium 2.3 mg/dL (1.6-2.4); Phosphorus 2.6 mg/dL (2.5-4.9); Potassium 3.9 mEq/L (3.5-5.1)
--- NOTE | 2023-08-20 09:44 | P.PN ---
Date of Service: 08/20/23 Vital Signs Temp Pulse Resp BP Pulse Ox 97.7 F 83 16 167/85 H 98 08/20/23 07:27 08/20/23 07:27 08/20/23 07:27 08/20/23 07:27 08/20/23 07:27 Medications Acetaminophen/Butalbital/Caffeine (Acetamin/Caffeine/Butalb Tab) 1 tab PO Q4H PRN PRN Reason: Pain scale 8-10 (Severe) Last Admin: 08/19/23 05:41 Dose: 1 tab Hydrocodone Bitart/Acetaminophen (Hydrocodone/Apap 5/325 Mg Tab) 1 tab PO Q4H PRN PRN Reason: Pain scale 5-7 (Moderate) Last Admin: 08/19/23 20:40 Dose: 1 tab Amlodipine Besylate (Amlodipine 5 Mg Tab) 5 mg PO DAILY [facility] Last Admin: 08/19/23 10:12 Dose: 5 mg Aspirin (Aspirin Ec 81 Mg Tab) 81 mg PO DAILY [facility] Last Admin: 08/19/23 10:12 Dose: 81 mg Atorvastatin Calcium (Atorvastatin 40 Mg Tab) 40 mg PO BEDTIME [facility] Last Admin: 08/19/23 20:40 Dose: 40 mg Docusate Sodium (Docusate Na 100 Mg Cap) 100 mg PO BID [facility] Last Admin: 08/19/23 20:59 Dose: Not Given Enoxaparin Sodium (Enoxaparin 40 Mg/0.4 Ml) 40 mg SQ DAILY [facility] Last Admin: 08/19/23 10:11 Dose: 40 mg Folic Acid (Folic Acid 1 Mg Tablet) 1 mg PO DAILY [facility] Last Admin: 08/19/23 10:11 Dose: 1 mg Hydralazine HCl (Hydralazine Hcl 20 Mg/Ml Vial) 10 mg IV Q4HP PRN PRN Reason: Goal to achieve SBP in comment Lactulose (Lactulose 20 Gm/30 Ml Ucup) 10 gm PO BID PRN PRN Reason: CONSTIPATION Lidocaine (Lidocaine 4% Patch) 1 patch TOP DAILY [facility] Last Admin: 08/19/23 10:13 Dose: 1 patch Losartan Potassium (Losartan Potassium 50 Mg Tablet) 50 mg PO BID [facility] Last Admin: 08/19/23 20:40 Dose: 50 mg Ondansetron HCl (Ondansetron 4 Mg/2 Ml Vial) 4 mg IV Q6HP PRN PRN Reason: NAUSEA / VOMITING Sotalol HCl (Sotalol Hcl 80 Mg Tab) 40 mg PO BID 6AM 6PM [facility] Last Admin: 08/20/23 05:03 Dose: 40 mg Topiramate (Topiramate 25 Mg Tab) 25 mg PO BEDTIME [facility] Last Admin: 08/19/23 20:40 Dose: 25 mg Assessment/ Plan: Nephrology No dyspnea No chest pain Weakness and fatigue. Headache. Malaise. No acute events overnight Vitals, medications, blood work and imaging reviewed in the chart. General: In no apparent distress HEENT: Atraumatic Neck: Supple Respiratory: Clear to auscultation bilaterally Cardiovascular: No edema, Regular rate/rhythm Gastrointestinal: Soft and benign, Non-distended Musculoskeletal: No clubbing, No contractures Integumentary: No rashes, No cyanosis Laboratory Data (last 24 hrs) 08/15/23 08/15/23 13:00 13:00 WBC 8.90 Hgb 14.6 Hct 43.4 Plt Count 377 Sodium 136 Potassium 3.6 BUN 23 H Creatinine 1.14 H Glucose 95 Total Bilirubin 0.4 AST 12 L ALT 19 Alkaline Phosphatase 108 Imagings Data: darrenrice EXAM DESCRIPTION: RADChest Single View08/15/2023 5:05 pm CLINICAL HISTORY: CVA COMPARISON: July 2023 FINDINGS: Pulmonary vascular congestion. Lungs appear clear of acute infiltrate. Heart is moderately enlarged darrenrice EXAM DESCRIPTION: MRI - Brain Wo Cont - 08/15/2023 3:30 pm CLINICAL HISTORY: Acute CVA COMPARISON: Head CT August 15, 2023 TECHNIQUE: Axial, sagittal, and coronal magnetic resonance images of the brain were obtained. FINDINGS: Moderate to large area of abnormal signal on diffusion-weighted/ADC mapping right occipital lobe compatible with acute infarction. Gradient echo images demonstrate small area of low signal compatible with petechial hemorrhage. Small to moderate abnormal signal periventricular, deep and subcortical white matter compatible with ischemic changes secondary to small vessel disease The ventricles are normal caliber. An extra-axial fluid collection is not noted. Fluid within the sinuses/mastoids is not seen IMPRESSION: Moderate to large acute right occipital lobe infarction with small amount of petechial hemorrhage darrenrice EXAM DESCRIPTION: USCarotid Artery Bilateral08/15/2023 4:06 pm CLINICAL HISTORY: Acute CVA COMPARISON: None FINDINGS: The velocity of the right internal carotid artery equals 50 cm/sec. The right ICA/CCA ratio normal The velocity of the left internal carotid artery equals 52 cm/sec. The left ICA/CCA ratio normal Mild plaque is present within the carotid arteries. The vertebral arteries demonstrate antegrade flow IMPRESSION: Mild plaque within the carotid arteries without evidence of a hemodynamically significant stenosis Conclusions/Impression: Stage I KING CKD II -No NSAIDs Hypokalemia -Replete prn HTN -Continue Losartan 50mg BID -Continue Amlodipine; titrate as needed Right Occipital Lobe Infarction -Continue Atorvastatin -Neurology following -PT as tolerated Vitamin D3 Deficiency -Consider Ergo Hospitalist note reviewed Case reviewed with hospitalist team
[2023-08-20] MEDS: LOSARTAN POTASSIUM 50 MG TABLET PO SCH (10:03)
[2023-08-20] MEDS: FOLIC ACID 1 MG TABLET PO SCH (10:03)
[2023-08-20] MEDS: DOCUSATE NA 100 MG CAP PO SCH ×2 (10:03→20:57)
[2023-08-20] MEDS: DRISDOL (VITAMIN D=ERGOCALCIFEROL) 50000 UNIT CAP PO SCH (10:03)
[2023-08-20] MEDS: AMLODIPINE 5 MG TAB PO SCH (10:03)
[2023-08-20] MEDS: ASPIRIN EC 81 MG TAB PO SCH (10:03)
[2023-08-20] MEDS: LIDOCAINE 4% PATCH TOP SCH (10:03)
[2023-08-20] MEDS: ENOXAPARIN 40 MG/0.4 ML SQ SCH (10:03)
--- NOTE | 2023-08-20 10:08 | RAD REPORT ---
EXAM DESCRIPTION: CT - Head Brain Wo Cont - 08/20/2023 9:32 am CLINICAL HISTORY: Serial for CVA COMPARISON: Head Brain Wo Cont dated 08/18/2023; Head Brain Wo Cont dated 08/17/2023; MRA Head Wo Cont dated 08/17/2023; Brain Wo Cont dated 08/15/2023 TECHNIQUE: Noncontrast head CT images were obtained without IV contrast. Multiplanar reformats were generated and reviewed. All CT scans are performed using dose optimization technique as appropriate and may include automated exposure control or mA/KV adjustment according to patient size. FINDINGS: Stable extent of subacute infarct in the right parieto-occipital region, with stable faint gyral hyperdense staining. Stable mild adjacent edema. No other intracranial hemorrhage, or mass. Mi dline structures are unremarkable. Normal ventricular caliber for age. Patchy periventricular hypodensities, nonspecific, but suggestive of chronic small vessel ischemic ch anges, stable. Boogie-white matter differentiation elsewhere is preserved, without evidence of acute infarct. No abnor mal extra-axial fluid collections. Mastoid air cells and visualized portions of the paranasal sinuses are clear. No acute bony findings. IMPRESSION: Stable extent of right parieto-occipital subacute infarct, with stable petechial hemorrh agic change. No significant interval change.
[2023-08-20] MEDS: ACETAMIN/CAFFEINE/BUTALB TAB PO PRN (12:26)
[2023-08-20 12:46] LABS: Albumin, (SPE) 4.2 g/dL (3.8-4.8); Alpha-1-Globulins 0.3 g/dL (0.2-0.3); Alpha-2-Globulins 0.8 g/dL (0.5-0.9); Gamma Globulins 0.8 g/dL (0.8-1.7); INTERPRETATION REPORT
[2023-08-20] MEDS ORDERED: HOME MED 1 EA UNK (Sennosides [Senna] 8.6 MG Capsule) PO PRN (15:14)
[2023-08-20] MEDS ORDERED: POLYETHYL GLY 3350 17 GM/DOSE PO PRN (15:14)
[2023-08-20] MEDS ORDERED: SENOSIDES 8.6 MG TAB PO PRN (15:28)
--- NOTE | 2023-08-20 17:09 | EKG ---
Test Date: 2023-08-16 Test Time: 11:20:30 Budget Clerk: IMAN MEASUREMENT RESULTS: Intervals: Rate: 70 SD: QRSD: 70 QT: 378 QTc: 408 Gray: P: SD: QRS: 24 T: 66 INTERPRETIVE STATEMENTS: Atrial fibrillation Anteroseptal infarct, age undetermined Abnormal ECG Compared to ECG 07/25/2023 14:28:04 Ventricular premature complex(es) no longer present Left-axis deviation no longer present Myocardial infarct finding still present Electronically Signed On 08-20-23 17:00:23 SWITCH ENGINEER by Khoi Vences
--- NOTE | 2023-08-20 17:20 | P.PN ---
Date of Service: 08/20/23 Subjective heart rate Afib 69 on telemetry Sleeping well, easily aroused, some headache this morning, Opening both eyes today plan to discharge to [facility] in the AM with lipitor, ASA, topamax 50 mg ROS 10 point ROS as noted above, otherwise negative Physical Exam General: AAO x3, Acute distress (headache) HEENT: Atraumatic, Normocephalic, Eyes opening wide Neck: Supple, 2+ carotid pulse no bruit, JVD not distended Respiratory: Clear to auscultation bilaterally, Normal air movement Cardiovascular: No edema, Normal pulses, Regular rate/rhythm, Normal S1 S2 Capillary refill: <2 Seconds Gastrointestinal: Normal bowel sounds, Soft and benign Musculoskeletal: No clubbing, Other (bilateral lower extremity swelling and foot drop) Integumentary: No rashes, No breakdown, No significant lesion, No tenderness/swelling Neurological: Normal speech, Normal strength at 5/5 x4 extr, Normal tone Vitals Reviewed Problem list Acute right occipital lobe Cerebrovascular Accident in a patient with previous CVA Visual (blurry vision) Severe neck and headache KING versus CKD DM type 2 NIDDM Hx PVD Assessment and Plan Acute right occipital lobe Cerebrovascular Accident in a patient with previous CVA Visual (blurry vision) Severe neck and headache - CT scan, there is evidence of a 5.3 centimeter low-density area has developed within the right occipital lobe compatible with acute infarction. - Serial Head CT reports "Large right occipital lobe CVA is again noted. Subtle increased density within the infarcted parenchyma noted which could indicate slight hemorrhagic conversion. No significant bleed is present, however. No midline shift or hydrocephalus appear." -Brain MRI with MRA Reports ": 1. Anterior circulation: Focal stenoses which are at least moderate (and may be severe) suspected at the right A2 segment of the anterior cerebral artery and distal right M1 segment middle cerebral artery. 2. 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 The left vertebral artery and basilar artery are patent. At least moderate focal stenosis of the right distal P1 segment of the right posterior cerebral artery. -CT head 08/18-"no significant change in the right occipital lobe infarct. Small amount of hemorrhagic conversion unchanged." -Neck MRA- No flow limiting stenosis identified within the neck. Patulous esophagus. - Consulted Neurology - spoke with Dr. Francis requesting serial CT head - Admitted under observation status change to inpatient - Previous CVA with residual of left-sided weakness - q4hr neurochecks - MR brain reports "Moderate to large acute right occipital lobe infarction with small amount of petechial hemorrhage." - ECHO still pending - bilateral carotid dopplers reports "Mild plaque within the carotid arteries without evidence of a hemodynamically significant stenosis." - PT ambulated 120 feet - CASE OPERATOR evaluation passed swallow evaluation - Ordered risk profile: Hgb A1c 5.9, lipid panel (Triglyceride 183, chol 202, LDL 93, HDL 72), TSH 1.240/free T4 6.2 - aspirin starting (08/18), atorvastatin and folic acid started 08/15 -Correction: aspirin was held 08/15, will start Asa and lovenox 08/[address] Francis's recommendation - initial GCS 15, NIHSS 0 on examination residual left sided weakness from previous CVA but able to ambulate - Initial BP 151 / 76, BP 127/67- amlodipine is effective -topamax 50 mg PO HS increased 08/20 and added magox to help with the headache - [place] 5-325 -Dr. Francis recommends specialized glasses that will provide clear vision, she will follow-up with him as outpatient Hypokalemia- resolved K 3.9 (08/19) replete PRN monitor in AM labs History of Afib Lovenox started today (08/18) Sotalol started today (08/18) A-fib Heart rate 69 (08/19) KING versus CKD -Consult nephrology -continue Gentle IV fluids -BUN/creatinine 23/1.04, GFR 52 DM type 2 NIDDM -Diet management -Accucheck with SSI -A1C 5.9 -serum glucose 104 Hypertensive disorder BP 167/85 Losartan changed to 50 mg (08/17) Amlodipine 5 mg added (08/18) Hx PVD -stents placed in bilateral lower extremities HX GERD Hx Gout Hx Depressive disorder -Continue home medications - Supportive care DVT PPx Lovenox DNR LOS Likely discharge tomorrow 08/21/23- plan to discharge to [facility] in the AM with lipitor, ASA, topamax 50 mg, no plavix
[2023-08-20] MEDS: LOTEPREDNOL ETABONATE OPTH SCH (20:55)
[2023-08-20] MEDS: GABAPENTIN 400 MG CAP PO SCH (20:57)
[2023-08-20] MEDS: ATORVASTATIN 40 MG TAB PO SCH (20:57)
[2023-08-20] MEDS: MAGNESIUM OXIDE 400 MG TAB PO SCH (20:57)
[2023-08-20] MEDS: BACLOFEN 10 MG TAB PO SCH (20:57)
[2023-08-20] MEDS ORDERED: TOPIRAMATE 25 MG TAB PO SCH (21:00)
[2023-08-20] MEDS ORDERED: DOCUSATE NA 100 MG CAP PO SCH (21:00)
[2023-08-21 00:29] VITALS: O2SAT 100
[2023-08-21 05:17] LABS: Absolute Lymphocytes (CBC) 1.7 K/uL (0.7-4.9); Hematocrit 38.8 % (36.0-45.0); Lymphocytes % 24.1 % (15.3-44.8); MCV 92.5 fL (80-100); MPV 8.7 fL (7.6-11.3); Platelets 226 thou/uL (152-406)
[2023-08-21 05:29] LABS: Magnesium 2.2 mg/dL (1.6-2.4); Phosphorus 2.5 mg/dL (2.5-4.9); Potassium 4.2 mEq/L (3.5-5.1)
[2023-08-21] MEDS ORDERED: PANTOPRAZOLE 40MG TABLET PO SCH (07:30)
[2023-08-21] MEDS: LIDOCAINE 4% PATCH TOP SCH (08:48)
[2023-08-21] MEDS: ENOXAPARIN 40 MG/0.4 ML SQ SCH (08:48)
[2023-08-21] MEDS: GABAPENTIN 400 MG CAP PO SCH ×2 (08:50→14:00)
[2023-08-21] MEDS: BACLOFEN 10 MG TAB PO SCH (08:51)
[2023-08-21] MEDS: FOLIC ACID 1 MG TABLET PO SCH (08:52)
[2023-08-21] MEDS: ASPIRIN EC 81 MG TAB PO SCH (08:53)
[2023-08-21] MEDS: DOCUSATE NA 100 MG CAP PO SCH (08:54)
[2023-08-21] MEDS: LOTEPREDNOL ETABONATE OPTH SCH (08:58)
[2023-08-21] MEDS: MAGNESIUM OXIDE 400 MG TAB PO SCH (08:58)
[2023-08-21] MEDS ORDERED: METOPROLOL XL 25 MG TAB PO SCH (09:00)
[2023-08-21] MEDS ORDERED: CITALOPRAM 10 MG TABLET PO SCH (09:00)
[2023-08-21] MEDS ORDERED: HOME MED 1 EA UNK (Omeprazole [Prilosec] 20 MG Capsule.Dr) PO SCH (09:00)
[2023-08-21] MEDS ORDERED: COENZYME Q10- 200 MG CAP PO SCH (09:00)
[2023-08-21] MEDS ORDERED: FUROSEMIDE 40 MG TABLET PO SCH (09:00)
[2023-08-21] MEDS ORDERED: HOME MED 1 EA UNK (Losartan Potassium [Cozaar] 25 MG Tablet) PO SCH (09:00)
[2023-08-21] MEDS ORDERED: HOME MED 1 EA UNK (Multivitamin With Minerals [Multivitamins With Minerals] Tablet) PO SCH (09:00)
[2023-08-21] MEDS ORDERED: DRISDOL (VITAMIN D=ERGOCALCIFEROL) 50000 UNIT CAP PO SCH (09:00)
[2023-08-21] MEDS ORDERED: Multi-VIT(Centravite Senior) 1 TAB TAB PO SCH (09:00)
[2023-08-21] MEDS ORDERED: LOSARTAN POTASSIUM 50 MG TABLET PO SCH (09:00)
[2023-08-21] MEDS ORDERED: POTASSIUM CL SA 10 MEQ TAB PO SCH (09:00)
[2023-08-21] MEDS ORDERED: VITAMIN D 1000 UNIT TAB PO SCH (09:00)
[2023-08-21] MEDS ORDERED: BISACODYL E.C. 5 MG TAB PO SCH (09:00)
--- NOTE | 2023-08-21 12:26 | P.DS ---
Admission Date: 08/15/23 Discharge Date: 08/21/23 Disposition: ROUTINE DISCHARGE Discharge Condition: GOOD Reason for Admission: headache, acute CVA Consultations: Neurology- Dr. Francis Nephrology- Dr. Perez Brief History of Present Illness: Lyubov Garcia is an 88-year-old female with past medical history of hypertensive disorder, previous CVA (residual left sided weakness), diabetes mellitus type 2 NIDDM (no medications at this time), depressive disorder, GERD, gout, and PVD who presents to the ED with complaints of a headache and neck pain for the last 2 to 3 days. She is able to move her neck freely, chin to chest movement. She is outside the window for TNK. She describes a slow onset of this headache, no thunderclap. CT head showing "5.3 centimeter low-density area has developed within the right occipital lobe compatible with acute infarction". Initial vitals BP 151 / 76; Pulse 52; Resp 14; Temp 98.1; Pulse Ox 98%. Laboratory evaluation sodium 136, potassium 3.6, BUN/creatinine 23/1.14, GFR 46, serum glucose 95. GCS 15, NIHSS 0 on examination. Lyubov is a resident at [facility] and is able to ambulate. Lyubov will be admitted to hospitalist service for further treatment of acute CVA to right occipital lobe. Problem list Acute right occipital lobe Cerebrovascular Accident in a patient with previous CVA Visual (blurry vision) Severe neck and headache KING versus CKD DM type 2 NIDDM Hx PVD Patient was admitted to the hospital for acute right occipital lobe infarction, CT showed 5.3 cm low-density area has developed within the right occipital lobe compatible with acute infarction. She had subsequent MRI of the brain performed on 08/15/2023 which showed moderate to large acute right occipital lobe infarction with small amount of petechial hemorrhage. Follow-up CT scans of the head without contrast were performed on 08/17/2023, 08/18/2023, 08/20/2023 which showed stable hemorrhagic conversion without significant enlargement. Patient was evaluated by neurology who recommended single antiplatelet agent with aspirin currently, patient did complain of headache during hospitalization and was prescribed Topamax 50 mg at bedtime which seems to help with her h eadaches. She worked with physical therapy. She is stable for discharge back to [place] at this time. Medication changes Discontinue clopidogrel 75 mg Start aspirin 81 mg daily Start Topamax 50 mg at bedtime Start atorvastatin 40 mg at bedtime Recommend follow-up with cardiology, neurology in the next 2-3 weeks given ischemic CVA with hemorrhagic conversion, there was some noted paroxysmal A-fib as well. Patient will likely need repeat CT of the head in 2 to 3 weeks to evaluate resolution of hemorrhagic conversion to determine plan for further antiplatelet agents/anticoagulation. Hospital Course: Problem list Acute right occipital lobe Cerebrovascular Accident in a patient with previous CVA Visual (blurry vision) Severe neck and headache KING versus CKD DM type 2 NIDDM Hx PVD Patient was admitted to the hospital for acute right occipital lobe infarction, CT showed 5.3 cm low-density area has developed within the right occipital lobe compatible with acute infarction. She had subsequent MRI of the brain performed on 08/15/2023 which showed moderate to large acute right occipital lobe infarction with small amount of petechial hemorrhage. Follow-up CT scans of the head without contrast were performed on 08/17/2023, 08/18/2023, 08/20/2023 which showed stable hemorrhagic conversion without significant enlargement. Patient was evaluated by neurology who recommended single antiplatelet agent with aspirin currently, patient did complain of headache during hospitalization and was prescribed Topamax 50 mg at bedtime which seems to help with her headaches. She worked with physical therapy. She is stable for discharge back to [place] at this time. Medication changes Discontinue clopidogrel 75 mg Start aspirin 81 mg daily Start Topamax 50 mg at bedtime Start atorvastatin 40 mg at bedtime Recommend follow-up with cardiology, neurology in the next 2-3 weeks given ischemic CVA with hemorrhagic conversion, there was some noted paroxysmal A-fib as well. Patient will likely need repeat CT of the head in 2 to 3 weeks to evaluate resolution of hemorrhagic conversion to determine plan for further antiplatelet agents/anticoagulation. Vital Signs/Physical Exam: Temp Pulse Resp BP Pulse Ox 98.4 F 81 14 165/84 H 98 08/21/23 08:00 08/21/23 08:51 08/21/23 08:00 08/21/23 08:51 08/21/23 08:00 General: Alert, In no apparent distress, Oriented x2 HEENT: Atraumatic, PERRLA Neck: Supple, JVD not distended Respiratory: Clear to auscultation bilaterally, Normal air movement Cardiovascular: Regular rate/rhythm, Normal S1 S2 Gastrointestinal: Normal bowel sounds Musculoskeletal: No tenderness Integumentary: No rashes Neurological: Normal speech, Normal tone, Normal affect, Abnormal strength (Left sided weakness previous cva) Laboratory Data at Discharge: WBC 6.90 thou/uL (4.3-10.9) 08/21/23 04:50 Hgb 13.1 g/dL (12.0-15.0) 08/21/23 04:50 Hct 38.8 % (36.0-45.0) 08/21/23 04:50 Plt Count 226 thou/uL (152-406) 08/21/23 04:50 Sodium 137 mEq/L (136-145) 08/21/23 04:50 Potassium 4.2 mEq/L (3.5-5.1) 08/21/23 04:50 BUN 21 mg/dL (7-18) H 08/21/23 04:50 Creatinine 1.05 mg/dL (0.55-1.02) H 08/21/23 04:50 Glucose 114 mg/dL (74-106) H 08/21/23 04:50 Phosphorus 2.5 mg/dL (2.5-4.9) 08/21/23 04:50 Magnesium 2.2 mg/dL (1.6-2.4) 08/21/23 04:50 Total Bilirubin 0.4 mg/dL (0.2-1.0) 08/16/23 02:47 AST 12 U/L (15-37) L 08/16/23 02:47 ALT 15 U/L (13-56) 08/16/23 02:47 Alkaline Phosphatase 80 U/L (45-117) D 08/16/23 02:47 Triglycerides 183 mg/dL (<150) H 08/16/23 02:47 Cholesterol 202 mg/dL (<200) H 08/16/23 02:47 HDL Cholesterol 72 mg/dL (40-60) H 08/16/23 02:47 Cholesterol/HDL Ratio 2.81 08/16/23 02:47 Home Medications: Omeprazole [Prilosec] 20 mg PO DAILY 08/19/15 Furosemide 1 tab PO DAILY 11/30/20 Baclofen [Lioresal*] 10 mg PO BID 07/25/23 Benzonatate [Tessalon Perle*] 100 mg PO TID PRN 07/25/23 Citalopram [Celexa*] 5 mg PO DAILY 07/25/23 Codeine/APAP [Tylenol #3*] 1 tab PO BID 07/25/23 Docusate [Colace Cap*] 100 mg PO BID 07/25/23 Gabapentin [Neurontin*] 400 mg PO TID 07/25/23 Guaifenesin [Mucus Relief] 400 mg PO Q4HP PRN 07/25/23 Hydralazine [Apresoline*] 25 mg PO TID 07/25/23 Levothyroxine [Synthroid*] 50 mcg PO [id number] 07/25/23 Loteprednol Etabonate [Lotemax] 2 drop EACH EYE BID 07/25/23 Meclizine HCl 12.5 mg PO Q8HP PRN 07/25/23 Multivitamin with Minerals [Multivitamins with Minerals] 1 each PO DAILY 07/25/23 Polyethylene Glycol 3350 [Miralax] 17 gm PO DAILYPRN PRN 07/25/23 Potassium Chloride [Klor-Con 10] 20 meq PO DAILY 07/25/23 Sennosides [Senna] 2 tab PO DAILYPRN PRN 07/25/23 Simethicone 125 mg PO Q8HP PRN 07/25/23 bisacodyL [Dulcolax*] 2 tab PO DAILY 07/25/23 Losartan Potassium [Cozaar] 25 mg PO DAILY 30 Days #30 tab 07/27/23 Metoprolol Succinate 25 mg PO DAILY 30 Days #30 tab 07/27/23 Cholecalciferol (Vitamin D3) [Vitamin D 1000 Iu Tab*] 2 tab PO DAILY 08/15/23 Aspirin [Aspirin EC 81 MG] 81 mg PO DAILY #30 tab 08/21/23 Atorvastatin Calcium [Lipitor] 40 mg PO BEDTIME tab 08/21/23 Magnesium Oxide [Mag 0X*] 400 mg PO BID tab 08/21/23 Topiramate [Topamax*] 50 mg PO BEDTIME tab 08/21/23 Ubidecarenone [Coenzyme Q10*] 200 mg PO DAILY cap 08/21/23 New Medications: Aspirin [Aspirin EC 81 MG] 81 mg PO DAILY #30 tab Physician Discharge Instructions: Patient was admitted to the hospital for acute right occipital lobe infarction, CT showed 5.3 cm low-density area has developed within the right occipital lobe compatible with acute infarction. She had subsequent MRI of the brain performed on 08/15/2023 which showed moderate to large acute right occipital lobe infarction with small amount of petechial hemorrhage. Follow-up CT scans of the head without contrast were performed on 08/17/2023, 08/18/2023, 08/20/2023 which showed stable hemorrhagic conversion without significant enlargement. Patient was evaluated by neurology who recommended single antiplatelet agent with aspirin currently, patient did complain of headache during hospitalization and was prescribed Topamax 50 mg at bedtime which seems to help with her headaches. She worked with physical therapy. She is stable for discharge back to [place] at this time. Medication changes Discontinue clopidogrel 75 mg Start aspirin 81 mg daily Start Topamax 50 mg at bedtime Start atorvastatin 40 mg at bedtime Recommend follow-up with cardiology, neurology in the next 2-3 weeks given ischemic CVA with hemorrhagic conversion, there was some noted paroxysmal A-fib as well. Patient will need repeat CT of the head in 2 to 3 weeks to evaluate resolution of hemorrhagic conversion to determine plan for further dual antiplatelet agents vs full anticoagulation to reduce risk of further stroke. Diet: AHA Activity: Fall precautions Followup: Shyann Miller MD [Primary Care Provider] - Time spent managing pt's care (in minutes): 35
[2023-08-21 16:19] VITALS: BP 179/82; TEMP 97.2
--- NOTE | 2023-08-21 21:31 | P.PN ---
Date of Service: 08/21/23 Vital Signs Temp Pulse Resp BP Pulse Ox 97.2 F 71 16 179/82 H 99 08/21/23 16:00 08/21/23 16:00 08/21/23 16:00 08/21/23 16:00 08/21/23 16:00 Assessment/ Plan: Nephrology No dyspnea No chest pain Weakness and fatigue No acute events overnight Vitals, medications, blood work and imaging reviewed in the chart. General: In no apparent distress HEENT: Atraumatic Neck: Supple Respiratory: Clear to auscultation bilaterally Cardiovascular: No edema, Regular rate/rhythm Gastrointestinal: Soft and benign, Non-distended Musculoskeletal: No clubbing, No contractures Integumentary: No rashes, No cyanosis Laboratory Data (last 24 hrs) 08/15/23 08/15/23 13:00 13:00 WBC 8.90 Hgb 14.6 Hct 43.4 Plt Count 377 Sodium 136 Potassium 3.6 BUN 23 H Creatinine 1.14 H Glucose 95 Total Bilirubin 0.4 AST 12 L ALT 19 Alkaline Phosphatase 108 Imagings Data: darrenrice EXAM DESCRIPTION: RADChest Single View08/15/2023 5:05 pm CLINICAL HISTORY: CVA COMPARISON: July 2023 FINDINGS: Pulmonary vascular congestion. Lungs appear clear of acute infiltrate. Heart is moderately enlarged darrenrice EXAM DESCRIPTION: MRI - Brain Wo Cont - 08/15/2023 3:30 pm CLINICAL HISTORY: Acute CVA COMPARISON: Head CT August 15, 2023 TECHNIQUE: Axial, sagittal, and coronal magnetic resonance images of the brain were obtained. FINDINGS: Moderate to large area of abnormal signal on diffusion-weighted/ADC mapping right occipital lobe compatible with acute infarction. Gradient echo images demonstrate small area of low signal compatible with petechial hemorrhage. Small to moderate abnormal signal periventricular, deep and subcortical white matter compatible with ischemic changes secondary to small vessel disease The ventricles are normal caliber. An extra-axial fluid collection is not noted. Fluid within the sinuses/mastoids is not seen IMPRESSION: Moderate to large acute right occipital lobe infarction with small amount of petechial hemorrhage darrenrice EXAM DESCRIPTION: USCarotid Artery Bilateral08/15/2023 4:06 pm CLINICAL HISTORY: Acute CVA COMPARISON: None FINDINGS: The velocity of the right internal carotid artery equals 50 cm/sec. The right ICA/CCA ratio normal The velocity of the left internal carotid artery equals 52 cm/sec. The left ICA/CCA ratio normal Mild plaque is present within the carotid arteries. The vertebral arteries demonstrate antegrade flow IMPRESSION: Mild plaque within the carotid arteries without evidence of a hemodynamically significant stenosis Conclusions/Impression: Stage I KING CKD II -No NSAIDs Hypokalemia -Replete prn HTN -Continue Losartan -Continue Amlodipine Right Occipital Lobe Infarction -Continue Atorvastatin -Neurology following -PT as tolerated Vitamin D3 Deficiency -Consider Ergo Hospitalist note reviewed Case reviewed with hospitalist team
[2023-08-22 15:12] LABS: Protein C Antigen 107 % normal (70-140)
[2023-08-24 19:33] LABS: Prothrombin Gene Analysis Test NEGATIVE
== END 2023-08-21 19:50 | DRG 65 ==
LOC: ER 11:54 → 2ND 15:02
PROVIDERS: ADMIT Internal Medicine; ATTEND Hospitalist
DX: I63.9 Cerebral infarction, unspecified (principal); I69.354 Hemiplegia and hemiparesis following cerebral infarction affecting left non-dominant side; N17.9 Acute kidney failure, unspecified; M10.9 Gout, unspecified; E87.6 Hypokalemia; I48.91 Unspecified atrial fibrillation; K21.9 Gastro-esophageal reflux disease without esophagitis; E55.9 Vitamin D deficiency, unspecified; I12.9 Hypertensive chronic kidney disease with stage 1 through stage 4 chronic kidney disease, or unspecified chronic kidney disease; N18.2 Chronic kidney disease, stage 2 (mild); E11.22 Type 2 diabetes mellitus with diabetic chronic kidney disease; E11.40 Type 2 diabetes mellitus with diabetic neuropathy, unspecified; E11.51 Type 2 diabetes mellitus with diabetic peripheral angiopathy without gangrene; R51.9 Headache, unspecified; R29.700 NIHSS score 0; Z66 Do not resuscitate; Z88.5 Allergy status to narcotic agent; Z88.2 Allergy status to sulfonamides; Z88.8 Allergy status to other drugs, medicaments and biological substances; Z90.49 Acquired absence of other specified parts of digestive tract; Z79.82 Long term (current) use of aspirin; Z79.02 Long term (current) use of antithrombotics/antiplatelets; Z79.899 Other long term (current) drug therapy; Z91.040 Latex allergy status; Z79.890 Hormone replacement therapy; Z96.651 Presence of right artificial knee joint; Z90.710 Acquired absence of both cervix and uterus
CPT/HCPCS: 36415; 70450; 70544; 70549; 70551; 71045; 80048; 80053; 80061; 80076; 81240; 81241; 82306; 82607; 82947; 83036; 83090; 83735; 84100; 84132; 84165; 84436; 84443; 85025; 85300; 85302; 85305; 85306; 86021; 86147; 86592; 92523; 93005; 93880; 96374; 96375; 97110; 97116; 97161; 97165; 97530; 97542; 99284; A9577; J1650; J2001; J2405; J7030

== ENCOUNTER → 2023-08-27 | Emergency (ER) | payer OTHER ==
[~2023-08-27] MED LIST: ACETAMINOPHEN 500 MG TAB ONE; MORPHINE 2 MG/ML SYR ONE
--- OUTSIDE RECORDS SUMMARY | 2023-08-27 10:27 | XMS REPORT | Continuity of Care Document ---
Author Name Unknown Address [address] [facility] [address] [place] [address] [facility] thconnect Address [address] [facility] 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 Role Phone Nathan Stephen MD Primary Care Physician + [phone] [id number] Attending Clinician Unavailable Doctor Unassigned, [place] Attending Clinician U lucilleailHannah Eden Anavella Attending Cli nician Unavailable Raju_P Attending Clinician Unavailable Donya Craig Attending Clinician [phone] DONYA TAVARES Attending Clinician Unavailable Ferdinand Wallace S Attending Clinician [phone] MAURA THORNTON Attending Clinician UnavailMaura Hernandez MD Attending Clinician [phone], [facility] Attending Clinician Unavailable [facility] [place], [facility] Attending Clinician Unavailab Rodolfo Randall MD Attending Clinician [id number] Admitting Clinician Unavailable CARMEN LANDAVERDE Admitting Clinician Unavailab Luigi Cook Anav Admitting Clinician U navailable Rosa_P Admitting Clinician Unavailable DONYA TAVARES Admitting Clinician Unavailable NATHAN STEPHEN Admitting Clinician Unavailab le Payers Payer Name Policy Type Policy Number Effective Date Expirati on Date Source 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 [id number] [facility] [id number] Problems Condition Name Condition Details Condition Category Status Onset Date Resolution Date Last Treatment Date Treating Clinician Comments Source Atypical chest pain Atypical chest pain Disease Active 2018-08 00:00: 00 [facility] Dizzy spells Dizzy spells Disease Active 2018-08 0 00:00: 00 [facility] Essential hypertensi on Essential hypertensi on Disease Active 2018-08 00:00: 00 [facility] Dyslipidem ia Dyslipidem ia Disease Active 2018-08 00:00: 00 [facility] KING (acute kidney injury) KING (acute kidney injury) Disease Active 2018-08 0 00:00: 00 [facility] Pain aggravated by standing Pain aggravated by standing Disease Active 09-23 00:00: 00 [facility] Intractabl e low back pain Intractabl e low back pain Disease Active 01-20 00:00: 00 [facility] "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 03-31 00:00: 00 [facility] 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 Active 03-30 00:00: 00 [facility] CHF (congestiv e heart failure) CHF (congestiv e heart failure) Disease Active 03-30 00:00: 00 [facility] Allergies, Adverse Reactions, Alerts Allergy Name Allergy Type Status Severity Reaction(s) Onset Date Inactive Date Treating Clinician Comments Source Sulfa (Sulfona mide Antibiot ics) Propensi ty to adverse reaction s Active Itching 03-30 00:00: 00 [facility] LATEX DRUG INGREDI Active Rash 03-30 00:00: 00 [facility] QUININE DRUG INGREDI Active Anxiety 03-30 00:00: 00 [facility] SULFA (SULFONA MIDE ANTIBIOT ICS) Drug Class Active ITCHING 03-30 00:00: 00 [facility] Latex Propensi ty to adverse reaction s Active Rash 03-30 00:00: 00 [facility] Quinine Propensi ty to adverse reaction s Active Anxiety 03-30 00:00: 00 [facility] Social History Social Habit Start Date Stop Date Quantity Comments Source Alcohol intake 2019-04-10 00:00:00 2019-04-10 00:00:00 0 /d [facility] Tobacco use and exposure 2015-03-31 00:00:00 2015-03-31 00:00:00 Never used [facility] Sex Assigned At 1935 00:00:00 1935 00:00:00 [facility] Smoking Status Start Date Stop Date Source Never smoker [facility] Medications Ordered Medication Name Filled Medication Name Start Date Stop Date Current Medication? Ordering Clinician Indication Dosage Frequency Signature (SIG) Comments Components Source clindamycin 150 mg capsule 10-27 00:00: 00 11-04 04:59 :00 No [id number] 450mg Take 3 capsules by mouth 3 (three) times daily for 7 days. [facility] colchicine (COLCRYS) tablet 0.6 mg 10-26 22:47: 00 10-26 23:02 :00 No .6mg 0.6 mg, Oral, ONCE, 1 dose, 10/27/19 at 1800, [facility] ibuprofen (IBU) tablet 600 mg 10-26 22:45: 00 10-26 21:56 :00 No 600mg 600 mg, Oral, ONCE, 1 dose, 10/27/19 at 1745, [facility] colchicine (COLCRYS) tablet 1.2 mg 10-26 22:45: 00 10-26 21:56 :00 No 1.2mg 1.2 mg, Oral, ONCE, 1 dose, 3/23/20 at 1745, BARBIE [facility] clindamycin in 5 % dextrose (CLEOCIN) 600 mg/50 mL IV piggyback RTU 600 mg 10-26 22:00: 00 10-26 21:29 :00 No 600mg 600 mg, IV Piggyback, ONCE, 1 dose, 10/27/19 at 1700, 50 mL
Reas on for Anti-Infec tive: Documented Infection< br>Documen sathya Infection Site: Skin / Soft Tissue
Duration of Therapy: Other (see Comments)< br>Restric sathya use approved by: [employer] PROVIDER [facility] colchicine 0.6 mg tablet 10-26 00:00: 00 11-01 04:59 :00 No [id number] .6mg Take 1 tablet by mouth daily for 5 days. Take until flare up resolves [facility] furosemide 40 mg tablet 2018-08 22:49: 52 Yes 40mg Take 40 mg by mouth daily. [facility] atenolol 25 mg tablet 2018-08 22:49: 52 Yes 25mg Take 25 mg by mouth daily. [facility] gabapentin 400 mg capsule 2018-08 22:49: 52 Yes 400mg Take 400 mg by mouth 3 (three) times daily. [facility] omeprazole 20 mg capsule 2018-08 22:49: 52 Yes 20mg Take 20 mg by mouth daily. [facility] losartan-hy drochloroth iazide 50-12.5 mg per tablet 2018-08 22:49: 52 Yes 1{tbl} Take 1 tablet by mouth daily. [facility] HYDROcodone -acetaminop hen 5-325 mg tablet 2018-08 22:49: 52 Yes 1{tbl} Take 1 tablet by mouth every 6 (six) hours as needed. [facility] furosemide 40 mg tablet 2018-08 22:49: 52 Yes 40mg Take 40 mg by mouth daily. [facility] atenolol 25 mg tablet 2018-08 22:49: 52 Yes 25mg Take 25 mg by mouth daily. [facility] gabapentin 400 mg capsule 2018-08 22:49: 52 Yes 400mg Take 400 mg by mouth 3 (three) times daily. [facility] omeprazole 20 mg capsule 2018-08 22:49: 52 Yes 20mg Take 20 mg by mouth daily. [facility] losartan-hy drochloroth iazide 50-12.5 mg per tablet 2018-08 22:49: 52 Yes 1{tbl} Take 1 tablet by mouth daily. [facility] HYDROcodone -acetaminop hen 5-325 mg tablet 2018-08 22:49: 52 Yes 1{tbl} Take 1 tablet by mouth every 6 (six) hours as needed. [facility] furosemide 40 mg tablet 2018-08 22:49: 52 Yes 40mg Take 40 mg by mouth daily. [facility] atenolol 25 mg tablet 2018-08 22:49: 52 Yes 25mg Take 25 mg by mouth daily. [facility] gabapentin 400 mg capsule 2018-08 22:49: 52 Yes 400mg Take 400 mg by mouth 3 (three) times daily. [facility] omeprazole 20 mg capsule 2018-08 22:49: 52 Yes 20mg Take 20 mg by mouth daily. [facility] losartan-hy drochloroth iazide 50-12.5 mg per tablet 2018-08 22:49: 52 Yes 1{tbl} Take 1 tablet by mouth daily. [facility] HYDROcodone -acetaminop hen 5-325 mg tablet 2018-08 22:49: 52 Yes 1{tbl} Take 1 tablet by mouth every 6 (six) hours as needed. [facility] furosemide 40 mg tablet 2018-08 22:49: 52 Yes 40mg Take 40 mg by mouth daily. [facility] atenolol 25 mg tablet 2018-08 22:49: 52 Yes 25mg Take 25 mg by mouth daily. [facility] gabapentin 400 mg capsule 2018-08 22:49: 52 Yes 400mg Take 400 mg by mouth 3 (three) times daily. [facility] omeprazole 20 mg capsule 2018-08 22:49: 52 Yes 20mg Take 20 mg by mouth daily. [facility] losartan-hy drochloroth iazide 50-12.5 mg per tablet 2018-08 22:49: 52 Yes 1{tbl} Take 1 tablet by mouth daily. [facility] HYDROcodone -acetaminop hen 5-325 mg tablet 2018-08 22:49: 52 Yes 1{tbl} Take 1 tablet by mouth every 6 (six) hours as needed. [facility] furosemide 40 mg tablet 2018-08 17:49: 52 Yes 40mg Take 40 mg by mouth daily. [facility] atenolol 25 mg tablet 2018-08 17:49: 52 Yes 25mg Take 25 mg by mouth daily. [facility] gabapentin 400 mg capsule 2018-08 17:49: 52 Yes 400mg Take 400 mg by mouth 3 (three) times daily. [facility] omeprazole 20 mg capsule 2018-08 17:49: 52 Yes 20mg Take 20 mg by mouth daily. [facility] losartan-hy drochloroth iazide 50-12.5 mg per tablet 2018-08 17:49: 52 Yes 1{tbl} Take 1 tablet by mouth daily. [facility] HYDROcodone -acetaminop hen 5-325 mg tablet 2018-08 17:49: 52 Yes 1{tbl} Take 1 tablet by mouth every 6 (six) hours as needed. [facility] furosemide 40 mg tablet 2018-08 17:49: 52 Yes 40mg Take 40 mg by mouth daily. [facility] atenolol 25 mg tablet 2018-08 17:49: 52 Yes 25mg Take 25 mg by mouth daily. [facility] gabapentin 400 mg capsule 2018-08 17:49: 52 Yes 400mg Take 400 mg by mouth 3 (three) times daily. [facility] omeprazole 20 mg capsule 2018-08 17:49: 52 Yes 20mg Take 20 mg by mouth daily. [facility] losartan-hy drochloroth iazide 50-12.5 mg per tablet 2018-08 17:49: 52 Yes 1{tbl} Take 1 tablet by mouth daily. [facility] HYDROcodone -acetaminop hen 5-325 mg tablet 2018-08 17:49: 52 Yes 1{tbl} Take 1 tablet by mouth every 6 (six) hours as needed. [facility] furosemide 40 mg tablet 2018-08 17:49: 52 Yes 40mg Take 40 mg by mouth daily. [facility] atenolol 25 mg tablet 2018-08 17:49: 52 Yes 25mg Take 25 mg by mouth daily. [facility] gabapentin 400 mg capsule 2018-08 17:49: 52 Yes 400mg Take 400 mg by mouth 3 (three) times daily. [facility] omeprazole 20 mg capsule 2018-08 17:49: 52 Yes 20mg Take 20 mg by mouth daily. [facility] losartan-hy drochloroth iazide 50-12.5 mg per tablet 2018-08 17:49: 52 Yes 1{tbl} Take 1 tablet by mouth daily. [facility] HYDROcodone -acetaminop hen 5-325 mg tablet 2018-08 17:49: 52 Yes 1{tbl} Take 1 tablet by mouth every 6 (six) hours as needed. [facility] furosemide 40 mg tablet 2018-08 17:49: 52 Yes 40mg Take 40 mg by mouth daily. [facility] atenolol 25 mg tablet 2018-08 17:49: 52 Yes 25mg Take 25 mg by mouth daily. [facility] gabapentin 400 mg capsule 2018-08 17:49: 52 Yes 400mg Take 400 mg by mouth 3 (three) times daily. [facility] omeprazole 20 mg capsule 2018-08 17:49: 52 Yes 20mg Take 20 mg by mouth daily. [facility] losartan-hy drochloroth iazide 50-12.5 mg per tablet 2018-08 17:49: 52 Yes 1{tbl} Take 1 tablet by mouth daily. [facility] HYDROcodone -acetaminop hen 5-325 mg tablet 2018-08 17:49: 52 Yes 1{tbl} Take 1 tablet by mouth every 6 (six) hours as needed. [facility] furosemide 40 mg tablet 2018-08 17:49: 52 Yes 40mg Take 40 mg by mouth daily. [facility] atenolol 25 mg tablet 2018-08 17:49: 52 Yes 25mg Take 25 mg by mouth daily. [facility] gabapentin 400 mg capsule 2018-08 17:49: 52 Yes 400mg Take 400 mg by mouth 3 (three) times daily. [facility] omeprazole 20 mg capsule 2018-08 17:49: 52 Yes 20mg Take 20 mg by mouth daily. [facility] losartan-hy drochloroth iazide 50-12.5 mg per tablet 2018-08 17:49: 52 Yes 1{tbl} Take 1 tablet by mouth daily. [facility] HYDROcodone -acetaminop hen 5-325 mg tablet 2018-08 17:49: 52 Yes 1{tbl} Take 1 tablet by mouth every 6 (six) hours as needed. [facility] furosemide 40 mg tablet 2018-08 17:49: 52 Yes 40mg Take 40 mg by mouth daily. [facility] atenolol 25 mg tablet 2018-08 17:49: 52 Yes 25mg Take 25 mg by mouth daily. [facility] gabapentin 400 mg capsule 2018-08 17:49: 52 Yes 400mg Take 400 mg by mouth 3 (three) times daily. [facility] omeprazole 20 mg capsule 2018-08 17:49: 52 Yes 20mg Take 20 mg by mouth daily. [facility] losartan-hy drochloroth iazide 50-12.5 mg per tablet 2018-08 17:49: 52 Yes 1{tbl} Take 1 tablet by mouth daily. [facility] HYDROcodone -acetaminop hen 5-325 mg tablet 2018-08 17:49: 52 Yes 1{tbl} Take 1 tablet by mouth every 6 (six) hours as needed. [facility] losartan-hy drochloroth iazide 50-12.5 mg per tablet 01-10 20:11: 07 Yes 1{tbl} Take 1 tablet by mouth daily. [facility] losartan-hy drochloroth iazide 50-12.5 mg per tablet 01-10 20:11: 07 Yes 1{tbl} Take 1 tablet by mouth daily. [facility] losartan-hy drochloroth iazide 50-12.5 mg per tablet 01-10 20:11: 07 Yes 1{tbl} Take 1 tablet by mouth daily. [facility] losartan-hy drochloroth iazide 50-12.5 mg per tablet 01-10 20:11: 07 Yes 1{tbl} Take 1 tablet by mouth daily. [facility] losartan-hy drochloroth iazide 50-12.5 mg per tablet 01-10 20:11: 07 Yes 1{tbl} Take 1 tablet by mouth daily. [facility] losartan-hy drochloroth iazide 50-12.5 mg per tablet 01-10 20:11: 07 Yes 1{tbl} Take 1 tablet by mouth daily. [facility] losartan-hy drochloroth iazide 50-12.5 mg per tablet 01-10 20:11: 07 Yes 1{tbl} Take 1 tablet by mouth daily. [facility] losartan-hy drochloroth iazide 50-12.5 mg per tablet 01-10 20:11: 07 Yes 1{tbl} Take 1 tablet by mouth daily. [facility] losartan-hy drochloroth iazide 50-12.5 mg per tablet 01-10 20:11: 07 Yes 1{tbl} Take 1 tablet by mouth daily. [facility] losartan-hy drochloroth iazide 50-12.5 mg per tablet 01-10 20:11: 07 Yes 1{tbl} Take 1 tablet by mouth daily. [facility] losartan-hy drochloroth iazide 50-12.5 mg per tablet 01-10 20:11: 07 Yes 1{tbl} Take 1 tablet by mouth daily. [facility] losartan-hy drochloroth iazide 50-12.5 mg per tablet 01-10 20:11: 07 Yes 1{tbl} Take 1 tablet by mouth daily. [facility] losartan-hy drochloroth iazide 50-12.5 mg per tablet 01-10 20:11: 07 Yes 1{tbl} Take 1 tablet by mouth daily. [facility] furosemide 40 mg tablet 01-10 19:53: 40 Yes 40mg Take 40 mg by mouth daily. [facility] atenolol 25 mg tablet 01-10 19:53: 40 Yes 25mg Take 25 mg by mouth daily. [facility] gabapentin 400 mg capsule 01-10 19:53: 40 Yes 400mg Take 400 mg by mouth 3 (three) times daily. [facility] omeprazole 20 mg capsule 01-10 19:53: 40 Yes 20mg Take 20 mg by mouth daily. [facility] HYDROcodone -acetaminop hen 5-325 mg tablet 01-10 19:53: 40 Yes 1{tbl} Take 1 tablet by mouth every 6 (six) hours as needed. [facility] furosemide 40 mg tablet 01-10 19:53: 40 Yes 40mg Take 40 mg by mouth daily. [facility] atenolol 25 mg tablet 01-10 19:53: 40 Yes 25mg Take 25 mg by mouth daily. [facility] gabapentin 400 mg capsule 01-10 19:53: 40 Yes 400mg Take 400 mg by mouth 3 (three) times daily. [facility] omeprazole 20 mg capsule 01-10 19:53: 40 Yes 20mg Take 20 mg by mouth daily. [facility] HYDROcodone -acetaminop hen 5-325 mg tablet 01-10 19:53: 40 Yes 1{tbl} Take 1 tablet by mouth every 6 (six) hours as needed. [facility] furosemide 40 mg tablet 01-10 19:53: 40 Yes 40mg Take 40 mg by mouth daily. [facility] atenolol 25 mg tablet 01-10 19:53: 40 Yes 25mg Take 25 mg by mouth daily. [facility] gabapentin 400 mg capsule 01-10 19:53: 40 Yes 400mg Take 400 mg by mouth 3 (three) times daily. [facility] omeprazole 20 mg capsule 01-10 19:53: 40 Yes 20mg Take 20 mg by mouth daily. [facility] HYDROcodone -acetaminop hen 5-325 mg tablet 01-10 19:53: 40 Yes 1{tbl} Take 1 tablet by mouth every 6 (six) hours as needed. [facility] furosemide 40 mg tablet 01-10 19:53: 40 Yes 40mg Take 40 mg by mouth daily. [facility] atenolol 25 mg tablet 01-10 19:53: 40 Yes 25mg Take 25 mg by mouth daily. [facility] gabapentin 400 mg capsule 01-10 19:53: 40 Yes 400mg Take 400 mg by mouth 3 (three) times daily. [facility] omeprazole 20 mg capsule 01-10 19:53: 40 Yes 20mg Take 20 mg by mouth daily. [facility] HYDROcodone -acetaminop hen 5-325 mg tablet 01-10 19:53: 40 Yes 1{tbl} Take 1 tablet by mouth every 6 (six) hours as needed. [facility] furosemide 40 mg tablet 01-10 19:53: 40 Yes 40mg Take 40 mg by mouth daily. [facility] atenolol 25 mg tablet 01-10 19:53: 40 Yes 25mg Take 25 mg by mouth daily. [facility] gabapentin 400 mg capsule 01-10 19:53: 40 Yes 400mg Take 400 mg by mouth 3 (three) times daily. [facility] omeprazole 20 mg capsule 01-10 19:53: 40 Yes 20mg Take 20 mg by mouth daily. [facility] HYDROcodone -acetaminop hen 5-325 mg tablet 01-10 19:53: 40 Yes 1{tbl} Take 1 tablet by mouth every 6 (six) hours as needed. [facility] furosemide 40 mg tablet 01-10 19:53: 40 Yes 40mg Take 40 mg by mouth daily. [facility] atenolol 25 mg tablet 01-10 19:53: 40 Yes 25mg Take 25 mg by mouth daily. [facility] gabapentin 400 mg capsule 01-10 19:53: 40 Yes 400mg Take 400 mg by mouth 3 (three) times daily. [facility] omeprazole 20 mg capsule 01-10 19:53: 40 Yes 20mg Take 20 mg by mouth daily. [facility] HYDROcodone -acetaminop hen 5-325 mg tablet 01-10 19:53: 40 Yes 1{tbl} Take 1 tablet by mouth every 6 (six) hours as needed. [facility] furosemide 40 mg tablet 01-10 19:53: 40 Yes 40mg Take 40 mg by mouth daily. [facility] atenolol 25 mg tablet 01-10 19:53: 40 Yes 25mg Take 25 mg by mouth daily. [facility] gabapentin 400 mg capsule 01-10 19:53: 40 Yes 400mg Take 400 mg by mouth 3 (three) times daily. [facility] omeprazole 20 mg capsule 01-10 19:53: 40 Yes 20mg Take 20 mg by mouth daily. [facility] HYDROcodone -acetaminop hen 5-325 mg tablet 01-10 19:53: 40 Yes 1{tbl} Take 1 tablet by mouth every 6 (six) hours as needed. [facility] furosemide 40 mg tablet 01-10 19:53: 40 Yes 40mg Take 40 mg by mouth daily. [facility] atenolol 25 mg tablet 01-10 19:53: 40 Yes 25mg Take 25 mg by mouth daily. [facility] gabapentin 400 mg capsule 01-10 19:53: 40 Yes 400mg Take 400 mg by mouth 3 (three) times daily. [facility] omeprazole 20 mg capsule 01-10 19:53: 40 Yes 20mg Take 20 mg by mouth daily. [facility] HYDROcodone -acetaminop hen 5-325 mg tablet 01-10 19:53: 40 Yes 1{tbl} Take 1 tablet by mouth every 6 (six) hours as needed. [facility] furosemide 40 mg tablet 01-10 19:53: 40 Yes 40mg Take 40 mg by mouth daily. [facility] atenolol 25 mg tablet 01-10 19:53: 40 Yes 25mg Take 25 mg by mouth daily. [facility] gabapentin 400 mg capsule 01-10 19:53: 40 Yes 400mg Take 400 mg by mouth 3 (three) times daily. [facility] omeprazole 20 mg capsule 01-10 19:53: 40 Yes 20mg Take 20 mg by mouth daily. [facility] HYDROcodone -acetaminop hen 5-325 mg tablet 01-10 19:53: 40 Yes 1{tbl} Take 1 tablet by mouth every 6 (six) hours as needed. [facility] furosemide 40 mg tablet 01-10 19:53: 40 Yes 40mg Take 40 mg by mouth daily. [facility] atenolol 25 mg tablet 01-10 19:53: 40 Yes 25mg Take 25 mg by mouth daily. [facility] gabapentin 400 mg capsule 01-10 19:53: 40 Yes 400mg Take 400 mg by mouth 3 (three) times daily. [facility] omeprazole 20 mg capsule 01-10 19:53: 40 Yes 20mg Take 20 mg by mouth daily. [facility] HYDROcodone -acetaminop hen 5-325 mg tablet 01-10 19:53: 40 Yes 1{tbl} Take 1 tablet by mouth every 6 (six) hours as needed. [facility] furosemide 40 mg tablet 01-10 19:53: 40 Yes 40mg Take 40 mg by mouth daily. [facility] atenolol 25 mg tablet 01-10 19:53: 40 Yes 25mg Take 25 mg by mouth daily. [facility] gabapentin 400 mg capsule 01-10 19:53: 40 Yes 400mg Take 400 mg by mouth 3 (three) times daily. [facility] omeprazole 20 mg capsule 01-10 19:53: 40 Yes 20mg Take 20 mg by mouth daily. [facility] HYDROcodone -acetaminop hen 5-325 mg tablet 01-10 19:53: 40 Yes 1{tbl} Take 1 tablet by mouth every 6 (six) hours as needed. [facility] furosemide 40 mg tablet 01-10 19:53: 40 Yes 40mg Take 40 mg by mouth daily. [facility] atenolol 25 mg tablet 01-10 19:53: 40 Yes 25mg Take 25 mg by mouth daily. [facility] gabapentin 400 mg capsule 01-10 19:53: 40 Yes 400mg Take 400 mg by mouth 3 (three) times daily. [facility] omeprazole 20 mg capsule 01-10 19:53: 40 Yes 20mg Take 20 mg by mouth daily. [facility] HYDROcodone -acetaminop hen 5-325 mg tablet 01-10 19:53: 40 Yes 1{tbl} Take 1 tablet by mouth every 6 (six) hours as needed. [facility] furosemide 40 mg tablet 01-10 19:53: 40 Yes 40mg Take 40 mg by mouth daily. [facility] atenolol 25 mg tablet 01-10 19:53: 40 Yes 25mg Take 25 mg by mouth daily. [facility] gabapentin 400 mg capsule 01-10 19:53: 40 Yes 400mg Take 400 mg by mouth 3 (three) times daily. [facility] omeprazole 20 mg capsule 01-10 19:53: 40 Yes 20mg Take 20 mg by mouth daily. [facility] HYDROcodone -acetaminop hen 5-325 mg tablet 01-10 19:53: 40 Yes 1{tbl} Take 1 tablet by mouth every 6 (six) hours as needed. [facility] levothyroxi ne 88 mcg tablet 11-06 00:00: 00 Yes [facility] levothyroxi ne 88 mcg tablet 11-06 00:00: 00 Yes [facility] levothyroxi ne 88 mcg tablet 11-06 00:00: 00 Yes [facility] levothyroxi ne 88 mcg tablet 11-06 00:00: 00 Yes [facility] levothyroxi ne 88 mcg tablet 11-06 00:00: 00 Yes [facility] levothyroxi ne 88 mcg tablet 11-06 00:00: 00 Yes [facility] levothyroxi ne 88 mcg tablet 11-06 00:00: 00 Yes [facility] levothyroxi ne 88 mcg tablet 11-06 00:00: 00 Yes [facility] levothyroxi ne 88 mcg tablet 11-06 00:00: 00 Yes [facility] levothyroxi ne 88 mcg tablet 11-06 00:00: 00 Yes [facility] levothyroxi ne 88 mcg tablet 11-06 00:00: 00 Yes [facility] levothyroxi ne 88 mcg tablet 11-06 00:00: 00 Yes [facility] levothyroxi ne 88 mcg tablet 11-06 00:00: 00 Yes [facility] levothyroxi ne 88 mcg tablet 11-06 00:00: 00 Yes [facility] levothyroxi ne 88 mcg tablet 11-06 00:00: 00 Yes [facility] levothyroxi ne 88 mcg tablet 11-06 00:00: 00 Yes [facility] levothyroxi ne 88 mcg tablet 11-06 00:00: 00 Yes [facility] levothyroxi ne 88 mcg tablet 11-06 00:00: 00 Yes [facility] levothyroxi ne 88 mcg tablet 11-06 00:00: 00 Yes [facility] levothyroxi ne 88 mcg tablet 11-06 00:00: 00 Yes [facility] levothyroxi ne 88 mcg tablet 11-06 00:00: 00 Yes [facility] levothyroxi ne 88 mcg tablet 11-06 00:00: 00 Yes [facility] levothyroxi ne 88 mcg tablet 11-06 00:00: 00 Yes [facility] docusate 100 mg capsule 0 09-27 00:00: 00 Yes [id number] 100mg Take 1 capsule by mouth daily. [facility] predniSONE 20 mg tablet 0 09-27 00:00: 00 Yes [id number] 40mg Take 2 tablets by mouth every 24 (twenty-fo ur) hours. [facility] docusate 100 mg capsule 0 09-27 00:00: 00 Yes [id number] 100mg Take 1 capsule by mouth daily. [facility] predniSONE 20 mg tablet 0 09-27 00:00: 00 Yes [id number] 40mg Take 2 tablets by mouth every 24 (twenty-fo ur) hours. [facility] docusate 100 mg capsule 0 09-27 00:00: 00 Yes [id number] 100mg Take 1 capsule by mouth daily. [facility] predniSONE 20 mg tablet 0 09-27 00:00: 00 Yes [id number] 40mg Take 2 tablets by mouth every 24 (twenty-fo ur) hours. [facility] docusate 100 mg capsule 0 09-27 00:00: 00 Yes [id number] 100mg Take 1 capsule by mouth daily. [facility] predniSONE 20 mg tablet 09-27 00:00: 00 Yes [id number] 40mg Take 2 tablets by mouth every 24 (twenty-fo ur) hours. [facility] docusate 100 mg capsule 09-27 00:00: 00 Yes [id number] 100mg Take 1 capsule by mouth daily. [facility] predniSONE 20 mg tablet 09-27 00:00: 00 Yes [id number] 40mg Take 2 tablets by mouth every 24 (twenty-fo ur) hours. [facility] docusate 100 mg capsule 09-27 00:00: 00 Yes [id number] 100mg Take 1 capsule by mouth daily. [facility] predniSONE 20 mg tablet 09-27 00:00: 00 Yes [id number] 40mg Take 2 tablets by mouth every 24 (twenty-fo ur) hours. [facility] docusate 100 mg capsule 09-27 00:00: 00 Yes [id number] 100mg Take 1 capsule by mouth daily. [facility] predniSONE 20 mg tablet 09-27 00:00: 00 Yes [id number] 40mg Take 2 tablets by mouth every 24 (twenty-fo ur) hours. [facility] docusate 100 mg capsule 09-27 00:00: 00 Yes [id number] 100mg Take 1 capsule by mouth daily. [facility] predniSONE 20 mg tablet 09-27 00:00: 00 Yes [id number] 40mg Take 2 tablets by mouth every 24 (twenty-fo ur) hours. [facility] docusate 100 mg capsule 0 09-27 00:00: 00 Yes [id number] 100mg Take 1 capsule by mouth daily. [facility] docusate 100 mg capsule 09-27 00:00: 00 Yes [id number] 100mg Take 1 capsule by mouth daily. [facility] predniSONE 20 mg tablet 09-27 00:00: 00 Yes [id number] 40mg Take 2 tablets by mouth every 24 (twenty-fo ur) hours. [facility] docusate 100 mg capsule 09-27 00:00: 00 Yes [id number] 100mg Take 1 capsule by mouth daily. [facility]:00: 00 Yes [id number] 100mg Take 1 capsule by mouth daily. [facility] docusate 100 mg capsule 09-27 00:00: 00 Yes [id number] 100mg Take 1 capsule by mouth daily. [facility] docusate 100 mg capsule 09-27 00:00: 00 Yes [id number] 100mg Take 1 capsule by mouth daily. [facility] docusate 100 mg capsule 09-27 00:00: 00 Yes [id number] 100mg Take 1 capsule by mouth daily. [facility] docusate 100 mg capsule 09-27 00:00: 00 Yes [id number] 100mg Take 1 capsule by mouth daily. [facility] docusate 100 mg capsule 09-27 00:00: 00 Yes [id number] 100mg Take 1 capsule by mouth daily. [facility] docusate 100 mg capsule 09-27 00:00: 00 Yes [id number] 100mg Take 1 capsule by mouth daily. [facility] docusate 100 mg capsule 09-27 00:00: 00 Yes [id number] 100mg Take 1 capsule by mouth daily. [facility] docusate 100 mg capsule 09-27 00:00: 00 Yes [id number] 100mg Take 1 capsule by mouth daily. [facility] predniSONE 20 mg tablet 09-27 00:00: 00 Yes [id number] 40mg Take 2 tablets by mouth every 24 (twenty-fo ur) hours. [facility] docusate 100 mg capsule 09-27 00:00: 00 Yes [id number] 100mg Take 1 capsule by mouth daily. [facility] predniSONE 20 mg tablet 09-27 00:00: 00 Yes [id number] 40mg Take 2 tablets by mouth every 24 (twenty-fo ur) hours. [facility] docusate 100 mg capsule 09-27 00:00: 00 Yes [id number] 100mg Take 1 capsule by mouth daily. [facility] predniSONE 20 mg tablet 09-27 00:00: 00 Yes [id number] 40mg Take 2 tablets by mouth every 24 (twenty-fo ur) hours. [facility] docusate 100 mg capsule 09-27 00:00: 00 Yes [id number] 100mg Take 1 capsule by mouth daily. [facility] predniSONE 20 mg tablet 09-27 00:00: 00 Yes [id number] 40mg Take 2 tablets by mouth every 24 (twenty-fo ur) hours. [facility] carvedilol 6.25 mg tablet 01-24 00:00: 00 Yes 6.25mg Take 1 tablet by mouth 2 (two) times daily with meals. [facility] simvastatin 20 mg tablet 01-24 00:00: 00 Yes 20mg Take 1 tablet by mouth at bedtime. [facility] aspirin 81 mg chewable tablet 01-24 00:00: 00 Yes 81mg Take 1 tablet by mouth daily. [facility] clopidogrel 75 mg tablet 01-24 00:00: 00 Yes 75mg Take 1 tablet by mouth daily. [facility] carvedilol 6.25 mg tablet 01-24 00:00: 00 Yes 6.25mg Take 1 tablet by mouth 2 (two) times daily with meals. [facility] simvastatin 20 mg tablet 01-24 00:00: 00 Yes 20mg Take 1 tablet by mouth at bedtime. [facility] aspirin 81 mg chewable tablet 01-24 00:00: 00 Yes 81mg Take 1 tablet by mouth daily. [facility] clopidogrel 75 mg tablet 01-24 00:00: 00 Yes 75mg Take 1 tablet by mouth daily. [facility] carvedilol 6.25 mg tablet 01-24 00:00: 00 Yes 6.25mg Take 1 tablet by mouth 2 (two) times daily with meals. [facility] simvastatin 20 mg tablet 01-24 00:00: 00 Yes 20mg Take 1 tablet by mouth at bedtime. [facility] aspirin 81 mg chewable tablet 01-24 00:00: 00 Yes 81mg Take 1 tablet by mouth daily. [facility] clopidogrel 75 mg tablet 01-24 00:00: 00 Yes 75mg Take 1 tablet by mouth daily. [facility] carvedilol 6.25 mg tablet 01-24 00:00: 00 Yes 6.25mg Take 1 tablet by mouth 2 (two) times daily with meals. [facility] simvastatin 20 mg tablet 01-24 00:00: 00 Yes 20mg Take 1 tablet by mouth at bedtime. [facility] aspirin 81 mg chewable tablet 01-24 00:00: 00 Yes 81mg Take 1 tablet by mouth daily. [facility] clopidogrel 75 mg tablet 01-24 00:00: 00 Yes 75mg Take 1 tablet by mouth daily. [facility] carvedilol 6.25 mg tablet 01-24 00:00: 00 Yes 6.25mg Take 1 tablet by mouth 2 (two) times daily with meals. [facility] simvastatin 20 mg tablet 01-24 00:00: 00 Yes 20mg Take 1 tablet by mouth at bedtime. [facility] aspirin 81 mg chewable tablet 01-24 00:00: 00 Yes 81mg Take 1 tablet by mouth daily. [facility] clopidogrel 75 mg tablet 01-24 00:00: 00 Yes 75mg Take 1 tablet by mouth daily. [facility] carvedilol 6.25 mg tablet 01-24 00:00: 00 Yes 6.25mg Take 1 tablet by mouth 2 (two) times daily with meals. [facility] simvastatin 20 mg tablet 01-24 00:00: 00 Yes 20mg Take 1 tablet by mouth at bedtime. [facility] aspirin 81 mg chewable tablet 01-24 00:00: 00 Yes 81mg Take 1 tablet by mouth daily. [facility] clopidogrel 75 mg tablet 01-24 00:00: 00 Yes 75mg Take 1 tablet by mouth daily. [facility] carvedilol 6.25 mg tablet 01-24 00:00: 00 Yes 6.25mg Take 1 tablet by mouth 2 (two) times daily with meals. [facility] simvastatin 20 mg tablet 01-24 00:00: 00 Yes 20mg Take 1 tablet by mouth at bedtime. [facility] carvedilol 6.25 mg tablet 01-24 00:00: 00 Yes 6.25mg Take 1 tablet by mouth 2 (two) times daily with meals. [facility] aspirin 81 mg chewable tablet 01-24 00:00: 00 Yes 81mg Take 1 tablet by mouth daily. [facility] clopidogrel 75 mg tablet 01-24 00:00: 00 Yes 75mg Take 1 tablet by mouth daily. [facility] simvastatin 20 mg tablet 01-24 00:00: 00 Yes 20mg Take 1 tablet by mouth at bedtime. [facility] carvedilol 6.25 mg tablet 01-24 00:00: 00 Yes 6.25mg Take 1 tablet by mouth 2 (two) times daily with meals. [facility] simvastatin 20 mg tablet 01-24 00:00: 00 Yes 20mg Take 1 tablet by mouth at bedtime. [facility] aspirin 81 mg chewable tablet 01-24 00:00: 00 Yes 81mg Take 1 tablet by mouth daily. [facility] aspirin 81 mg chewable tablet 01-24 00:00: 00 Yes 81mg Take 1 tablet by mouth daily. [facility] clopidogrel 75 mg tablet 01-24 00:00: 00 Yes 75mg Take 1 tablet by mouth daily. [facility] clopidogrel 75 mg tablet 01-24 00:00: 00 Yes 75mg Take 1 tablet by mouth daily. [facility] simvastatin 20 mg tablet 01-24 00:00: 00 Yes 20mg Take 1 tablet by mouth at bedtime. [facility] aspirin 81 mg chewable tablet 01-24 00:00: 00 Yes 81mg Take 1 tablet by mouth daily. [facility] clopidogrel 75 mg tablet 01-24 00:00: 00 Yes 75mg Take 1 tablet by mouth daily. [facility] simvastatin 20 mg tablet 01-24 00:00: 00 Yes 20mg Take 1 tablet by mouth at bedtime. [facility] aspirin 81 mg chewable tablet 01-24 00:00: 00 Yes 81mg Take 1 tablet by mouth daily. [facility] clopidogrel 75 mg tablet 01-24 00:00: 00 Yes 75mg Take 1 tablet by mouth daily. [facility] simvastatin 20 mg tablet 01-24 00:00: 00 Yes 20mg Take 1 tablet by mouth at bedtime. [facility] aspirin 81 mg chewable tablet 01-24 00:00: 00 Yes 81mg Take 1 tablet by mouth daily. [facility] clopidogrel 75 mg tablet 01-24 00:00: 00 Yes 75mg Take 1 tablet by mouth daily. [facility] simvastatin 20 mg tablet 01-24 00:00: 00 Yes 20mg Take 1 tablet by mouth at bedtime. [facility] aspirin 81 mg chewable tablet 01-24 00:00: 00 Yes 81mg Take 1 tablet by mouth daily. [facility] clopidogrel 75 mg tablet 01-24 00:00: 00 Yes 75mg Take 1 tablet by mouth daily. [facility] simvastatin 20 mg tablet 01-24 00:00: 00 Yes 20mg Take 1 tablet by mouth at bedtime. [facility] aspirin 81 mg chewable tablet 01-24 00:00: 00 Yes 81mg Take 1 tablet by mouth daily. [facility] clopidogrel 75 mg tablet 01-24 00:00: 00 Yes 75mg Take 1 tablet by mouth daily. [facility] simvastatin 20 mg tablet 01-24 00:00: 00 Yes 20mg Take 1 tablet by mouth at bedtime. [facility] aspirin 81 mg chewable tablet 01-24 00:00: 00 Yes 81mg Take 1 tablet by mouth daily. [facility] clopidogrel 75 mg tablet 01-24 00:00: 00 Yes 75mg Take 1 tablet by mouth daily. [facility] simvastatin 20 mg tablet 01-24 00:00: 00 Yes 20mg Take 1 tablet by mouth at bedtime. [facility] aspirin 81 mg chewable tablet 01-24 00:00: 00 Yes 81mg Take 1 tablet by mouth daily. [facility] clopidogrel 75 mg tablet 01-24 00:00: 00 Yes 75mg Take 1 tablet by mouth daily. [facility] simvastatin 20 mg tablet 01-24 00:00: 00 Yes 20mg Take 1 tablet by mouth at bedtime. [facility] aspirin 81 mg chewable tablet 01-24 00:00: 00 Yes 81mg Take 1 tablet by mouth daily. [facility] clopidogrel 75 mg tablet 01-24 00:00: 00 Yes 75mg Take 1 tablet by mouth daily. [facility] carvedilol 6.25 mg tablet 01-24 00:00: 00 Yes 6.25mg Take 1 tablet by mouth 2 (two) times daily with meals. [facility] simvastatin 20 mg tablet 01-24 00:00: 00 Yes 20mg Take 1 tablet by mouth at bedtime. [facility] aspirin 81 mg chewable tablet 01-24 00:00: 00 Yes 81mg Take 1 tablet by mouth daily. [facility] simvastatin 20 mg tablet 01-24 00:00: 00 Yes 20mg Take 1 tablet by mouth at bedtime. [facility] aspirin 81 mg chewable tablet 01-24 00:00: 00 Yes 81mg Take 1 tablet by mouth daily. [facility] clopidogrel 75 mg tablet 01-24 00:00: 00 Yes 75mg Take 1 tablet by mouth daily. [facility] clopidogrel 75 mg tablet 01-24 00:00: 00 Yes 75mg Take 1 tablet by mouth daily. [facility] simvastatin 20 mg tablet 01-24 00:00: 00 Yes 20mg Take 1 tablet by mouth at bedtime. [facility] aspirin 81 mg chewable tablet 01-24 00:00: 00 Yes 81mg Take 1 tablet by mouth daily. [facility] clopidogrel 75 mg tablet 01-24 00:00: 00 Yes 75mg Take 1 tablet by mouth daily. [facility] carvedilol 6.25 mg tablet 01-24 00:00: 00 Yes 6.25mg Take 1 tablet by mouth 2 (two) times daily with meals. [facility] simvastatin 20 mg tablet 01-24 00:00: 00 Yes 20mg Take 1 tablet by mouth at bedtime. [facility] aspirin 81 mg chewable tablet 01-24 00:00: 00 Yes 81mg Take 1 tablet by mouth daily. [facility] clopidogrel 75 mg tablet 01-24 00:00: 00 Yes 75mg Take 1 tablet by mouth daily. [facility] carvedilol 6.25 mg tablet 01-24 00:00: 00 Yes 6.25mg Take 1 tablet by mouth 2 (two) times daily with meals. [facility] simvastatin 20 mg tablet 01-24 00:00: 00 Yes 20mg Take 1 tablet by mouth at bedtime. [facility] aspirin 81 mg chewable tablet 01-24 00:00: 00 Yes 81mg Take 1 tablet by mouth daily. [facility] clopidogrel 75 mg tablet 01-24 00:00: 00 Yes 75mg Take 1 tablet by mouth daily. [facility] carvedilol 6.25 mg tablet 01-24 00:00: 00 Yes 6.25mg Take 1 tablet by mouth 2 (two) times daily with meals. [facility] simvastatin 20 mg tablet 01-24 00:00: 00 Yes 20mg Take 1 tablet by mouth at bedtime. [facility] aspirin 81 mg chewable tablet 01-24 00:00: 00 Yes 81mg Take 1 tablet by mouth daily. [facility] clopidogrel 75 mg tablet 01-24 00:00: 00 Yes 75mg Take 1 tablet by mouth daily. [facility] Vital Signs Vital Name Observation Time Observation Value Comments S ource Systolic blood pressure 2019-10-27 22:00:00 147 mm[Hg] [facility] Diastolic blood pressure 2019-10-27 22:00:00 70 mm[Hg] [facility] Heart rate 2019-10-27 22:00:00 59 /min [facility] Respiratory rate 2019-10-27 22:00:00 16 /min [facility] Oxygen saturation in Arterial blood by Pulse oximetry 2019-10-27 22:00:00 96 /min [facility] Body temperature 2019-10-27 20:33:00 36.89 Mattie [facility] Body weight 2019-10-27 20:33:00 77.111 kg [facility] BMI 2019-10-27 20:33:00 25.85 kg/m2 [facility] Systolic blood pressure 2019-04-10 18:46:00 115 mm[Hg] [facility] Diastolic blood pressure 2019-04-10 18:46:00 64 mm[Hg] [facility] Heart rate 2019-04-10 18:46:00 94 /min [facility] Body height 2019-04-10 18:46:00 172.7 cm [facility] Body weight 2019-04-10 18:46:00 81.647 kg [facility] BMI 2019-04-10 18:46:00 27.37 kg/m2 [facility] Body weight 2019-03-21 19:23:00 81.647 kg [facility] BMI 2019-03-21 19:23:00 29.95 kg/m2 [facility] Body height 2019-03-20 14:32:00 165.1 cm [facility] Body weight 2019-03-20 14:32:00 81.647 kg [facility] BMI 2019-03-20 14:32:00 29.95 kg/m2 [facility] Systolic blood pressure 2019-03-04 16:15:00 138 mm[Hg] [facility] Diastolic blood pressure 2019-03-04 16:15:00 60 mm[Hg] [facility] Heart rate 2019-03-04 16:15:00 64 /min [facility] Body temperature 2019-03-04 16:15:00 36.39 Mattie [facility] Respiratory rate 2019-03-04 16:15:00 16 /min [facility] Body height 2019-03-04 16:15:00 165.1 cm [facility] Body weight 2019-03-04 16:15:00 81.647 kg [facility] BMI 2019-03-04 16:15:00 29.95 kg/m2 [facility] Procedures Procedure Date / Time Performed Performing Clinician Source HOME HEALTH - OTHER 2021-07-07 06:01:00 Doctor Velma edwards, [facility] HEALTH - OTHER 2021-06-21 06:01:00 Doctor Velma edwadrs, [facility] HEALTH - OTHER 2021-06-01 05:01:00 Doctor Velma edwards, [facility] HEALTH - OTHER 2021-05-24 05:01:00 Doctor Velma edwards, [facility] HEALTH - OTHER 2021-05-10 05:01:00 Doctor Velma edwards, [facility] HEALTH - OTHER 2021-03-29 05:01:00 Doctor Velma edwards, [facility] CLINIC RECORD / SMR 2021-03-21 05:01:00 Doctor Velma edwards, [facility] [id number] 2021-01-28 00:00:00 [facility] [id number] 2021-01-28 00:00[facility] [id number] 2021-01-28 00:00:00 [facility] [id number] 2021-01-28 00:00:00 [facility] [id number] 2021-01-28 00:00:00 [facility] [id number] 2021-01-18 00:00:00 [facility] [id number] 2021-01-18 00:00:00 [facility] [id number] 2021-01-18 00:00:00 [facility] [id number] 2021-01-18 00:00:00 [facility] [id number] 2021-01-18 00:00:00 [facility] XR WRIST 3+ VW LEFT 2019-10-27 21:13:49 Donya Tavares [facility] XR HAND 3+ VW LEFT 2019-10-27 21:13:34 Donya Tavares [facility] URIC ACID 2019-10-27 20:56:00 Donya Tavares [facility] BASIC METABOLIC PANEL (NA, K, CL, CO2, GLUCOSE, BUN, CREATININE, CA) 2019-10-27 20:56:00 Donya Tavares [facility] CBC WITH DIFFERENTIAL 2019-10-27 20:56:00 Donya Tavares [facility] CONSENT/REFUSAL FOR DIAGNOSIS AND TREATMENT 2019-10-27 20:21:16 Doctor Unassigned, [facility] HOME HEALTH - OTHER 2019-09-26 06:01:00 Doctor U nassigned, [facility] NON [facility] DOCUMENTATION 2019-03-26 05:01:00 Doctor Unassigned, [facility] XR CHEST 2 VW 2019-03-20 17:10:47 [facility] 2019-03-20 16:54:41 Doctor Unass igned, [facility] CONSENT/REFUSAL FOR DIAGNOSIS AND TREATMENT 2019-03-20 16:10:12 Doctor Unassigned, [facility] ASSIGNMENT OF BENEFITS 2019-03-20 16:08:11 Docto r Unassigned, [facility] Encounters Start Date/Time End Date/Time Encounter Type Admission Type Attending [facility] Care Facility Care Department Encounter ID Source 2021-09-01 12:17:49 Outpatient 3 [id number] [id number] REF [id number] [facility] 2021-07-07 00:00:00 2021-07-07 00:00:00 Orders Only Doctor Unassigned, [facility] 1.2.840.114 350.1.13.10 4.2.7.2.686 [id number] [facility] 2021-06-27 00:00:00 2021-06-27 00:00:00 Outpatient R [facility] [id number] [facility] 2021-06-22 00:00:00 2021-06-22 00:00:00 Outpatient R [facility] [id number] [facility] 2021-06-21 00:00:00 2021-06-21 00:00:00 Orders Only Doctor Unassigned, [facility] 1.2840.114 350.1.13.10 4.2.7.2.686 [id number] [id number] [facility] 2021-06-01 00:00:00 2021-06-01 00:00:00 Outpatient R [facility] [id number] [facility] 2021-06-01 00:00:00 2021-06-01 00:00:00 Orders Only Doctor Unassigned, [facility] 1.2840.114 350.1.13.10 4.2.7.2.686 [id number] [facility] 2021-05-25 00:00:00 2021-05-25 00:00:00 Outpatient [facility] [id number] [facility] 2021-05-24 00:00:00 2021-05-24 00:00:00 Orders Only Doctor Unassigned, [facility] 1.2.840.114 350.1.13.10 4.2.7.2.686 [id number] [id number] [facility] 2021-05-10 00:00:00 2021-05-10 00:00:00 Orders Only Doctor Unassigned, [facility] 1.2.840.114 350.1.13.10 4.2.7.2.686 [id number] [id number] [facility] 2021-05-03 00:00:00 2021-05-03 00:00:00 Outpatient [facility] [id number] [facility] 2021-04-26 00:00:00 2021-04-26 00:00:00 Outpatient [facility] [id number] [facility] 2021-03-29 00:00:00 2021-03-29 00:00:00 Orders Only Doctor Unassigned, [facility] 1.2840.114 350.1.13.10 4.2.7.2.686 [id number] [id number] [facility] 2021-03-21 00:00:00 2021-03-21 00:00:00 Orders Only Doctor Unassigned, [facility] 1.2840.114 350.1.13.10 4.2.7.2.686 [id number] [id number] [facility] 2021-01-13 14:22:00 2021-01-31 14:54:00 Inpatient 3 [facility] Hannah plascencia CVA [id number] [facility] Veritolan donnie 2019-10-28 11:32:00 2019-10-28 11:32:00 Outpatient Rosa_P MMG [id number] [facility] 2019-10-27 15:28:56 2019-10-27 18:24:00 Emergency Donya Tavares [facility] 1.2.840.114 350.1.13.10 4.2.7.2.686 [id number] [facility] 2019-10-27 15:28:56 2019-10-27 18:24:00 Emergency X DONYA TAVARES [facility] ERT [id number] [facility] 2019-10-27 00:00:00 2019-10-27 00:00:00 Orders Only Doctor Unassigned, [facility] 1.2.840.114 350.1.13.10 4.2.7.2.686 [id number] [id number] [facility] 2019-09-26 00:00:00 2019-09-26 00:00:00 Orders Only Doctor Unassigned, [facility] 1.2.840.114 350.1.13.10 4.2.7.2.686 [id number] [id number] [facility] 2019-09-17 00:00:00 2019-09-17 00:00:00 Outpatient R [facility] [id number] [facility] 2019-04-10 13:46:13 2019-04-10 14:32:35 Office Visit Ferdinand Sewell [facility] 1.2.840.114 350.1.13.10 4.2.7.2.686 [id number] [facility] 2019-03-26 00:00:00 2019-03-26 00:00:00 Outpatient R MAURA THORNTON [facility] JAROCHO [id number] [facility] 2019-03-26 00:00:00 2019-03-26 00:00:00 Orders Only Doctor Unassigned, [facility] 1.2.840.114 350.1.13.10 4.2.7.2.686 [id number] [id number] [facility] 2019-03-21 00:00:00 2019-03-21 00:00:00 Telephone Maura Thornton [facility] 1.2.840.114 350.1.13.10 4.2.7.2.686 [id number] [facility] 2019-03-21 00:00:00 2019-03-21 00:00:00 Prep For Surgery Maura Thornton [facility] ashli [facility] 1.2.840.114 350.1.13.10 4.2.7.2.686 [id number] [facility] 2019-03-20 11:08:03 2019-03-20 23:59:00 Hospital Encounter Maura Thornton [facility] [id number] [facility] 2019-03-20 11:02:22 2019-03-20 11:17:22 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, [facility] Lab Maura Thornton [facility] [id number] [facility] 2019-03-20 11:07:54 2019-03-20 11:07:54 Hospital Encounter Ferdinand Sewell, [facility] [place] [id number] [facility] 2019-03-20 09:24:23 2019-03-20 09:39:23 Office Visit SewellJohanatt Narciso [facility] Surgical Special ashli [place] [id number] [facility] 2019-03-20 00:00:00 2019-03-20 00:00:00 Letter (Out) Maura Thornton [facility] Surgical Specialti ashli [place] [id number] [facility] 2019-03-04 10:17:23 2019-03-04 11:01:19 Office Visit Rodolfo Tijerina [facility] Cathi Lozada [facility] [id number] [facility] Results Test Description Test Time Test Comments Results Result Co mments Source [facility] (NA, K, CL, CO2, GLUCOSE, BUN, CREATININE, CA)2019-10-27 21:15:00* Test Item Value Reference Range Interpretation Comme nts NA (test code = 3965447811) 131 mmol/L 135-145 L K (test code = 8558529799) 5.0 mmol/L 3.5-5 CL (test code = 9006147369) 92 mmol/L 98-108 L CO2 TOTAL (test code = 3633823201) 33 mmol/L 23-31 H AGAP (test code = 0483179547) 2-16 BUN (test code = 8059648887) 25 mg/dL 7-23 H GLUCOSE (test code = 0514583773) 130 mg/dL 70-110 H CREATININE (test code = 9354398216) 1.05 mg/dL 0.5-1.04 H CALCIUM (test code = 4069130347) 9.4 mg/dL 8.6-10.6 eGFR Calculation (Non-) (test code = 0323058690) mL/min/1.73m2 eGFR Calculation () (test code = 0872539693) mL/min/1.73m2 FLORA (test code = FLORA) Association [...] imaging tests). Lab Interpretation (test code = 70425-1) Abnormal [facility] [id number] 21:15:00* Test Item Value Reference Range Interpretation Comme nts URIC ACID (test code = 5457806709) 9.4 mg/dL 2.9-6 H Lab Interpretation (test cod e = 88996-2) Abnormal [facility] CHE[facility] 2 [id number] 17:44:04HISTORY: Right carpal tunnel syndrome. TECHNIQUE: PA and lateral views of the chest are obtained. 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 No acute pneumonia detected. No pneumothorax or pleuraleffusion or pulmonary congestion. Cardiothoracic ratio of lhianedknytlj50.6/27.2 cm is consistent with normal cardiac size. Prominent epicardialfat pads is suspected on both sides. Mild right apical pleural scarringnoted. No compression fractures seen in the thoracic vertebral bodies. CONCLUSIONS: No signs of acute cardiopulmonary disease. 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 No acute pneumonia detected. No pneumothorax or pleuraleffusion or pulmonary congestion. Cardiothoracic ratio of soamhndifhwdk52.6/27.2 cm is consistent with normal cardiac size. Prominent epicardialfat pads is suspected on both sides. Mild right apical pleural scarringnoted. Nocompression fractures seen in the thoracic vertebral bodies.CONCLUSIONS: No signs of acute cardiopulmonary disease.[facility]
--- NOTE | 2023-08-27 10:53 | RAD REPORT ---
EXAM DESCRIPTION: CT - Ct Stroke Brain Wo Cont - 08/27/2023 10:45 am CLINICAL HISTORY: STROKE ALERT Headache, drowsiness, CVA symptomology COMPARISON: Head Brain Wo Cont dated 08/20/2023; Head Brain Wo Cont dated 08/18/2023 TECHNIQUE: All CT scans are performed using dose optimization technique as appropriate and may inclu de automated exposure control or mA/KV adjustment according to patient size. FINDINGS: No intracranial hemorrhage, hydrocephalus or extra-axial fluid collection.Mild generalized brain atrophy.No areas of brain edema or evidence of midline shift. The paranasal sinuses and mastoids are clear. The calvarium is intact. IMPRESSION: No acute intracranial abnormality. The findings were discussed with Dr. Sales in the ER On 08/27/2023 at 10:49 a.m. by telephone.
[2023-08-27 11:24] LABS: Hematocrit 43.2 % (36.0-45.0); MPV 7.9 fL (7.6-11.3); Platelets 304 thou/uL (152-406); RBC Red Blood Cell Count 4.65 M/uL (3.86-4.86)
[2023-08-27 11:34] LABS: Protime INR 1.06
[2023-08-27 11:44] LABS: Albumin 3.4 g/dL (3.4-5.0); Bilirubin Direct 0.1 mg/dL (0-0.2); Bilirubin Indirect, Calculated 0.3 mg/dL (0.2-0.8); Bilirubin Total 0.4 mg/dL (0.2-1.0); Magnesium 2.4 mg/dL (1.6-2.4); Potassium 3.6 mEq/L (3.5-5.1); Protein, Total 7.5 g/dL (6.4-8.2)
--- NOTE | 2023-08-27 12:09 | ER ---
Nurse's Notes [facility] Name: Lyubov Garcia Age: 88 yrs Sex: Female : 1935 Arrival Date: 08/27/2023 Time: 10:23 Bed DX3 Private MD: Diagnosis: Headache Presentation: 08/27 10:18 Chief complaint: EMS states: Headache and dizziness today "a couple hours ago", [facility] nj1 stated that her "words were off". 10:18 Coronavirus screen: Vaccine status: Patient reports receiving the 2nd dose of the covid nj1 vaccine. Ebola Screen: Patient denies travel to an Ebola-affected area in the 21 days before illness onset. Initial Sepsis Screen: Does the patient meet any 2 criteria? No. Patient's initial sepsis screen is negative. Does the patient have a suspected source of infection? No. Patient's initial sepsis screen is negative. Risk Assessment: Do you want to hurt yourself or someone else? Patient reports no desire to harm self or others. Onset of symptoms was August 27, 2023 at 09:00. 10:18 Method Of Arrival: EMS: [facility] nj1 10:18 Acuity: STEFANY 2 nj1 Historical: - Allergies: 10:18 Latex; nj1 10:18 Quinine Sulfate; nj1 10:18 Sulfa (Sulfonamide Antibiotics); nj1 10:18 tramadol; nj1 - PMHx: 10:18 Anemia; Charcots Arthropathy; CVA; depressive disorder; diabetes mellitus; GERD; Gout; nj1 HEART FAILURE; Hypertensive disorder; PVD; UTI; - Immunization history:: Client reports receiving the 2nd dose of the Covid vaccine. - Social history:: Smoking status: Patient denies any tobacco usage or history of. - Family history:: not pertinent. Screenin:20 VAN Screening: Arm Drift: Patient shows no arm weakness. Patient is VAN negative. nj1 10:30 [facility] ED Fall Risk Assessment (Adult) Score/Fall Risk Level 3 or more points = High nj Risk Oriented to surroundings, Maintained a safe environment, Hourly rounding (assess needs \\T\\ fall precautionary measures) done, Used ambulatory aids as needed (educated on \\T\\ assisted with), Offered frequent toileting (1:1 observation), Remained with patient while ambulating. Abuse screen: Denies threats or abuse. Denies injuries from another. Nutritional screening: No deficits noted. Tuberculosis screening: No symptoms or risk factors identified. 11:05 [place] Swallow Protocol Exclusion Criteria: Unable to remain alert for testing: No NPO nj1 for medical/surgical reason by provider order No Head-of-bed restricted <30 degrees Tracheostomy tube present No No thin liquids due to preexisting dysphagia/baseline modified diet thickened liquids No Exclusion Criteria Result: Proceed Brief Cognitive Screen What is your name? Normal, Where are you right now? Normal, What year is it? Normal. Oral Mechanism Examination Facial Symmetry: Normal, Motion: Normal, Lip Closure: Normal, Oral Mechanism Result: Normal. 3 oz Water Swallow Challenge: Pt able to drink all water without stopping, coughing, choking or throat clearing: Yes Result: PASS. Assessment: 10:20 General: Appears in no apparent distress. comfortable, Behavior is calm, cooperative, nj1 appropriate for age. Pain: Complains of pain in head Pain currently is 10 out of 10 on a pain scale. Quality of pain is described as aching, Pain began 2 hours ago. 10:20 Neuro: Level of Consciousness is awake, alert, obeys commands, Oriented to person, nj1 place, time, situation, Sole Leveler are equal bilaterally Moves all extremities. Speech is normal, Facial symmetry appears normal, Pupils are PERRLA, Intact. Cardiovascular: Patient's skin is warm and dry. Respiratory: Airway is patent Respiratory effort is even, unlabored. 11:26 Reassessment: Patient appears in no apparent distress at this time. No changes from nj1 previously documented assessment. Patient and/or family updated on plan of care and expected duration. Pain level reassessed. Patient is alert, oriented x 3, equal unlabored respirations, skin warm/dry/pink. Vital Signs: 10:18 BP 133 / 72; Pulse 72; Resp 18; Temp 97.7(O); Pulse Ox 100% on R/A; Weight 81.19 kg; nj1 Height 5 ft. 8 in. ; Pain 10/10; 11:10 BP 119 / 69; Pulse 66; Resp 18; Pulse Ox 98% ; Pain 9/10; nj1 12:00 BP 135 / 78; Pulse 72; Resp 18; Pulse Ox 99% on R/A; Pain 8/10; nj1 10:18 Body Mass Index 27.22 (81.19 kg, 172.72 cm) nj1 10:18 Pain Scale: Adult nj1 11:10 Pain Scale: Adult nj1 12:00 Pain Scale: Adult nj1 ED Course: 10:24 Patient arrived in ED. ds4 10:26 Toshia Disla, RN is Primary Nurse. nj1 10:28 Simeon Sales MD is Attending Physician. rt 10:30 Notified ED physician of other Chief complaint and assessment findings. nj1 10:30 Patient has correct armband on for positive identification. Bed in low position. Call nj1 light in reach. 10:30 Provided Education on: fall precautions, call light. nj1 10:43 Triage completed. nj1 10:43 Arm band placed on. nj1 10:45 CT Stroke Brain w/o Contrast In Process Unspecified. EDMS 11:10 Inserted saline lock: 22 gauge in right antecubital area, using aseptic technique. nj1 Blood collected. 12:08 Ld Francis MD is Referral Physician. rt 12:15 No provider procedures requiring assistance completed. nj1 12:44 Stroke CXR 1 View In Process Unspecified. EDMS Administered Medications: 11:12 Drug: morphine IVP or IV 2 mg IVP once over 4 mins Route: IVP; Infused Over: 4 mins; nj1 Site: right antecubital; 12:10 Follow up: Response: No adverse reaction; Pain is decreased nj1 11:12 Drug: Acetaminophen PO 1000 mg PO once Route: PO; nj1 12:10 Follow up: Response: No adverse reaction nj1 Medication: 12:21 VIS not applicable for this client. nj1 Outcome: 12:08 Discharge ordered by . rt 12:15 Discharged to assisted. Report called to Nurse Zuniga. nj1 12:15 Condition: stable 12:15 Discharge instructions given to patient, Instructed on discharge instructions, follow up and referral plans. medication usage, Demonstrated understanding of instructions, follow-up care, medications, Prescriptions given X 1, 15:36 Patient left the ED. iw Signatures: Dispatcher [employer] EDMS Genia Irby RN RN iw Rojelio Mccarty ds4 Simeon Sales MD MD rt Toshia Disla RN RN nj1 Corrections: (The following items were deleted from the chart) 12:34 12:15 Discharged to assisted. nj1 nj1 12:35 12:34 Response: No adverse reaction nj1 nj1
--- NOTE | 2023-08-27 12:09 | EDPHYS ---
Physician Documentation [facility] Name: Lyubov Garcia Age: 88 yrs Sex: Female : 1935 Arrival Date: 08/27/2023 Time: 10:23 Bed DX3 Private MD: ED Physician Simeon Sales HPI: 08/27 10:47 This 88 yrs old Female presents to ER via EMS with complaints of Headache. rt 10:47 Patient had a recent mission for posterior CVA with a headache as well as visual rt disturbance. Patient was discharged to long-term. Patient symptoms have been unchanged. Nursing reported some speech difficulties. She denies this. She states that her headache as well as visual disturbances are unchanged compared to when she left the hospital. Symptoms are moderate severity, no other aggravating elevating factors.. Historical: - Allergies: 10:18 Latex; nj1 10:18 Quinine Sulfate; nj1 10:18 Sulfa (Sulfonamide Antibiotics); nj1 10:18 tramadol; nj1 - PMHx: 10:18 Anemia; Charcots Arthropathy; CVA; depressive disorder; diabetes mellitus; GERD; Gout; nj1 HEART FAILURE; Hypertensive disorder; PVD; UTI; - Immunization history:: Client reports receiving the 2nd dose of the Covid vaccine. - Social history:: Smoking status: Patient denies any tobacco usage or history of. - Family history:: not pertinent. ROS: 10:47 Constitutional: Negative for fever, chills, and weight loss, Cardiovascular: Negative rt for chest pain, palpitations, and edema, Respiratory: Negative for shortness of breath, cough, wheezing, and pleuritic chest pain, Abdomen/GI: Negative for abdominal pain, nausea, vomiting, diarrhea, and constipation, MS/Extremity: Negative for injury and deformity, Skin: Negative for injury, rash, and discoloration, Psych: Negative for depression, anxiety, suicide ideation, homicidal ideation, and hallucinations, 10:47 Eyes: Positive for blurry vision, vision loss, 10:47 Neuro: Positive for headache, Negative for altered mental status, Exam: 10:47 Constitutional: This is a well developed, well nourished patient who is awake, alert, rt and in no acute distress. Head/Face: Normocephalic, atraumatic. Chest/axilla: Normal chest wall appearance and motion. Nontender with no deformity. No lesions are appreciated. Cardiovascular: Regular rate and rhythm with a normal S1 and S2. No gallops, murmurs, or rubs. Normal PMI, no JVD. No pulse deficits. Respiratory: Lungs have equal breath sounds bilaterally, clear to auscultation and percussion. No rales, rhonchi or wheezes noted. No increased work of breathing, no retractions or nasal flaring. Abdomen/GI: Soft, non-tender, with normal bowel sounds. No distension or tympany. No guarding or rebound. No evidence of tenderness throughout. Skin: Warm, dry with normal turgor. Normal color with no rashes, no lesions, and no evidence of cellulitis. MS/ Extremity: Pulses equal, no cyanosis. Neurovascular intact. Full, normal range of motion. Psych: Awake, alert, with orientation to person, place and time. Behavior, mood, and affect are within normal limits. 10:47 Eyes: Left-sided visual field deficits, extraocular muscles intact. 10:47 Neuro: 2/5 strength on the left lower extremity, sensory deficits on the extremity. Otherwise, cranial nerves are intact, strength and sensation otherwise intact in upper and lower extremities, 11:00 ECG was reviewed by the Attending Physician. rt Vital Signs: 10:18 BP 133 / 72; Pulse 72; Resp 18; Temp 97.7(O); Pulse Ox 100% on R/A; Weight 81.19 kg; nj1 Height 5 ft. 8 in. ; Pain 10/10; 11:10 BP 119 / 69; Pulse 66; Resp 18; Pulse Ox 98% ; Pain 9/10; nj1 12:00 BP 135 / 78; Pulse 72; Resp 18; Pulse Ox 99% on R/A; Pain 8/10; nj1 10:18 Body Mass Index 27.22 (81.19 kg, 172.72 cm) nj1 10:18 Pain Scale: Adult nj1 11:10 Pain Scale: Adult nj1 12:00 Pain Scale: Adult nj1 MDM: 10:31 Patient medically screened. rt 12:09 Differential Diagnosis CVA, headache, intracranial hemorrhage. Data reviewed: vital rt signs, nurses notes, lab test result(s), EKG, radiologic studies. Consideration of Admission/Observation Escalation of care including admission/observation considered. Management of patient was discussed with the following: Bail Bonding Agent: Discussed with Dr. Francis, states no need for admission, recommends starting Topamax, will follow-up patient in the clinic.. Independent interpretation of the following test(s) in the Emergency Department CT Scan: My interpretation is No intracranial hemorrhage send interpretation of CT scan images. Discussion of test interpretation with radiology: I had a discussion with radiology regarding a test interpretation. No changes compared to prior study. Care significantly affected by the following chronic conditions: Previous CVA. Counseling: I had a detailed discussion with the patient and/or guardian regarding the historical points, exam findings, and any diagnostic results supporting the discharge/admit diagnosis, lab results, radiology results, the need for outpatient follow up, to return to the emergency department if symptoms worsen or persist or if there are any questions or concerns that arise at home. 08/27 10:37 Order name: Basic Metabolic Panel; Complete Time: 11:45 rt 08/27 10:37 Order name: CBC with Diff; Complete Time: 11:45 rt 08/27 10:37 Order name: Hepatic Function; Complete Time: 11:45 rt 08/27 10:37 Order name: High Sensitivity Troponin; Complete Time: 11:45 rt 08/27 10:37 Order name: Magnesium; Complete Time: 11:45 rt 08/27 10:37 Order name: Protime (+inr); Complete Time: 11:45 rt 08/27 10:37 Order name: Ptt, Activated; Complete Time: 11:45 rt 08/27 10:37 Order name: CT Stroke Brain w/o Contrast; Complete Time: 11:45 rt 08/27 10:37 Order name: Stroke CXR 1 View; Complete Time: 12:51 rt 08/27 10:37 Order name: EKG; Complete Time: 10:37 rt 08/27 10:37 Order name: Accucheck; Complete Time: 11:17 rt 08/27 10:37 Order name: Cardiac monitoring; Complete Time: 10:38 rt 08/27 10:37 Order name: EKG - Nurse/Tech; Complete Time: 10:54 rt 08/27 10:37 Order name: IV Saline Lock; Complete Time: 11:17 rt 08/27 10:37 Order name: Labs collected and sent; Complete Time: 11:17 rt 08/27 10:37 Order name: NPO; Complete Time: 10:38 rt 08/27 10:37 Order name: O2 Per Protocol; Complete Time: : rt 08/27 10:37 Order name: O2 Sat Monitoring; Complete Time: rt 08/27 10:37 Order name: Stroke Swallow Screen; Complete Time: 11:17 rt EC:00 Rate is 66 beats/min. Rhythm is irregularly irregular, A fib with No ectopy. QRS [place] rt is Normal. QRS interval is normal. QT interval is normal. No Q waves. No ST changes noted. Administered Medications: 11:12 Drug: morphine IVP or IV 2 mg IVP once over 4 mins Route: IVP; Infused Over: 4 mins; nj1 Site: right antecubital; 12:10 Follow up: Response: No adverse reaction; Pain is decreased nj1 11:12 Drug: Acetaminophen PO 1000 mg PO once Route: PO; nj1 12:10 Follow up: Response: No adverse reaction nj1 Disposition Summary: 08/27/23 12:08 Discharge Ordered Notes: Location: Home rt Problem: an ongoing problem rt Symptoms: are unchanged rt Condition: Stable rt Diagnosis - Headache rt Followup: rt - With: Ld Francis MD - When: 5 - 6 days - Reason: Discharge Instructions: - Discharge Summary Sheet rt - General Headache Without Cause rt Forms: - Medication Reconciliation Form rt - Thank You Letter rt - Antibiotic Education rt - Prescription Opioid Use rt - Patient Portal Instructions rt - Leadership Thank You Letter rt Prescriptions: - Topamax 25 mg Oral Capsule, Sprinkle - take 1 capsule ORAL route every day at bedtime; 30 capsule; Refills: 0, Product rt Selection Permitted Signatures: Dispatcher [employer] Simeon Weatehrs MD MD rt Toshia Disla, RN RN nj1
--- NOTE | 2023-08-27 12:50 | RAD REPORT ---
EXAM DESCRIPTION: RAD - Chest Single View - 08/27/2023 12:42 pm CLINICAL HISTORY: headache, recent CVA Chest pain. COMPARISON: Chest Single View dated 08/15/2023; Chest Single View dated 07/24/2023; Chest Single View dated 10/18/2022; Chest Single View dated 04/01/2022 FINDINGS: Portable technique limits examination quality. The lungs are grossly clear. The heart is mildly enlarged in size. No displaced fractures. IMPRESSION: No acute intrathoracic process suspected.
[2023-08-27 16:39] VITALS: BP 135/78; O2SAT 99
--- NOTE | 2023-08-28 17:52 | EKG ---
Test Date: 2023-08-27 Test Time: 10:52:08 Asbestos Removal Worker: LUCIA MEASUREMENT RESULTS: Intervals: Rate: 66 NH: QRSD: 74 QT: 390 QTc: 408 [place]: P: NH: QRS: 62 T: 32 INTERPRETIVE STATEMENTS: Atrial fibrillation Anteroseptal infarct, age undetermined Abnormal ECG Compared to ECG 08/16/2023 11:20:30 No significant changes Electronically Signed On 08-28-23 17:50:34 IP/MOSAIC TECHNICIAN by Khoi Vences
== END ==
LOC: ER 10:23
DX: R51.9 Headache, unspecified (principal); Z86.73 Personal history of transient ischemic attack (TIA), and cerebral infarction without residual deficits; Z88.2 Allergy status to sulfonamides; Z88.5 Allergy status to narcotic agent; Z91.040 Latex allergy status
CPT/HCPCS: 93005; 85025; 80048; 36415; 83735; 85610; 80076; 85730; 84484; 70450; 71045; 96374; 99284; J2270

== ENCOUNTER 2023-08-31 01:22 | Inpatient (IN) | payer OTHER ==
--- OUTSIDE RECORDS SUMMARY | 2023-08-31 01:26 | XMS REPORT | Continuity of Care Document ---
Author Name Unknown Address [address] [facility] [address] [place] [address] [facility] Address [address] [facility] [address] [place] [address] Care Team Providers Care Neurophysiological Technician Name Role Phone Nathan Stephen MD Primary Care Physician + [phone] [id number] Attending Clinician Unavailable Doctor Unassigned, [place] Attending Clinician U lucilleailHannah Eden Anavella Attending Cli nician Unavailable Raju_P Attending Clinician Unavailable Donya Craig Attending Clinician [phone] DONYA TAVARES Attending Clinician Unavailable Ferdinand Wallace S Attending Clinician [phone] MAURA THORNTON Attending Clinician UnavailMaura Hernandez MD Attending Clinician [phone], [facility] Attending Clinician Unavailable [facility], [facility] Attending Clinician Unavailab Rodolfo Randall MD Attending Clinician [id number] Admitting Clinician Unavailable CARMEN LANDAVERDE Admitting Clinician Unavailab Luigi Cook Anav Admitting Clinician U navailable Rosa_P Admitting Clinician Unavailable DONYA TAVARES Admitting Clinician Unavailable NATHAN STEPHEN Admitting Clinician Unavailab le Payers Payer Name Policy Type Policy Number Effective Date Expirati on Date Source 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 [id number] [facility] [id number] Problems Condition Name Condition Details Condition Category Status Onset Date Resolution Date Last Treatment Date Treating Clinician Comments Source Atypical chest pain Atypical chest pain Disease Active 2018-08 0 00:00: 00 [facility] Dizzy spells Dizzy spells Disease Active 2018-08 017 00:00: 00 [facility] Essential hypertensi on Essential hypertensi on Disease Active 2018-08 00:00: 00 [facility] Dyslipidem ia Dyslipidem ia Disease Active 2018-08 00:00: 00 [facility] KING (acute kidney injury) KING (acute kidney injury) Disease Active 2018-08 016 00:00: 00 [facility] Pain aggravated by standing Pain aggravated by standing Disease Active 18 00:00: 00 [facility] Intractabl e low back pain Intractabl e low back pain Disease Active 01-20 00:00: 00 [facility] "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 03-31 00:00: 00 [facility] 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 Active 03-30 00:00: 00 [facility] CHF (congestiv e heart failure) CHF (congestiv e heart failure) Disease Active 03-30 00:00: 00 [facility] Allergies, Adverse Reactions, Alerts Allergy Name Allergy Type Status Severity Reaction(s) Onset Date Inactive Date Treating Clinician Comments Source Sulfa (Sulfona mide Antibiot ics) Propensi ty to adverse reaction s Active Itching 03-30 00:00: 00 [facility] LATEX DRUG INGREDI Active Rash 03-30 00:00: 00 [facility] QUININE DRUG INGREDI Active Anxiety 03-30 00:00: 00 [facility] SULFA (SULFONA MIDE ANTIBIOT ICS) Drug Class Active ITCHING 03-30 00:00: 00 [facility] Latex Propensi ty to adverse reaction s Active Rash 03-30 00:00: 00 [facility] Quinine Propensi ty to adverse reaction s Active Anxiety 03-30 00:00: 00 [facility] Social History Social Habit Start Date [...] Start Date Stop Date Source Never smoker [facility] Medications Ordered Medication Name Filled Medication Name Start Date Stop Date Current Medication? Ordering Clinician Indication Dosage Frequency Signature (SIG) Comments Components Source clindamycin 150 mg capsule 10-27 00:00: 00 11-04 04:59 :00 No [id number] 450mg Take 3 capsules by mouth 3 (three) times daily for 7 days. [facility] colchicine (COLCRYS) tablet 0.6 mg 10-26 22:47: 00 10-26 23:02 :00 No .6mg 0.6 mg, Oral, ONCE, 1 dose, 10/27/19 at 1800, [facility] ibuprofen (IBU) tablet 600 mg 10-26 22:45: 00 10-26 21:56 :00 No 600mg 600 mg, Oral, ONCE, 1 dose, 10/27/19 at 1745, [facility] colchicine (COLCRYS) tablet 1.2 mg 10-26 22:45: 00 10-26 21:56 :00 No 1.2mg 1.2 mg, Oral, ONCE, 1 dose, 10/27/19 at 1745, BARBIE [facility] clindamycin in 5 % dextrose (CLEOCIN) 600 mg/50 mL IV piggyback RTU 600 mg 10-26 22:00: 00 10-26 21:29 :00 No 600mg 600 mg, IV Piggyback, ONCE, 1 dose, 10/27/19 at 1700, 50 mL
Reas on for Anti-Infec tive: Documented Infection< br>Documen sathya Infection Site: Skin / Soft Tissue
Duration of Therapy: Other (see Comments)< br>Restric sathya use approved by: ADC PROVIDER [facility] colchicine 0.6 mg tablet 10-26 00:00: 00 11-01 04:59 :00 No [id number] .6mg Take 1 tablet by mouth daily for 5 days. Take until flare up resolves [facility] furosemide 40 mg tablet 2018-08 22:49: 52 Yes 40mg Take 40 mg by mouth daily. [facility] atenolol 25 mg tablet 2018-08 22:49: 52 Yes 25mg Take 25 mg by mouth daily. [facility] gabapentin 400 mg capsule 2018-08 22:49: 52 Yes 400mg Take 400 mg by mouth 3 (three) times daily. [facility] omeprazole 20 mg capsule 2018-08 22:49: 52 Yes 20mg Take 20 mg by mouth daily. [facility] losartan-hy drochloroth iazide 50-12.5 mg per tablet 2018-08 22:49: 52 Yes 1{tbl} Take 1 tablet by mouth daily. [facility] HYDROcodone -acetaminop hen 5-325 mg tablet 2018-08 22:49: 52 Yes 1{tbl} Take 1 tablet by mouth every 6 (six) hours as needed. [facility] furosemide 40 mg tablet 2018-08 22:49: 52 Yes 40mg Take 40 mg by mouth daily. [facility] atenolol 25 mg tablet 2018-08 22:49: 52 Yes 25mg Take 25 mg by mouth daily. [facility] gabapentin 400 mg capsule 2018-08 22:49: 52 Yes 400mg Take 400 mg by mouth 3 (three) times daily. [facility] omeprazole 20 mg capsule 2018-08 22:49: 52 Yes 20mg Take 20 mg by mouth daily. [facility] losartan-hy drochloroth iazide 50-12.5 mg per tablet 2018-08 22:49: 52 Yes 1{tbl} Take 1 tablet by mouth daily. [facility] HYDROcodone -acetaminop hen 5-325 mg tablet 2018-08 22:49: 52 Yes 1{tbl} Take 1 tablet by mouth every 6 (six) hours as needed. [facility] furosemide 40 mg tablet 2018-08 22:49: 52 Yes 40mg Take 40 mg by mouth daily. [facility] atenolol 25 mg tablet 2018-08 22:49: 52 Yes 25mg Take 25 mg by mouth daily. [facility] gabapentin 400 mg capsule 2018-08 22:49: 52 Yes 400mg Take 400 mg by mouth 3 (three) times daily. [facility] omeprazole 20 mg capsule 2018-08 22:49: 52 Yes 20mg Take 20 mg by mouth daily. [facility] losartan-hy drochloroth iazide 50-12.5 mg per tablet 2018-08 22:49: 52 Yes 1{tbl} Take 1 tablet by mouth daily. [facility] HYDROcodone -acetaminop hen 5-325 mg tablet 2018-08 22:49: 52 Yes 1{tbl} Take 1 tablet by mouth every 6 (six) hours as needed. [facility] furosemide 40 mg tablet 2018-08 22:49: 52 Yes 40mg Take 40 mg by mouth daily. [facility] atenolol 25 mg tablet 2018-08 22:49: 52 Yes 25mg Take 25 mg by mouth daily. [facility] gabapentin 400 mg capsule 2018-08 22:49: 52 Yes 400mg Take 400 mg by mouth 3 (three) times daily. [facility] omeprazole 20 mg capsule 2018-08 22:49: 52 Yes 20mg Take 20 mg by mouth daily. [facility] losartan-hy drochloroth iazide 50-12.5 mg per tablet 2018-08 22:49: 52 Yes 1{tbl} Take 1 tablet by mouth daily. [facility] HYDROcodone -acetaminop hen 5-325 mg tablet 2018-08 22:49: 52 Yes 1{tbl} Take 1 tablet by mouth every 6 (six) hours as needed. [facility] furosemide 40 mg tablet 2018-08 17:49: 52 Yes 40mg Take 40 mg by mouth daily. [facility] atenolol 25 mg tablet 2018-08 17:49: 52 Yes 25mg Take 25 mg by mouth daily. [facility] gabapentin 400 mg capsule 2018-08 17:49: 52 Yes 400mg Take 400 mg by mouth 3 (three) times daily. [facility] omeprazole 20 mg capsule 2018-08 17:49: 52 Yes 20mg Take 20 mg by mouth daily. [facility] losartan-hy drochloroth iazide 50-12.5 mg per tablet 2018-08 17:49: 52 Yes 1{tbl} Take 1 tablet by mouth daily. [facility] HYDROcodone -acetaminop hen 5-325 mg tablet 2018-08 17:49: 52 Yes 1{tbl} Take 1 tablet by mouth every 6 (six) hours as needed. [facility] furosemide 40 mg tablet 2018-08 17:49: 52 Yes 40mg Take 40 mg by mouth daily. [facility] atenolol 25 mg tablet 2018-08 17:49: 52 Yes 25mg Take 25 mg by mouth daily. [facility] gabapentin 400 mg capsule 2018-08 17:49: 52 Yes 400mg Take 400 mg by mouth 3 (three) times daily. [facility] omeprazole 20 mg capsule 2018-08 17:49: 52 Yes 20mg Take 20 mg by mouth daily. [facility] losartan-hy drochloroth iazide 50-12.5 mg per tablet 2018-08 17:49: 52 Yes 1{tbl} Take 1 tablet by mouth daily. [facility] HYDROcodone -acetaminop hen 5-325 mg tablet 2018-08 17:49: 52 Yes 1{tbl} Take 1 tablet by mouth every 6 (six) hours as needed. [facility] furosemide 40 mg tablet 2018-08 17:49: 52 Yes 40mg Take 40 mg by mouth daily. [facility] atenolol 25 mg tablet 2018-08 17:49: 52 Yes 25mg Take 25 mg by mouth daily. [facility] gabapentin 400 mg capsule 2018-08 17:49: 52 Yes 400mg Take 400 mg by mouth 3 (three) times daily. [facility] omeprazole 20 mg capsule 2018-08 17:49: 52 Yes 20mg Take 20 mg by mouth daily. [facility] losartan-hy drochloroth iazide 50-12.5 mg per tablet 2018-08 17:49: 52 Yes 1{tbl} Take 1 tablet by mouth daily. [facility] HYDROcodone -acetaminop hen 5-325 mg tablet 2018-08 17:49: 52 Yes 1{tbl} Take 1 tablet by mouth every 6 (six) hours as needed. [facility] furosemide 40 mg tablet 2018-08 17:49: 52 Yes 40mg Take 40 mg by mouth daily. [facility] atenolol 25 mg tablet 2018-08 17:49: 52 Yes 25mg Take 25 mg by mouth daily. [facility] gabapentin 400 mg capsule 2018-08 17:49: 52 Yes 400mg Take 400 mg by mouth 3 (three) times daily. [facility] omeprazole 20 mg capsule 2018-08 17:49: 52 Yes 20mg Take 20 mg by mouth daily. [facility] losartan-hy drochloroth iazide 50-12.5 mg per tablet 2018-08 17:49: 52 Yes 1{tbl} Take 1 tablet by mouth daily. [facility] HYDROcodone -acetaminop hen 5-325 mg tablet 2018-08 17:49: 52 Yes 1{tbl} Take 1 tablet by mouth every 6 (six) hours as needed. [facility] furosemide 40 mg tablet 2018-08 17:49: 52 Yes 40mg Take 40 mg by mouth daily. [facility] atenolol 25 mg tablet 2018-08 17:49: 52 Yes 25mg Take 25 mg by mouth daily. [facility] gabapentin 400 mg capsule 2018-08 17:49: 52 Yes 400mg Take 400 mg by mouth 3 (three) times daily. [facility] omeprazole 20 mg capsule 2018-08 17:49: 52 Yes 20mg Take 20 mg by mouth daily. [facility] losartan-hy drochloroth iazide 50-12.5 mg per tablet 2018-08 17:49: 52 Yes 1{tbl} Take 1 tablet by mouth daily. [facility] HYDROcodone -acetaminop hen 5-325 mg tablet 2018-08 17:49: 52 Yes 1{tbl} Take 1 tablet by mouth every 6 (six) hours as needed. [facility] furosemide 40 mg tablet 2018-08 17:49: 52 Yes 40mg Take 40 mg by mouth daily. [facility] atenolol 25 mg tablet 2018-08 17:49: 52 Yes 25mg Take 25 mg by mouth daily. [facility] gabapentin 400 mg capsule 2018-08 17:49: 52 Yes 400mg Take 400 mg by mouth 3 (three) times daily. [facility] omeprazole 20 mg capsule 2018-08 17:49: 52 Yes 20mg Take 20 mg by mouth daily. [facility] losartan-hy drochloroth iazide 50-12.5 mg per tablet 2018-08 17:49: 52 Yes 1{tbl} Take 1 tablet by mouth daily. [facility] HYDROcodone -acetaminop hen 5-325 mg tablet 2018-08 17:49: 52 Yes 1{tbl} Take 1 tablet by mouth every 6 (six) hours as needed. [facility] losartan-hy drochloroth iazide 50-12.5 mg per tablet 01-10 20:11: 07 Yes 1{tbl} Take 1 tablet by mouth daily. [facility] losartan-hy drochloroth iazide 50-12.5 mg per tablet 01-10 20:11: 07 Yes 1{tbl} Take 1 tablet by mouth daily. [facility] losartan-hy drochloroth iazide 50-12.5 mg per tablet 01-10 20:11: 07 Yes 1{tbl} Take 1 tablet by mouth daily. [facility] losartan-hy drochloroth iazide 50-12.5 mg per tablet 01-10 20:11: 07 Yes 1{tbl} Take 1 tablet by mouth daily. [facility] losartan-hy drochloroth iazide 50-12.5 mg per tablet 01-10 20:11: 07 Yes 1{tbl} Take 1 tablet by mouth daily. [facility] losartan-hy drochloroth iazide 50-12.5 mg per tablet 01-10 20:11: 07 Yes 1{tbl} Take 1 tablet by mouth daily. [facility] losartan-hy drochloroth iazide 50-12.5 mg per tablet 01-10 20:11: 07 Yes 1{tbl} Take 1 tablet by mouth daily. [facility] losartan-hy drochloroth iazide 50-12.5 mg per tablet 01-10 20:11: 07 Yes 1{tbl} Take 1 tablet by mouth daily. [facility] losartan-hy drochloroth iazide 50-12.5 mg per tablet 01-10 20:11: 07 Yes 1{tbl} Take 1 tablet by mouth daily. [facility] losartan-hy drochloroth iazide 50-12.5 mg per tablet 01-10 20:11: 07 Yes 1{tbl} Take 1 tablet by mouth daily. [facility] losartan-hy drochloroth iazide 50-12.5 mg per tablet 01-10 20:11: 07 Yes 1{tbl} Take 1 tablet by mouth daily. [facility] losartan-hy drochloroth iazide 50-12.5 mg per tablet 01-10 20:11: 07 Yes 1{tbl} Take 1 tablet by mouth daily. [facility] losartan-hy drochloroth iazide 50-12.5 mg per tablet 01-10 20:11: 07 Yes 1{tbl} Take 1 tablet by mouth daily. [facility] furosemide 40 mg tablet 01-10 19:53: 40 Yes 40mg Take 40 mg by mouth daily. [facility] atenolol 25 mg tablet 01-10 19:53: 40 Yes 25mg Take 25 mg by mouth daily. [facility] gabapentin 400 mg capsule 01-10 19:53: 40 Yes 400mg Take 400 mg by mouth 3 (three) times daily. [facility] omeprazole 20 mg capsule 01-10 19:53: 40 Yes 20mg Take 20 mg by mouth daily. [facility] HYDROcodone -acetaminop hen 5-325 mg tablet 01-10 19:53: 40 Yes 1{tbl} Take 1 tablet by mouth every 6 (six) hours as needed. [facility] furosemide 40 mg tablet 01-10 19:53: 40 Yes 40mg Take 40 mg by mouth daily. [facility] atenolol 25 mg tablet 01-10 19:53: 40 Yes 25mg Take 25 mg by mouth daily. [facility] gabapentin 400 mg capsule 01-10 19:53: 40 Yes 400mg Take 400 mg by mouth 3 (three) times daily. [facility] omeprazole 20 mg capsule 01-10 19:53: 40 Yes 20mg Take 20 mg by mouth daily. [facility] HYDROcodone -acetaminop hen 5-325 mg tablet 01-10 19:53: 40 Yes 1{tbl} Take 1 tablet by mouth every 6 (six) hours as needed. [facility] furosemide 40 mg tablet 01-10 19:53: 40 Yes 40mg Take 40 mg by mouth daily. [facility] atenolol 25 mg tablet 01-10 19:53: 40 Yes 25mg Take 25 mg by mouth daily. [facility] gabapentin 400 mg capsule 01-10 19:53: 40 Yes 400mg Take 400 mg by mouth 3 (three) times daily. [facility] omeprazole 20 mg capsule 01-10 19:53: 40 Yes 20mg Take 20 mg by mouth daily. [facility] HYDROcodone -acetaminop hen 5-325 mg tablet 01-10 19:53: 40 Yes 1{tbl} Take 1 tablet by mouth every 6 (six) hours as needed. [facility] furosemide 40 mg tablet 01-10 19:53: 40 Yes 40mg Take 40 mg by mouth daily. [facility] atenolol 25 mg tablet 01-10 19:53: 40 Yes 25mg Take 25 mg by mouth daily. [facility] gabapentin 400 mg capsule 01-10 19:53: 40 Yes 400mg Take 400 mg by mouth 3 (three) times daily. [facility] omeprazole 20 mg capsule 01-10 19:53: 40 Yes 20mg Take 20 mg by mouth daily. [facility] HYDROcodone -acetaminop hen 5-325 mg tablet 01-10 19:53: 40 Yes 1{tbl} Take 1 tablet by mouth every 6 (six) hours as needed. [facility] furosemide 40 mg tablet 01-10 19:53: 40 Yes 40mg Take 40 mg by mouth daily. [facility] atenolol 25 mg tablet 01-10 19:53: 40 Yes 25mg Take 25 mg by mouth daily. [facility] gabapentin 400 mg capsule 01-10 19:53: 40 Yes 400mg Take 400 mg by mouth 3 (three) times daily. [facility] omeprazole 20 mg capsule 01-10 19:53: 40 Yes 20mg Take 20 mg by mouth daily. [facility] HYDROcodone -acetaminop hen 5-325 mg tablet 01-10 19:53: 40 Yes 1{tbl} Take 1 tablet by mouth every 6 (six) hours as needed. [facility] furosemide 40 mg tablet 01-10 19:53: 40 Yes 40mg Take 40 mg by mouth daily. [facility] atenolol 25 mg tablet 01-10 19:53: 40 Yes 25mg Take 25 mg by mouth daily. [facility] gabapentin 400 mg capsule 01-10 19:53: 40 Yes 400mg Take 400 mg by mouth 3 (three) times daily. [facility] omeprazole 20 mg capsule 01-10 19:53: 40 Yes 20mg Take 20 mg by mouth daily. [facility] HYDROcodone -acetaminop hen 5-325 mg tablet 01-10 19:53: 40 Yes 1{tbl} Take 1 tablet by mouth every 6 (six) hours as needed. [facility] furosemide 40 mg tablet 01-10 19:53: 40 Yes 40mg Take 40 mg by mouth daily. [facility] atenolol 25 mg tablet 01-10 19:53: 40 Yes 25mg Take 25 mg by mouth daily. [facility] gabapentin 400 mg capsule 01-10 19:53: 40 Yes 400mg Take 400 mg by mouth 3 (three) times daily. [facility] omeprazole 20 mg capsule 01-10 19:53: 40 Yes 20mg Take 20 mg by mouth daily. [facility] HYDROcodone -acetaminop hen 5-325 mg tablet 01-10 19:53: 40 Yes 1{tbl} Take 1 tablet by mouth every 6 (six) hours as needed. [facility] furosemide 40 mg tablet 01-10 19:53: 40 Yes 40mg Take 40 mg by mouth daily. [facility] atenolol 25 mg tablet 01-10 19:53: 40 Yes 25mg Take 25 mg by mouth daily. [facility] gabapentin 400 mg capsule 01-10 19:53: 40 Yes 400mg Take 400 mg by mouth 3 (three) times daily. [facility] omeprazole 20 mg capsule 01-10 19:53: 40 Yes 20mg Take 20 mg by mouth daily. [facility] HYDROcodone -acetaminop hen 5-325 mg tablet 01-10 19:53: 40 Yes 1{tbl} Take 1 tablet by mouth every 6 (six) hours as needed. [facility] furosemide 40 mg tablet 01-10 19:53: 40 Yes 40mg Take 40 mg by mouth daily. [facility] atenolol 25 mg tablet 01-10 19:53: 40 Yes 25mg Take 25 mg by mouth daily. [facility] gabapentin 400 mg capsule 01-10 19:53: 40 Yes 400mg Take 400 mg by mouth 3 (three) times daily. [facility] omeprazole 20 mg capsule 01-10 19:53: 40 Yes 20mg Take 20 mg by mouth daily. [facility] HYDROcodone -acetaminop hen 5-325 mg tablet 01-10 19:53: 40 Yes 1{tbl} Take 1 tablet by mouth every 6 (six) hours as needed. [facility] furosemide 40 mg tablet 01-10 19:53: 40 Yes 40mg Take 40 mg by mouth daily. [facility] atenolol 25 mg tablet 01-10 19:53: 40 Yes 25mg Take 25 mg by mouth daily. [facility] gabapentin 400 mg capsule 01-10 19:53: 40 Yes 400mg Take 400 mg by mouth 3 (three) times daily. [facility] omeprazole 20 mg capsule 01-10 19:53: 40 Yes 20mg Take 20 mg by mouth daily. [facility] HYDROcodone -acetaminop hen 5-325 mg tablet 01-10 19:53: 40 Yes 1{tbl} Take 1 tablet by mouth every 6 (six) hours as needed. [facility] furosemide 40 mg tablet 01-10 19:53: 40 Yes 40mg Take 40 mg by mouth daily. [facility] atenolol 25 mg tablet 01-10 19:53: 40 Yes 25mg Take 25 mg by mouth daily. [facility] gabapentin 400 mg capsule 01-10 19:53: 40 Yes 400mg Take 400 mg by mouth 3 (three) times daily. [facility] omeprazole 20 mg capsule 01-10 19:53: 40 Yes 20mg Take 20 mg by mouth daily. [facility] HYDROcodone -acetaminop hen 5-325 mg tablet 01-10 19:53: 40 Yes 1{tbl} Take 1 tablet by mouth every 6 (six) hours as needed. [facility] furosemide 40 mg tablet 01-10 19:53: 40 Yes 40mg Take 40 mg by mouth daily. [facility] atenolol 25 mg tablet 01-10 19:53: 40 Yes 25mg Take 25 mg by mouth daily. [facility] gabapentin 400 mg capsule 01-10 19:53: 40 Yes 400mg Take 400 mg by mouth 3 (three) times daily. [facility] omeprazole 20 mg capsule 01-10 19:53: 40 Yes 20mg Take 20 mg by mouth daily. [facility] HYDROcodone -acetaminop hen 5-325 mg tablet 01-10 19:53: 40 Yes 1{tbl} Take 1 tablet by mouth every 6 (six) hours as needed. [facility] furosemide 40 mg tablet 01-10 19:53: 40 Yes 40mg Take 40 mg by mouth daily. [facility] atenolol 25 mg tablet 01-10 19:53: 40 Yes 25mg Take 25 mg by mouth daily. [facility] gabapentin 400 mg capsule 01-10 19:53: 40 Yes 400mg Take 400 mg by mouth 3 (three) times daily. [facility] ity [facility] omeprazole 20 mg capsule 01-10 19:53: 40 Yes 20mg Take 20 mg by mouth daily. [facility] HYDROcodone -acetaminop hen 5-325 mg tablet 01-10 19:53: 40 Yes 1{tbl} Take 1 tablet by mouth every 6 (six) hours as needed. [facility] levothyroxi ne 88 mcg tablet 11-06 00:00: 00 Yes [facility] levothyroxi ne 88 mcg tablet 11-06 00:00: 00 Yes [facility] levothyroxi ne 88 mcg tablet 11-06 00:00: 00 Yes [facility] levothyroxi ne 88 mcg tablet 11-06 00:00: 00 Yes [facility] levothyroxi ne 88 mcg tablet 11-06 00:00: 00 Yes [facility] levothyroxi ne 88 mcg tablet 11-06 00:00: 00 Yes [facility] levothyroxi ne 88 mcg tablet 11-06 00:00: 00 Yes [facility] levothyroxi ne 88 mcg tablet 11-06 00:00: 00 Yes [facility] levothyroxi ne 88 mcg tablet 11-06 00:00: 00 Yes [facility] levothyroxi ne 88 mcg tablet 11-06 00:00: 00 Yes [facility] levothyroxi ne 88 mcg tablet 11-06 00:00: 00 Yes [facility] levothyroxi ne 88 mcg tablet 11-06 00:00: 00 Yes [facility] levothyroxi ne 88 mcg tablet 11-06 00:00: 00 Yes [facility] levothyroxi ne 88 mcg tablet 11-06 00:00: 00 Yes [facility] [facility] levothyroxi ne 88 mcg tablet 11-06 00:00: 00 Yes [facility] levothyroxi ne 88 mcg tablet 11-06 00:00: 00 Yes [facility] levothyroxi ne 88 mcg tablet 11-06 00:00: 00 Yes [facility] levothyroxi ne 88 mcg tablet 11-06 00:00: 00 Yes [facility] levothyroxi ne 88 mcg tablet 11-06 00:00: 00 Yes [facility] levothyroxi ne 88 mcg tablet 11-06 00:00: 00 Yes [facility] levothyroxi ne 88 mcg tablet 11-06 00:00: 00 Yes [facility] levothyroxi ne 88 mcg tablet 11-06 00:00: 00 Yes [facility] levothyroxi ne 88 mcg tablet 11-06 00:00: 00 Yes [facility] ity [facility] docusate 100 mg capsule 09-27 00:00: 00 Yes [id number] 100mg Take 1 capsule by mouth daily. [facility] ity [facility] predniSONE 20 mg tablet 0 09-27 00:00: 00 Yes [id number] 40mg Take 2 tablets by mouth every 24 (twenty-fo ur) hours. [facility] ity [facility] docusate 100 mg capsule 09-27 00:00: 00 Yes [id number] 100mg Take 1 capsule by mouth daily. [facility] ity [facility] predniSONE 20 mg tablet 09-27 00:00: 00 Yes [id number] 40mg Take 2 tablets by mouth every 24 (twenty-fo ur) hours. [facility] ity [facility] docusate 100 mg capsule 0 09-27 00:00: 00 Yes [id number] 100mg Take 1 capsule by mouth daily. [facility] ity [facility] predniSONE 20 mg tablet 0 09-27 00:00: 00 Yes [id number] 40mg Take 2 tablets by mouth every 24 (twenty-fo ur) hours. [facility] ity [facility] docusate 100 mg capsule 0 09-27 00:00: 00 Yes [id number] 100mg Take 1 capsule by mouth daily. [facility] predniSONE 20 mg tablet 09-27 00:00: 00 Yes [id number] 40mg Take 2 tablets by mouth every 24 (twenty-fo ur) hours. [facility] docusate 100 mg capsule 09-27 00:00: 00 Yes [id number] 100mg Take 1 capsule by mouth daily. [facility] predniSONE 20 mg tablet 09-27 00:00: 00 Yes [id number] 40mg Take 2 tablets by mouth every 24 (twenty-fo ur) hours. [facility] docusate 100 mg capsule 09-27 00:00: 00 Yes [id number] 100mg Take 1 capsule by mouth daily. [facility] predniSONE 20 mg tablet 09-27 00:00: 00 Yes [id number] 40mg Take 2 tablets by mouth every 24 (twenty-fo ur) hours. [facility] docusate 100 mg capsule 09-27 00:00: 00 Yes [id number] 100mg Take 1 capsule by mouth daily. [facility] predniSONE 20 mg tablet 09-27 00:00: 00 Yes [id number] 40mg Take 2 tablets by mouth every 24 (twenty-fo ur) hours. [facility] docusate 100 mg capsule 09-27 00:00: 00 Yes [id number] 100mg Take 1 capsule by mouth daily. [facility] predniSONE 20 mg tablet 09-27 00:00: 00 Yes [id number] 40mg Take 2 tablets by mouth every 24 (twenty-fo ur) hours. [facility] docusate 100 mg capsule 09-27 00:00: 00 Yes [id number] 100mg Take 1 capsule by mouth daily. [facility] docusate 100 mg capsule 09-27 00:00: 00 Yes [id number] 100mg Take 1 capsule by mouth daily. [facility] predniSONE 20 mg tablet 09-27 00:00: 00 Yes [id number] 40mg Take 2 tablets by mouth every 24 (twenty-fo ur) hours. [facility] docusate 100 mg capsule 09-27 00:00: 00 Yes [id number] 100mg Take 1 capsule by mouth daily. [facility] docusate 100 mg capsule 09-27 00:00: 00 Yes [id number] 100mg Take 1 capsule by mouth daily. [facility] docusate 100 mg capsule 09-27 00:00: 00 Yes [id number] 100mg Take 1 capsule by mouth daily. [facility] docusate 100 mg capsule 09-27 00:00: 00 Yes [id number] 100mg Take 1 capsule by mouth daily. [facility] docusate 100 mg capsule 09-27 00:00: 00 Yes [id number] 100mg Take 1 capsule by mouth daily. [facility] docusate 100 mg capsule 09-27 00:00: 00 Yes [id number] 100mg Take 1 capsule by mouth daily. [facility] docusate 100 mg capsule 09-27 00:00: 00 Yes [id number] 100mg Take 1 capsule by mouth daily. [facility] docusate 100 mg capsule 09-27 00:00: 00 Yes [id number] 100mg Take 1 capsule by mouth daily. [facility] docusate 100 mg capsule 09-27 00:00: 00 Yes [id number] 100mg Take 1 capsule by mouth daily. [facility] docusate 100 mg capsule 09-27 00:00: 00 Yes [id number] 100mg Take 1 capsule by mouth daily. [facility] predniSONE 20 mg tablet 09-27 00:00: 00 Yes [id number] 40mg Take 2 tablets by mouth every 24 (twenty-fo ur) hours. [facility] docusate 100 mg capsule 09-27 00:00: 00 Yes [id number] 100mg Take 1 capsule by mouth daily. [facility] predniSONE 20 mg tablet 09-27 00:00: 00 Yes [id number] 40mg Take 2 tablets by mouth every 24 (twenty-fo ur) hours. [facility] docusate 100 mg capsule 09-27 00:00: 00 Yes [id number] 100mg Take 1 capsule by mouth daily. [facility] predniSONE 20 mg tablet 09-27 00:00: 00 Yes [id number] 40mg Take 2 tablets by mouth every 24 (twenty-fo ur) hours. [facility] docusate 100 mg capsule 09-27 00:00: 00 Yes [id number] 100mg Take 1 capsule by mouth daily. [facility] predniSONE 20 mg tablet 09-27 00:00: 00 Yes [id number] 40mg Take 2 tablets by mouth every 24 (twenty-fo ur) hours. [facility] carvedilol 6.25 mg tablet 01-24 00:00: 00 Yes 6.25mg Take 1 tablet by mouth 2 (two) times daily with meals. [facility] simvastatin 20 mg tablet 01-24 00:00: 00 Yes 20mg Take 1 tablet by mouth at bedtime. [facility] aspirin 81 mg chewable tablet 01-24 00:00: 00 Yes 81mg Take 1 tablet by mouth daily. [facility] clopidogrel 75 mg tablet 01-24 00:00: 00 Yes 75mg Take 1 tablet by mouth daily. [facility] carvedilol 6.25 mg tablet 01-24 00:00: 00 Yes 6.25mg Take 1 tablet by mouth 2 (two) times daily with meals. [facility] simvastatin 20 mg tablet 01-24 00:00: 00 Yes 20mg Take 1 tablet by mouth at bedtime. [facility] aspirin 81 mg chewable tablet 01-24 00:00: 00 Yes 81mg Take 1 tablet by mouth daily. [facility] clopidogrel 75 mg tablet 01-24 00:00: 00 Yes 75mg Take 1 tablet by mouth daily. [facility] carvedilol 6.25 mg tablet 01-24 00:00: 00 Yes 6.25mg Take 1 tablet by mouth 2 (two) times daily with meals. [facility] simvastatin 20 mg tablet 01-24 00:00: 00 Yes 20mg Take 1 tablet by mouth at bedtime. [facility] aspirin 81 mg chewable tablet 01-24 00:00: 00 Yes 81mg Take 1 tablet by mouth daily. [facility] clopidogrel 75 mg tablet 01-24 00:00: 00 Yes 75mg Take 1 tablet by mouth daily. [facility] carvedilol 6.25 mg tablet 01-24 00:00: 00 Yes 6.25mg Take 1 tablet by mouth 2 (two) times daily with meals. [facility] simvastatin 20 mg tablet 01-24 00:00: 00 Yes 20mg Take 1 tablet by mouth at bedtime. [facility] aspirin 81 mg chewable tablet 01-24 00:00: 00 Yes 81mg Take 1 tablet by mouth daily. [facility] clopidogrel 75 mg tablet 01-24 00:00: 00 Yes 75mg Take 1 tablet by mouth daily. [facility] carvedilol 6.25 mg tablet 01-24 00:00: 00 Yes 6.25mg Take 1 tablet by mouth 2 (two) times daily with meals. [facility] simvastatin 20 mg tablet 01-24 00:00: 00 Yes 20mg Take 1 tablet by mouth at bedtime. [facility] aspirin 81 mg chewable tablet 01-24 00:00: 00 Yes 81mg Take 1 tablet by mouth daily. [facility] clopidogrel 75 mg tablet 01-24 00:00: 00 Yes 75mg Take 1 tablet by mouth daily. [facility] carvedilol 6.25 mg tablet 01-24 00:00: 00 Yes 6.25mg Take 1 tablet by mouth 2 (two) times daily with meals. [facility] simvastatin 20 mg tablet 01-24 00:00: 00 Yes 20mg Take 1 tablet by mouth at bedtime. [facility] aspirin 81 mg chewable tablet 01-24 00:00: 00 Yes 81mg Take 1 tablet by mouth daily. [facility] clopidogrel 75 mg tablet 01-24 00:00: 00 Yes 75mg Take 1 tablet by mouth daily. [facility] carvedilol 6.25 mg tablet 01-24 00:00: 00 Yes 6.25mg Take 1 tablet by mouth 2 (two) times daily with meals. [facility] simvastatin 20 mg tablet 01-24 00:00: 00 Yes 20mg Take 1 tablet by mouth at bedtime. [facility] carvedilol 6.25 mg tablet 01-24 00:00: 00 Yes 6.25mg Take 1 tablet by mouth 2 (two) times daily with meals. [facility] aspirin 81 mg chewable tablet 01-24 00:00: 00 Yes 81mg Take 1 tablet by mouth daily. [facility] clopidogrel 75 mg tablet 01-24 00:00: 00 Yes 75mg Take 1 tablet by mouth daily. [facility] simvastatin 20 mg tablet 01-24 00:00: 00 Yes 20mg Take 1 tablet by mouth at bedtime. [facility] carvedilol 6.25 mg tablet 01-24 00:00: 00 Yes 6.25mg Take 1 tablet by mouth 2 (two) times daily with meals. [facility] simvastatin 20 mg tablet 01-24 00:00: 00 Yes 20mg Take 1 tablet by mouth at bedtime. [facility] aspirin 81 mg chewable tablet 01-24 00:00: 00 Yes 81mg Take 1 tablet by mouth daily. [facility] aspirin 81 mg chewable tablet 01-24 00:00: 00 Yes 81mg Take 1 tablet by mouth daily. [facility] clopidogrel 75 mg tablet 01-24 00:00: 00 Yes 75mg Take 1 tablet by mouth daily. [facility] clopidogrel 75 mg tablet 01-24 00:00: 00 Yes 75mg Take 1 tablet by mouth daily. [facility] simvastatin 20 mg tablet 01-24 00:00: 00 Yes 20mg Take 1 tablet by mouth at bedtime. [facility] aspirin 81 mg chewable tablet 01-24 00:00: 00 Yes 81mg Take 1 tablet by mouth daily. [facility] clopidogrel 75 mg tablet 01-24 00:00: 00 Yes 75mg Take 1 tablet by mouth daily. [facility] simvastatin 20 mg tablet 01-24 00:00: 00 Yes 20mg Take 1 tablet by mouth at bedtime. [facility] aspirin 81 mg chewable tablet 01-24 00:00: 00 Yes 81mg Take 1 tablet by mouth daily. [facility] clopidogrel 75 mg tablet 01-24 00:00: 00 Yes 75mg Take 1 tablet by mouth daily. [facility] simvastatin 20 mg tablet 01-24 00:00: 00 Yes 20mg Take 1 tablet by mouth at bedtime. [facility] aspirin 81 mg chewable tablet 01-24 00:00: 00 Yes 81mg Take 1 tablet by mouth daily. [facility] clopidogrel 75 mg tablet 01-24 00:00: 00 Yes 75mg Take 1 tablet by mouth daily. [facility] simvastatin 20 mg tablet 01-24 00:00: 00 Yes 20mg Take 1 tablet by mouth at bedtime. [facility] aspirin 81 mg chewable tablet 01-24 00:00: 00 Yes 81mg Take 1 tablet by mouth daily. [facility] clopidogrel 75 mg tablet 01-24 00:00: 00 Yes 75mg Take 1 tablet by mouth daily. [facility] simvastatin 20 mg tablet 01-24 00:00: 00 Yes 20mg Take 1 tablet by mouth at bedtime. [facility] aspirin 81 mg chewable tablet 01-24 00:00: 00 Yes 81mg Take 1 tablet by mouth daily. [facility] clopidogrel 75 mg tablet 01-24 00:00: 00 Yes 75mg Take 1 tablet by mouth daily. [facility] simvastatin 20 mg tablet 01-24 00:00: 00 Yes 20mg Take 1 tablet by mouth at bedtime. [facility] aspirin 81 mg chewable tablet 01-24 00:00: 00 Yes 81mg Take 1 tablet by mouth daily. [facility] clopidogrel 75 mg tablet 01-24 00:00: 00 Yes 75mg Take 1 tablet by mouth daily. [facility] simvastatin 20 mg tablet 01-24 00:00: 00 Yes 20mg Take 1 tablet by mouth at bedtime. [facility] aspirin 81 mg chewable tablet 01-24 00:00: 00 Yes 81mg Take 1 tablet by mouth daily. [facility] clopidogrel 75 mg tablet 01-24 00:00: 00 Yes 75mg Take 1 tablet by mouth daily. [facility] simvastatin 20 mg tablet 01-24 00:00: 00 Yes 20mg Take 1 tablet by mouth at bedtime. [facility] aspirin 81 mg chewable tablet 01-24 00:00: 00 Yes 81mg Take 1 tablet by mouth daily. [facility] clopidogrel 75 mg tablet 01-24 00:00: 00 Yes 75mg Take 1 tablet by mouth daily. [facility] carvedilol 6.25 mg tablet 01-24 00:00: 00 Yes 6.25mg Take 1 tablet by mouth 2 (two) times daily with meals. [facility] simvastatin 20 mg tablet 01-24 00:00: 00 Yes 20mg Take 1 tablet by mouth at bedtime. [facility] aspirin 81 mg chewable tablet 01-24 00:00: 00 Yes 81mg Take 1 tablet by mouth daily. [facility] simvastatin 20 mg tablet 01-24 00:00: 00 Yes 20mg Take 1 tablet by mouth at bedtime. [facility] aspirin 81 mg chewable tablet 01-24 00:00: 00 Yes 81mg Take 1 tablet by mouth daily. [facility] clopidogrel 75 mg tablet 01-24 00:00: 00 Yes 75mg Take 1 tablet by mouth daily. [facility] clopidogrel 75 mg tablet 01-24 00:00: 00 Yes 75mg Take 1 tablet by mouth daily. [facility] simvastatin 20 mg tablet 01-24 00:00: 00 Yes 20mg Take 1 tablet by mouth at bedtime. [facility] aspirin 81 mg chewable tablet 01-24 00:00: 00 Yes 81mg Take 1 tablet by mouth daily. [facility] clopidogrel 75 mg tablet 01-24 00:00: 00 Yes 75mg Take 1 tablet by mouth daily. [facility] carvedilol 6.25 mg tablet 01-24 00:00: 00 Yes 6.25mg Take 1 tablet by mouth 2 (two) times daily with meals. [facility] simvastatin 20 mg tablet 01-24 00:00: 00 Yes 20mg Take 1 tablet by mouth at bedtime. [facility] aspirin 81 mg chewable tablet 01-24 00:00: 00 Yes 81mg Take 1 tablet by mouth daily. [facility] clopidogrel 75 mg tablet 01-24 00:00: 00 Yes 75mg Take 1 tablet by mouth daily. [facility] carvedilol 6.25 mg tablet 01-24 00:00: 00 Yes 6.25mg Take 1 tablet by mouth 2 (two) times daily with meals. [facility] simvastatin 20 mg tablet 01-24 00:00: 00 Yes 20mg Take 1 tablet by mouth at bedtime. [facility] aspirin 81 mg chewable tablet 01-24 00:00: 00 Yes 81mg Take 1 tablet by mouth daily. [facility] clopidogrel 75 mg tablet 01-24 00:00: 00 Yes 75mg Take 1 tablet by mouth daily. [facility] carvedilol 6.25 mg tablet 01-24 00:00: 00 Yes 6.25mg Take 1 tablet by mouth 2 (two) times daily with meals. [facility] simvastatin 20 mg tablet 01-24 00:00: 00 Yes 20mg Take 1 tablet by mouth at bedtime. [facility] aspirin 81 mg chewable tablet 01-24 00:00: 00 Yes 81mg Take 1 tablet by mouth daily. [facility] clopidogrel 75 mg tablet 01-24 00:00: 00 Yes 75mg Take 1 tablet by mouth daily. [facility] Vital Signs Vital Name Observation Time Observation Value Comments S jen Systolic blood pressure 2019-10-27 22:00:00 147 mm[Hg] [facility] Diastolic blood pressure 2019-10-27 22:00:00 70 mm[Hg] [facility] Heart rate 2019-10-27 22:00:00 59 /min [facility] Respiratory rate 2019-10-27 22:00:00 16 /min [facility] Oxygen saturation in Arterial blood by Pulse oximetry 2019-10-27 22:00:00 96 /min [facility] Body temperature 2019-10-27 20:33:00 36.89 Mattie [facility] Body weight 2019-10-27 20:33:00 77.111 kg [facility] BMI 2019-10-27 20:33:00 25.85 kg/m2 [facility] Systolic blood pressure 2019-04-10 18:46:00 115 mm[Hg] [facility] Diastolic blood pressure 2019-04-10 18:46:00 64 mm[Hg] [facility] Heart rate 2019-04-10 18:46:00 94 /min [facility] Body height 2019-04-10 18:46:00 172.7 cm [facility] Body weight 2019-04-10 18:46:00 81.647 kg [facility] BMI 2019-04-10 18:46:00 27.37 kg/m2 [facility] Body weight 2019-03-21 19:23:00 81.647 kg [facility] BMI 2019-03-21 19:23:00 29.95 kg/m2 [facility] Body height 2019-03-20 14:32:00 165.1 cm [facility] Body weight 2019-03-20 14:32:00 81.647 kg [facility] BMI 2019-03-20 14:32:00 29.95 kg/m2 [facility] Systolic blood pressure 2019-03-04 16:15:00 138 mm[Hg] [facility] Diastolic blood pressure 2019-03-04 16:15:00 60 mm[Hg] [facility] Heart rate 2019-03-04 16:15:00 64 /min [facility] Body temperature 2019-03-04 16:15:00 36.39 Mattie [facility] Respiratory rate 2019-03-04 16:15:00 16 /min [facility] Body height 2019-03-04 16:15:00 165.1 cm [facility] Body weight 2019-03-04 16:15:00 81.647 kg [facility] BMI 2019-03-04 16:15:00 29.95 kg/m2 [facility] Procedures Procedure Date / Time Performed Performing Clinician Source HOME HEALTH - OTHER 2021-07-07 06:01:00 Doctor Velma edwards, [place] [facility] HEALTH - OTHER 2021-06-21 06:01:00 Doctor Velma edwards, [place] [facility] HEALTH - OTHER 2021-06-01 05:01:00 Doctor Velma edwards, [place] [facility] HEALTH - OTHER 2021-05-24 05:01:00 Doctor Velma edwards, [place] [facility] HEALTH - OTHER 2021-05-10 05:01:00 Doctor Velma edwards, [place] [facility] HEALTH - OTHER 2021-03-29 05:01:00 Doctor Velma edwards, [place] [facility] CLINIC RECORD / SMR 2021-03-21 05:01:00 Doctor Velma ewdards, [place] [facility] [id number] 2021-01-28 00:00:00 [facility] [place] [id number] 2021-01-28 00:00:00 [facility] [place] [id number] 2021-01-28 [facility] [place] [id number] 2021-01-28 00:00:00 [facility] [place] [id number] 2021-01-28 00:00:00 [facility] [place] [id number] 2021-01-18 00:00:00 [facility] [place] [id number] 2021-01-18 00:00:00 [facility] [place] [id number] 2021-01-18 00:00:00 [facility] [place] [id number] 2021-01-18 00:00:00 [facility] [place] [id number] 2021-01-18 00:00:00 [facility] [place] XR WRIST 3+ VW LEFT 2019-10-27 21:13:49 Donya Tavares [facility] XR HAND 3+ VW LEFT 2019-10-27 21:13:34 Donya Tavares [facility] URIC ACID 2019-10-27 20:56:00 Donya Tavares [facility] BASIC METABOLIC PANEL (NA, K, CL, CO2, GLUCOSE, BUN, CREATININE, CA) 2019-10-27 20:56:00 Donya Tavares [facility] CBC WITH DIFFERENTIAL 2019-10-27 20:56:00 Donya Tavares [facility] CONSENT/REFUSAL FOR DIAGNOSIS AND TREATMENT 2019-10-27 20:21:16 Doctor Unassigned, [place] [facility] HOME HEALTH - OTHER 2019-09-26 06:01:00 Doctor U nassigned, [place] [facility] NON [facility] DOCUMENTATION 2019-03-26 05:01:00 Doctor Unassigned, [place] [facility] XR CHEST 2 VW 2019-03-20 17:10:47 [facility] 2019-03-20 16:54:41 Doctor Unass igned, [place] [facility] CONSENT/REFUSAL FOR DIAGNOSIS AND TREATMENT 2019-03-20 16:10:12 Doctor Unassigned, [place] [facility] ASSIGNMENT OF BENEFITS 2019-03-20 16:08:11 Docto r Unassigned, [place] [facility] Encounters Start Date/Time End Date/Time Encounter Type Admission Type Attending [facility] Facility Care Department Encounter ID Source 2021-09-01 12:17:49 Outpatient [id number] [facility] Bhavana donnie 2021-07-07 00:00:00 2021-07-07 00:00:00 Orders Only Doctor Unassigned, [place] [facility] [id number] [id number] [id number] [id number] [facility] 2021-06-27 00:00:00 2021-06-27 00:00:00 Outpatient R [facility] [id number] [facility] 2021-06-22 00:00:00 2021-06-22 00:00:00 Outpatient R [facility] [id number] [facility] 2021-06-21 00:00:00 2021-06-21 00:00:00 Orders Only Doctor Unassigned, [place] [facility] [id number] [id number] [id number] [id number] [facility] 2021-06-01 00:00:00 2021-06-01 00:00:00 Outpatient R [facility] [id number] [facility] 2021-06-01 00:00:00 2021-06-01 00:00:00 Orders Only Doctor Unassigned, [place] [facility] [id number] [id number] [id number] [id number] [id number] [facility] 2021-05-25 00:00:00 2021-05-25 00:00:00 Outpatient [facility] [id number] [facility] 2021-05-24 00:00:00 2021-05-24 00:00:00 Orders Only Doctor Unassigned, [place] [facility] [id number] 350.1.13.10 [id number] [id number] [facility] 2021-05-10 00:00:00 2021-05-10 00:00:00 Orders Only Doctor Unassigned, [place] [facility] [id number] 350.1.13.10 4.2.7.2.686 [id number] [facility] 2021-05-03 00:00:00 2021-05-03 00:00:00 Outpatient [facility] [id number] [facility] 2021-04-26 00:00:00 2021-04-26 00:00:00 Outpatient [facility] [id number] [facility] 2021-03-29 00:00:00 2021-03-29 00:00:00 Orders Only Doctor Unassigned, [place] [facility] [id number] 350.1.13.10 4.2.7.2.686 [id number] [id number] [facility] 2021-03-21 00:00:00 2021-03-21 00:00:00 Orders Only Doctor Unassigned, [place] [facility] [id number] 350.1.13.10 4.2.7.2.686 [id number] [id number] [facility] 2021-01-13 14:22:00 2021-01-31 14:54:00 Inpatient 3 [facility] Hannah plascencia CVA [id number] [facility] [place] 2019-10-28 11:32:00 2019-10-28 11:32:00 Outpatient Rosa_P [facility] [id number] [facility] 2019-10-27 15:28:56 2019-10-27 18:24:00 Emergency Donya Tavares [place] [facility] 1.2.840.114 350.1.13.10 4.2.7.2.686 [id number] [facility] 2019-10-27 15:28:56 2019-10-27 18:24:00 Emergency X DONYA TAVARES [facility] ERT [id number] [facility] 2019-10-27 00:00:00 2019-10-27 00:00:00 Orders Only Doctor Unassigned, [place] [facility] 1.2.840.114 350.1.13.10 4.2.7.2.686 [id number] [facility] 2019-09-26 00:00:00 2019-09-26 00:00:00 Orders Only Doctor Unassigned, [place] [facility] 1.2.840.114 350.1.13.10 4.2.7.2.686 [id number] [facility] 2019-09-17 00:00:00 2019-09-17 00:00:00 Outpatient R [facility] [id number] [facility] 2019-04-10 13:46:13 2019-04-10 14:32:35 Office Visit Ferdinand Sewell [facility] 1.2.840.114 350.1.13.10 4.2.7.2.686 [id number] [facility] 2019-03-26 00:00:00 2019-03-26 00:00:00 Outpatient R MAURA THORNTON [facility] [id number] [facility] 2019-03-26 00:00:00 2019-03-26 00:00:00 Orders Only Doctor Unassigned, [place] [facility] 1.2.840.114 350.1.13.10 4.2.7.2.686 [id number] [facility] 2019-03-21 00:00:00 2019-03-21 00:00:00 Telephone Maura Thornton 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 1.2.840.114 350.1.13.10 4.2.7.2.686 [id number] [facility] 2019-03-20 09:24:23 2019-03-20 09:39:23 Office Visit Sewell Ferdinand [facility] 1.2.840.114 350.1.13.10 4.2.7.2.686 [id number] [facility] 2019-03-20 00:00:00 2019-03-20 00:00:00 Letter (Out) Maura Thornton [facility] ashli [place] 1.2.840.114 350.1.13.10 4.2.7.2.686 [id number] [facility] 2019-03-04 10:17:23 2019-03-04 11:01:19 Office Visit Rodolfo Tijerina [facility] Cathi Lozada [facility] 1.2.840.114 350.1.13.10 4.2.7.2.686 [id number] [facility] Results Test Description Test Time Test Comments Results Result Co mments Source [facility] (NA, K, CL, CO2, GLUCOSE, BUN, CREATININE, CA)2019-10-27 21:15:00* Test Item Value Reference Range Interpretation Comme nts NA (test code = 1063254556) 131 mmol/L 135-145 L K (test code = 3445421465) 5.0 mmol/L 3.5-5 CL (test code = 1041552123) 92 mmol/L 98-108 L CO2 TOTAL (test code = 8700813103) 33 mmol/L 23-31 H AGAP (test code = 5133841436) 2-16 BUN (test code = 6403392429) 25 mg/dL 7-23 H GLUCOSE (test code = 2052624580) 130 mg/dL 70-110 H CREATININE (test code = 2128470034) 1.05 mg/dL 0.5-1.04 H CALCIUM (test code = 0959292291) 9.4 mg/dL 8.6-10.6 eGFR Calculation (Non-) (test code = 8612049285) mL/min/1.73m2 eGFR Calculation () (test code = 6754429795) mL/min/1.73m2 FLORA (test code = FLORA) Association [...] imaging tests). Lab Interpretation (test code = 46618-7) Abnormal [facility] [id number] 21:15:00* Test Item Value Reference Range Interpretation Comme nts URIC ACID (test code = 4469464122) 9.4 mg/dL 2.9-6 H Lab Interpretation (test cod e = 66571-5) Abnormal [facility] 2 [id number] 17:44:04HISTORY: Right carpal tunnel syndrome. TECHNIQUE: PA and lateral views of the chest are obtained. 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 No acute pneumonia detected. No pneumothorax or pleuraleffusion or pulmonary congestion. Cardiothoracic ratio of idkxrnjksfxvw49.6/27.2 cm is consistent with normal cardiac size. Prominent epicardialfat pads is suspected on both sides. Mild right apical pleural scarringnoted. No compression fractures seen in the thoracic vertebral bodies. CONCLUSIONS: No signs of acute cardiopulmonary disease. 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 No acute pneumonia detected. No pneumothorax or pleuraleffusion or pulmonary congestion. Cardiothoracic ratio of blyvtvlwzviwe71.6/27.2 cm is consistent with normal cardiac size. Prominent epicardialfat pads is suspected on both sides. Mild right apical pleural scarringnoted. Nocompression fractures seen in the thoracic vertebral bodies.CONCLUSIONS: No signs of acute cardiopulmonary disease.[facility]
[2023-08-31] MEDS ORDERED: D10W 250 ML IV ONE (01:42)
[2023-08-31 01:57] LABS: Absolute Lymphocytes (CBC) 2.2 K/uL (0.7-4.9); Hematocrit 43.4 % (36.0-45.0); Lymphocytes % 21.9 % (15.3-44.8); MCV 92.9 fL (80-100); MPV 7.9 fL (7.6-11.3); Platelets 371 thou/uL (152-406); RBC Red Blood Cell Count 4.67 M/uL (3.86-4.86)
[2023-08-31 02:23] LABS: Albumin 3.2 g/dL (3.4-5.0); Bilirubin Direct 0.1 mg/dL (0-0.2); Bilirubin Indirect, Calculated 0.1 mg/dL (0.2-0.8); Bilirubin Total 0.2 mg/dL (0.2-1.0); Magnesium 2.2 mg/dL (1.6-2.4); Potassium 3.2 mEq/L (3.5-5.1); Protein, Total 6.7 g/dL (6.4-8.2); Troponin High Sensitivity 45.6 pg/mL (<58.9)
[2023-08-31] MEDS ORDERED: DEXTROSE 10%-WATER 500 ML IV ONE ×2 (06:03→08:59)
--- NOTE | 2023-08-31 06:10 | ER ---
Nurse's Notes [facility] Name: Lyubov Garcia Age: 88 yrs Sex: Female : 1935 Arrival Date: 08/31/2023 Time: 01:22 Bed 20 Private MD: Diagnosis: Hypoglycemia, unspecified;Hypokalemia Presentation: 08/31 01:32 Chief complaint: EMS states: Dafter staff called for hypoglycemia. BGL was 40 [employer] [facility]. Staf gave Glucagon. BGL was 84 for EMS. Pt remains lethargic. Coronavirus screen: At this time, the client does not indicate any symptoms associated with coronavirus-19. Ebola Screen: No symptoms or risks identified at this time. Initial Sepsis Screen: Does the patient meet any 2 criteria? No. Patient's initial sepsis screen is negative. Does the patient have a suspected source of infection? No. Patient's initial sepsis screen is negative. Risk Assessment: Do you want to hurt yourself or someone else? Patient reports no desire to harm self or others. Onset of symptoms was August 31, 2023. Transition of care: patient was not received from another setting of care. 01:32 Method Of Arrival: Ambulatory jb4 01:32 Acuity: STEFANY 2 jb4 Historical: - Allergies: 01:34 Latex; jb4 01:34 Quinine Sulfate; jb4 01:34 Sulfa (Sulfonamide Antibiotics); jb4 01:34 tramadol; jb4 - PMHx: 01:34 Charcots Arthropathy; CVA; GERD; Gout; HEART FAILURE; Hypertensive disorder; PVD; UTI; jb4 diabetes mellitus; depressive disorder; Anemia; - Immunization history:: Adult Immunizations up to date. - Social history:: Smoking status: Patient denies any tobacco usage or history of. Screenin:00 [facility] ED Fall Risk Assessment (Adult) History of falling in the last 3 months, la4 including since admission No falls in past 3 months (0 pts) Confusion or Disorientation No (0 pts) Intoxicated or Sedated No (0 pts) Impaired Gait No (0 pts) Mobility Assist Device Used No (0 pt) Altered Elimination No (0 pt) Score/Fall Risk Level 0 - 2 = Low Risk Oriented to surroundings, Educated pt \T\ family on fall prevention, incl call for assistance when getting out of bed, Hourly rounding (assess needs \T\ fall precautionary measures) done. Abuse screen: Denies threats or abuse. Denies injuries from another. Nutritional screening: No deficits noted. Tuberculosis screening: No symptoms or risk factors identified. Assessment: 01:40 Reassessment:. la4 02:55 Reassessment: Patient and/or family updated on plan of care and expected duration. Pain la4 level reassessed. Pt daughter at bedside. Pt remains lethargic but awakens briefly to name calling and touch. Pt answered year, and location correctly. No distress noted at this time. General: Appears in no apparent distress. Behavior is drowsy. Pain: Denies pain. Neuro: Ley Agitation-Sedation Scale (RASS): -1 Drowsy Level of Consciousness is lethargic, Oriented to person, place, time, Appropriate for age name calling and light touch. Cardiovascular: No deficits noted. Heart tones S1 S2 Capillary refill < 3 seconds is sluggish fingers Pulses are all present. Edema is 3+ to left midcalf, left ankle, left foot, left toes, right midcalf, right ankle, right foot and right toes Rhythm is sinus bradycardia. Respiratory: No deficits noted. Airway is patent Respiratory effort is even, unlabored, Respiratory pattern is regular, symmetrical, Breath sounds are clear bilaterally. GI: No deficits noted. Bowel sounds present X 4 quads. Abd is soft and non tender. : No deficits noted. Parent/caregiver report the patient having incontinence pt diapered. EENT:. Derm: Skin is intact, is fragile, is thin, Skin is clammy, Skin is pale, Skin temperature is cool. Musculoskeletal: Range of motion: limited in left knee, left ankle, right knee and right ankle. 07:00 Reassessment: No changes from previously documented assessment. Patient and/or family ll1 updated on plan of care and expected duration. Pain level reassessed. Report received from retail shift supervisor RN. 07:49 Reassessment: No changes from previously documented assessment. Patient and/or family ll1 updated on plan of care and expected duration. Pain level reassessed. Patient is alert, oriented x 3, equal unlabored respirations, skin warm/dry/pink. 08:15 Reassessment: No changes from previously documented assessment. Patient and/or family ll1 updated on plan of care and expected duration. Pain level reassessed. 08:30 Reassessment: No changes from previously documented assessment. Eating breakfast, ll1 drinking juice. 08:50 Reassessment: No changes from previously documented assessment. Patient and/or family ll1 updated on plan of care and expected duration. Pain level reassessed. 09:20 Reassessment: No changes from previously documented assessment. Fingerstick 112. Ate ll1 100% of breakfast. Report called to MELL Flores. Vital Signs: 01:15 BP 122 / 58; Pulse 49; Resp 16; Temp 93.9(R); Pulse Ox 99% on R/A; la4 01:30 BP 123 / 71; Pulse 69; Resp 16; Pulse Ox 96% on R/A; la4 01:32 BP 122 / 58; Pulse 53; Resp 16; Pulse Ox 97% on R/A; jb4 02:44 BP 133 / 63; Pulse 51; Resp 16; Pulse Ox 99% ; la4 03:00 BP 129 / 68; Pulse 69; Resp 16; Temp 94.3; Pulse Ox 99% ; la4 07:15 BP 117 / 63; Pulse 67; Resp 16; Temp 97.9; Pulse Ox 96% on R/A; ll1 08:47 BP 124 / 62; Pulse 72; Resp 16; Temp 97.6; Pulse Ox 97% on R/A; ll1 09:30 BP 121 / 61; Pulse 71; Resp 17; Pulse Ox 97% ; ll1 01:15 Wrapped in warm blankets. Changed out of wet gown. Will recheck temp. la4 02:[address] la4 03:00 Pt placed on Bear Hugger at this time. Will recheck temp la4 Vitals: 02:55 Cardiac Rhythm Assessment Regular Sinus stephen. la4 [place] Coma Score: 02:55 Eye Response: to voice(3). Motor Response: obeys commands(6). Verbal Response: la4 oriented(5). Total: 14. ED Course: 01:31 Patient arrived in ED. jb4 01:32 Franco Ruffin PA is PHCP. cp 01:32 Charles Curtis MD is Attending Physician. cp 01:34 Triage completed. jb4 01:34 Arm band placed on right wrist. jb4 01:46 Last, La'Angelique, RN is Primary Nurse. la4 01:54 XRAY Chest (1 view) In Process Unspecified. EDMS 02:03 CT Head Brain wo Cont Sent. la4 02:22 CT Head Brain wo Cont In Process Unspecified. EDMS 03:00 Patient has correct armband on for positive identification. Placed in gown. Bed in low la4 position. Call light in reach. Side rails up X2. Provided Education on: plan of care discussed with patient. Client placed on continuous cardiac and pulse oximetry monitoring. NIBP monitoring applied. 03:00 No provider procedures requiring assistance completed. Inserted saline lock: 22 gauge la4 in left forearm, using aseptic technique. Blood collected. 04:42 CT Chest, Abdomen, Pelvis - W/Contrast In Process Unspecified. EDMS 06:08 Saad Bautista MD is Hospitalizing Provider. cp 06:11 Tomas Blankenship is Hospitalizing Provider. cp 09:45 Patient admitted, IV remains in place. ll1 Administered Medications: 01:49 Drug: D10 in Water IVP 250 ml IVP once Route: IVP; Site: left forearm; jb4 07:48 Follow up: Response: No adverse reaction ll1 06:12 Drug: D10 in Water IVP 250 ml IVP once Route: IVP; Site: left forearm; la4 07:48 Follow up: Response: No adverse reaction ll1 06:13 CANCELLED (Physician Discretion): potassiumeffervescent tablet 50 meq PO once; dissolve cp in 4 ounces of water or juice 06:51 Drug: D10 in Water IVP 1000 ml IVP continuous; 75 ml/hr Route: IVP; Site: left forearm; la4 09:10 Follow up: Response: No adverse reaction ll1 07:48 Drug: Potassium Chloride IV 20 mEq IV at calculated rate once; administer over 1-2 ll1 hours Route: IV; Rate: calculated rate; Site: left forearm; 09:45 Follow up: Response: No adverse reaction; IV Status: Completed infusion; IV Intake: ll1 100ml Medication: 03:00 VIS not applicable for this client. la4 Point of Care Testing: Blood Glucose: 01:34 Blood Glucose: 91 mg/dL; jb4 Ranges: Intake: 09:45 IV: 100ml; Total: 100ml. ll1 Outcome: 06:09 Decision to Hospitalize by Provider. cp 09:30 Admitted to Med/surg accompanied by tech, via stretcher, room 215, with chart, Report ll1 called to Sandra 09:30 Condition: stable 09:30 Instructed on the need for admit, 09:50 Patient left the ED. [email or web address] Signatures: Dispatcher [employer] EDMS Franco Ruffin PA PA cp Jd Freeman RN RN jb4 Janice Garcia RN RN ll1 Keiry Chance RN RN mb9 Sonu Last RN RN la4 Corrections: (The following items were deleted from the chart) 07:48 07:48 Potassium Chloride IV 20 mEq IV at calculated rate in right antecubital ll1 ll1
--- NOTE | 2023-08-31 06:10 | EDPHYS ---
Physician Documentation [facility] Name: Lyubov Garcia Age: 88 yrs Sex: Female : 1935 Arrival Date: 08/31/2023 Time: 01:22 Bed 20 Private MD: ED Physician Charles Curtis HPI: 08/31 01:40 This 88 yrs old Female presents to ER via Ambulatory with complaints of Altered Mental cp Status and Hypoglycemia. 01:40 The patient presents with decreased mental status, decreased responsiveness. Onset: The cp symptoms/episode began/occurred today. 01:40 Possible causes: low blood sugar. Associated signs and symptoms: Pertinent negatives: cp abdominal pain, chest pain, diaphoresis. Current symptoms: In the emergency department the patient's symptoms have improved, mildly, is less confused. Patient's baseline: Neuro: alert and fully oriented, Speech: normal. Historical: - Allergies: 01:34 Latex; jb4 01:34 Quinine Sulfate; jb4 01:34 Sulfa (Sulfonamide Antibiotics); jb4 01:34 tramadol; jb4 - PMHx: 01:34 Charcots Arthropathy; CVA; GERD; Gout; HEART FAILURE; Hypertensive disorder; PVD; UTI; jb4 diabetes mellitus; depressive disorder; Anemia; - Immunization history:: Adult Immunizations up to date. - Social history:: Smoking status: Patient denies any tobacco usage or history of. ROS: 01:45 Constitutional: Negative for fever, cp 01:45 Cardiovascular: Negative for chest pain, cp 01:45 Abdomen/GI: Negative for abdominal pain, vomiting, diarrhea, constipation, 01:45 Endocrine: Positive for low blood sugar, 01:45 Respiratory: Negative for cough, cp 01:45 Neuro: Positive for altered mental status, Negative for headache, 01:45 All other systems are negative, cp Exam: 01:50 Constitutional: The patient appears in no acute distress, non-toxic, well developed, cp well nourished, obese, 01:50 Head/Face: Normocephalic, atraumatic. cp 01:50 Eyes: Periorbital structures: appear normal, Pupils: equal, round, and reactive to light and accomodation, Extraocular movements: intact throughout, Conjunctiva: normal, no exudate, no injection, Sclera: no appreciated abnormality, Lids and lashes: appear normal, bilaterally, 01:50 ENT: External ear(s): are unremarkable, Nose: is normal, Mouth: Lips: moist, Posterior pharynx: Airway: no evidence of obstruction, patent, erythema, is not appreciated, exudate, is not appreciated, 01:50 Neck: ROM/movement: is normal, is supple, without pain, no range of motions limitations, no meningismus, 01:50 Chest/axilla: Inspection: normal, :50 Cardiovascular: Rate: bradycardic, Rhythm: irregular, 01:50 Respiratory: the patient does not display signs of respiratory distress, Respirations: shallow respirations, Breath sounds: decreased breath sounds, that are mild, throughout, 01:50 Abdomen/GI: Inspection: abdomen appears normal, Palpation: abdomen is soft and non-tender, in all quadrants, :50 Neuro: Orientation: to person, place, Mentation: able to follow commands, slow to respond, Motor: moves all fours, 02:55 ECG was reviewed by the Attending Physician. cp Vital Signs: 01:15 BP 122 / 58; Pulse 49; Resp 16; Temp 93.9(R); Pulse Ox 99% on R/A; la4 01:30 BP 123 / 71; Pulse 69; Resp 16; Pulse Ox 96% on R/A; la4 01:32 BP 122 / 58; Pulse 53; Resp 16; Pulse Ox 97% on R/A; jb4 02:44 BP 133 / 63; Pulse 51; Resp 16; Pulse Ox 99% ; la4 03:00 BP 129 / 68; Pulse 69; Resp 16; Temp 94.3; Pulse Ox 99% ; la4 07:15 BP 117 / 63; Pulse 67; Resp 16; Temp 97.9; Pulse Ox 96% on R/A; ll1 08:47 BP 124 / 62; Pulse 72; Resp 16; Temp 97.6; Pulse Ox 97% on R/A; ll1 09:30 BP 121 / 61; Pulse 71; Resp 17; Pulse Ox 97% ; ll1 01:15 Wrapped in warm blankets. Changed out of wet gown. Will recheck temp. la4 02:[address] la4 03:00 Pt placed on Bear Hugger at this time. Will recheck temp la4 [place] Coma Score: 02:55 Eye Response: to voice(3). Motor Response: obeys commands(6). Verbal Response: la4 oriented(5). Total: 14. MDM: 01:32 Patient medically screened. 06:00 Data reviewed: vital signs, nurses notes, lab test result(s), EKG, radiologic studies, cp CT scan, plain films. 06:05 Consideration of Admission/Observation Patient was admitted/placed on observation. I cp considered the following discharge prescriptions or medication management in the emergency department Medications were administered in the Emergency Department. See MAR. Independent interpretation of the following test(s) in the Emergency Department EKG: See my EKG interpretation above. Care significantly affected by the following chronic conditions: Diabetes, Hypertension. Response to treatment: the patient's symptoms have mildly improved after treatment, and as a result, I will admit patient. 08/31 01:38 Order name: Basic Metabolic Panel; Complete Time: 03:28 08/31 03:28 Interpretation: Normal except: K 3.2; BUN 32; CRE 1.41; GFR 36. 08/31 01:38 Order name: CBC with Diff; Complete Time: 03:28 08/31 03:28 Interpretation: Normal except: RDW 15.9. 08/31 01:38 Order name: LFT's; Complete Time: 03:28 08/31 01:38 Order name: Magnesium; Complete Time: 03:28 08/31 01:38 Order name: Troponin HS; Complete Time: 03:28 08/31 01:38 Order name: Urinalysis W/Microscopic 08/31 01:38 Order name: Lactate w/ 2H reflex if indic.; Complete Time: 03:28 08/31 01:41 Order name: Glucose, Ancillary Testing; Complete Time: 03:28 EDIL 08/31 03:35 Order name: Glucose, Ancillary Testing; Complete Time: 03:39 EDIL 08/31 03:40 Interpretation: Abnormal: GLUC,ANCIL 133. 08/31 05:49 Order name: COVID-19 SARS RT PCR 08/31 05:49 Order name: Influenza Screen (a \T\ B) 08/31 06:14 Order name: Glucose, Ancillary Testing EDIL 08/31 07:20 Order name: Glucose, Ancillary Testing EDMS 08/31 07:58 Order name: Lactate w/ 2H reflex if indic. EDMS 08/31 07:58 Order name: Basic Metabolic Panel EDMS 08/31 07:58 Order name: Basic Metabolic Panel EDMS 08/31 07:58 Order name: Basic Metabolic Panel EDMS 08/31 07:58 Order name: Basic Metabolic Panel EDMS 08/31 07:58 Order name: Basic Metabolic Panel EDMS 08/31 07:58 Order name: Basic Metabolic Panel EDMS 08/31 07:58 Order name: CBC with Automated Diff EDMS 08/31 07:58 Order name: CBC with Automated Diff EDMS 08/31 07:58 Order name: CBC with Automated Diff EDMS 08/31 07:58 Order name: CBC with Automated Diff EDMS 08/31 07:58 Order name: CBC with Automated Diff EDMS 08/31 07:58 Order name: CBC with Automated Diff EDMS 08/31 07:58 Order name: Magnesium EDMS 08/31 07:58 Order name: Magnesium EDMS 08/31 07:58 Order name: Magnesium EDMS 08/31 07:58 Order name: Magnesium EDMS 08/31 07:58 Order name: Magnesium EDMS 08/31 07:58 Order name: Magnesium EDMS 08/31 07:58 Order name: Phosphorus EDMS 08/31 07:58 Order name: Phosphorus EDMS 08/31 07:58 Order name: Phosphorus EDMS 08/31 07:58 Order name: Phosphorus EDMS 08/31 07:58 Order name: Phosphorus EDMS 08/31 07:58 Order name: Phosphorus EDMS 08/31 07:58 Order name: Troponin High Sensitivity EDMS 08/31 07:58 Order name: Troponin High Sensitivity EDMS 08/31 07:58 Order name: Troponin High Sensitivity EDMS 08/31 07:58 Order name: Troponin High Sensitivity EDMS 08/31 08:05 Order name: C-Peptide EDMS 08/31 08:05 Order name: Insulin EDMS 08/31 08:09 Order name: T4 Free EDMS 08/31 08:09 Order name: Thyroid Stimulating Hormone EDMS 08/31 08:39 Order name: Glucose, Ancillary Testing EDMS 08/31 09:24 Order name: Glucose, Ancillary Testing EDMS 08/31 01:38 Order name: XRAY Chest (1 view) cp 08/31 01:38 Order name: CT Head Brain wo Cont cp 08/31 03:44 Order name: CT Chest, Abdomen, Pelvis - W/Contrast 08/31 01:38 Order name: EKG; Complete Time: 01:38 08/31 07:58 Order name: CONS Physician Consult [facility] 08/31 07:58 Order name: Physical Therapy Consult [facility] 08/31 01:38 Order name: Cardiac monitoring; Complete Time: 02:03 08/31 01:38 Order name: EKG - Nurse/Tech; Complete Time: 02:50 cp 08/31 01:38 Order name: IV Saline Lock; Complete Time: 02:03 08/31 01:38 Order name: Labs collected and sent; Complete Time: 02:03 08/31 01:38 Order name: O2 Per Protocol; Complete Time: 02:03 08/31 01:38 Order name: O2 Sat Monitoring; Complete Time: 02:03 08/31 05:03 Order name: Accucheck Blood Glucose; Complete Time: 06:52 cp EC:55 Rate is 63 beats/min. Rhythm is irregular. QRS interval is normal. QT interval is cp normal. Interpreted by me. Reviewed by me. Administered Medications: 01:49 Drug: D10 in Water IVP 250 ml IVP once Route: IVP; Site: left forearm; jb4 07:48 Follow up: Response: No adverse reaction ll1 06:12 Drug: D10 in Water IVP 250 ml IVP once Route: IVP; Site: left forearm; la4 07:48 Follow up: Response: No adverse reaction ll1 06:13 CANCELLED (Physician Discretion): potassiumeffervescent tablet 50 meq PO once; dissolve cp in 4 ounces of water or juice 06:51 Drug: D10 in Water IVP 1000 ml IVP continuous; 75 ml/hr Route: IVP; Site: left forearm; la4 09:10 Follow up: Response: No adverse reaction ll1 07:48 Drug: Potassium Chloride IV 20 mEq IV at calculated rate once; administer over 1-2 ll1 hours Route: IV; Rate: calculated rate; Site: left forearm; 09:45 Follow up: Response: No adverse reaction; IV Status: Completed infusion; IV Intake: ll1 100ml Point of Care Testing: Blood Glucose: 01:34 Blood Glucose: 91 mg/dL; jb4 Ranges: Critical Glucose Levels:Adult <50 mg/dl or >400 mg/dl <40 mg/dl or >180 mg/dl Disposition Summary: 08/31/23 06:09 Hospitalization Ordered Notes: Hospitalization Status: Observation cp Location: Telemetry/MedSurg (observation) cp Condition: Stable cp Problem: new cp Symptoms: have improved cp Bed/Room Type: Standard cp Provider: Tomas Blankenship(08/31/23 06:11) cp Room Assignment: [facility](08/31/23 08:15) eb Diagnosis - Hypoglycemia, unspecified cp - Hypokalemia cp Forms: - Medication Reconciliation Form cp - SBAR form cp - Leadership Thank You Letter cp Signatures: Dispatcher [employer] EDMS Franco Ruffin PA PA cp Bryson, James, RN RN jb4 Diana Allen Lynsay, RN RN ll1 Sonu Last RN RN la4 Corrections: (The following items were deleted from the chart) 05:50 04:41 This 88 yrs old Female presents to ER via Ambulatory with complaints of Altered cp Mental Status and Hypoglycemia. cp 06:11 06:09 Saad Bautista cp cp 06:13 03:44 Potassium PO Effervescent Tablet 50 mEq PO once; dissolve in 4 ounces of water or cp juice ordered. cp 06:13 05:01 Potassium PO Effervescent Tablet 50 mEq PO once; dissolve in 4 ounces of water or cp juice ordered. la4 08:15 06:09 cp eb
[2023-08-31 06:26] LABS: Specific Gravity 1.009 (1.005-1.030); Urine Bacteria None Seen /HPF (<20); Urine Bilirubin NEGATIVE (Negative); Urine Blood Negative (Negative); Urine Clarity Clear (Clear); Urine Color Colorless (Yellow); Urine Glucose NEGATIVE (Negative); Urine Protein NEGATIVE (Negative); Urine RBC None Seen /HPF (None Seen); Urine Urobilinogen Normal (Normal); Urine pH 6.5 (5.0-7.0)
[2023-08-31] MEDS ORDERED: KCL 20 MEQ/100 mL IVPB 100 ML IV ONE (07:19)
--- NOTE | 2023-08-31 07:46 | P.HP ---
Certification for Inpatient Patient admitted to: Observation With expected LOS: >2 Midnights Patient will require the following post-hospital care: None Practitioner: I am a practitioner with admitting privileges, knowledge of patient current condition, hospital course, and medical plan of care. Services: Services provided to patient in accordance with Admission requirements found in Title 42 Section 412.3 of the Code of Federal Regulations Patient History Date of Service: 08/31/23 Reason for admission: hypoglycemia History of Present Illness: Lyubov Garcia is an 88-year-old female with past medical history of Charocts arthropathy, CVA, GERD, gout, heart failure, hypertensive disorder, PVD, UTIs, diabetes mellitus NIDDM, depressive disorder, anemia who presented to the ED via EMS from [facility] due to altered mental status related to hypoglycemia with blood glucose reading of 50. She responded to initial glucagon from EMS and D10 in the ED, now on D10W drip with blood glucose at 32. She uses diet to treat her diabetes. Last A1C 5.9 on 08/16/2023. On examination, she is alert and oriented x 3, she reports not remembering this episode and being aware of her surroundings when she arrived to the ED. Bedside glucose at 0708 was 100 while on D10w at 75 mL/h. Initial vitals BP 122 / 58; Pulse 49; Resp 16; Temp 93.9(R); Pulse Ox 99% on R/A Laboratory evaluation serum glucose on arrival 89, WBC 10.10, H&H 15/43, platelets 371, sodium 136, potassium 3.2, BUN/creatinine 32/1.41, GFR 36. Head CT without contrast reports " no significant interval change from prior exams. Right occipital lobe infarct without evidence of hemorrhage." Chest x-ray reports "heart failure pattern with suspected superimposed upper lung airspace disease. Alveolar edema, infection, summation artifact and other etiologies are possible. Continued imaging follow-up recommended" CT CAP with contrast reports: 1. No acute findings within the chest, abdomen, or pelvis. 2. Air-fluid level in the mid esophagus compatible with gastroesophageal reflux disease or dysmotility. 3. Evidence of mild heart failure as per 4. Partially extruding surgical screw from the right proximal humerus, consider dedicated right shoulder radiograph Lyubov Garcia will be admitted to hospitalist service for further evaluation and treatment of hypoglycemia. Allergies quinine sulfate [From Quine] Allergy (Verified 08/16/15 10:43) Hives Sulfa (Sulfonamide Antibiotics) Allergy (Verified 08/16/15 10:43) Hives Home Medications: Omeprazole [Prilosec] 20 mg PO DAILY 08/19/15 Furosemide 1 tab PO DAILY 11/30/20 Baclofen [Lioresal*] 10 mg PO BID 07/25/23 Benzonatate [Tessalon Perle*] 100 mg PO TID PRN 07/25/23 Citalopram [Celexa*] 5 mg PO DAILY 07/25/23 Codeine/APAP [Tylenol #3*] 1 tab PO BID 07/25/23 Docusate [Colace Cap*] 100 mg PO BID 07/25/23 Gabapentin [Neurontin*] 400 mg PO TID 07/25/23 Guaifenesin [Mucus Relief] 400 mg PO Q4HP PRN 07/25/23 Hydralazine [Apresoline*] 25 mg PO TID 07/25/23 Levothyroxine [Synthroid*] 50 mcg PO [id number] 07/25/23 Loteprednol Etabonate [Lotemax] 2 drop EACH EYE BID 07/25/23 Meclizine HCl 12.5 mg PO Q8HP PRN 07/25/23 Multivitamin with Minerals [Multivitamins with Minerals] 1 each PO DAILY 07/25/23 Polyethylene Glycol 3350 [Miralax] 17 gm PO DAILYPRN PRN 07/25/23 Potassium Chloride [Klor-Con 10] 20 meq PO DAILY 07/25/23 Sennosides [Senna] 2 tab PO DAILYPRN PRN 07/25/23 Simethicone 125 mg PO Q8HP PRN 07/25/23 bisacodyL [Dulcolax*] 2 tab PO DAILY 07/25/23 Losartan Potassium [Cozaar] 25 mg PO DAILY 30 Days #30 tab 07/27/23 Metoprolol Succinate 25 mg PO DAILY 30 Days #30 tab 07/27/23 Cholecalciferol (Vitamin D3) [Vitamin D 1000 Iu Tab*] 2 tab PO DAILY 08/15/23 Aspirin [Aspirin EC 81 MG] 81 mg PO DAILY #30 tab 08/21/23 Atorvastatin Calcium [Lipitor] 40 mg PO BEDTIME tab 08/21/23 Magnesium Oxide [Mag 0X*] 400 mg PO BID tab 08/21/23 Topiramate [Topamax*] 50 mg PO BEDTIME tab 08/21/23 Ubidecarenone [Coenzyme Q10*] 200 mg PO DAILY cap 08/21/23 - Past Medical/Surgical History Diabetic: No -: Hx Stroke 96 -: HTN -: Neuropathy -: Hypothyroidism -: PVD -: Hx KING (Dr. Perez/ Dr. Ryder) -: Right knee replacement 2013 -: Left FEMPOP 2012 -: Hysterectomy 1965 -: Cholecystectomy 1982 -: Breast Lumpectomy - Social History Alcohol use: No CD- Drugs: No Caffeine use: Yes Review of Systems Neurological: Weakness, Other (lightheaded and trembling) Physical Examination - Physical Exam General: Alert, In no apparent distress, Oriented x3 HEENT: Atraumatic, Normocephalic, PERRLA Neck: Supple, 2+ carotid pulse no bruit, JVD not distended Respiratory: Clear to auscultation bilaterally, Normal air movement Cardiovascular: No edema, Normal pulses, Normal S1 S2, Irregular heart rate/rhythm (Afib with controlled rate) Capillary refill: <2 Seconds Gastrointestinal: Normal bowel sounds, Soft and benign Musculoskeletal: No clubbing, No swelling, No contractures Integumentary: No rashes, No breakdown, No significant lesion Neurological: Normal speech, Normal strength at 5/5 x4 extr - Studies Laboratory Data (last 24 hrs) 08/31/23 08/31/23 01:46 01:46 WBC 10.10 Hgb 15.0 Hct 43.4 Plt Count 371 Sodium 136 Potassium 3.2 L BUN 32 H Creatinine 1.41 H Glucose 89 Magnesium 2.2 Total Bilirubin 0.2 AST 15 ALT 17 Alkaline Phosphatase 121 H Microbiology Data (last 24 hrs): 08/31/23 06:08 Nasopharnyx Influenza Type A Antigen Screen - Final 08/31/23 06:08 Nasopharnyx Influenza Type B Antigen Screen - Final Assessment and Plan - Plan Assessment and plan Acute metabolic encephalopathy related to severe hypoglycemia in a patient with DM2- NIDDM Head CT without contrast reports " no significant interval change from prior exams. Right occipital lobe infarct without evidence of hemorrhage." Initial serum glucose 89, dropped to 32 after EMS treatment and D10W While in the ED -D10w gtt glucose has stablized at 100- will continue to monitor A1C 5.9 (08/16/23) Accu-Chek ACHS BMP every 4 D10W Heart failure Paroxymal Afib rate controlled Chest x-ray reports heart failure pattern with suspected superimposed upper lung airspace disease CT CAP with contrast reports evidence of mild heart failure monitor IVF closely Gastroesophageal reflux CT Reports air-fluid level in the mid esophagus compatible associated gastroesop hageal reflux continue home medications Right proximal humerus, extruding surgical screw Follow-up outpatient Stage 1 KING 2nd to mild pre-renal azotemia Consult nephrology BNU/Creatinine 32/1.41, GFR 36 Recent right Occipital Lobe Infarction Head CT without contrast reports "no significant interval change from prior exam, right occipital lobe infarct without evidence of hemorrhage' Supportive care Restart home medication Hx HTN Charocts arthropathy Depressive disorder hypothyroidism Restart home medication Supportive care DVT PPx heparin DNR LOS 2 to 3 days Discharge Plan: [facility] Plan to discharge in: 48 Hours - Advance Directives Does patient have a Living Will: Yes Does patient have a Durable POA for Healthcare: No Time Spent Managing Pts Care (In Minutes): 50
[2023-08-31] MEDS ORDERED: HEPARIN 5000 UNIT/ML 1 ML VIAL SQ SCH (09:00)
[2023-08-31] MEDS ORDERED: D5 0.9 NS 500 ML IV SCH (09:00)
[2023-08-31 11:32] VITALS: BMI 27.6
[2023-08-31 11:38] LABS: Potassium 3.4 mEq/L (3.5-5.1); Troponin High Sensitivity 44.8 pg/mL (<58.9)
[2023-08-31] MEDS ORDERED: GLUCAGON 1 MG/VIAL IM PRN (11:43)
[2023-08-31] MEDS ORDERED: D50W 25 GM/50 ML SYRINGE IV PRN (11:43)
[2023-08-31] MEDS ORDERED: D10W 125 ML IV PRN ×2 (11:45→16:36)
--- NOTE | 2023-08-31 11:46 | P.PN ---
Nephrology (S) See recent consult note by Dr. Perez from 08/16/23, within the past 30 days, pt established. Pt presented from NH/SNF for low BG and AMS. Pt reports dizziness, weakness. Denies low appetite or N/V Vitals, medications, blood work and imaging reviewed in the chart. General: In no apparent distress HEENT: Atraumatic, not needing O2 Neck: Supple Respiratory: Clear to auscultation bilaterally mostly Cardiovascular: No edema, Regular rate/rhythm Gastrointestinal: Soft and benign, Non-distended Musculoskeletal: Shins are non tender Neuro: Awake, responds appropriately, no speech dysarthria, foot drop Conclusions/Impression: Stage 1 KING 2nd to mild pre-renal azotemia, Cr level > 0.3 mg/dl from levels earlier in the mo -Cr level lower on repeat labs, cont to trend. Cont gentle hydration, hold diuretics Chronic HTN with non elevated BP currently -Give recent CVA, would target SBP < 140 mmHg but given reported symptoms and above, trend BP, check orthostatic vitals and review NH BP regimen Recent right Occipital Lobe Infarction, ischemic CVA -Cont anti platelet agents and statin Hypoglycemia episode -Management per IM
[2023-08-31 11:47] LABS: Thyroid Stimulating Hormone 2.44 uIU/mL (0.358-3.740)
[2023-08-31] MEDS: METOPROLOL XL 25 MG TAB PO SCH (12:39)
[2023-08-31 12:42] LABS: Potassium 3.5 mEq/L (3.5-5.1)
--- NOTE | 2023-08-31 13:54 | RAD REPORT ---
CLINICAL HISTORY: CT - Chest Abdomen Pelvis W Cont - 08/31/2023 6:31 am CLINICAL HISTORY: Female, 88 years old, SOB COMPARISON: Same-day chest radiograph TECHNIQUE: CT acquisition of the chest, abdomen and pelvis following the administration of IV contra st. Coronal and sagittal reformatted images provided. This exam was performed according to department al dose-optimization program which includes automated exposure control, adjustment of the mA and/or k V according to patient size, and/or use of iterative reconstruction technique. FINDINGS: Beam hardening from arms down positioning results in decreased [id number] and limits interpretation. SUPPORTIVE DEVICES: None. LOWER NECK: Subcentimeter right thyroid nodules. CHEST: Mediastinum/anastacia: Aortic atherosclerosis without aneurysm. The pulmonary vasculature is unremarkable. No evident thoracic adenopathy. Layering air-fluid level in the mid esophagus, with small hiatal her cherry. Heart: Mild cardiomegaly. No pericardial thickening or effusion. Mild coronary artery calcifications. Lungs: Mild interlobular septal thickening at the lung apices, and peripheral interstitial opacities predominately in a dependent distribution. No consolidation. No suspicious pulmonary nodule identifie d. Central airways are clear. Pleural Space: No pleural effusion or pneumothorax. ABDOMEN AND PELVIS: Liver: Diffuse hypoenhancement relative to the spleen. Gallbladder and bile ducts: Postcholecystectomy changes. Pancreas: Normal. Spleen: Irregular multilobulated morphology without enlargement or focal lesion. Adrenal glands: Normal. Kidneys and ureters: Symmetric nephrograms. Right Bosniak I benign renal cyst measuring 2.5 cm. No fo llow-up imaging is recommended. JACR 2018 Feb; 264-273, Management of the Incidental Renal Mass on CT , [employer] 2020; [id number], Bosniak Classification of Cystic Renal Masses, Version 2019. Bladder: Normal. Reproductive organs: Absent uterus. No identified pelvic mass. GI tract: Normal caliber without wall thickening. Normal appendix. Lymph nodes: No evident adenopathy. Peritoneum: No evidence of ascites, fluid collection, or free air. Abdominal wall: Postsurgical change of the left lower quadrant. Vessels: Atherosclerosis without evidence of aneurysm. MUSCULOSKELETAL: No acute osseous abnormality. Surgical screw partially extruding from the right mika ral head. Degenerative change of the spine and pelvis. Varying degrees of pelvic muscle atrophy. IMPRESSION: 1. No acute findings within the chest, abdomen, or pelvis. 2. Air-fluid level in the mid esophagus compatible with gastroesophageal reflux disease or dysmotil ity. 3. Evidence of mild heart failure is present. 4. Partially extruding surgical screw from the right proximal humerus, consider dedicated right marcus ulder radiographs. 5. Additional chronic and incidental findings above. Electronically signed by: Seb Cordon MD 08/31/2023 04:59 AM AD COMPOSITOR Due to temporary technical issues with the PACS/Fluency reporting system, reports are being signed by the in house radiologists without review as a courtesy to insure prompt reporting. The interpreting radiologist is fully responsible for the content of the report.
--- NOTE | 2023-08-31 14:27 | RAD REPORT ---
EXAM DESCRIPTION: CT - Head Brain Wo Cont - 08/31/2023 6:32 am CLINICAL HISTORY: Female, 88 years old, MENTAL STATUS CHANGE COMPARISON: 08/27/2023, 08/20/2023, 08/18/2023 TECHNIQUE: CT acquisition of the head without contrast. Coronal and sagittal reformatted images prov ided. This exam was performed according to departmental dose-optimization program which includes auto mated exposure control, adjustment of the mA and/or kV according to patient size, and/or use of itera tive reconstruction technique. FINDINGS: Unchanged right occipital lobe infarct. No intracranial hemorrhage or extraaxial fluid collection. No mass effect or midline shift. Patchy periventricular and subcortical white matter hypodensities. Mild cortical volume loss with symmetric expansion of the CSF containing spaces. Brain parenchymal attenuation is otherwise normal. No evidence of large territory infarct. Intracranial vascular calcifications. The calvarium and imaged facial bones are intact. Overlying soft tissues are normal. The visualized paranasal sinuses and mastoid cells are clear. Postsurgical change of the lenses. IMPRESSION: No significant interval change from prior exams. Right occipital lobe infarct without ev idence of hemorrhage. Electronically signed by: Seb Cordon MD 08/31/2023 02:47 AM DRY TRANSFER MAN Due to temporary technical issues with the PACS/Fluency reporting system, reports are being signed by the in house radiologists without review as a courtesy to insure prompt reporting. The interpreting radiologist is fully responsible for the content of the report.
--- NOTE | 2023-08-31 15:21 | RAD REPORT ---
EXAM DESCRIPTION: CT - Ct Stroke Brain Wo Cont - 08/31/2023 3:11 pm CLINICAL HISTORY: R/O stroke Headache, drowsiness, CVA symptomology COMPARISON: Head Brain Wo Cont dated 08/31/2023; Ct Stroke Brain Wo Cont dated 08/27/2023; Chest Abdom en Pelvis W Cont dated 08/31/2023 TECHNIQUE: All CT scans are performed using dose optimization technique as appropriate and may inclu de automated exposure control or mA/KV adjustment according to patient size. FINDINGS: No intracranial hemorrhage, hydrocephalus or extra-axial fluid collection.Mild generalized brain atrophy is present with mild periventricular and deep white matter chronic microvascular ische harriet changes.No areas of brain edema or evidence of midline shift. The paranasal sinuses and mastoids are clear. The calvarium is intact. IMPRESSION: No acute intracranial abnormality. If there is continued clinical concern for CVA, MR imaging of the brain would be recommended.
[2023-08-31] MEDS ORDERED: NA CHLORIDE 0.9% 1,000 ML IV SCH (16:00)
[2023-08-31] MEDS ORDERED: DEXTROSE 10%-WATER 500 ML IV SCH (16:30)
[2023-08-31] MEDS: ENSURE HIGH PROTEIN 237 ML CAN PO SCH ×2 (17:00→20:59)
[2023-08-31 18:17] LABS: Potassium 3.7 mEq/L (3.5-5.1); Troponin High Sensitivity 42.1 pg/mL (<58.9)
--- NOTE | 2023-08-31 19:17 | RAD REPORT ---
EXAM DESCRIPTION: RAD - Chest Single View - 08/31/2023 1:52 am CLINICAL HISTORY: Female, 88 years old, hypoglycemia TECHNIQUE: 1 view COMPARISON: 08/27/2023 (report only available at the time of dictation) FINDINGS: SUPPORT DEVICES: Overlying leads. LUNGS/PLEURA: Perihilar interstitial prominence. Patchy consolidation in the upper lungs. No evidence pleural effusion or pneumothorax. HEART/MEDIASTINUM: Enlarged heart size with central pulmonary vascular prominence. Aortic atheroscler osis. OTHER: No acute osseous findings. IMPRESSION: Heart failure pattern with suspected superimposed upper lung airspace disease. Alveolar edema, infection, summation artifact and other etiologies are possible. Continued imaging follow-up r ecommended. Electronically signed by: Seb Cordon MD 08/31/2023 02:08 AM [employer] Due to temporary technical issues with the PACS/Fluency reporting system, reports are being signed by the in house radiologists without review as a courtesy to insure prompt reporting. The interpreting radiologist is fully responsible for the content of the report.
[2023-08-31] MEDS: D5 0.9 NS 1,000 ML IV SCH (20:40)
[2023-08-31 23:50] LABS: Potassium 3.8 mEq/L (3.5-5.1)
[2023-09-01] MEDS: LABETALOL 20 MG/4ML SYRINGE IV PRN ×2 (01:48→18:21)
[2023-09-01 05:05] LABS: Absolute Lymphocytes (CBC) 2.7 K/uL (0.7-4.9); Hematocrit 36.2 % (36.0-45.0); Lymphocytes % 24.2 % (15.3-44.8); MPV 7.5 fL (7.6-11.3); Platelets 395 thou/uL (152-406); RBC Red Blood Cell Count 3.89 M/uL (3.86-4.86)
[2023-09-01 05:25] LABS: Phosphorus 3.3 mg/dL (2.5-4.9)
[2023-09-01] MEDS: D5 0.9 NS 1,000 ML IV SCH ×2 (06:04→21:06)
[2023-09-01 06:51] LABS: Potassium 4.1 mEq/L (3.5-5.1)
[2023-09-01] MEDS ORDERED: METOPROLOL XL 50 MG TAB PO ONE (08:01)
[2023-09-01] MEDS: METOPROLOL XL 25 MG TAB PO SCH (08:27)
[2023-09-01] MEDS: ENSURE HIGH PROTEIN 237 ML CAN PO SCH ×5 (09:00→20:17)
[2023-09-01] MEDS ORDERED: METOPROLOL TARTRATE 5 MG/5 ML INJ IV STA (09:14)
[2023-09-01] MEDS ORDERED: METOPROLOL XL 25 MG TAB PO ONE (09:23)
[2023-09-01] MEDS: HEPARIN 5000 UNIT/ML 1 ML VIAL SQ SCH ×2 (09:31→20:16)
[2023-09-01] MEDS ORDERED: TOPIRAMATE 25 MG TAB PO SCH ×2 (10:00→21:00)
[2023-09-01] MEDS: TOPIRAMATE 25 MG TAB PO SCH (11:34)
[2023-09-01] MEDS: LIDOCAINE 4% PATCH TOP SCH (13:09)
--- NOTE | 2023-09-01 15:08 | P.PN ---
Date of Service: 08/31/23 Patient noted to have left facial weakness and slurred speech. Stroke alert called. NIH scale 12/15 Noted patient has a history of LAD right occipital stroke with some hemorrhagic conversion [address] head showed no acute CVA. No acute hemorrhage. Patient was hypoglycemic on presentation and has been receiving 10% dextrose infusion. Blood glucose readings prior to stroke alert was 70. Case discussed with neurology Dr. Francis. Patient is not a candidate for tPA Patient currently weakness is in the distribution of her previous recent stroke and may be hypoglycemia exacerbating her focal symptoms. Plan: Aspirin, Lipitor. Neurology consult DVT prophylaxis with Lovenox. Continue dextrose infusion Frequent fingerstick glucose monitoring. Bedside swallow evaluation. Speech therapy consult for speech and swallow evaluation.
--- NOTE | 2023-09-01 16:47 | PN ---
Date of Progress Note: 09/01/2023 Subjective: The patient is seen and examined at bedside. She is doing okay. Denies any other compl aints. Physical Examination: Vital Signs: Have been reviewed and are stable. General: Appears in no acute distress. Lungs: Clear to auscultation. Abdomen: Soft and nontender. Extremities: No evidence of edema. Laboratory Data: Showing stable creatinine of 1, improving from 1.4 at time of admission. Other samuel ctrolytes are stable. Current CBC showing stable hemoglobin, hematocrit, and platelet count. Impression: 1.Acute renal failure secondary to prerenal KING. Currently with improving renal function. 2.Chronic hypertension with recent CVA and occipital lobe infarction. The patient is being managed conservatively. Blood pressures are being closely monitored and medications are being adjusted. She remains on metoprolol only for blood pressures. We will continue to monitor. Plan: Overall the patient is clinically stable. Her hypoglycemia is improving. Renal function is s table. Avoid huge fluctuations in blood pressures and monitor renal function. Plan was discussed wi th the patient's daughter at bedside. All questions were answered. VV/MODL Voice ID: [id number] Report ID: [id number]
--- NOTE | 2023-09-01 17:22 | P.PN ---
Date of Service: 09/01/23 Subjective Transferred to ICU 08/31/2023 for strokelike symptoms, hypoglycemia requiring need for continual monitoring. Elevated heart rate today, controlling with metoprolol Complaining of severe headache NIH scale 12/15 ROS 10 point ROS as noted above, otherwise negative Physical Exam General: Alert, NAD, Oriented x1 HEENT: Atraumatic, Normocephalic, PERRLA Neck: Supple, 2+ carotid pulse no bruit, JVD not distended Respiratory: Clear to auscultation bilaterally, Normal air movement Cardiovascular: No edema, Normal pulses, Normal S1 S2, Irregular heart rate/rhythm (Tachycardic) Capillary refill: <2 Seconds Gastrointestinal: Normal bowel sounds, Soft and benign Musculoskeletal: No clubbing, No swelling, No contractures, left sided weakness/neglect Integumentary: No rashes, No breakdown, No significant lesion Neurological: Normal speech, Normal strength at 5/5 x4 extr Vitals Reviewed Problem list Acute metabolic encephalopathy related to severe hypoglycemia in a patient with DM2- NIDDM Left facial weakness, left sided neglect Headache Heart failure Paroxymal Afib rate Gastroesophageal reflux Stage 1 KING 2nd to mild pre-renal azotemia Recent right Occipital Lobe Infarction Right proximal humerus, extruding surgical screw Assessment and plan Acute metabolic encephalopathy related to severe hypoglycemia in a patient with DM2- NIDDM Left facial weakness, left sided neglect Headache -Head CT without contrast reports " no significant interval change from prior exams. Right occipital lobe infarct without evidence of hemorrhage." -Initial serum glucose 89, dropped to 32 after EMS treatment and D10W -While in the ED -D10w gtt glucose has stablized at 100- will continue to monitor -A1C 5.9 (08/16/23) -Accu-Chek ACHS, stopped Q1H when transferred to ICU -continue dextrose infusion -NIH scale 12/15 -CT head reports "No intracranial hemorrhage, hydrocephalus or extra-axial fluid collection. Mild generalized brain atrophy is present with mild periventricular and deep white matter chronic microvascular ischemic changes. No areas of brain edema or evidence of midline shift.The paranasal sinuses and mastoids are clear. The calvarium is intact. No acute intracranial abnormality." -Consulted Dr. Francis -Patient current weakness is in the distribution of her previous recent stroke and may be hypoglycemia exacerbating her focal symptoms. -ASA and statin daily -Topamax for headache Heart failure Paroxymal Afib rate -Chest x-ray reports heart failure pattern with suspected superimposed upper lung airspace disease -CT CAP with contrast reports evidence of mild heart failure -monitor IVF closely -elevated HR, metoprolol Gastroesophageal reflux -CT Reports air-fluid level in the mid esophagus compatible associated gastroesophageal reflux -continue home medications Right proximal humerus, extruding surgical screw -Follow-up outpatient Stage 1 KING 2nd to mild pre-renal azotemia -Consult nephrology -BNU/Creatinine 24/1.0, GFR 54 -nephrology recommends gentle hydration Recent right Occipital Lobe Infarction -Head CT without contrast reports "no significant interval change from prior exam, right occipital lobe infarct without evidence of hemorrhage' -Supportive care -Restart home medication Hx HTN Charocts arthropathy Depressive disorder hypothyroidism Restart home medication Supportive care DVT PPx heparin d/t kidney function DNR
[2023-09-01] MEDS ORDERED: ASPIRIN EC 81 MG TAB PO ONE (17:49)
[2023-09-01] MEDS ORDERED: LABETALOL 20 MG/4ML SYRINGE IV ONE (18:19)
[2023-09-01] MEDS: ASPIRIN EC 81 MG TAB PO SCH (18:21)
[2023-09-01] MEDS: ATORVASTATIN 40 MG TAB PO SCH (20:16)
[2023-09-02] MEDS ORDERED: LABETALOL 20 MG/4ML SYRINGE IV ONE ×2 (00:53→20:57)
[2023-09-02] MEDS: LABETALOL 20 MG/4ML SYRINGE IV PRN ×2 (00:55→21:02)
[2023-09-02] MEDS: LEVOTHYROXINE SOD 0.05 MG TABLET PO SCH (05:25)
[2023-09-02] MEDS ORDERED: POTASSIUM 25 MEQ EFFERV TAB PO ONE (08:30)
[2023-09-02] MEDS ORDERED: ASPIRIN EC 81 MG TAB PO ONE (08:33)
[2023-09-02] MEDS ORDERED: POTASSIUM 25 MEQ EFFERV TAB ONE (08:34)
[2023-09-02] MEDS: ENSURE HIGH PROTEIN 237 ML CAN PO SCH ×4 (09:00→21:00)
[2023-09-02] MEDS ORDERED: CEFEPIME 1 GM in NA CHLORIDE 0.9% 100 ML IV SCH (09:00)
--- NOTE | 2023-09-02 09:06 | P.PN ---
Date of Service: 09/02/23 Subjective Awake and alert, oriented x 1 Continues with left-sided inattention Glucose stable with D5 NS infusion, stopped Blood pressure elevated overnight, labetalol given, Toprol changed to 50mg today Continued headache, Topamax scheduled Leukocytosis now with sepsis. NIH scale 15 per MED CALC* ROS 10 point ROS as noted above, otherwise negative Physical Exam General: Alert, NAD, Oriented x1 HEENT: Atraumatic, Normocephalic, PERRLA Neck: Supple, 2+ carotid pulse no bruit, JVD not distended Respiratory: Clear to auscultation bilaterally, Normal air movement, symmetrical chest wall movement, on room air Cardiovascular: No edema, Normal pulses, Normal S1 S2, Irregular heart rate/rhythm (Tachycardic) Capillary refill: <2 Seconds Gastrointestinal: Normal bowel sounds, Soft and benign, ND/NT Musculoskeletal: No clubbing, No contractures, left sided weakness/neglect, left hand swelling Integumentary: No rashes, No breakdown, No significant lesion Neurological: Normal speech, left sided weakness/neglect- correction to PE from 09/01 Vitals Reviewed Problem list Acute metabolic encephalopathy related to severe hypoglycemia in a patient with DM2- NIDDM Left facial weakness, left sided neglect Headache Heart failure Paroxymal Afib rate Gastroesophageal reflux Stage 1 KING 2nd to mild pre-renal azotemia Recent right Occipital Lobe Infarction Right proximal humerus, extruding surgical screw Hypertensive Severe sepsis without septic shock unspecified Assessment and Plan Acute metabolic encephalopathy related to severe hypoglycemia in a patient with DM2- NIDDM Left facial weakness, left sided neglect Headache Severe sepsis without septic shock unspecified Hypertensive -Head CT without contrast reports " no significant interval change from prior exams. Right occipital lobe infarct without evidence of hemorrhage." -Initial serum glucose 89, dropped to 32 after EMS treatment and D10W -While in the ED -D10w gtt glucose has stablized at 100 -A1C 5.9 (08/16/23) -Accu-Chek ACHS, stopped Q1H 09/01/23 -Ensure QID, Starting PO diet bite sized if able -Speech therapy consulted 08/31/23 -Stopped dextrose infusion -NIH scale 15 (09/02) -CT head reports "No intracranial hemorrhage, hydrocephalus or extra-axial fluid collection. Mild generalized brain atrophy is present with mild periventricular and deep white matter chronic microvascular ischemic changes. No areas of brain edema or evidence of midline shift.The paranasal sinuses and mastoids are clear. The calvarium is intact. No acute intracranial abnormality." -Consulted Dr. Francis -Patient current weakness is in the distribution of her previous recent stroke and may be hypoglycemia exacerbating her focal symptoms. -ASA and statin daily -Topamax for headache -Leukocyte 23.9 up from 11, LA 2.4, blood culture pending, sputum culture ordered -cefepime/vanc ordered -CXR Lines: None. Lungs: No evidence of edema or pneumonia. Pleural: No significant pleural effusions or pneumothorax. Cardiac: Cardiomegaly. Mediastinum: Within normal limits. Bones: No acute fractures. Right proximal humerus screw. Other: None No acute cardiopulmonary disease. - metoprolol 50 mg PO daily -labetolol IV PRN Anemia likely diluted -Hgb 9 from 12.2 Left hand swelling -US left upper extremity Heart failure Paroxymal Afib rate -Chest x-ray reports heart failure pattern with suspected superimposed upper lung airspace disease -CT CAP with contrast reports evidence of mild heart failure -monitor IVF closely -elevated HR, metoprolol Gastroesophageal reflux -CT Reports air-fluid level in the mid esophagus compatible associated gastroesophageal reflux -continue home medications Right proximal humerus, extruding surgical screw -Follow-up outpatient Stage 1 KING 2nd to mild pre-renal azotemia -Nephrology following -BNU/Creatinine 28/1.04, GFR 52 -nephrology recommends gentle hydration- stopped Recent right Occipital Lobe Infarction -Head CT without contrast reports "no significant interval change from prior exam, right occipital lobe infarct without evidence of hemorrhage' -Supportive care -Restart home medication Hx HTN Charocts arthropathy Depressive disorder hypothyroidism -Restart home medication -Supportive care DVT PPx heparin d/t kidney function DNR
[2023-09-02] MEDS: METOPROLOL XL 50 MG TAB PO SCH (09:13)
[2023-09-02] MEDS: ASPIRIN EC 81 MG TAB PO SCH (09:13)
[2023-09-02] MEDS: TOPIRAMATE 25 MG TAB PO SCH (09:13)
[2023-09-02] MEDS: LIDOCAINE 4% PATCH TOP SCH (09:15)
[2023-09-02] MEDS: D5 0.9 NS 1,000 ML IV SCH (09:15)
[2023-09-02] MEDS: HEPARIN 5000 UNIT/ML 1 ML VIAL SQ SCH ×2 (09:15→21:01)
[2023-09-02] MEDS ORDERED: NA CHLORIDE 0.9% 100 ML ONE (09:35)
[2023-09-02] MEDS ORDERED: CEFEPIME 1 GM/VIAL ONE (09:35)
[2023-09-02] MEDS ORDERED: VANCOMYCIN 2 GM in NA CHLORIDE 0.9% 500 ML IVPB ONE (11:00)
--- NOTE | 2023-09-02 12:21 | RAD REPORT ---
EXAM DESCRIPTION: RAD - Chest Single View - 09/02/2023 12:01 pm CLINICAL HISTORY: r/o aspiration pneumonia COMPARISON: Chest Single View dated 08/31/2023; Chest Single View dated 08/27/2023; Chest Single View dated 08/15/2023; Chest Single View dated 07/24/2023 FINDINGS: Lines: None. Lungs: No evidence of edema or pneumonia. Pleural: No significant pleural effusions or pneumothorax. Cardiac: Cardiomegaly. Mediastinum: Within normal limits. Bones: No acute fractures. Right proximal humerus screw. Other: None IMPRESSION: No acute cardiopulmonary disease.
--- NOTE | 2023-09-02 17:41 | RAD REPORT ---
EXAM DESCRIPTION: US - UPPER EXTREMITY VENOUS UNILATE - 09/02/2023 5:26 pm CLINICAL HISTORY: left hand swelling COMPARISON: No comparisons FINDINGS: Color Doppler, grayscale, and spectral analysis was performed. Evaluation of the veins in the left upper extremity performed. Some limitation due to bandage materia l at the patient's left basilic vein PICC. No left upper extremity venous thrombosis identified. The left internal jugular vein, subclavian vein, axillary vein, brachial vein, basilic vein, cephalic vei n, radial vein, and ulnar veins were evaluated. IMPRESSION: No left upper extremity venous thrombosis identified.
[2023-09-02] MEDS: ATORVASTATIN 40 MG TAB PO SCH (21:01)
[2023-09-02] MEDS: CEFEPIME 1 GM in NA CHLORIDE 0.9% 100 ML IV SCH (21:01)
[2023-09-02 23:59] LABS: RPR (Rapid Plasma Reagin) NON-REACT (NON-REACT)
[2023-09-03] MEDS: LABETALOL 20 MG/4ML SYRINGE IV PRN (04:21)
[2023-09-03] MEDS: LEVOTHYROXINE SOD 0.05 MG TABLET PO SCH (05:41)
[2023-09-03 06:34] LABS: Albumin 2.5 g/dL (3.4-5.0); Bilirubin Total 0.5 mg/dL (0.2-1.0); Magnesium 1.9 mg/dL (1.6-2.4); Phosphorus 2.9 mg/dL (2.5-4.9); Potassium 4.4 mEq/L (3.5-5.1); Protein, Total 6.3 g/dL (6.4-8.2)
[2023-09-03 07:24] LABS: Absolute Lymphocytes (CBC) 1.6 K/uL (0.7-4.9); Hematocrit 38.5 % (36.0-45.0); Lymphocytes % 10.1 % (15.3-44.8); MPV 7.6 fL (7.6-11.3); Platelets 447 thou/uL (152-406); RBC Red Blood Cell Count 4.19 M/uL (3.86-4.86)
--- NOTE | 2023-09-03 08:36 | P.PN ---
Date of Service: 09/03/23 Subjective She is awake lying on her left side comfortably this morning Complaining of dry eyes, will provide some ointment Stage I sacral wound ROS 10 point ROS as noted above, otherwise negative Physical Exam General: Alert, NAD, Oriented x1 HEENT: Atraumatic, Normocephalic, PERRLA Neck: Supple, 2+ carotid pulse no bruit, JVD not distended Respiratory: Clear to auscultation bilaterally, Normal air movement, symmetrical chest wall movement, on room air Cardiovascular: Normal S1 S2, Irregular heart rate/rhythm (Tachycardic) Capillary refill: <2 Seconds Gastrointestinal: Soft and benign, nondistended, nontender, positive bowel sounds Musculoskeletal: No clubbing, No contractures, left sided weakness/neglect, left hand swelling Integumentary: No rashes, No breakdown, No significant lesion Neurological: Normal speech, left sided weakness/neglect Vitals Reviewed Problem list Acute metabolic encephalopathy related to severe hypoglycemia in a patient with DM2- NIDDM Left facial weakness, left sided neglect Headache Heart failure Paroxymal Afib rate Gastroesophageal reflux Stage 1 KING 2nd to mild pre-renal azotemia Recent right Occipital Lobe Infarction Right proximal humerus, extruding surgical screw Hypertensive Severe sepsis without septic shock unspecified Stage I sacral wound Assessment and Plan Acute metabolic encephalopathy related to severe hypoglycemia in a patient with DM2- NIDDM Left facial weakness, left sided neglect Headache Severe sepsis without septic shock unspecified Hypertensive -Head CT without contrast reports " no significant interval change from prior exams. Right occipital lobe infarct without evidence of hemorrhage." -Initial serum glucose 89, dropped to 32 after EMS treatment and D10W -While in the ED -D10w gtt glucose has stablized at 100 -Serum Glucose 142 (09/03/23) -A1C 5.9 (08/16/23) -Accu-Chek ACHS, stopped Q1H 09/01/23 -Ensure QID, Starting PO diet bite sized if able -Speech therapy consulted 08/31/23 -Stopped dextrose infusion -NIH scale 15 (09/02) -CT head reports "No intracranial hemorrhage, hydrocephalus or extra-axial fluid collection. Mild generalized brain atrophy is present with mild periventricular and deep white matter chronic microvascular ischemic changes. No areas of brain edema or evidence of midline shift.The paranasal sinuses and mastoids are clear. The calvarium is intact. No acute intracranial abnormality." -Consulted Dr. Francis -Patient current weakness is in the distribution of her previous recent stroke and may be hypoglycemia exacerbating her focal symptoms. -ASA and statin daily -Topamax for headache -Leukocyte 15, LA 2.4/2.4/2.3/2.5, blood culture NGTD, sputum culture ordered -cefepime/vanc ordered -CXR Lines: None. Lungs: No evidence of edema or pneumonia. Pleural: No significant pleural effusions or pneumothorax. Cardiac: Cardiomegaly. Mediastinum: Within normal limits. Bones: No acute fractures. Right proximal humerus screw. Other: None No acute cardiopulmonary disease. - metoprolol 50 mg PO daily -labetolol IV PRN Stage one sacral wound monitor reposition Anemia likely diluted- resolved -H/H Left hand swelling -US left upper extremity reports "No left upper extremity venous thrombosis identified." Heart failure Paroxymal Afib rate -Chest x-ray reports heart failure pattern with suspected superimposed upper lung airspace disease -CT CAP with contrast reports evidence of mild heart failure -monitor IVF closely -elevated HR, continue metoprolol 50 mg daily -Asa only Gastroesophageal reflux -CT Reports air-fluid level in the mid esophagus compatible associated gastroesophageal reflux -continue protonix Right proximal humerus, extruding surgical screw -Follow-up outpatient Stage 1 KING 2nd to mild pre-renal azotemia -Nephrology following -BNU/Creatinine 20/0.89, GFR 62 -nephrology recommends gentle hydration- stopped Recent right Occipital Lobe Infarction -Head CT without contrast reports "no significant interval change from prior exam, right occipital lobe infarct without evidence of hemorrhage' -Supportive care -Continue asa Hx HTN Charocts arthropathy Depressive disorder hypothyroidism -Continue home medication -Supportive care DVT PPx heparin d/t kidney function DNR <Natividad Mason - Last Filed: 09/03/23 13:50> Patient seen and examined with Ms. Mason. Hypoglycemia resolved. Patient has had sustained hyperglycemia on dextrose infusion. Dextrose infusion discontinued. Blood sugar has been stable without dextrose infusion. Patient met sepsis criteria with leukocytosis and lactic acidosis and tachycardia. Sepsis protocol initiated, patient is on broad-spectrum IV antibiotics. Blood cultures no growth to date. Patient with recent large occipital CVA with petechial hemorrhage. Dr. Francis updated. Patient is high risk for recurrent CVA given atrial fibrillation. Dr. Francis recommends no anticoagulation until 4 weeks given hemorrhagic conversion of the large occipital CVA. 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 <damaso gamino - Last Filed: 09/03/23 17:28>
[2023-09-03] MEDS: ENSURE HIGH PROTEIN 237 ML CAN PO SCH ×4 (09:00→21:00)
[2023-09-03] MEDS: CARBOXYMETHYLCELLULOSE SODIUM 0.5% 15 ML OPTH SCH (09:32)
[2023-09-03] MEDS: CEFEPIME 1 GM in NA CHLORIDE 0.9% 100 ML IV SCH ×2 (09:32→21:16)
[2023-09-03] MEDS: HEPARIN 5000 UNIT/ML 1 ML VIAL SQ SCH ×2 (09:33→21:16)
[2023-09-03] MEDS: METOPROLOL XL 50 MG TAB PO SCH (09:34)
[2023-09-03] MEDS: TOPIRAMATE 25 MG TAB PO SCH (09:35)
[2023-09-03] MEDS ORDERED: ASPIRIN EC 81 MG TAB PO ONE (09:37)
[2023-09-03] MEDS: ASPIRIN EC 81 MG TAB PO SCH (09:38)
[2023-09-03] MEDS: LIDOCAINE 4% PATCH TOP SCH (09:40)
[2023-09-03] MEDS ORDERED: SODIUM CHLORIDE 0.9% 10ML INJ IV PRN (13:52)
[2023-09-03] MEDS: PANTOPRAZOLE 40 MG INJ IVP SCH (14:41)
--- NOTE | 2023-09-03 17:56 | P.PN ---
Nephrology (S) Pt moved to the ICU over the weekend, BP labile, no resp distress noted or reported. Renal function tests stable. Primary team notes reviewed (O) Vitals, medications, blood work and imaging reviewed in the chart. General: Elderly, chronically ill appearing, frail HEENT: Atraumatic, not needing O2 Neck: Supple Respiratory: Reduced BS at bases, poor effort Cardiovascular: No sig edema, non tachy Gastrointestinal: Soft and benign, Non-distended Musculoskeletal: Shins are non tender Neuro: Awake, responds briefly, no speech dysarthria Conclusions/Impression: Stage 1 KING 2nd to posisble mild pre-renal azotemia POA, Cr level > 0.3 mg/dl from levels earlier in the mo -UA unremarkable -Cr level lower on repeat labs, IVF stopped early on as BP became accelerated and to prevent fluid overload. Chronic HTN with labile BP -Will add Enalapril to her regimen (additionally given benefit of ACEi in post CVA pts) and titrate if tolerated. Recent right Occipital Lobe Infarction, ischemic CVA -Cont anti platelet agents and statin, reccs per Neurology given reports of some focal symptoms in the setting of her presentation with hypoglycemia, possible infection, other Leukocytosis, unspecified -Infectious w/u per primary team
[2023-09-03] MEDS: ENALAPRIL 2.5 MG TAB PO SCH (21:00)
[2023-09-03] MEDS ORDERED: ENALAPRIL 2.5 MG TAB PO SCH (21:00)
[2023-09-03] MEDS: ATORVASTATIN 40 MG TAB PO SCH (21:16)
[2023-09-03] MEDS ORDERED: VANCOMYCIN 1.5 GM in NA CHLORIDE 0.9% 500 ML IVPB SCH ×2 (22:00→23:00)
[2023-09-04] MEDS ORDERED: VANCOMYCIN 1.5 GM in NA CHLORIDE 0.9% 500 ML IVPB SCH ×2
[2023-09-04 06:00] LABS: Hematocrit 39.2 % (36.0-45.0); Lymphocytes % 14.7 % (15.3-44.8); MCV 93.2 fL (80-100); MPV 8.2 fL (7.6-11.3); Platelets 392 thou/uL (152-406); RBC Red Blood Cell Count 4.21 M/uL (3.86-4.86)
[2023-09-04 06:18] LABS: Magnesium 2.1 mg/dL (1.6-2.4); Phosphorus 2.6 mg/dL (2.5-4.9)
[2023-09-04] MEDS: LEVOTHYROXINE SOD 0.05 MG TABLET PO SCH (07:04)
[2023-09-04 07:21] LABS: Albumin 2.4 g/dL (3.4-5.0); Bilirubin Total 0.5 mg/dL (0.2-1.0); Potassium 3.9 mEq/L (3.5-5.1); Protein, Total 6.1 g/dL (6.4-8.2)
[2023-09-04] MEDS: TOPIRAMATE 25 MG TAB PO SCH (08:01)
[2023-09-04] MEDS: CEFEPIME 1 GM in NA CHLORIDE 0.9% 100 ML IV SCH (08:02)
[2023-09-04] MEDS: HEPARIN 5000 UNIT/ML 1 ML VIAL SQ SCH ×2 (08:02→21:00)
[2023-09-04] MEDS: CARBOXYMETHYLCELLULOSE SODIUM 0.5% 15 ML OPTH SCH (08:02)
[2023-09-04] MEDS: PANTOPRAZOLE 40 MG INJ IVP SCH (08:03)
[2023-09-04] MEDS: METOPROLOL XL 50 MG TAB PO SCH (08:03)
[2023-09-04] MEDS: ENSURE HIGH PROTEIN 237 ML CAN PO SCH ×4 (08:03→21:00)
[2023-09-04] MEDS ORDERED: ASPIRIN EC 81 MG TAB PO ONE (08:04)
[2023-09-04] MEDS: LIDOCAINE 4% PATCH TOP SCH (08:05)
[2023-09-04] MEDS: ASPIRIN EC 81 MG TAB PO SCH (08:05)
[2023-09-04] MEDS ORDERED: AMOX/K CLAV 875 MG TAB ONE (09:48)
[2023-09-04] MEDS: AMOX/K CLAV 875 MG TAB PO SCH ×2 (09:50→21:00)
--- NOTE | 2023-09-04 10:39 | P.PN ---
Date of Service: 09/04/23 Subjective Awake, staff feeding today, tolerating well Left side neglect noted ROS 10 point ROS as noted above, otherwise negative Physical Exam General: Alert, NAD, Oriented x1 HEENT: Atraumatic, Normocephalic, PERRLA Neck: Supple, 2+ carotid pulse no bruit, JVD not distended Respiratory: Clear to auscultation bilaterally, Normal air movement, symmetrical chest wall movement, on room air Cardiovascular: Normal S1 S2, Capillary refill: <2 Seconds Gastrointestinal: Soft and benign, nondistended, nontender, positive bowel sounds Musculoskeletal: No clubbing, No contractures, left sided weakness/neglect, left hand swelling Integumentary: No rashes, No breakdown, No significant lesion Neurological: Normal speech, left sided weakness/neglect Vitals Reviewed Problem list Acute metabolic encephalopathy related to severe hypoglycemia in a patient with DM2- NIDDM Left facial weakness, left sided neglect Chronic diastolic congestive heart failure Paroxymal atrial fibrillation GERD Stage 1 KING 2nd to mild pre-renal azotemia Recent right Occipital Lobe Infarction with petechial hemorrhage Right proximal humerus, extruding surgical screw Hypertension SIRS criteria-no source of infection identified Stage I sacral wound Plan Acute metabolic encephalopathy related to severe hypoglycemia in a patient with DM2- NIDDM Left facial weakness, left sided neglect SIRS criteria-no source of infection identified Hypertension -A1C 5.9 -Ensure QID, tolerating p.o. diet with assistance -Speech therapy consulted -NIH scale 15 -Neurology believes patients current weakness is in the distribution of her previous recent stroke and may be hypoglycemia exacerbating her focal symptoms. -ASA and statin daily -Topamax for headache -Moderate leukocytosis noted, labs on the removed from chart by lab, possible erroneous result No source of infection identified thus far, was on empiric vancomycin/cefepime. No growth on blood cultures thus far Will discontinue vancomycin/cefepime switch to p.o. Augmentin for empiric antibiotic Overall improving, BGL stable, possible DC in the next 1-2 days Stage one sacral wound monitor reposition Anemia likely diluted- resolved -H/H 1338 Left hand swelling -US left upper extremity reports "No left upper extremity venous thrombosis id entified." Chronic diastolic congestive heart failure Paroxymal atrial fibrillation -Chest x-ray reports heart failure pattern with suspected superimposed upper lung airspace disease -CT CAP with contrast reports evidence of mild heart failure -monitor IVF closely -elevated HR, continue metoprolol 50 mg daily -Asa only GERD -CT Reports air-fluid level in the mid esophagus compatible associated gastroesophageal reflux -continue protonix Right proximal humerus, extruding surgical screw -Follow-up outpatient Stage 1 KING 2nd to mild pre-renal azotemia -Nephrology following Recent right Occipital Lobe Infarction with petechial hemorrhage -Head CT without contrast reports "no significant interval change from prior exam, right occipital lobe infarct without evidence of hemorrhage' -Supportive care -Continue asa Hx HTN Charocts arthropathy Depressive disorder hypothyroidism -Continue home medication -Supportive care DC back to SNF in 1-2 days DVT PPx heparin d/t kidney function DNR
--- NOTE | 2023-09-04 11:31 | P.PN ---
Nephrology (S) Remains in the ICU, BP remains labile and accelerated at times. Pt is awake and responds briefly, no resp distress. (O) Vitals, medications, blood work and imaging reviewed in the chart. General: Elderly, chronically ill appearing, frail HEENT: Atraumatic, not needing O2 Neck: Supple Respiratory: Reduced BS at bases, poor effort Cardiovascular: No sig edema, non tachy Gastrointestinal: Soft and benign, Non-distended Musculoskeletal: Shins are non tender Neuro: Awake, responds briefly, no speech dysarthria Conclusions/Impression: Stage 1 KING 2nd to posisble mild pre-renal azotemia POA, Cr level > 0.3 mg/dl from levels earlier in the mo -UA unremarkable -Cr level lower and stable on repeat labs, IVF stopped early on as BP became accelerated and to prevent fluid overload. Chronic HTN with labile BP, hypertensive urgency at times -Did add Enalapril to her regimen (additionally given benefit of ACEi in post CVA pts) and added lower dose dihydropyridine CCB to her regimen this AM. Avoid rapid dose titration and cont to monitor BP closely Recent right Occipital Lobe Infarction, ischemic CVA -Cont anti platelet agents and statin, reccs per Neurology given reports of some focal symptoms in the setting of her presentation with hypoglycemia, possible infection, other Leukocytosis, unspecified -Infectious w/u per primary team
[2023-09-04] MEDS: AMLODIPINE 5 MG TAB PO SCH (12:27)
[2023-09-04 14:28] LABS: Albumin, (SPE) 3.2 g/dL (3.8-4.8); Alpha-1-Globulins 0.3 g/dL (0.2-0.3); Alpha-2-Globulins 0.8 g/dL (0.5-0.9); Gamma Globulins 0.6 g/dL (0.8-1.7); INTERPRETATION REPORT
[2023-09-04 19:31] LABS: Phosphatidylser & Prothrom IgG 22 U (<=30); Phosphatidylser & Prothrom IgM 59 U (<=30)
[2023-09-04 20:18] VITALS: O2SAT 98
[2023-09-04] MEDS: ATORVASTATIN 40 MG TAB PO SCH (21:00)
[2023-09-04] MEDS: ENALAPRIL 2.5 MG TAB PO SCH (21:00)
[2023-09-04] MEDS ORDERED: ENALAPRIL 10 MG TAB PO SCH (21:38)
[2023-09-04] MEDS ORDERED: ENALAPRIL 10 MG TAB ONE (21:58)
[2023-09-04] MEDS: LABETALOL 20 MG/4ML SYRINGE IV PRN (22:58)
[2023-09-05] MEDS: LEVOTHYROXINE SOD 0.05 MG TABLET PO SCH (05:37)
[2023-09-05 06:31] LABS: Absolute Lymphocytes (CBC) 1.4 K/uL (0.7-4.9); Hematocrit 35.4 % (36.0-45.0); MCV 91.3 fL (80-100); Platelets 448 thou/uL (152-406); RBC Red Blood Cell Count 3.88 M/uL (3.86-4.86)
[2023-09-05 06:48] LABS: Phosphorus 2.6 mg/dL (2.5-4.9); Potassium 3.5 mEq/L (3.5-5.1)
[2023-09-05] MEDS ORDERED: ASPIRIN 81 MG CHEWABLE TABLET ONE (08:47)
[2023-09-05] MEDS: CARBOXYMETHYLCELLULOSE SODIUM 0.5% 15 ML OPTH SCH (08:51)
[2023-09-05] MEDS: METOPROLOL XL 50 MG TAB PO SCH (08:51)
[2023-09-05] MEDS: LIDOCAINE 4% PATCH TOP SCH (08:51)
[2023-09-05] MEDS: AMOX/K CLAV 875 MG TAB PO SCH (08:52)
[2023-09-05] MEDS: PANTOPRAZOLE 40 MG INJ IVP SCH (08:52)
[2023-09-05] MEDS: TOPIRAMATE 25 MG TAB PO SCH (08:52)
[2023-09-05] MEDS: ASPIRIN EC 81 MG TAB PO SCH (08:53)
[2023-09-05] MEDS: HEPARIN 5000 UNIT/ML 1 ML VIAL SQ SCH (08:53)
[2023-09-05] MEDS: AMLODIPINE 5 MG TAB PO SCH (08:54)
[2023-09-05] MEDS: ENSURE HIGH PROTEIN 237 ML CAN PO SCH (08:54)
[2023-09-05] MEDS: LABETALOL 20 MG/4ML SYRINGE IV PRN (10:19)
[2023-09-05] MEDS ORDERED: LABETALOL 20 MG/4ML SYRINGE IV ONE (10:19)
--- NOTE | 2023-09-05 12:26 | P.PN ---
Nephrology (S) Remains in the ICU, BP remains labile and accelerated at times. Pt is awake and with OT help, self feeding slowly with Rt hand spoon (O) Vitals, medications, blood work and imaging reviewed in the chart. General: Elderly, chronically ill appearing, frail HEENT: Atraumatic, not needing O2 Neck: Supple Respiratory: Reduced BS at bases, poor effort Cardiovascular: No sig edema, non tachy Gastrointestinal: Soft and benign, Non-distended Musculoskeletal: Shins are non tender Neuro: Awake, responds briefly, no speech dysarthria Conclusions/Impression: Stage 1 KING 2nd to posisble mild pre-renal azotemia POA, Cr level > 0.3 mg/dl from levels earlier in the mo -UA unremarkable -Cr level lower and stable on repeat labs, IVF stopped early on as BP became a ccelerated and to prevent fluid overload. Chronic HTN with labile BP, hypertensive urgency at times -Did add Enalapril to her regimen (additionally given benefit of ACEi in post CVA pts) and added lower dose dihydropyridine CCB to her regimen this AM. Will re-time ACEi to AM and increase dose but did avoid rapid dose titration as BP soft on admission and recommend to cont to monitor BP closely back at [place] Recent right Occipital Lobe Infarction, ischemic CVA -Cont anti platelet agents and statin, reccs per Neurology given reports of some focal symptoms in the setting of her presentation with hypoglycemia, possible infection, other Leukocytosis, unspecified -Infectious w/u per primary team
[2023-09-05 12:52] VITALS: BP 163/87; TEMP 97.9
[2023-09-05] MEDS ORDERED: ENALAPRIL 2.5 MG TAB PO SCH ×2 (13:00→21:00)
--- NOTE | 2023-09-05 14:06 | P.DS ---
Admission Date: 09/02/23 Discharge Date: 09/05/23 Disposition: TRANSFER TO [facility] Discharge Condition: FAIR Reason for Admission: hypoglycemia Consultations: Nephrology- Dr. Ryder Brief History of Present Illness: Lyubov Garcia is an 88-year-old female with past medical history of Charocts arthropathy, CVA, GERD, gout, heart failure, hypertensive disorder, PVD, UTIs, diabetes mellitus NIDDM, depressive disorder, anemia who presented to the ED via EMS from [facility] due to altered mental status related to hypoglycemia with blood glucose reading of 50. She responded to initial gluc agon from EMS and D10 in the ED, now on D10W drip with blood glucose at 32. She uses diet to treat her diabetes. Last A1C 5.9 on 08/16/2023. On examination, she is alert and oriented x 3, she reports not remembering this episode and being aware of her surroundings when she arrived to the ED. Bedside glucose at 0708 was 100 while on D10w at 75 mL/h. Initial vitals BP 122 / 58; Pulse 49; Resp 16; Temp 93.9(R); Pulse Ox 99% on R/A Laboratory evaluation serum glucose on arrival 89, WBC 10.10, H&H 15/43, platelets 371, sodium 136, potassium 3.2, BUN/creatinine 32/1.41, GFR 36. Head CT without contrast reports " no significant interval change from prior exams. Right occipital lobe infarct without evidence of hemorrhage." Chest x-ray reports "heart failure pattern with suspected superimposed upper lung airspace disease. Alveolar edema, infection, summation artifact and other etiologies are possible. Continued imaging follow-up recommended" CT CAP with contrast reports: 1. No acute findings within the chest, abdomen, or pelvis. 2. Air-fluid level in the mid esophagus compatible with gastroesophageal reflux disease or dysmotility. 3. Evidence of mild heart failure as per 4. Partially extruding surgical screw from the right proximal humerus, consider dedicated right shoulder radiograph Lyubov Garcia will be admitted to hospitalist service for further evaluation and treatment of hypoglycemia. Hospital Course: Problem list Acute metabolic encephalopathy related to severe hypoglycemia in a patient with DM2- NIDDM Left facial weakness, left sided neglect Chronic diastolic congestive heart failure Paroxymal atrial fibrillation GERD Stage 1 KING 2nd to mild pre-renal azotemia Recent right Occipital Lobe Infarction with petechial hemorrhage Right proximal humerus, extruding surgical screw Hypertension SIRS criteria-no source of infection identified Stage I sacral wound Patient was admitted to the hospital for hypoglycemia, she is not on any antidiabetic agents and this is thought to be secondary to poor oral intake. She has been off of any dextrose containing fluids since 09/02/2023 and blood sugar has remained stable. During her hospitalization she did develop leukocytosis without obvious source of infection, she was initially on vancomycin/cefepime for 2 days, her blood cultures were without growth and urine did not appear to be infected. Antibiotics were de-escalated to Augmentin which she has tolerated for the past 24 hours with continued improvement in leukocytosis. Of note patient had recent admission for CVA with small amount of petechial hemorrhage, she is currently taking aspirin daily. Recommend outpatient reevaluation by neurology to determine benefit of reinitiating further anticoagulation/dual antiplatelet therapy. Nephrology initiated additional antihypertensive agents including enalapril 2.5 mg by mouth at bedtime, metoprolol succinate dose was increased from 25 mg to 50 mg Amlodipine 5 mg daily was also added Patient should also take Augmentin 875 mg by mouth twice daily for the next 5 days If symptoms worsen, please go to the ER. Vital Signs/Physical Exam: Temp Pulse Resp BP Pulse Ox 97.9 F 93 H 18 163/87 H 99 09/05/23 12:00 09/05/23 12:00 09/05/23 12:00 09/05/23 12:00 09/05/23 12:00 General: Alert, In no apparent distress, Oriented x1 HEENT: Atraumatic, PERRLA Neck: Supple, JVD not distended Respiratory: Clear to auscultation bilaterally, Normal air movement Cardiovascular: Regular rate/rhythm, Normal S1 S2 Gastrointestinal: Normal bowel sounds, No tenderness Musculoskeletal: No tenderness Integumentary: No rashes Neurological: Other (Left sided weakness/neglect, oriented x1) Lymphatics: No axilla or inguinal lymphadenopathy Laboratory Data at Discharge: WBC 11.50 thou/uL (4.3-10.9) H 09/05/23 06:16 Hgb 12.2 g/dL (12.0-15.0) 09/05/23 06:16 Hct 35.4 % (36.0-45.0) L 09/05/23 06:16 Plt Count 448 thou/uL (152-406) H 09/05/23 06:16 Sodium 133 mEq/L (136-145) L 09/05/23 06:16 Potassium 3.5 mEq/L (3.5-5.1) 09/05/23 06:16 BUN 22 mg/dL (7-18) H 09/05/23 06:16 Creatinine 0.80 mg/dL (0.55-1.02) 09/05/23 06:16 Glucose 133 mg/dL (74-106) H 09/05/23 06:16 Phosphorus 2.6 mg/dL (2.5-4.9) 09/05/23 06:16 Magnesium 2.0 mg/dL (1.6-2.4) 09/05/23 06:16 Total Bilirubin 0.5 mg/dL (0.2-1.0) 09/04/23 05:38 AST 23 U/L (15-37) 09/04/23 05:38 ALT 15 U/L (13-56) 09/04/23 05:38 Alkaline Phosphatase 83 U/L (45-117) 09/04/23 05:38 Home Medications: Omeprazole [Prilosec] 20 mg PO DAILY 08/19/15 Furosemide 1 tab PO DAILY 11/30/20 Baclofen [Lioresal*] 10 mg PO BID 07/25/23 Benzonatate [Tessalon Perle*] 100 mg PO TID PRN 07/25/23 Citalopram [Celexa*] 5 mg PO DAILY 07/25/23 Codeine/APAP [Tylenol #3*] 1 tab PO BID 07/25/23 Docusate [Colace Cap*] 100 mg PO BID 07/25/23 Gabapentin [Neurontin*] 400 mg PO TID 07/25/23 Guaifenesin [Mucus Relief] 400 mg PO Q4HP PRN 07/25/23 Hydralazine [Apresoline*] 25 mg PO TID 07/25/23 Levothyroxine [Synthroid*] 50 mcg PO [id number] 07/25/23 Loteprednol Etabonate [Lotemax] 2 drop EACH EYE BID 07/25/23 Meclizine HCl 12.5 mg PO Q8HP PRN 07/25/23 Multivitamin with Minerals [Multivitamins with Minerals] 1 each PO DAILY 07/25/23 Polyethylene Glycol 3350 [Miralax] 17 gm PO DAILYPRN PRN 07/25/23 Potassium Chloride [Klor-Con 10] 20 meq PO DAILY 07/25/23 Sennosides [Senna] 2 tab PO DAILYPRN PRN 07/25/23 Simethicone 125 mg PO Q8HP PRN 07/25/23 bisacodyL [Dulcolax*] 2 tab PO DAILY 07/25/23 Cholecalciferol (Vitamin D3) [Vitamin D 1000 Iu Tab*] 2 tab PO DAILY 08/15/23 Aspirin [Aspirin EC 81 MG] 81 mg PO DAILY #30 tab 08/21/23 Atorvastatin Calcium [Lipitor] 40 mg PO BEDTIME tab 08/21/23 Magnesium Oxide [Mag 0X*] 400 mg PO BID tab 08/21/23 Topiramate [Topamax*] 50 mg PO BEDTIME tab 08/21/23 Ubidecarenone [Coenzyme Q10*] 200 mg PO DAILY cap 08/21/23 Amlodipine [Norvasc*] 5 mg PO DAILY tab 09/05/23 Amox/Clavulanate [Augmentin 875-125 Tab*] 875 mg PO BID 5 Days tab 09/05/23 Carboxymethylcellulose Sodium [Refresh Tears] 1 drops OPTH DAILY bottle 09/05/23 Enalapril [Vasotec*] 2.5 mg PO BEDTIME tab 09/05/23 Ensure High Protein 237 ml PO QID can 09/05/23 Metoprolol Succinate [Toprol Xl*] 50 mg PO DAILY tab 09/05/23 Physician Discharge Instructions: PROBLEM: Hypoglycemia GOAL: Clear understanding of disease process INSTRUCTIONS: Patient was admitted to the hospital for hypoglycemia, she is not on any antidiabetic agents and this is thought to be secondary to poor oral intake. She has been off of any dextrose containing fluids since 09/02/2023 and blood sugar has remained stable. During her hospitalization she did develop leukocytosis without obvious source of infection, she was initially on vancomycin/cefepime for 2 days, her blood cultures were without growth and urine did not appear to be infected. Antibiotics were de-escalated to Augmentin which she has tolerated for the past 24 hours with continued improvement in leukocytosis. Of note patient had recent admission for CVA with small amount of petechial hemorrhage, she is currently taking aspirin daily. Recommend outpatient reevaluation by neurology to determine benefit of reinitiating further anticoagulation/dual antiplatelet therapy. Nephrology initiated additional antihypertensive agents including enalapril 2.5 mg by mouth at bedtime, metoprolol succinate dose was increased from 25 mg to 50 mg Amlodipine 5 mg daily was also added Patient should also take Augmentin 875 mg by mouth twice daily for the next 5 days If symptoms worsen, please go to the ER. Diet: AHA Activity: Bedrest DME DME: Date Ordered: Name of Company: [employer] Services Needed: Intermediate Name of Company: Date or Referral: IMMUNIZATION Influenza Vaccine Indicated: No Influenza Vaccine Given: Date Given: Pneumonia Vaccine Indicated: No Pneumonia Vaccine Given: Date Given: Diet: AHA Activity: Bedrest Followup: Karthik Banks MD [Primary Care Provider] - Ld Francis MD [ASSOCIATE-ACTIVE - CAN ADMIT] - 1-2 Weeks Time spent managing pt's care (in minutes): 30
--- NOTE | 2023-09-06 13:54 | EKG ---
Test Date: 2023-08-31 Test Time: 02:47:04 [employer] Systems Administrator: JONATHAN Denton MEASUREMENT RESULTS: Intervals: Rate: 63 MA: QRSD: 82 QT: 462 QTc: 472 [place]: P: MA: QRS: -37 T: 54 INTERPRETIVE STATEMENTS: Atrial fibrillation Left axis deviation Anteroseptal infarct, age undetermined Abnormal ECG Compared to ECG 08/27/2023 10:52:08 Left-axis deviation now present Myocardial infarct finding still present Electronically Signed On 09-06-23 13:30:45 SOFTWARE SALES EXECUTIVE by Khoi Vences
[2023-09-06 15:05] LABS: Protein C Antigen 89 % normal (70-140)
[2023-09-07 03:13] LABS: Anti-Cardiolipin IgA Antibody 2.1 APL-U/mL (<20.0)
[2023-09-08 20:48] LABS: Prothrombin Gene Analysis Test NEGATIVE
== END 2023-09-05 15:08 | DRG 637 ==
LOC: ER 01:22 → ERHOLD 07:50 → 2ND 09:26 → INTOOBSV 15:46 → OBSVTOIN 15:46 → 3RD-ICU 20:50 → OBSVTOIN 09-02 15:46
PROVIDERS: ADMIT Internal Medicine; ATTEND Hospitalist
PROC: 05HY33Z Insertion of Infusion Device into Upper Vein, Percutaneous Approach (ICD-10-PCS; principal; 2023-09-02)
DX: E11.649 Type 2 diabetes mellitus with hypoglycemia without coma (principal); G93.41 Metabolic encephalopathy; I50.32 Chronic diastolic (congestive) heart failure; R65.10 Systemic inflammatory response syndrome (SIRS) of non-infectious origin without acute organ dysfunction; I11.0 Hypertensive heart disease with heart failure; M10.9 Gout, unspecified; E87.6 Hypokalemia; I48.0 Paroxysmal atrial fibrillation; N17.9 Acute kidney failure, unspecified; E03.9 Hypothyroidism, unspecified; F32.A Depression, unspecified; E11.610 Type 2 diabetes mellitus with diabetic neuropathic arthropathy; E11.40 Type 2 diabetes mellitus with diabetic neuropathy, unspecified; K21.9 Gastro-esophageal reflux disease without esophagitis; S42.301D Unspecified fracture of shaft of humerus, right arm, subsequent encounter for fracture with routine healing; R51.9 Headache, unspecified; R47.81 Slurred speech; R29.810 Facial weakness; Z66 Do not resuscitate; Z88.5 Allergy status to narcotic agent; Z88.2 Allergy status to sulfonamides; Z88.8 Allergy status to other drugs, medicaments and biological substances; Z11.52 Encounter for screening for COVID-19; Z90.49 Acquired absence of other specified parts of digestive tract; Z86.73 Personal history of transient ischemic attack (TIA), and cerebral infarction without residual deficits; Z79.890 Hormone replacement therapy; Z91.040 Latex allergy status; Z79.899 Other long term (current) drug therapy; Z96.651 Presence of right artificial knee joint; Z90.710 Acquired absence of both cervix and uterus
CPT/HCPCS: 36415; 70450; 71045; 71260; 74177; 80048; 80053; 80076; 80202; 81001; 81240; 81241; 82306; 82607; 82947; 83090; 83516; 83525; 83605; 83735; 84100; 84165; 84439; 84443; 84484; 84681; 85025; 85300; 85302; 85305; 85306; 86021; 86146; 86147; 86592; 87040; 87635; 87804; 92523; 92526; 92610; 93005; 93971; 94760; 96365; 96366; 97110; 97116; 97161; 97164; 97530; 99285; C9113; G0378; J0692; J1610; J1644; J2001; J3480; J7040; J7042; Q9967

== ENCOUNTER → 2023-09-12 | Emergency (ER) | payer OTHER ==
[~2023-09-12] MED LIST changes: -ACETAMINOPHEN 500 MG TAB ONE; +FAMOTIDINE 20 MG/2 ML VIAL IV ONE; +FENTANYL CITR 100 MCG/2 ML ONE; +HEPARIN 5000 UNIT/ML 1 ML VIAL ONE; +HEPARIN/D5W 25,000 UNIT/500 ML BAG IV ONE; -MORPHINE 2 MG/ML SYR ONE; +NA CHLORIDE 0.9% 1,000 ML ONE; +NA CHLORIDE 0.9% 100 ML ONE; +ONDANSETRON 4 MG/2 ML VIAL ONE; +PIPERACIL/TAZO 3.375 GM VIAL IV ONE
--- OUTSIDE RECORDS SUMMARY | 2023-09-12 10:34 | XMS REPORT | Continuity of Care Document ---
Author Name Unknown Address [address] [facility] [address] [place] [address] [facility] thconnect Address [address] [facility] [address] [facility] [address] [place] [address] Care Team Providers [employer] [facility] Assistant Name Role Phone Nathan Stephen MD Primary Care Physician [phone] [id number] Attending Clinician Unavailable Doctor Unassigned, [place] Attending Clinician U lucilleailHannah Eden Anavella Attending Cli nician Unavailable Raju_P Attending Clinician Unavailable Donya Craig Attending Clinician [phone] DONYA TAVARES Attending Clinician Unavailable Ferdinand Wallace S Attending Clinician [phone] MAURA THORNTON Attending Clinician UnavailMaura Hernandez MD Attending Clinician [phone], [facility] Attending Clinician Unavailable [facility], [facility] Attending Clinician Unavailab Rodolfo Randall MD Attending Clinician [id number] Admitting Clinician Unavailable CARMEN LANDAVERDE Admitting Clinician Unavailab Luigi Cook Anav Admitting Clinician U navailable Rosa_P Admitting Clinician Unavailable DONYA TAVARES Admitting Clinician Unavailable NATHAN STEPHEN Admitting Clinician Unavailab le Payers Payer Name Policy Type Policy Number Effective Date Expirati on Date Source 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 [id number] [facility] [id number] Problems Condition Name Condition Details Condition Category Status Onset Date Resolution Date Last Treatment Date Treating Clinician Comments Source Atypical chest pain Atypical chest pain Disease Active 2018-08 00:00: 00 [facility] Dizzy spells Dizzy spells Disease Active 2018-08 0 00:00: 00 [facility] Essential hypertensi on Essential hypertensi on Disease Active 2018-08 00:00: 00 [facility] Dyslipidem ia Dyslipidem ia Disease Active 2018-08 00:00: 00 [facility] KING (acute kidney injury) KING (acute kidney injury) Disease Active 2018-08 0 00:00: 00 [facility] Pain aggravated by standing Pain aggravated by standing Disease Active 09-23 00:00: 00 [facility] Intractabl e low back pain Intractabl e low back pain Disease Active 01-20 00:00: 00 [facility] "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 03-31 00:00: 00 [facility] 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 Active 03-30 00:00: 00 [facility] CHF (congestiv e heart failure) CHF (congestiv e heart failure) Disease Active 03-30 00:00: 00 [facility] Allergies, Adverse Reactions, Alerts Allergy Name Allergy Type Status Severity Reaction(s) Onset Date Inactive Date Treating Clinician Comments Source Sulfa (Sulfona mide Antibiot ics) Propensi ty to adverse reaction s Active Itching 03-30 00:00: 00 [facility] LATEX DRUG INGREDI Active Rash 03-30 00:00: 00 [facility] QUININE DRUG INGREDI Active Anxiety 03-30 00:00: 00 [facility] SULFA (SULFONA MIDE ANTIBIOT ICS) Drug Class Active ITCHING 03-30 00:00: 00 [facility] Latex Propensi ty to adverse reaction s Active Rash 03-30 00:00: 00 [facility] Quinine Propensi ty to adverse reaction s Active Anxiety 03-30 00:00: 00 [facility] Social History Social Habit Start Date Stop Date Quantity Comments Source Alcohol intake 2019-04-10 00:00:00 2019-04-10 00:00:00 0 /d [facility] Tobacco use and exposure 2015-03-31 00:00:00 2015-03-31 00:00:[address] [facility] Sex Assigned At 1935 00:00:00 1935 00:00:00 [facility] Smoking Status Start Date Stop Date Source Never smoker [facility] Medications Ordered Medication Name Filled Medication Name Start Date Stop Date Current Medication? Ordering Clinician Indication Dosage Frequency Signature (SIG) Comments Components Source clindamycin 150 mg capsule 10-27 00:00: 00 11-04 04:59 :00 No [id number] 450mg Take 3 capsules by mouth 3 (three) times daily for 7 days. [facility] colchicine (COLCRYS) tablet 0.6 mg 10-26 22:47: 00 10-26 23:02 :00 No .6mg 0.6 mg, Oral, ONCE, 1 dose, 10/27/19 at 1800, [facility] ibuprofen (IBU) tablet 600 mg 10-26 22:45: 00 10-26 21:56 :00 No 600mg 600 mg, Oral, ONCE, 1 dose, 10/27/19 at 1745, [facility] colchicine (COLCRYS) tablet 1.2 mg 10-26 22:45: 00 10-26 21:56 :00 No 1.2mg 1.2 mg, Oral, ONCE, 1 dose, 3/23/20 at 1745, BARBIE [facility] clindamycin in 5 % dextrose [...] br>Restric sathya use approved by: [employer] PROVIDER [facility] colchicine 0.6 mg tablet 10-26 00:00: 00 11-01 04:59 :00 No [id number] .6mg Take 1 tablet by mouth daily for 5 days. Take until flare up resolves [facility] furosemide 40 mg tablet 2018-08 22:49: 52 Yes 40mg Take 40 mg by mouth daily. [facility] atenolol 25 mg tablet 2018-08 22:49: 52 Yes 25mg Take 25 mg by mouth daily. [facility] gabapentin 400 mg capsule 2018-08 22:49: 52 Yes 400mg Take 400 mg by mouth 3 (three) times daily. [facility] omeprazole 20 mg capsule 2018-08 22:49: 52 Yes 20mg Take 20 mg by mouth daily. [facility] losartan-hy drochloroth iazide 50-12.5 mg per tablet 2018-08 22:49: 52 Yes 1{tbl} Take 1 tablet by mouth daily. [facility] HYDROcodone -acetaminop hen 5-325 mg tablet 2018-08 22:49: 52 Yes 1{tbl} Take 1 tablet by mouth every 6 (six) hours as needed. [facility] furosemide 40 mg tablet 2018-08 22:49: 52 Yes 40mg Take 40 mg by mouth daily. [facility] atenolol 25 mg tablet 2018-08 22:49: 52 Yes 25mg Take 25 mg by mouth daily. [facility] gabapentin 400 mg capsule 2018-08 22:49: 52 Yes 400mg Take 400 mg by mouth 3 (three) times daily. [facility] omeprazole 20 mg capsule 2018-08 22:49: 52 Yes 20mg Take 20 mg by mouth daily. [facility] losartan-hy drochloroth iazide 50-12.5 mg per tablet 2018-08 22:49: 52 Yes 1{tbl} Take 1 tablet by mouth daily. [facility] HYDROcodone -acetaminop hen 5-325 mg tablet 2018-08 22:49: 52 Yes 1{tbl} Take 1 tablet by mouth every 6 (six) hours as needed. [facility] furosemide 40 mg tablet 2018-08 22:49: 52 Yes 40mg Take 40 mg by mouth daily. [facility] atenolol 25 mg tablet 2018-08 22:49: 52 Yes 25mg Take 25 mg by mouth daily. [facility] gabapentin 400 mg capsule 2018-08 22:49: 52 Yes 400mg Take 400 mg by mouth 3 (three) times daily. [facility] omeprazole 20 mg capsule 2018-08 22:49: 52 Yes 20mg Take 20 mg by mouth daily. [facility] losartan-hy drochloroth iazide 50-12.5 mg per tablet 2018-08 22:49: 52 Yes 1{tbl} Take 1 tablet by mouth daily. [facility] HYDROcodone -acetaminop hen 5-325 mg tablet 2018-08 22:49: 52 Yes 1{tbl} Take 1 tablet by mouth every 6 (six) hours as needed. [facility] furosemide 40 mg tablet 2018-08 22:49: 52 Yes 40mg Take 40 mg by mouth daily. [facility] atenolol 25 mg tablet 2018-08 22:49: 52 Yes 25mg Take 25 mg by mouth daily. [facility] gabapentin 400 mg capsule 2018-08 22:49: 52 Yes 400mg Take 400 mg by mouth 3 (three) times daily. [facility] omeprazole 20 mg capsule 2018-08 22:49: 52 Yes 20mg Take 20 mg by mouth daily. [facility] losartan-hy drochloroth iazide 50-12.5 mg per tablet 2018-08 22:49: 52 Yes 1{tbl} Take 1 tablet by mouth daily. [facility] HYDROcodone -acetaminop hen 5-325 mg tablet 2018-08 22:49: 52 Yes 1{tbl} Take 1 tablet by mouth every 6 (six) hours as needed. [facility] furosemide 40 mg tablet 2018-08 17:49: 52 Yes 40mg Take 40 mg by mouth daily. [facility] atenolol 25 mg tablet 2018-08 17:49: 52 Yes 25mg Take 25 mg by mouth daily. [facility] gabapentin 400 mg capsule 2018-08 17:49: 52 Yes 400mg Take 400 mg by mouth 3 (three) times daily. [facility] omeprazole 20 mg capsule 2018-08 17:49: 52 Yes 20mg Take 20 mg by mouth daily. [facility] losartan-hy drochloroth iazide 50-12.5 mg per tablet 2018-08 17:49: 52 Yes 1{tbl} Take 1 tablet by mouth daily. [facility] HYDROcodone -acetaminop hen 5-325 mg tablet 2018-08 17:49: 52 Yes 1{tbl} Take 1 tablet by mouth every 6 (six) hours as needed. [facility] furosemide 40 mg tablet 2018-08 17:49: 52 Yes 40mg Take 40 mg by mouth daily. [facility] atenolol 25 mg tablet 2018-08 17:49: 52 Yes 25mg Take 25 mg by mouth daily. [facility] gabapentin 400 mg capsule 2018-08 17:49: 52 Yes 400mg Take 400 mg by mouth 3 (three) times daily. [facility] omeprazole 20 mg capsule 2018-08 17:49: 52 Yes 20mg Take 20 mg by mouth daily. [facility] losartan-hy drochloroth iazide 50-12.5 mg per tablet 2018-08 17:49: 52 Yes 1{tbl} Take 1 tablet by mouth daily. [facility] HYDROcodone -acetaminop hen 5-325 mg tablet 2018-08 17:49: 52 Yes 1{tbl} Take 1 tablet by mouth every 6 (six) hours as needed. [facility] furosemide 40 mg tablet 2018-08 17:49: 52 Yes 40mg Take 40 mg by mouth daily. [facility] atenolol 25 mg tablet 2018-08 17:49: 52 Yes 25mg Take 25 mg by mouth daily. [facility] gabapentin 400 mg capsule 2018-08 17:49: 52 Yes 400mg Take 400 mg by mouth 3 (three) times daily. [facility] omeprazole 20 mg capsule 2018-08 17:49: 52 Yes 20mg Take 20 mg by mouth daily. [facility] losartan-hy drochloroth iazide 50-12.5 mg per tablet 2018-08 17:49: 52 Yes 1{tbl} Take 1 tablet by mouth daily. [facility] HYDROcodone -acetaminop hen 5-325 mg tablet 2018-08 17:49: 52 Yes 1{tbl} Take 1 tablet by mouth every 6 (six) hours as needed. [facility] furosemide 40 mg tablet 2018-08 17:49: 52 Yes 40mg Take 40 mg by mouth daily. [facility] atenolol 25 mg tablet 2018-08 17:49: 52 Yes 25mg Take 25 mg by mouth daily. [facility] gabapentin 400 mg capsule 2018-08 17:49: 52 Yes 400mg Take 400 mg by mouth 3 (three) times daily. [facility] omeprazole 20 mg capsule 2018-08 17:49: 52 Yes 20mg Take 20 mg by mouth daily. [facility] losartan-hy drochloroth iazide 50-12.5 mg per tablet 2018-08 17:49: 52 Yes 1{tbl} Take 1 tablet by mouth daily. [facility] HYDROcodone -acetaminop hen 5-325 mg tablet 2018-08 17:49: 52 Yes 1{tbl} Take 1 tablet by mouth every 6 (six) hours as needed. [facility] furosemide 40 mg tablet 2018-08 17:49: 52 Yes 40mg Take 40 mg by mouth daily. [facility] atenolol 25 mg tablet 2018-08 17:49: 52 Yes 25mg Take 25 mg by mouth daily. [facility] gabapentin 400 mg capsule 2018-08 17:49: 52 Yes 400mg Take 400 mg by mouth 3 (three) times daily. [facility] omeprazole 20 mg capsule 2018-08 17:49: 52 Yes 20mg Take 20 mg by mouth daily. [facility] losartan-hy drochloroth iazide 50-12.5 mg per tablet 2018-08 17:49: 52 Yes 1{tbl} Take 1 tablet by mouth daily. [facility] HYDROcodone -acetaminop hen 5-325 mg tablet 2018-08 17:49: 52 Yes 1{tbl} Take 1 tablet by mouth every 6 (six) hours as needed. [facility] furosemide 40 mg tablet 2018-08 17:49: 52 Yes 40mg Take 40 mg by mouth daily. [facility] atenolol 25 mg tablet 2018-08 17:49: 52 Yes 25mg Take 25 mg by mouth daily. [facility] gabapentin 400 mg capsule 2018-08 17:49: 52 Yes 400mg Take 400 mg by mouth 3 (three) times daily. [facility] omeprazole 20 mg capsule 2018-08 17:49: 52 Yes 20mg Take 20 mg by mouth daily. [facility] losartan-hy drochloroth iazide 50-12.5 mg per tablet 2018-08 17:49: 52 Yes 1{tbl} Take 1 tablet by mouth daily. [facility] HYDROcodone -acetaminop hen 5-325 mg tablet 2018-08 17:49: 52 Yes 1{tbl} Take 1 tablet by mouth every 6 (six) hours as needed. [facility] losartan-hy drochloroth iazide 50-12.5 mg per tablet 01-10 20:11: 07 Yes 1{tbl} Take 1 tablet by mouth daily. [facility] losartan-hy drochloroth iazide 50-12.5 mg per tablet 01-10 20:11: 07 Yes 1{tbl} Take 1 tablet by mouth daily. [facility] losartan-hy drochloroth iazide 50-12.5 mg per tablet 01-10 20:11: 07 Yes 1{tbl} Take 1 tablet by mouth daily. [facility] losartan-hy drochloroth iazide 50-12.5 mg per tablet 01-10 20:11: 07 Yes 1{tbl} Take 1 tablet by mouth daily. [facility] losartan-hy drochloroth iazide 50-12.5 mg per tablet 01-10 20:11: 07 Yes 1{tbl} Take 1 tablet by mouth daily. [facility] losartan-hy drochloroth iazide 50-12.5 mg per tablet 01-10 20:11: 07 Yes 1{tbl} Take 1 tablet by mouth daily. [facility] losartan-hy drochloroth iazide 50-12.5 mg per tablet 01-10 20:11: 07 Yes 1{tbl} Take 1 tablet by mouth daily. [facility] losartan-hy drochloroth iazide 50-12.5 mg per tablet 01-10 20:11: 07 Yes 1{tbl} Take 1 tablet by mouth daily. [facility] losartan-hy drochloroth iazide 50-12.5 mg per tablet 01-10 20:11: 07 Yes 1{tbl} Take 1 tablet by mouth daily. [facility] losartan-hy drochloroth iazide 50-12.5 mg per tablet 01-10 20:11: 07 Yes 1{tbl} Take 1 tablet by mouth daily. [facility] losartan-hy drochloroth iazide 50-12.5 mg per tablet 01-10 20:11: 07 Yes 1{tbl} Take 1 tablet by mouth daily. [facility] losartan-hy drochloroth iazide 50-12.5 mg per tablet 01-10 20:11: 07 Yes 1{tbl} Take 1 tablet by mouth daily. [facility] losartan-hy drochloroth iazide 50-12.5 mg per tablet 01-10 20:11: 07 Yes 1{tbl} Take 1 tablet by mouth daily. [facility] furosemide 40 mg tablet 01-10 19:53: 40 Yes 40mg Take 40 mg by mouth daily. [facility] atenolol 25 mg tablet 01-10 19:53: 40 Yes 25mg Take 25 mg by mouth daily. [facility] gabapentin 400 mg capsule 01-10 19:53: 40 Yes 400mg Take 400 mg by mouth 3 (three) times daily. [facility] omeprazole 20 mg capsule 01-10 19:53: 40 Yes 20mg Take 20 mg by mouth daily. [facility] HYDROcodone -acetaminop hen 5-325 mg tablet 01-10 19:53: 40 Yes 1{tbl} Take 1 tablet by mouth every 6 (six) hours as needed. [facility] furosemide 40 mg tablet 01-10 19:53: 40 Yes 40mg Take 40 mg by mouth daily. [facility] atenolol 25 mg tablet 01-10 19:53: 40 Yes 25mg Take 25 mg by mouth daily. [facility] gabapentin 400 mg capsule 01-10 19:53: 40 Yes 400mg Take 400 mg by mouth 3 (three) times daily. [facility] omeprazole 20 mg capsule 01-10 19:53: 40 Yes 20mg Take 20 mg by mouth daily. [facility] HYDROcodone -acetaminop hen 5-325 mg tablet 01-10 19:53: 40 Yes 1{tbl} Take 1 tablet by mouth every 6 (six) hours as needed. [facility] furosemide 40 mg tablet 01-10 19:53: 40 Yes 40mg Take 40 mg by mouth daily. [facility] atenolol 25 mg tablet 01-10 19:53: 40 Yes 25mg Take 25 mg by mouth daily. [facility] gabapentin 400 mg capsule 01-10 19:53: 40 Yes 400mg Take 400 mg by mouth 3 (three) times daily. [facility] omeprazole 20 mg capsule 01-10 19:53: 40 Yes 20mg Take 20 mg by mouth daily. [facility] HYDROcodone -acetaminop hen 5-325 mg tablet 01-10 19:53: 40 Yes 1{tbl} Take 1 tablet by mouth every 6 (six) hours as needed. [facility] furosemide 40 mg tablet 01-10 19:53: 40 Yes 40mg Take 40 mg by mouth daily. [facility] atenolol 25 mg tablet 01-10 19:53: 40 Yes 25mg Take 25 mg by mouth daily. [facility] gabapentin 400 mg capsule 01-10 19:53: 40 Yes 400mg Take 400 mg by mouth 3 (three) times daily. [facility] omeprazole 20 mg capsule 01-10 19:53: 40 Yes 20mg Take 20 mg by mouth daily. [facility] HYDROcodone -acetaminop hen 5-325 mg tablet 01-10 19:53: 40 Yes 1{tbl} Take 1 tablet by mouth every 6 (six) hours as needed. [facility] furosemide 40 mg tablet 01-10 19:53: 40 Yes 40mg Take 40 mg by mouth daily. [facility] atenolol 25 mg tablet 01-10 19:53: 40 Yes 25mg Take 25 mg by mouth daily. [facility] gabapentin 400 mg capsule 01-10 19:53: 40 Yes 400mg Take 400 mg by mouth 3 (three) times daily. [facility] omeprazole 20 mg capsule 01-10 19:53: 40 Yes 20mg Take 20 mg by mouth daily. [facility] HYDROcodone -acetaminop hen 5-325 mg tablet 01-10 19:53: 40 Yes 1{tbl} Take 1 tablet by mouth every 6 (six) hours as needed. [facility] furosemide 40 mg tablet 01-10 19:53: 40 Yes 40mg Take 40 mg by mouth daily. [facility] atenolol 25 mg tablet 01-10 19:53: 40 Yes 25mg Take 25 mg by mouth daily. [facility] gabapentin 400 mg capsule 01-10 19:53: 40 Yes 400mg Take 400 mg by mouth 3 (three) times daily. [facility] omeprazole 20 mg capsule 01-10 19:53: 40 Yes 20mg Take 20 mg by mouth daily. [facility] HYDROcodone -acetaminop hen 5-325 mg tablet 01-10 19:53: 40 Yes 1{tbl} Take 1 tablet by mouth every 6 (six) hours as needed. [facility] furosemide 40 mg tablet 01-10 19:53: 40 Yes 40mg Take 40 mg by mouth daily. [facility] atenolol 25 mg tablet 01-10 19:53: 40 Yes 25mg Take 25 mg by mouth daily. [facility] gabapentin 400 mg capsule 01-10 19:53: 40 Yes 400mg Take 400 mg by mouth 3 (three) times daily. [facility] omeprazole 20 mg capsule 01-10 19:53: 40 Yes 20mg Take 20 mg by mouth daily. [facility] HYDROcodone -acetaminop hen 5-325 mg tablet 01-10 19:53: 40 Yes 1{tbl} Take 1 tablet by mouth every 6 (six) hours as needed. [facility] furosemide 40 mg tablet 01-10 19:53: 40 Yes 40mg Take 40 mg by mouth daily. [facility] atenolol 25 mg tablet 01-10 19:53: 40 Yes 25mg Take 25 mg by mouth daily. [facility] gabapentin 400 mg capsule 01-10 19:53: 40 Yes 400mg Take 400 mg by mouth 3 (three) times daily. [facility] omeprazole 20 mg capsule 01-10 19:53: 40 Yes 20mg Take 20 mg by mouth daily. [facility] HYDROcodone -acetaminop hen 5-325 mg tablet 01-10 19:53: 40 Yes 1{tbl} Take 1 tablet by mouth every 6 (six) hours as needed. [facility] furosemide 40 mg tablet 01-10 19:53: 40 Yes 40mg Take 40 mg by mouth daily. [facility] atenolol 25 mg tablet 01-10 19:53: 40 Yes 25mg Take 25 mg by mouth daily. [facility] gabapentin 400 mg capsule 01-10 19:53: 40 Yes 400mg Take 400 mg by mouth 3 (three) times daily. [facility] omeprazole 20 mg capsule 01-10 19:53: 40 Yes 20mg Take 20 mg by mouth daily. [facility] HYDROcodone -acetaminop hen 5-325 mg tablet 01-10 19:53: 40 Yes 1{tbl} Take 1 tablet by mouth every 6 (six) hours as needed. [facility] furosemide 40 mg tablet 01-10 19:53: 40 Yes 40mg Take 40 mg by mouth daily. [facility] atenolol 25 mg tablet 01-10 19:53: 40 Yes 25mg Take 25 mg by mouth daily. [facility] gabapentin 400 mg capsule 01-10 19:53: 40 Yes 400mg Take 400 mg by mouth 3 (three) times daily. [facility] omeprazole 20 mg capsule 01-10 19:53: 40 Yes 20mg Take 20 mg by mouth daily. [facility] HYDROcodone -acetaminop hen 5-325 mg tablet 01-10 19:53: 40 Yes 1{tbl} Take 1 tablet by mouth every 6 (six) hours as needed. [facility] furosemide 40 mg tablet 01-10 19:53: 40 Yes 40mg Take 40 mg by mouth daily. [facility] atenolol 25 mg tablet 01-10 19:53: 40 Yes 25mg Take 25 mg by mouth daily. [facility] gabapentin 400 mg capsule 01-10 19:53: 40 Yes 400mg Take 400 mg by mouth 3 (three) times daily. [facility] omeprazole 20 mg capsule 01-10 19:53: 40 Yes 20mg Take 20 mg by mouth daily. [facility] HYDROcodone -acetaminop hen 5-325 mg tablet 01-10 19:53: 40 Yes 1{tbl} Take 1 tablet by mouth every 6 (six) hours as needed. [facility] furosemide 40 mg tablet 01-10 19:53: 40 Yes 40mg Take 40 mg by mouth daily. [facility] atenolol 25 mg tablet 01-10 19:53: 40 Yes 25mg Take 25 mg by mouth daily. [facility] gabapentin 400 mg capsule 01-10 19:53: 40 Yes 400mg Take 400 mg by mouth 3 (three) times daily. [facility] omeprazole 20 mg capsule 01-10 19:53: 40 Yes 20mg Take 20 mg by mouth daily. [facility] HYDROcodone -acetaminop hen 5-325 mg tablet 01-10 19:53: 40 Yes 1{tbl} Take 1 tablet by mouth every 6 (six) hours as needed. [facility] furosemide 40 mg tablet 01-10 19:53: 40 Yes 40mg Take 40 mg by mouth daily. [facility] atenolol 25 mg tablet 01-10 19:53: 40 Yes 25mg Take 25 mg by mouth daily. [facility] gabapentin 400 mg capsule 01-10 19:53: 40 Yes 400mg Take 400 mg by mouth 3 (three) times daily. [facility] omeprazole 20 mg capsule 01-10 19:53: 40 Yes 20mg Take 20 mg by mouth daily. [facility] HYDROcodone -acetaminop hen 5-325 mg tablet 01-10 19:53: 40 Yes 1{tbl} Take 1 tablet by mouth every 6 (six) hours as needed. [facility] levothyroxi ne 88 mcg tablet 11-06 00:00: 00 Yes [facility] levothyroxi ne 88 mcg tablet 11-06 00:00: 00 Yes [facility] levothyroxi ne 88 mcg tablet 11-06 00:00: 00 Yes [facility] levothyroxi ne 88 mcg tablet 11-06 00:00: 00 Yes [facility] levothyroxi ne 88 mcg tablet 11-06 00:00: 00 Yes [facility] levothyroxi ne 88 mcg tablet 11-06 00:00: 00 Yes [facility] levothyroxi ne 88 mcg tablet 11-06 00:00: 00 Yes [facility] levothyroxi ne 88 mcg tablet 11-06 00:00: 00 Yes [facility] levothyroxi ne 88 mcg tablet 11-06 00:00: 00 Yes [facility] levothyroxi ne 88 mcg tablet 11-06 00:00: 00 Yes [facility] levothyroxi ne 88 mcg tablet 11-06 00:00: 00 Yes [facility] levothyroxi ne 88 mcg tablet 11-06 00:00: 00 Yes [facility] levothyroxi ne 88 mcg tablet 11-06 00:00: 00 Yes [facility] levothyroxi ne 88 mcg tablet 11-06 00:00: 00 Yes [facility] levothyroxi ne 88 mcg tablet 11-06 00:00: 00 Yes [facility] levothyroxi ne 88 mcg tablet 11-06 00:00: 00 Yes [facility] levothyroxi ne 88 mcg tablet 11-06 00:00: 00 Yes [facility] levothyroxi ne 88 mcg tablet 11-06 00:00: 00 Yes [facility] levothyroxi ne 88 mcg tablet 11-06 00:00: 00 Yes [facility] levothyroxi ne 88 mcg tablet 11-06 00:00: 00 Yes [facility] levothyroxi ne 88 mcg tablet 11-06 00:00: 00 Yes [facility] levothyroxi ne 88 mcg tablet 11-06 00:00: 00 Yes [facility] levothyroxi ne 88 mcg tablet 11-06 00:00: 00 Yes [facility] docusate 100 mg capsule 0 09-27 00:00: 00 Yes [id number] 100mg Take 1 capsule by mouth daily. [facility] predniSONE 20 mg tablet 0 09-27 00:00: 00 Yes [id number] 40mg Take 2 tablets by mouth every 24 (twenty-fo ur) hours. [facility] docusate 100 mg capsule 0 09-27 00:00: 00 Yes [id number] 100mg Take 1 capsule by mouth daily. [facility] predniSONE 20 mg tablet 0 09-27 00:00: 00 Yes [id number] 40mg Take 2 tablets by mouth every 24 (twenty-fo ur) hours. [facility] docusate 100 mg capsule 0 09-27 00:00: 00 Yes [id number] 100mg Take 1 capsule by mouth daily. [facility] predniSONE 20 mg tablet 0 09-27 00:00: 00 Yes [id number] 40mg Take 2 tablets by mouth every 24 (twenty-fo ur) hours. [facility] docusate 100 mg capsule 0 09-27 00:00: 00 Yes [id number] 100mg Take 1 capsule by mouth daily. [facility] predniSONE 20 mg tablet 09-27 00:00: 00 Yes [id number] 40mg Take 2 tablets by mouth every 24 (twenty-fo ur) hours. [facility] docusate 100 mg capsule 09-27 00:00: 00 Yes [id number] 100mg Take 1 capsule by mouth daily. [facility] predniSONE 20 mg tablet 09-27 00:00: 00 Yes [id number] 40mg Take 2 tablets by mouth every 24 (twenty-fo ur) hours. [facility] docusate 100 mg capsule 09-27 00:00: 00 Yes [id number] 100mg Take 1 capsule by mouth daily. [facility] predniSONE 20 mg tablet 09-27 00:00: 00 Yes [id number] 40mg Take 2 tablets by mouth every 24 (twenty-fo ur) hours. [facility] docusate 100 mg capsule 09-27 00:00: 00 Yes [id number] 100mg Take 1 capsule by mouth daily. [facility] predniSONE 20 mg tablet 09-27 00:00: 00 Yes [id number] 40mg Take 2 tablets by mouth every 24 (twenty-fo ur) hours. [facility] docusate 100 mg capsule 09-27 00:00: 00 Yes [id number] 100mg Take 1 capsule by mouth daily. [facility] predniSONE 20 mg tablet 09-27 00:00: 00 Yes [id number] 40mg Take 2 tablets by mouth every 24 (twenty-fo ur) hours. [facility] docusate 100 mg capsule 0 09-27 00:00: 00 Yes [id number] 100mg Take 1 capsule by mouth daily. [facility] docusate 100 mg capsule 09-27 00:00: 00 Yes [id number] 100mg Take 1 capsule by mouth daily. [facility] predniSONE 20 mg tablet 09-27 00:00: 00 Yes [id number] 40mg Take 2 tablets by mouth every 24 (twenty-fo ur) hours. [facility] docusate 100 mg capsule 09-27 00:00: 00 Yes [id number] 100mg Take 1 capsule by mouth daily. [facility] capsule 09-27 00:00: 00 Yes [id number] 100mg Take 1 capsule by mouth daily. [facility] docusate 100 mg capsule 09-27 00:00: 00 Yes [id number] 100mg Take 1 capsule by mouth daily. [facility] docusate 100 mg capsule 09-27 00:00: 00 Yes [id number] 100mg Take 1 capsule by mouth daily. [facility] docusate 100 mg capsule 09-27 00:00: 00 Yes [id number] 100mg Take 1 capsule by mouth daily. [facility] docusate 100 mg capsule 09-27 00:00: 00 Yes [id number] 100mg Take 1 capsule by mouth daily. [facility] docusate 100 mg capsule 09-27 00:00: 00 Yes [id number] 100mg Take 1 capsule by mouth daily. [facility] docusate 100 mg capsule 09-27 00:00: 00 Yes [id number] 100mg Take 1 capsule by mouth daily. [facility] docusate 100 mg capsule 09-27 00:00: 00 Yes [id number] 100mg Take 1 capsule by mouth daily. [facility] docusate 100 mg capsule 09-27 00:00: 00 Yes [id number] 100mg Take 1 capsule by mouth daily. [facility] predniSONE 20 mg tablet 09-27 00:00: 00 Yes [id number] 40mg Take 2 tablets by mouth every 24 (twenty-fo ur) hours. [facility] docusate 100 mg capsule 09-27 00:00: 00 Yes [id number] 100mg Take 1 capsule by mouth daily. [facility] predniSONE 20 mg tablet 09-27 00:00: 00 Yes [id number] 40mg Take 2 tablets by mouth every 24 (twenty-fo ur) hours. [facility] docusate 100 mg capsule 09-27 00:00: 00 Yes [id number] 100mg Take 1 capsule by mouth daily. [facility] predniSONE 20 mg tablet 09-27 00:00: 00 Yes [id number] 40mg Take 2 tablets by mouth every 24 (twenty-fo ur) hours. [facility] docusate 100 mg capsule 09-27 00:00: 00 Yes [id number] 100mg Take 1 capsule by mouth daily. [facility] predniSONE 20 mg tablet 09-27 00:00: 00 Yes [id number] 40mg Take 2 tablets by mouth every 24 (twenty-fo ur) hours. [facility] carvedilol 6.25 mg tablet 01-24 00:00: 00 Yes 6.25mg Take 1 tablet by mouth 2 (two) times daily with meals. [facility] simvastatin 20 mg tablet 01-24 00:00: 00 Yes 20mg Take 1 tablet by mouth at bedtime. [facility] aspirin 81 mg chewable tablet 01-24 00:00: 00 Yes 81mg Take 1 tablet by mouth daily. [facility] clopidogrel 75 mg tablet 01-24 00:00: 00 Yes 75mg Take 1 tablet by mouth daily. [facility] carvedilol 6.25 mg tablet 01-24 00:00: 00 Yes 6.25mg Take 1 tablet by mouth 2 (two) times daily with meals. [facility] simvastatin 20 mg tablet 01-24 00:00: 00 Yes 20mg Take 1 tablet by mouth at bedtime. [facility] aspirin 81 mg chewable tablet 01-24 00:00: 00 Yes 81mg Take 1 tablet by mouth daily. [facility] clopidogrel 75 mg tablet 01-24 00:00: 00 Yes 75mg Take 1 tablet by mouth daily. [facility] carvedilol 6.25 mg tablet 01-24 00:00: 00 Yes 6.25mg Take 1 tablet by mouth 2 (two) times daily with meals. [facility] simvastatin 20 mg tablet 01-24 00:00: 00 Yes 20mg Take 1 tablet by mouth at bedtime. [facility] aspirin 81 mg chewable tablet 01-24 00:00: 00 Yes 81mg Take 1 tablet by mouth daily. [facility] clopidogrel 75 mg tablet 01-24 00:00: 00 Yes 75mg Take 1 tablet by mouth daily. [facility] carvedilol 6.25 mg tablet 01-24 00:00: 00 Yes 6.25mg Take 1 tablet by mouth 2 (two) times daily with meals. [facility] simvastatin 20 mg tablet 01-24 00:00: 00 Yes 20mg Take 1 tablet by mouth at bedtime. [facility] aspirin 81 mg chewable tablet 01-24 00:00: 00 Yes 81mg Take 1 tablet by mouth daily. [facility] clopidogrel 75 mg tablet 01-24 00:00: 00 Yes 75mg Take 1 tablet by mouth daily. [facility] carvedilol 6.25 mg tablet 01-24 00:00: 00 Yes 6.25mg Take 1 tablet by mouth 2 (two) times daily with meals. [facility] simvastatin 20 mg tablet 01-24 00:00: 00 Yes 20mg Take 1 tablet by mouth at bedtime. [facility] aspirin 81 mg chewable tablet 01-24 00:00: 00 Yes 81mg Take 1 tablet by mouth daily. [facility] clopidogrel 75 mg tablet 01-24 00:00: 00 Yes 75mg Take 1 tablet by mouth daily. [facility] carvedilol 6.25 mg tablet 01-24 00:00: 00 Yes 6.25mg Take 1 tablet by mouth 2 (two) times daily with meals. [facility] simvastatin 20 mg tablet 01-24 00:00: 00 Yes 20mg Take 1 tablet by mouth at bedtime. [facility] aspirin 81 mg chewable tablet 01-24 00:00: 00 Yes 81mg Take 1 tablet by mouth daily. [facility] clopidogrel 75 mg tablet 01-24 00:00: 00 Yes 75mg Take 1 tablet by mouth daily. [facility] carvedilol 6.25 mg tablet 01-24 00:00: 00 Yes 6.25mg Take 1 tablet by mouth 2 (two) times daily with meals. [facility] simvastatin 20 mg tablet 01-24 00:00: 00 Yes 20mg Take 1 tablet by mouth at bedtime. [facility] carvedilol 6.25 mg tablet 01-24 00:00: 00 Yes 6.25mg Take 1 tablet by mouth 2 (two) times daily with meals. [facility] aspirin 81 mg chewable tablet 01-24 00:00: 00 Yes 81mg Take 1 tablet by mouth daily. [facility] clopidogrel 75 mg tablet 01-24 00:00: 00 Yes 75mg Take 1 tablet by mouth daily. [facility] simvastatin 20 mg tablet 01-24 00:00: 00 Yes 20mg Take 1 tablet by mouth at bedtime. [facility] carvedilol 6.25 mg tablet 01-24 00:00: 00 Yes 6.25mg Take 1 tablet by mouth 2 (two) times daily with meals. [facility] simvastatin 20 mg tablet 01-24 00:00: 00 Yes 20mg Take 1 tablet by mouth at bedtime. [facility] aspirin 81 mg chewable tablet 01-24 00:00: 00 Yes 81mg Take 1 tablet by mouth daily. [facility] aspirin 81 mg chewable tablet 01-24 00:00: 00 Yes 81mg Take 1 tablet by mouth daily. [facility] clopidogrel 75 mg tablet 01-24 00:00: 00 Yes 75mg Take 1 tablet by mouth daily. [facility] clopidogrel 75 mg tablet 01-24 00:00: 00 Yes 75mg Take 1 tablet by mouth daily. [facility] simvastatin 20 mg tablet 01-24 00:00: 00 Yes 20mg Take 1 tablet by mouth at bedtime. [facility] aspirin 81 mg chewable tablet 01-24 00:00: 00 Yes 81mg Take 1 tablet by mouth daily. [facility] clopidogrel 75 mg tablet 01-24 00:00: 00 Yes 75mg Take 1 tablet by mouth daily. [facility] simvastatin 20 mg tablet 01-24 00:00: 00 Yes 20mg Take 1 tablet by mouth at bedtime. [facility] aspirin 81 mg chewable tablet 01-24 00:00: 00 Yes 81mg Take 1 tablet by mouth daily. [facility] clopidogrel 75 mg tablet 01-24 00:00: 00 Yes 75mg Take 1 tablet by mouth daily. [facility] simvastatin 20 mg tablet 01-24 00:00: 00 Yes 20mg Take 1 tablet by mouth at bedtime. [facility] aspirin 81 mg chewable tablet 01-24 00:00: 00 Yes 81mg Take 1 tablet by mouth daily. [facility] clopidogrel 75 mg tablet 01-24 00:00: 00 Yes 75mg Take 1 tablet by mouth daily. [facility] simvastatin 20 mg tablet 01-24 00:00: 00 Yes 20mg Take 1 tablet by mouth at bedtime. [facility] aspirin 81 mg chewable tablet 01-24 00:00: 00 Yes 81mg Take 1 tablet by mouth daily. [facility] clopidogrel 75 mg tablet 01-24 00:00: 00 Yes 75mg Take 1 tablet by mouth daily. [facility] simvastatin 20 mg tablet 01-24 00:00: 00 Yes 20mg Take 1 tablet by mouth at bedtime. [facility] aspirin 81 mg chewable tablet 01-24 00:00: 00 Yes 81mg Take 1 tablet by mouth daily. [facility] clopidogrel 75 mg tablet 01-24 00:00: 00 Yes 75mg Take 1 tablet by mouth daily. [facility] simvastatin 20 mg tablet 01-24 00:00: 00 Yes 20mg Take 1 tablet by mouth at bedtime. [facility] aspirin 81 mg chewable tablet 01-24 00:00: 00 Yes 81mg Take 1 tablet by mouth daily. [facility] clopidogrel 75 mg tablet 01-24 00:00: 00 Yes 75mg Take 1 tablet by mouth daily. [facility] simvastatin 20 mg tablet 01-24 00:00: 00 Yes 20mg Take 1 tablet by mouth at bedtime. [facility] aspirin 81 mg chewable tablet 01-24 00:00: 00 Yes 81mg Take 1 tablet by mouth daily. [facility] clopidogrel 75 mg tablet 01-24 00:00: 00 Yes 75mg Take 1 tablet by mouth daily. [facility] simvastatin 20 mg tablet 01-24 00:00: 00 Yes 20mg Take 1 tablet by mouth at bedtime. [facility] aspirin 81 mg chewable tablet 01-24 00:00: 00 Yes 81mg Take 1 tablet by mouth daily. [facility] clopidogrel 75 mg tablet 01-24 00:00: 00 Yes 75mg Take 1 tablet by mouth daily. [facility] carvedilol 6.25 mg tablet 01-24 00:00: 00 Yes 6.25mg Take 1 tablet by mouth 2 (two) times daily with meals. [facility] simvastatin 20 mg tablet 01-24 00:00: 00 Yes 20mg Take 1 tablet by mouth at bedtime. [facility] aspirin 81 mg chewable tablet 01-24 00:00: 00 Yes 81mg Take 1 tablet by mouth daily. [facility] simvastatin 20 mg tablet 01-24 00:00: 00 Yes 20mg Take 1 tablet by mouth at bedtime. [facility] aspirin 81 mg chewable tablet 01-24 00:00: 00 Yes 81mg Take 1 tablet by mouth daily. [facility] clopidogrel 75 mg tablet 01-24 00:00: 00 Yes 75mg Take 1 tablet by mouth daily. [facility] clopidogrel 75 mg tablet 01-24 00:00: 00 Yes 75mg Take 1 tablet by mouth daily. [facility] simvastatin 20 mg tablet 01-24 00:00: 00 Yes 20mg Take 1 tablet by mouth at bedtime. [facility] aspirin 81 mg chewable tablet 01-24 00:00: 00 Yes 81mg Take 1 tablet by mouth daily. [facility] clopidogrel 75 mg tablet 01-24 00:00: 00 Yes 75mg Take 1 tablet by mouth daily. [facility] carvedilol 6.25 mg tablet 01-24 00:00: 00 Yes 6.25mg Take 1 tablet by mouth 2 (two) times daily with meals. [facility] simvastatin 20 mg tablet 01-24 00:00: 00 Yes 20mg Take 1 tablet by mouth at bedtime. [facility] aspirin 81 mg chewable tablet 01-24 00:00: 00 Yes 81mg Take 1 tablet by mouth daily. [facility] clopidogrel 75 mg tablet 01-24 00:00: 00 Yes 75mg Take 1 tablet by mouth daily. [facility] carvedilol 6.25 mg tablet 01-24 00:00: 00 Yes 6.25mg Take 1 tablet by mouth 2 (two) times daily with meals. [facility] simvastatin 20 mg tablet 01-24 00:00: 00 Yes 20mg Take 1 tablet by mouth at bedtime. [facility] aspirin 81 mg chewable tablet 01-24 00:00: 00 Yes 81mg Take 1 tablet by mouth daily. [facility] clopidogrel 75 mg tablet 01-24 00:00: 00 Yes 75mg Take 1 tablet by mouth daily. [facility] carvedilol 6.25 mg tablet 01-24 00:00: 00 Yes 6.25mg Take 1 tablet by mouth 2 (two) times daily with meals. [facility] simvastatin 20 mg tablet 01-24 00:00: 00 Yes 20mg Take 1 tablet by mouth at bedtime. [facility] aspirin 81 mg chewable tablet 01-24 00:00: 00 Yes 81mg Take 1 tablet by mouth daily. [facility] clopidogrel 75 mg tablet 01-24 00:00: 00 Yes 75mg Take 1 tablet by mouth daily. [facility] Vital Signs Vital Name Observation Time Observation Value Comments S ource Systolic blood pressure 2019-10-27 22:00:00 147 mm[Hg] [facility] Diastolic blood pressure 2019-10-27 22:00:00 70 mm[Hg] [facility] Heart rate 2019-10-27 22:00:00 59 /min [facility] Respiratory rate 2019-10-27 22:00:00 16 /min [facility] Oxygen saturation in Arterial blood by Pulse oximetry 2019-10-27 22:00:00 96 /min [facility] Body temperature 2019-10-27 20:33:[address] [facility] Body weight 2019-10-27 20:33:00 77.111 kg [facility] BMI 2019-10-27 20:33:00 25.85 kg/m2 [facility] Systolic blood pressure 2019-04-10 18:46:00 115 mm[Hg] [facility] Diastolic blood pressure 2019-04-10 18:46:00 64 mm[Hg] [facility] Heart rate 2019-04-10 18:46:00 94 /min [facility] Body height 2019-04-10 18:46:00 172.7 cm [facility] Body weight 2019-04-10 18:46:00 81.647 kg [facility] BMI 2019-04-10 18:46:00 27.37 kg/m2 [facility] Body weight 2019-03-21 19:23:00 81.647 kg [facility] BMI 2019-03-21 19:23:00 29.95 kg/m2 [facility] Body height 2019-03-20 14:32:00 165.1 cm [facility] Body weight 2019-03-20 14:32:00 81.647 kg [facility] BMI 2019-03-20 14:32:00 29.95 kg/m2 [facility] Systolic blood pressure 2019-03-04 16:15:00 138 mm[Hg] [facility] Diastolic blood pressure 2019-03-04 16:15:00 60 mm[Hg] [facility] Heart rate 2019-03-04 16:15:00 64 [facility] Body temperature 2019-03-04 16:15:[address] [facility] Respiratory rate 2019-03-04 16:15:00 16 /min [facility] Body height 2019-03-04 16:15:00 165.1 cm [facility] Body weight 2019-03-04 16:15:00 81.647 kg [facility] BMI 2019-03-04 16:15:00 29.95 kg/m2 [facility] Procedures Procedure Date / Time Performed Performing Clinician Source HOME HEALTH - OTHER 2021-07-07 06:01:00 Doctor Velma edwards, [facility] - OTHER 2021-06-21 06:01:00 Doctor Velma edwards, [facility] - OTHER 2021-06-01 05:01:00 Doctor Velma edwards, [facility] - OTHER 2021-05-24 05:01:00 Doctor Velma edwards, [facility] - OTHER 2021-05-10 05:01:00 Doctor Velma edwards, [facility] - OTHER 2021-03-29 05:01:00 Doctor Velma edwards, [place] CLINIC RECORD / SMR 2021-03-21 05:01:00 Doctor Velma edwards, [place] [id number] 2021-01-28 00:00:00 [facility] [id number] 2021-01-28 00:00:00 [facility] [id number] 2021-01-28 00:00:00 [facility] [id number] 2021-01-28 00:00:00 [facility] [id number] 2021-01-28 00:00:00 [facility] [id number] 2021-01-18 00:00:00 [facility] [id number] 2021-01-18 00:00:00 [facility] [id number] 2021-01-18 00:00:00 [facility] [id number] 2021-01-18 00:00:00 [facility] [id number] 2021-01-18 00:00:00 [facility] XR WRIST 3+ VW LEFT 2019-10-27 21:13:[address] [facility] XR HAND 3+ VW LEFT 2019-10-27 21:13:[address] [facility] URIC ACID 2019-10-27 20:56:00 [facility] BASIC METABOLIC PANEL (NA, K, CL, CO2, GLUCOSE, BUN, CREATININE, CA) 2019-10-27 20:56:[address] [facility] CBC WITH DIFFERENTIAL 2019-10-27 20:56:[address] [facility] CONSENT/REFUSAL FOR DIAGNOSIS AND TREATMENT 2019-10-27 20:21:16 Doctor Unassigned, [facility] HOME HEALTH - OTHER 2019-09-26 06:01:00 Doctor U nassigned, [facility] NON [facility] DOCUMENTATION 2019-03-26 05:01:00 Doctor Unassigned, [place] [facility] XR CHEST 2 VW 2019-03-20 17:10:47 [facility] 2019-03-20 16:54:41 Doctor Unass igned, [facility] CONSENT/REFUSAL FOR DIAGNOSIS AND TREATMENT 2019-03-20 16:10:12 Doctor Unassigned, [place] ASSIGNMENT OF BENEFITS 2019-03-20 16:08:11 Docto r Unassigned, [facility] Encounters Start Date/Time End Date/Time Encounter Type Admission Type Attending [facility] Care Facility Care Department Encounter ID Source 2021-09-01 12:17:49 Outpatient [id number] [facility] 2021-07-07 00:00:00 2021-07-07 00:00:00 Orders Only Doctor Unassigned, [place] [id number] 350.1.13.10 4.2.7.2.686 [id number] [facility] 2021-06-27 00:00:00 2021-06-27 00:00:00 Outpatient R [facility] [id number] [facility] 2021-06-22 00:00:00 2021-06-22 00:00:00 Outpatient R [facility] [id number] [facility] 2021-06-21 00:00:00 2021-06-21 00:00:00 Orders Only Doctor Unassigned, [place] [facility] [id number] 350.1.13.10 4.2.7.2.686 [id number] [facility] 2021-06-01 00:00:00 2021-06-01 00:00:00 Outpatient R [facility] [id number] [facility] 2021-06-01 00:00:00 2021-06-01 00:00:00 Orders Only Doctor Unassigned, [place] 1.2840.114 350.1.13.10 4.2.7.2.686 [id number] [facility] 2021-05-25 00:00:00 2021-05-25 00:00:00 Outpatient [facility] [id number] [facility] 2021-05-24 00:00:00 2021-05-24 00:00:00 Orders Only Doctor Unassigned, [place] [id number] 350.1.13.10 4.2.7.2.686 [id number] [facility] 2021-05-10 00:00:00 2021-05-10 00:00:00 Orders Only Doctor Unassigned, [place] 1.2.840.114 350.1.13.10 4.2.7.2.686 [id number] [facility] 2021-05-03 00:00:00 2021-05-03 00:00:00 Outpatient [facility] [id number] [facility] 2021-04-26 00:00:00 2021-04-26 00:00:00 Outpatient [facility] [id number] [facility] 2021-03-29 00:00:00 2021-03-29 00:00:00 Orders Only Doctor Unassigned, [place] 1.2840.114 350.1.13.10 4.2.7.2.686 [id number] [id number] [facility] 2021-03-21 00:00:00 2021-03-21 00:00:00 Orders Only Doctor Unassigned, [place] [facility] 1.2840.114 350.1.13.10 4.2.7.2.686 [id number] [facility] 2021-01-13 14:22:00 2021-01-31 14:54:00 Inpatient 3 [facility] Hannah plascencia CVA [id number] [facility] donnie 2019-10-28 11:32:00 2019-10-28 11:32:00 Outpatient Rosa_P MMG [id number] [facility] 2019-10-27 15:28:56 2019-10-27 18:24:00 Emergency Donya Tavares [facility] 1.2.840.114 350.1.13.10 4.2.7.2.686 [id number] [facility] 2019-10-27 15:28:56 2019-10-27 18:24:00 Emergency X DONYA TAVARES [facility] ERT [id number] [facility] 2019-10-27 00:00:00 2019-10-27 00:00:00 Orders Only Doctor Unassigned, [place] 1.2.840.114 350.1.13.10 4.2.7.2.686 [id number] [id number] [facility] 2019-09-26 00:00:00 2019-09-26 00:00:00 Orders Only Doctor Unassigned, [place] 1.2.840.114 350.1.13.10 4.2.7.2.686 [id number] [facility] 2019-09-17 00:00:00 2019-09-17 00:00:00 Outpatient R [facility] [id number] [facility] 2019-04-10 13:46:13 2019-04-10 14:32:35 Office Visit Ferdinand Sewell [facility] 1.2.840.114 350.1.13.10 4.2.7.2.686 [id number] [facility] 2019-03-26 00:00:00 2019-03-26 00:00:00 Outpatient R MAURA THORNTON [facility] JAROCHO [id number] [facility] 2019-03-26 00:00:00 2019-03-26 00:00:00 Orders Only Doctor Unassigned, [place] 1.2.840.114 350.1.13.10 4.2.7.2.686 [id number] [facility] 2019-03-21 00:00:00 2019-03-21 00:00:00 Telephone Maura Thornton [facility] 1.2.840.114 350.1.13.10 4.2.7.2.686 [id number] [facility] 2019-03-21 00:00:00 2019-03-21 00:00:00 Prep For Surgery Maura Thornton [facility] ashli [place] 1.2.840.114 350.1.13.10 4.2.7.2.686 [id number] [facility] 2019-03-20 11:08:03 2019-03-20 23:59:00 Hospital Encounter Maura Thornton [facility] 1.2.840.114 350.1.13.10 4.2.7.2.686 [id number] [facility] 2019-03-20 11:02:22 2019-03-20 11:17:22 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, [facility] Maura Thornton [facility] 1.2.840.114 350.1.13.10 4.2.7.2.686 [id number] [facility] 2019-03-20 11:07:54 2019-03-20 11:07:54 Hospital Encounter Ferdinand Sewell, [facility] 1.2.840.114 350.1.13.10 4.2.7.2.686 [id number] [facility] 2019-03-20 09:24:23 2019-03-20 09:39:23 Office Visit SewellJohanatt Narciso [facility] [place] 1.2.840.114 350.1.13.10 4.2.7.2.686 [id number] [facility] 2019-03-20 00:00:00 2019-03-20 00:00:00 Letter (Out) Maura Thornton [facility] ashli [place] 1.2.840.114 350.1.13.10 4.2.7.2.686 [id number] [facility] 2019-03-04 10:17:23 2019-03-04 11:01:19 Office Visit Rodolfo Tijerina [facility] Cathi Lozada [facility] 1.2.840.114 350.1.13.10 4.2.7.2.686 [id number] [facility] Results Test Description Test Time Test Comments Results Result Co mments Source [facility] (NA, K, CL, CO2, GLUCOSE, BUN, CREATININE, CA)2019-10-27 21:15:00* Test Item Value Reference Range Interpretation Comme nts NA (test code = 3731074603) 131 mmol/L 135-145 L K (test code = 8155568867) 5.0 mmol/L 3.5-5 CL (test code = 3982039868) 92 mmol/L 98-108 L CO2 TOTAL (test code = 0483033513) 33 mmol/L 23-31 H AGAP (test code = 8209033526) 2-16 BUN (test code = 0080194278) 25 mg/dL 7-23 H GLUCOSE (test code = 5688411237) 130 mg/dL 70-110 H CREATININE (test code = 1428706398) 1.05 mg/dL 0.5-1.04 H CALCIUM (test code = 9104247217) 9.4 mg/dL 8.6-10.6 eGFR Calculation (Non-) (test code = 4206873511) mL/min/1.73m2 eGFR Calculation () (test code = 1771681926) mL/min/1.73m2 FLORA (test code = FLORA) Association [...] imaging tests). Lab Interpretation (test code = 58701-9) [facility]normal [id number] 21:15:00* Test Item Value Reference Range Interpretation Comme nts URIC ACID (test code = 6312302667) 9.4 mg/dL 2.9-6 H Lab Interpretation (test cod e = 35881-9) [facility]normal [facility] 2 [id number] 17:44:04HISTORY: Right carpal tunnel syndrome. TECHNIQUE: PA and lateral views of the chest are obtained. 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 No acute pneumonia detected. No pneumothorax or pleuraleffusion or pulmonary congestion. Cardiothoracic ratio of dwazweievttpn42.6/27.2 cm is consistent with normal cardiac size. [...] pleuraleffusion or pulmonary congestion. Cardiothoracic ratio of dwvbvyfemkpkh13.6/27.2 cm is consistent with normal cardiac size. Prominent epicardialfat pads is suspected on both sides. Mild right apical pleural scarringnoted. Nocompression fractures seen in the thoracic vertebral bodies.CONCLUSIONS: No signs of acute cardiopulmonary disease.[facility]
--- NOTE | 2023-09-12 10:46 | EDPHYS ---
Physician Documentation [facility] Name: Lyubov Garcia Age: 88 yrs Sex: Female : 1935 Arrival Date: 09/12/2023 Time: 10:28 Bed 8 Private MD: ED Physician Franco Lam HPI: 09/12 10:37 This 88 yrs old Female presents to ER via Unassigned with complaints of larry ischemic legs. Historical: - Allergies: 11:06 Latex; ko1 11:06 Quinine Sulfate; ko1 11:06 Sulfa (Sulfonamide Antibiotics); ko1 11:06 tramadol; ko1 - PMHx: 11:06 Anemia; Charcots Arthropathy; CVA; depressive disorder; diabetes mellitus; GERD; Gout; ko1 HEART FAILURE; Hypertensive disorder; PVD; UTI; - Immunization history:: Adult Immunizations unknown. - Social history:: Smoking status: unknown. - Family history:: not pertinent. ROS: 10:37 Constitutional: Negative for fever, chills, and weight loss, Eyes: Negative for injury, larry pain, redness, and discharge, ENT: Negative for injury, pain, and discharge, Neck: Negative for injury, pain, and swelling, Cardiovascular: Negative for chest pain, palpitations, and edema, Respiratory: Negative for shortness of breath, cough, wheezing, and pleuritic chest pain, Abdomen/GI: Negative for abdominal pain, nausea, vomiting, diarrhea, and constipation, Back: Negative for injury and pain, : Negative for injury, bleeding, discharge, and swelling, Neuro: Negative for headache, weakness, numbness, tingling, and seizure, Psych: Negative for depression, anxiety, suicide ideation, homicidal ideation, and hallucinations, Allergy/Immunology: Negative for hives, rash, and allergies, Endocrine: Negative for neck swelling, polydipsia, polyuria, polyphagia, and marked weight changes, Hematologic/Lymphatic: Negative for swollen nodes, abnormal bleeding, and unusual bruising, 10:37 MS/extremity: Positive for decreased range of motion, pain, cool, no pulse, Exam: 10:37 Constitutional: This is a well developed, well nourished patient who is awake, alert, larry and in no acute distress. Head/Face: Normocephalic, atraumatic. Eyes: Pupils equal round and reactive to light, extra-ocular motions intact. Lids and lashes normal. Conjunctiva and sclera are non-icteric and not injected. Cornea within normal limits. Periorbital areas with no swelling, redness, or edema. ENT: Nares patent. No nasal discharge, no septal abnormalities noted. Tympanic membranes are normal and external auditory canals are clear. Oropharynx with no redness, swelling, or masses, exudates, or evidence of obstruction, uvula midline. Mucous membranes moist. Neck: Trachea midline, no thyromegaly or masses palpated, and no cervical lymphadenopathy. Supple, full range of motion without nuchal rigidity, or vertebral point tenderness. No Meningismus. Chest/axilla: Normal chest wall appearance and motion. Nontender with no deformity. No lesions are appreciated. Respiratory: Lungs have equal breath sounds bilaterally, clear to auscultation and percussion. No rales, rhonchi or wheezes noted. No increased work of breathing, no retractions or nasal flaring. Abdomen/GI: Soft, non-tender, with normal bowel sounds. No distension or tympany. No guarding or rebound. No evidence of tenderness throughout. Back: No spinal tenderness. No costovertebral tenderness. Full range of motion. Female : Normal external genitalia. Neuro: Awake and alert, GCS 15, oriented to person, place, time, and situation. Cranial nerves II-XII grossly intact. Motor strength 5/5 in all extremities. Sensory grossly intact. Cerebellar exam normal. Normal gait. Psych: Awake, alert, with orientation to person, place and time. Behavior, mood, and affect are within normal limits. 10:37 Cardiovascular: Rate: tachycardic, actual rate is 116 bpm, Rhythm: irregularly irregular, Pulses: not palpable, Heart sounds: normal, Edema: is not appreciated, JVD: is not appreciated, 10:48 ECG was reviewed by the Attending Physician. [facility] Vital Signs: 10:43 Weight 81.65 kg; Height 5 ft. 8 in. ; kc6 11:07 BP 160 / 102; Pulse 107; Resp 20; Pulse Ox 97% ; ll1 11:38 BP 187 / 105; Pulse 108; Resp 20 S; Pulse Ox 100% on Non-rebreather mask; kc6 11:42 Pulse Ox 99% on 2 lpm NC; kc6 10:43 Body Mass Index 27.37 (81.65 kg, 172.72 cm) [facility] MDM: 10:31 Patient medically screened. larry 10:40 MARY Risk Score: 1 - Patient's age is greater or equal to 65, 1 - 3 or more CAD risk larry factors, 1 - Known CAD, 1 - ASA use in past 7 days. Differential diagnosis: arrythmia, dehydration. Data reviewed: vital signs, nurses notes, EKG, radiologic studies. Consideration of Admission/Observation Escalation of care including admission/observation considered. I considered the following discharge prescriptions or medication management in the emergency department Medications were administered in the Emergency Department. See MAR. Independent interpretation of the following test(s) in the Emergency Department EKG: See my EKG interpretation above. Test considered but Not performed: MRI: no mri abd. Historians other than the Patient: EMS: ems well informed. Care significantly affected by the following chronic conditions: Diabetes, Hypertension, Obesity. 09/12 10:36 Order name: Basic Metabolic Panel; Complete Time: 11:33 larry 09/12 10:36 Order name: CBC with Diff; Complete Time: 11:33 larry 09/12 10:36 Order name: LFT's; Complete Time: 11:33 larry 09/12 10:36 Order name: Magnesium; Complete Time: 11:33 larry 09/12 10:36 Order name: NT PRO-BNP; Complete Time: 11:33 larry 09/12 10:36 Order name: PT-INR; Complete Time: 11:33 larry 09/12 10:36 Order name: Troponin HS; Complete Time: 11:33 larry 09/12 10:36 Order name: CK; Complete Time: 11:33 larry 09/12 11:05 Order name: Ptt, Activated; Complete Time: 11:33 kc6 09/12 10:36 Order name: XRAY Chest (1 view) [facility] 09/12 10:36 Order name: CT Aorta for Dissection; Complete Time: 11:33 larry 09/12 11:17 Order name: Lower Extremity Artery Uni Ltd; Complete Time: 11:37 EDMS 09/12 10:36 Order name: EKG; Complete Time: 10:37 larry 09/12 10:36 Order name: Cardiac monitoring; Complete Time: 10:39 larry 09/12 10:36 Order name: EKG - Nurse/Tech; Complete Time: 10:39 larry 09/12 10:36 Order name: IV Saline Lock; Complete Time: [facility] 09/12 10:36 Order name: Labs collected and sent; Complete Time: [facility] 09/12 10:36 Order name: O2 Per Protocol; Complete Time: [facility] 09/12 10:36 Order name: O2 Sat Monitoring; Complete Time: [facility] 09/12 10:36 Order name: IV Saline Lock - Large Bore; Complete Time: :39 [facility] EC:48 Rate is 116 beats/min. Rhythm is irregularly irregular. QRS Haddock is Normal. TX interval larry is normal. QRS interval is normal. QT interval is normal. No Q waves. T waves are Normal. No ST changes noted. Clinical impression: Atrial Fibrillation and No evidence of ischemia. Interpreted by me. Reviewed by me. Administered Medications: 11:20 Drug: Famotidine IVP 20 mg IVP once; dilute with 10 mL 0.9% NaCl; give over 2 minutes kc6 Route: IVP; Site: left wrist; 11:51 Follow up: Response: No adverse reaction [facility] 11:20 Drug: NS 0.9% IV 1000 ml IV at 1 bolus Per protocol; 1000 mL bolus Route: IV; Rate: 1 kc6 bolus; Site: left wrist; 11:20 Drug: Heparin (DVT/PE- Bolus per protocol) - HEParin IVP 80 units/kg IVP once; Max kc6 8,000 units {Co-Signature: koClint (Jaimee Layne RN).} Route: IVP; Site: left wrist; 12:10 Follow up: Response: No adverse reaction [facility] 11:20 Drug: Heparin (DVT/PE Drip) 18 units/kg/hr - ([place] [address] units, D5W IV 500 ml) IV kc6 at per protocol Per protocol; Max initial rate 1800 units/hr {Co-Signature: koClint (Jaimee Layne RN).} Route: IV; Rate: per protocol; Site: left wrist; 12:10 Follow up: Response: No adverse reaction; IV Status: Infusion continued upon transfer [facility] 11:20 Drug: fentaNYL (PF) IVP 50 mcg IVP once Route: IVP; Site: left wrist; kc6 11:51 Follow up: Response: No adverse reaction; Pain is decreased; RASS: Drowsy (-1) kc6 11:20 Drug: Ondansetron IVP 4 mg IVP once; over 2 minutes Route: IVP; Site: left wrist; kc6 11:51 Follow up: Response: No adverse reaction kc6 11:20 Drug: Piperacillin-Tazobactam IVPB 3.375 grams IVPB once over 60 mins; (mix in NS 100 kc6 mL) Route: IVPB; Infused Over: 60 mins; Site: left wrist; 11:52 Follow up: Response: No adverse reaction; IV Status: Completed infusion; IV Intake: kc6 100ml 11:25 Not Given (Other Intervention Used): fentanyl (pf)25 mcg IVP once kc6 Disposition Summary: 09/12/23 10:45 Transfer Ordered Notes: Transfer Location: [facility] Reason: Higher level of care larry Condition: Serious larry Problem: new larry Symptoms: are unchanged larry Accepting Physician: to [facility](09/12/23 12:16) kc6 Diagnosis - 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 EDMS EDMS 11:19 10:37 Extrem Venous W Compression Jonas+US.RAD.BRZ ordered. EDMS EDMS 11:36 10:45 to [facility] larry larry 12:16 11:36 to [facility] larry kc6
--- NOTE | 2023-09-12 10:46 | ER ---
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 Coronavirus screen: At this time, the client does not indicate any symptoms associated with coronavirus-19. Ebola Screen: No symptoms or risks identified at this time. Initial Sepsis Screen: Does the patient meet any 2 criteria? No. Patient's initial sepsis screen is negative. Does the patient have a suspected source of infection? No. Patient's initial sepsis screen is negative. Risk Assessment: Do you want to hurt yourself or someone else? Patient reports no desire to harm self or others. Onset of symptoms is unknown. Care prior to arrival: IV initiated. in the left hand, 24g. Mechanism of Injury:. Transition of care: patient was received from another setting of care (long-term care facility), [place]. 11:04 Method Of Arrival: EMS: [facility] ko1 11:04 Acuity: STEFANY 2 ko1 Triage Assessment: 11:06 General: Appears in no apparent distress. ill, Behavior is calm, cooperative, ko1 appropriate for age. Pain: Complains of pain in BLE. Historical: - Allergies: 11:06 Latex; ko1 11:06 Quinine Sulfate; ko1 11:06 Sulfa (Sulfonamide Antibiotics); ko1 11:06 tramadol; ko1 - PMHx: 11:06 Anemia; Charcots Arthropathy; CVA; depressive disorder; diabetes mellitus; GERD; Gout; ko1 HEART FAILURE; Hypertensive disorder; PVD; UTI; - Immunization history:: Adult Immunizations unknown. - Social history:: Smoking status: unknown. - Family history:: not pertinent. Screenin:44 [facility] ED Fall Risk Assessment (Adult) History of falling in the last 3 months, kc6 including since admission No falls in past 3 months (0 pts) Confusion or Disorientation Yes (5 pts) Intoxicated or Sedated No (0 pts) Impaired Gait Yes (1 pt) Mobility Assist Device Used Yes (1 pt) Altered Elimination Yes (1 pt) Score/Fall Risk Level 3 or more points = High Risk. Abuse screen: Denies threats or abuse. Denies injuries from another. Nutritional screening: No deficits noted. Tuberculosis screening: No symptoms or risk factors identified. Assessment: 11:05 General: Appears in no apparent distress. comfortable, ill, well groomed, well kc6 developed, Behavior is calm, cooperative, appropriate for age. Pain: Complains of pain in right leg and left leg. Neuro: Level of Consciousness is awake, alert, obeys commands, Oriented to person, place, time, Appropriate for age. Cardiovascular: Denies chest pain, Heart tones S1 S2 present Capillary refill < 3 seconds in bilateral fingers Rhythm is atrial fibrillation with rapid ventricular response. Respiratory: Airway is patent Trachea midline Respiratory effort is even, unlabored, Respiratory pattern is regular, symmetrical, Breath sounds are clear bilaterally. GI: No signs and/or symptoms were reported involving the gastrointestinal system. : No signs and/or symptoms were reported regarding the genitourinary system. EENT: No signs and/or symptoms were reported regarding the EENT system. Derm: Skin is mottled, Skin temperature is cold Wound noted right foot and left foot Wound is covered in dressings that are clean, dry, and intact. without redness, swelling, or drainage. Musculoskeletal: No signs and/or symptoms reported regarding the musculoskeletal system. Capillary refill is > 3 seconds, in bilateral toes. Range of motion: intact in all extremities. 11:09 General: Appears in no apparent distress. ill. Pain: Complains of pain in BLE. Neuro: ko1 No deficits noted. Cardiovascular: Rhythm is atrial fibrillation with rapid ventricular response. Respiratory: No deficits noted. GI: No deficits noted. : No deficits noted. EENT: No deficits noted. Derm: Skin is mottled, Skin temperature is cold Wound noted bilateral heels. Musculoskeletal: No deficits noted. 11:37 Reassessment: pt appears to be 75% on RA with snoring respirations. pt head and chin kc6 tilted up, head of the bed elevated, and placed pt on non-rebreather. pt is now 100%. pt is responsive to both verbal and painful stimuli. 11:47 Reassessment: pt is now with even, unlabored respirations. pt placed on 2L via NV. pt kc6 is now 99%. 11:51 Reassessment: Patient appears in no apparent distress at this time. No changes from kc6 previously documented assessment. Patient and/or family updated on plan of care and expected duration. Pain level reassessed. Vital Signs: 10:43 Weight 81.65 kg; Height 5 ft. 8 in. ; kc6 11:07 BP 160 / 102; Pulse 107; Resp 20; Pulse Ox 97% ; ll1 11:38 BP 187 / 105; Pulse 108; Resp 20 S; Pulse Ox 100% on Non-rebreather mask; kc6 11:42 Pulse Ox 99% on 2 lpm NC; kc6 10:43 Body Mass Index 27.37 (81.65 kg, 172.72 cm) kc6 ED Course: 10:31 Patient arrived in ED. bd 10:31 Franco Lam MD is Attending Physician. larry 10:36 initiated transfer to [facility]. bd 10:44 Patient has correct armband on for positive identification. Placed in gown. Bed in low kc6 position. Call light in reach. Side rails up X2. Client placed on continuous cardiac and pulse oximetry monitoring. NIBP monitoring applied. quality assurance monitor final on. 10:44 Maintain EMS IV. Dressing intact. Site clean \T\ dry. Gauge \T\ site: 24G L HAND. Inserted dana 6 saline lock: 22 gauge in left wrist, using aseptic technique. Blood collected. Patient maintains SpO2 saturation greater than 95% on room air. 11:06 Triage completed. ko1 11:06 Arm band placed on right wrist. Patient placed in an exam room, on a stretcher, on ko1 bus monitor, on pulse oximetry, Patient notified of wait time. 11:16 CT Aorta for Dissection In Process Unspecified. EDMS 11:17 Lower Extremity Artery Uni Ltd In Process Unspecified. EDMS 11:38 XRAY Chest (1 view) In Process Unspecified. EDMS 12:09 pt accepted in transfer to [facility] [id number] sexton admin approval given by sarah Elaine RN. 12:15 No provider procedures requiring assistance completed. Patient transferred, IV remains kc6 in place. Administered Medications: 11:20 Drug: Famotidine IVP 20 mg IVP once; dilute with 10 mL 0.9% NaCl; give over 2 minutes kc6 Route: IVP; Site: left wrist; 11:51 Follow up: Response: No adverse reaction kc6 11:20 Drug: NS 0.9% IV 1000 ml IV at 1 bolus Per protocol; 1000 mL bolus Route: IV; Rate: 1 kc6 bolus; Site: left wrist; 11:20 Drug: Heparin (DVT/PE- Bolus per protocol) - HEParin IVP 80 units/kg IVP once; Max kc6 8,000 units {Co-Signature: babatunde (Jaimee Layne RN).} Route: IVP; Site: left wrist; 12:10 Follow up: Response: No adverse reaction 6 11:20 Drug: Heparin (DVT/PE Drip) 18 units/kg/[place] - ([place] [address] units, D5W IV 500 ml) IV kc6 at per protocol Per protocol; Max initial rate 1800 units/hr {Co-Signature: babatunde (Jaimee Layne RN).} Route: IV; Rate: per protocol; Site: left wrist; 12:10 Follow up: Response: No adverse reaction; IV Status: Infusion continued upon transfer kc 11:20 Drug: fentaNYL (PF) IVP 50 mcg IVP once Route: IVP; Site: left wrist; kc6 11:51 Follow up: Response: No adverse reaction; Pain is decreased; RASS: Drowsy (-1) kc 11:20 Drug: Ondansetron IVP 4 mg IVP once; over 2 minutes Route: IVP; Site: left wrist; kc6 11:51 Follow up: Response: No adverse reaction [facility] 11:20 Drug: Piperacillin-Tazobactam IVPB 3.375 grams IVPB once over 60 mins; (mix in NS 100 kc6 mL) Route: IVPB; Infused Over: 60 mins; Site: left wrist; 11:52 Follow up: Response: No adverse reaction; IV Status: Completed infusion; IV Intake: kc6 100ml 11:25 Not Given (Other Intervention Used): fentanyl (pf)25 mcg IVP once kc6 Medication: 12:16 VIS not applicable for this client. kc6 Intake: 11:52 IV: 100ml; Total: 100ml. kc6 Outcome: 10:45 ER care complete, transfer ordered by MD. juarez 12:15 Transferred by helicopter to [facility], Transfer form completed. kc6 Note: report called to MELL Bunn 12:15 Condition: stable 12:15 Instructed on the need for transfer, 12:16 Patient left the ED. kc6 Signatures: Dispatcher [employer] EDMS Leslie Swartz Corey, MD MD cha Lewis, Lynsay RN RN [email or web address] Tasneem Godwin RN RN kc6 Jaimee Layne RN RN ko1 Jaimee Layne RN ko1 Corrections: (The following items were deleted from the chart) 11: 11:04 Chief complaint: EMS states: called to [place] for patient having high heart ko1 rate in the 200's, upon arrival patients heart rate was 120-130 but her BLE were cold, mottled and no pulses ko1 11: 11:04 Transition of care: patient was received from another setting of care [facility] [place] ko1
[2023-09-12 10:49] LABS: Absolute Lymphocytes (CBC) 1.7 K/uL (0.7-4.9); Hematocrit 42.7 % (36.0-45.0); Lymphocytes % 8.7 % (15.3-44.8); MCV 92.6 fL (80-100); MPV 7.9 fL (7.6-11.3); Platelets 493 thou/uL (152-406); RBC Red Blood Cell Count 4.61 M/uL (3.86-4.86)
[2023-09-12 10:52] LABS: Protime INR 1.38
[2023-09-12 11:20] LABS: Albumin 2.6 g/dL (3.4-5.0); Bilirubin Direct 0.1 mg/dL (0-0.2); Bilirubin Indirect, Calculated 0.2 mg/dL (0.2-0.8); Bilirubin Total 0.3 mg/dL (0.2-1.0); Magnesium 2.5 mg/dL (1.6-2.4); Potassium 3.7 mEq/L (3.5-5.1); Protein, Total 7.7 g/dL (6.4-8.2)
[2023-09-12 11:22] LABS: Troponin High Sensitivity 304.8 pg/mL (<58.9)
--- NOTE | 2023-09-12 11:30 | RAD REPORT ---
EXAM DESCRIPTION: CTAngio Aorta For Dissection - 09/12/2023 11:14 am CLINICAL HISTORY: Abd pain;Dissection COMPARISON: Chest Abdomen Pelvis W Cont dated 08/31/2023 TECHNIQUE: CTA of the chest, abdomen, and pelvis was performed. MIPs of the aorta were created. All CT scans are performed using dose optimization technique as appropriate and may include automated exposure control or mA/KV adjustment according to patient size. FINDINGS: Thorax: Chest Wall: Small thyroid nodules noted, the largest measuring 8 millimeters. These are follow-up. Lungs: Apical scarring. Suture line at the left lung apex. Pleura: No effusions or pneumothorax. Kae/Mediastinum: No lymphadenopathy. Aorta/Pulmonary Arteries: Unremarkable Heart: Cardiomegaly. Abdomen/Pelvis: Liver: Hepatic steatosis. Heterogeneous enhancement of the liver with suboptimal flow to the right he patic lobe. The right hepatic artery is occluded. Biliary: Cholecystectomy . Stomach: No significant focal abnormality. Duodenum: No significant focal abnormality. Pancreas: No significant abnormality. Spleen: No significant abnormality. Adrenal: No suspicious lesions. Kidney/ureter: No hydronephrosis. No renal calculi. Wedge-shaped area of hypoattenuation left kidney may be from renal infarct. Right renal cyst. Retroperitoneum: No retroperitoneal adenopathy. Vascular: Interval development of occlusion of the abdominal aorta just below the takeoff of the zenaida l arteries. The common and external iliac arteries are not opacified. There is some distal reconstitu tion of the internal iliac arteries. There is also reconstitution of the common femoral arteries due to collateral flow from the inferior epigastric arteries. A left femoral bypass graft is partially im aged in left lower extremity. The right SFA and [place] left SFA are probably occluded but not well ev aluated. Occluded right hepatic artery which is new. Bowel: No significant focal abnormality. Peritoneum: No ascites or free air. Bladder: Grossly unremarkable. Reproductive: Hysterectomy. Bones: No acute fracture. Other: n/a IMPRESSION: 1. Interval development of complete occlusion of the abdominal aorta just below the rig ht level of the renal arteries. The occlusion extends into the common iliac, external iliac, and inte rnal iliac arteries. There is some collateral flow via the inferior epigastrics to the common femoral arteries. Discussed with Dr. Lam by Dr. Roldan at 1123 on 09/12/23. 2. 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 3. Small left upper pole renal infarct.
--- NOTE | 2023-09-12 11:35 | RAD REPORT ---
EXAM DESCRIPTION: US - Lower Extremity Artery Uni Ltd - 09/12/2023 11:15 am CLINICAL HISTORY: Pain redness, cold extremities COMPARISON: None FINDINGS: Color Doppler, grayscale, and spectral analysis was performed of the right lower extremit y. Monophasic flow is present in the right common femoral artery with low peak systolic velocity 12 cm/s . The right SFA was occluded. This includes the SFA stent. The right popliteal artery was occluded. T he right posterior tibial artery was occluded. Left lower extremity exam not performed as noted above. IMPRESSION: Monophasic, slow flow in the right common femoral artery. Occlusion of the remaining art eries within the right lower extremity including the SFA, popliteal artery, posterior tibial artery.
--- NOTE | 2023-09-12 11:41 | RAD REPORT ---
EXAM DESCRIPTION: RAD - Chest Single View - 09/12/2023 11:37 am CLINICAL HISTORY: COUGH COMPARISON: Chest Single View dated 09/02/2023; Chest Single View dated 08/31/2023; Chest Single View dated 08/27/2023; Chest Single View dated 08/15/2023 FINDINGS: Lines: None. Lungs: No evidence of edema or pneumonia. Pleural: No significant pleural effusions or pneumothorax. Cardiac: Cardiomegaly. Mediastinum: Within normal limits. Bones: No acute fractures. Threaded screw in the right proximal humerus. Other: None IMPRESSION: No acute cardiopulmonary disease.
--- NOTE | 2023-09-13 13:26 | EKG ---
Test Date: 2023-09-12 Test Time: 10:31:35 Photogrammetric Stereo Compiler: [id number] MEASUREMENT RESULTS: Intervals: Rate: 116 HI: QRSD: 66 QT: 336 QTc: 467 [place]: P: HI: QRS: -32 T: 65 INTERPRETIVE STATEMENTS: Atrial fibrillation with rapid ventricular response with premature ventricular or aberrantly conducted complexes Left axis deviation Anteroseptal infarct, age undetermined Abnormal ECG Compared to ECG 08/31/2023 02:47:04 Ventricular premature complex(es) now present Myocardial infarct finding still present Electronically Signed On 09-13-23 13:22:31 ROCKET ENGINE TESTER by Khoi Vences
[2023-09-13 21:16] VITALS: BP 187/105; O2SAT 99
== END ==
LOC: ER 10:28
DX: I74.09 Other arterial embolism and thrombosis of abdominal aorta (principal); M62.82 Rhabdomyolysis; I48.20 Chronic atrial fibrillation, unspecified; I10 Essential (primary) hypertension; Z88.2 Allergy status to sulfonamides; Z88.5 Allergy status to narcotic agent; Z88.8 Allergy status to other drugs, medicaments and biological substances; Z91.040 Latex allergy status; Z86.73 Personal history of transient ischemic attack (TIA), and cerebral infarction without residual deficits
CPT/HCPCS: 85025; 80048; 36415; 83735; 82550; 85610; 80076; 85730; 84484; 83880; 71275; 74175; 71045; 93926; Q9967; J1644; J2543; J3010; J2405; J7030; 93005